=== PATIENT | female | born 1960 | race Caucasian/White ===

== ENCOUNTER 2023-06-29 09:54 | Outpatient (OUT) | payer OTHER, SELFPAY ==
[2023-06-29 10:13] LABS: Basophils Percent Auto 0.4 % (0.2-2.0); Eosinophils Absolute Auto 0.3 10^3/uL (0.0-0.7); Eosinophils Percent Auto 4.7 % (0.9-7.0); Hematocrit 39.4 % (36.0-48.0); Hemoglobin 12.9 g/dL (12.0-16.0); Immature Granulocytes Abs Auto 0.01 10^3/uL (0.00-0.03); Immature Granulocytes Pct Auto 0.1 % (0.0-0.5); Lymphocytes Absolute Auto 1.7 10^3/uL (1.2-3.8); Mean Corpuscular HGB Conc 32.7 g/dL (29.9-35.2); Mean Corpuscular Hemoglobin 29.5 pg (26.7-34.0); Mean Platelet Volume 9.3 fL (9.5-13.5); Monocytes Absolute Auto 0.7 10^3/uL (0.3-0.8); Monocytes Percent Auto 9.8 % (1.7-12.0); Neutrophils Absolute Auto 4.1 10^3/uL (1.4-6.5); Platelet Count 248 10^3/uL (150-450); Red Blood Count 4.38 10^6/uL (4.20-5.40); Red Cell Distribution Width 12.8 % (11.0-15.0); White Blood Count 6.8 10^3/uL (4.0-11.0)
[2023-06-29 10:37] LABS: Estimated Average Glucose 128 mg/dL; Glycohemoglobin A1C 6.1 % (4.5-6.2)
[2023-06-29 11:16] LABS: Alanine Aminotransferase 25 U/L (14-59); Albumin Globulin Ratio 1.1; Albumin Level 3.9 g/dL (3.4-5.0); Alkaline Phosphatase 63 U/L (46-116); Aspartate Amino Transferase 17 U/L (15-37); BUN Creatinine Ratio 41.9; Bilirubin Direct 0.2 mg/dL (0.0-0.2); Bilirubin Total 1.4 mg/dL (0.2-1.0); Calcium 9.2 mg/dL (8.5-10.1); Carbon Dioxide 32.9 mmol/L (21.0-32.0); Chloride 102 mmol/L (98-107); Chol HDL Ratio 2.4; Cholesterol 159 mg/dL (<=200); Estimated GFR (African America >60 (>=60); Estimated GFR (Non-African Ame >60 (>=60); Globulin 3.7 g/dL; Glucose 102 mg/dL (74-106); HDL Cholesterol 66 mg/dL (40-60); Potassium 3.9 mmol/L (3.5-5.1); Sodium 138 mmol/L (136-145); Thyroid Stimulating Hormone 0.841 uIU/mL (0.358-3.740); Total Protein 7.6 g/dL (6.4-8.2); Triglycerides 114 mg/dL (<=150); VLDL CHOLESTEROL 22.8 mg/dL
== END 2023-06-29 09:55 | disposition home or self-care (01) ==
PROVIDERS: PCP Family Medicine; Visit Provider Family Medicine
DX: Z00.00 Encounter for general adult medical examination without abnormal findings (principal)
CPT/HCPCS: 36415; 80048; 80061; 80076; 83036; 84443; 85025

== ENCOUNTER 2023-11-23 07:55 | Outpatient (OUT) | payer OTHER, SELFPAY ==
--- NOTE | 2023-11-23 08:08 | CT_ITS ---
[address] [address] Patient Name: TATY RICE MRN: [id number] date: 1960 Sex: F Assigned Patient Location: LAB Current Patient Location: LAB Accession/Order Number: [id number] Exam Date: 11/23/2023 09:28 Report Date: 11/23/2023 11:34 At the request of: NON-STAFF PHYSICIAN Procedure: CT abdomen pelvis w con EXAMINATION: CT abdomen pelvis w con HISTORY: Generalized Abdominal Pain R10.84 COMPARISON: CT abdomen pelvis 03/16/2022 TECHNIQUE: Axial, Coronal, and Sagittal images were obtained without and/or with IV contrast as indicated by examination type. Dose reduction techniques were achieved by using automated exposure control and/or adjustment of mA and/or kV according to patient size and/or use of iterative reconstruction technique. FINDINGS: LUNG BASES: No visible pulmonary or pleural disease. LIVER: No enlargement, atrophy, suspicious density, or significant focal lesion. BILIARY: No dilatation or calcification. PANCREAS: No lesion, fluid collection, or abnormal duct dilatation. SPLEEN: No enlargement or focal lesion. ADRENALS: No mass or enlargement. KIDNEYS: Stable benign-appearing right renal cyst. No mass, obstruction, or calcification. BOWEL/MESENTERY: Normal appendix. A few diverticula arising from sigmoid colon without acute inflammatory changes. No visible mass, obstruction, or bowel wall thickening. AORTA/VASCULAR: No aneurysm or dissection. RETROPERITONEUM: No mass or adenopathy. LYMPH NODES: No adenopathy. URINARY BLADDER: No visible focal wall thickening, lesion, or calculus. PELVIC ORGANS: No visible mass. Pelvic organs appropriate for patient age. ABDOMINAL WALL: Small fat filled inguinal hernias bilaterally without strangulation. BONES: No bony lesion or fracture. OTHER: Negative. CT/CT abdomen pelvis w con IMPRESSION: 1. No abnormal or suspicious findings to account for patient's symptoms. Electronically authenticated by: KATHERINE SANTOS Date: 11/23/2023 11:34
[2023-11-23 08:19] LABS: Estimated GFR (African America >60 (>=60); Estimated GFR (Non-African Ame >60 (>=60)
== END 2023-11-23 07:56 | disposition home or self-care (01) ==
LOC: LAB 07:57
PROVIDERS: PCP Family Medicine
DX: R10.84 Generalized abdominal pain (principal)
CPT/HCPCS: 36415; 74177; 82565; 84520; Q9967

== ENCOUNTER 2023-11-29 15:41 | Outpatient (OUT) | payer OTHER, SELFPAY ==
--- NOTE | 2023-11-29 15:44 | MM_ITS ---
Patient Name: TATY RICE MR#: [id number] : 1960 Exam Date: 11/29/2023 Ordering Doctor: DR NANCY ALVAREZ . RADIOLOGY REPORT PROCEDURE: MM TOMOSYNTHESIS SCREENING BI COMPARISON: MG MAMM SCREEN 3D ZACK CAD, 01/10/2022. INDICATIONS: screening Calculator Name NCI Breast Cancer Risk Assessment Tool 5 Year Breast Cancer Risk 1.90% Lifetime Breast Cancer Risk 8.10% Personal Breast Cancer No Personal Ovarian Cancer No Treatments None Family Cancers Aunt-maternal with breast cancer at age 65; Aunt-paternal with colon cancer at age 70. LOCATION: [facility] BREAST COMPOSITION: Scattered areas fibroglandular density. FINDINGS: DIAGNOSTIC CATEGORY 2--BENIGN FINDING. NO CHANGE FROM COMPARISON. Scattered benign-appearing nodules are present. Scattered benign-appearing calcifications are present. Scattered benign-appearing lymph nodes are present. RIGHT BREAST: No significant suspicious finding. LEFT BREAST: No significant suspicious finding. RECOMMENDATIONS: ROUTINE MAMMOGRAM AND CLINICAL EVALUATION IN 12 MONTHS. PLEASE NOTE: A NORMAL MAMMOGRAM DOES NOT EXCLUDE THE POSSIBILITY OF BREAST CANCER. A CLINICALLY SUSPICIOUS PALPABLE LUMP SHOULD BE BIOPSIED. Dictated by: Josemanuel Sun MD on 11/30/2023 at 07:49 Approved by: Josemanuel Sun MD on 11/30/2023 at 07:51
--- OUTSIDE RECORDS SUMMARY | 2023-11-29 16:02 | XMS_ITS | CCD ---
Author Name Unknown Address [address] [place] [address] Organization [facility] Care Team Providers Care Statistics Tutor Name Role Phone [address]6877, OSCAR CAICEDO Attending Unava ilable KARASIK, GARRETT Attending Unavailable NILL, JOHN Davis Attending Unavailable KARASIK, GARRETT Attending Unavailable KARASIK, DR TUCKER Attending Unavailable NADERER, DR BLADIMIR Nicolas Primary Care Unavailable KARASIK, DR TUCKER Admitting Unavailable KARASIK, DR TUCKER Consulting Unavailable NADERER, DR BLADIMIR Nicolas Consulting Unavailable KARASIK, DR TUCKER Procedure Practitioner Unava ilable DORKOSKLASHAE, AL Consulting Unavailable MCCORNACKKATHERINE Consulting Unavailable NADERER, DR BLADIMIR Nicolas Primary Care Unavailable KARASIK, DR TUCKER Attending Unavailable KARASIK, DR TUCKER Admitting Unavailable KARASIK, DR TUCKER Consulting Unavailable AGUBOSIM, NATHAN Consulting Unavailable LONG, TARUN Consulting Unavailable NILL, DR LOPEZ Attending Unavailable NADERER, DR BLADIMIR Nicolas Primary Care Unavailable NILL, DR LOPEZ Admitting Unavailable NILL, DR LOPEZ Consulting Unavailable AGUBOSIM, NATHAN Consulting Unavailable DORKOSKIE, AL Consulting Unavailable NADERER, DR BLADIMIR Nicolas Primary Care Unavailable KARASIK, DR TUCKER Consulting Unavailable KARASIK, DR TUCKER Admitting Unavailable KARASIK, DR TUCKER Attending Unavailable NADERER, DR BLADIMIR Nicolas Primary Care Unavailable KARASIK, DR TUCKER Admitting Unavailable KARASIK, DR TUCKER Attending Unavailable KARASIK, DR TUCKER Consulting Unavailable NADERER, DR BLADIMIR Nicolas Primary Care Unavailable KARASIK, DR TUCKER Attending Unavailable KARASIK, DR TUCKER Admitting Unavailable KARASIK, DR TUCKER Consulting Unavailable NADERER, DR BLADIMIR Nicolas Primary Care Unavailable KARASIK, DR TUCKER Attending Unavailable KARASIK, DR TUCKER Admitting Unavailable KARASIK, DR TUCKER Consulting Unavailable KARASIK, DR TUCKER Attending Unavailable KARASIK, DR TUCKER Admitting Unavailable KARASIK, DR TUCKER Consulting Unavailable NADERER, DR BLADIMIR Nicolas Primary Care Unavailable ZIEBER, DR KATHERINE Davis Consulting Unavailable MISC, DR DEL RIO Attending Unavailable NADERER, DR BLADIMIR Nicolas Primary Care Unavailable MISC, DR DEL RIO Admitting Unavailable MISC, DR DEL RIO Consulting Unavailable NADERER, DR BLADIMIR Nicolas Primary Care Unavailable KARASIK, DR TUCKER Attending Unavailable KARASIK, DR TUCKER Consulting Unavailable KARASIK, DR TUCKER Admitting Unavailable WEST, DR REGINA Sarmiento Consulting Unavailable NADERER, DR BLADIMIR Nicolas Primary Care Unavailable KARASIK, DR TUCKER Attending Unavailable KARASIK, DR TUCKER Admitting Unavailable KARASIK, DR TUCKER Consulting Unavailable WEST, DR REGINA Sarmiento Consulting Unavailable NADERER, DR BLADIMIR Nicolas Consulting Unavailable NADERER, DR BLADIMIR Nicolas Attending Unavailable NADERER, DR BLADIMIR Nicolas Admitting Unavailable NADERER, DR LBADIMIR Nicolas Primary Care Unavailable LLOYD, MISTY Consulting Unavailable Allergies Allergy Classification Reported Allergen(s) Allergy Type Date of Onset Reaction(s) Facility (1 source) Desonide Drug Allergy [facility] Repository Problems Active Problems Problem Classification Problem Date Documented Da te Episodic/Chronic Cancer of uterus (1 source) Malignant neoplasm of endometrium; Translations: [MALIGNANT NEOPLASM OF ENDOMETRIUM] Onset: 06-27-2022 Chronic Congestive heart failure; nonhypertensive (1 source) Chronic diastolic (congestive) heart failure; Translations: [CHRONIC DIASTOLIC HEART FAILURE] Onset: 06-27-2022 Chronic Deficiency and other anemia (5 sources) Anemia, unspecified; Translations: [ANEMIA UNSPECIFIED] Onset: 06-02-2022 Episodic Disorders of lipid metabolism (1 source) Hyperlipidemia, unspecified; Translations: [HYPERLIPIDEMIA UNSPECIFIED] Onset: 06-27-2022 Chronic Essential hypertension (1 source) Essential (primary) hypertension; Translations: [ESSENTIAL PRIMARY HYPERTENSION] Onset: 06-27-2022 Chronic Heart valve disorders (1 source) Nonrheumatic aortic (valve) insufficiency; Translations: [NONRHEUMATIC AORTIC INSUFFICIENCY] Onset: 06-27-2022 Chronic Hypertension with complications and secondary hypertension (1 source) Hypertensive heart disease with heart failure; Translations: [HTN HEART DISEASE W/HEART FAIL] Onset: 06-27-2022 Chronic Menopausal disorders (5 sources) Postmenopausal bleeding; Translations: [POSTMENOPAUSAL BLEEDING] Onset: 02-21-2022 Chronic Other female genital disorders (5 sources) Abnormal uterine and vaginal bleeding, unspecified; Translations: [ABNORMAL UTERINE VAGINAL BLEED UNS] Onset: 05-08-2022 Chronic Other nutritional; endocrine; and metabolic disorders (1 source) Obesity, unspecified; Translations: [OBESITY UNSPECIFIED] Onset: 06-27-2022 Chronic Other nutritional; endocrine; and metabolic disorders (1 source) Body mass index (BMI) 33.0-33.9, adult; Translations: [BODY MASS INDEX BMI 33.0-33.9 ADULT] Onset: 06-27-2022 Chronic Other nutritional; endocrine; and metabolic disorders (1 source) Body mass index (BMI) 30.0-30.9, adult; Translations: [BODY MASS INDEX BMI 30.0-30.9 ADULT] Onset: 05-03-2022 Chronic Other screening for suspected conditions (not mental disorders or infectious disease) (1 source) Abnormal findings on diagnostic imaging of other specified body structures; Translations: [ABNORML FIND DX IMG OT BODY STRUC] Onset: 06-27-2022 Chronic Unclassified (1 source) CONTACT W/AND (SUSP) EXPOS COVID-19; Translations: [CONTACT W/AND (SUSP) EXPOS COVID-19] Onset: 06-06-2022 Unclassified (1 source) ESOPHAGITIS UNSPEC WITHOUT BLEEDING; Translations: [ESOPHAGITIS UNSPEC WITHOUT BLEEDING] Onset: 05-03-2022 Past or Other Problems Problem Classification Problem Date Documented Da te Episodic/Chronic Abdominal pain (7 sources) Pelvic and perineal pain; Translations: [Lower abdominal pain, unspecified] Onset: 03-17-2022 Episodic Gastritis and duodenitis (1 source) Gastritis, unspecified, without bleeding; Translations: [GASTRITIS UNS WITHOUT BLEEDING] Onset: 05-03-2022 Episodic Heart valve disorders (1 source) Cardiac murmur, unspecified; Translations: [CARDIAC MURMUR UNSPECIFIED] Onset: 06-27-2022 Episodic Nausea and vomiting (1 source) Nausea; Translations: [NAUSEA] Onset: 05-03-2022 Episodic Other aftercare (1 source) Other chcf (current) drug therapy; Translations: [OTH SUPPLY PLANNER CURRENT DRUG THERAPY] Onset: 06-27-2022 Episodic Other and unspecified benign neoplasm (1 source) Benign neoplasm of sigmoid colon; Translations: [BENIGN NEOPLASM OF SIGMOID COLON] Onset: 05-03-2022 Episodic Other screening for suspected conditions (not mental disorders or infectious disease) (4 sources) Encounter for screening mammogram for malignant neoplasm of breast; Translations: [ENC SCR MAMMO MALIG NEOPLASM BREAST] Onset: 01-10-2022 Episodic Residual codes; unclassified (1 source) Asymptomatic menopausal state; Translations: [ASYMPTOMATIC MENOPAUSAL STATE] Onset: 01-12-2022 Episodic Residual codes; unclassified (1 source) Family history of malignant neoplasm of breast; Translations: [FAMILY HX MALIG NEOPLASM OF BREAST] Onset: 01-12-2022 Episodic Residual codes; unclassified (1 source) Family history of malignant neoplasm of digestive organs; Translations: [FAM HX MALIG NEOPLASM DIGESTIV ORGN] Onset: 01-12-2022 Episodic Results Test Name Value Interpretation Reference Range Facility CBC AUTO DIFFon 10-11-2022 BASO # 0.0 103/ul Normal 0.0-0.1 [facility] Comment on above: Performed By: #### L IPID, TSH, LIVER #### [facility] [address] [address] [address] Stu Cabezas Basophils/100 WBC (Bld) 0.6 % Normal 0.2-2.0 [facility] Comment on above: Performed By: #### L IPID, TSH, LIVER #### [facility] [address] [address] [address] Stu Cabezas EO # 0.3 103/ul Normal 0.0-0.7 [facility] Comment on above: Performed By: #### L IPID, TSH, LIVER #### [facility] [address] [address] [address] Stu Cabezas Eosinophils/100 WBC (Bld) 4.3 % Normal 0.9-7.0 [facility] Comment on above: Performed By: #### L IPID, TSH, LIVER #### [facility] [address] [address] [address] Stu Cabezas Erythrocyte distribution width (RBC) [Ratio] 12.2 % Normal 11.0-15.0 [facility] Comment on above: Performed By: #### L IPID, TSH, LIVER #### [facility] [address] [place] [address] Dr. Stu Cabezas Hematocrit (Bld) [Volume fraction] 36.4 % Normal 36.0-48.0 [facility] Comment on above: Performed By: #### L IPID, TSH, LIVER #### [facility] [address] [place] [address] Dr. Stu Cabezas Hemoglobin (Bld) [Mass/Vol] 12.0 g/dL Normal 12.0-16.[address] [facility] Comment on above: Performed By: #### L IPID, TSH, LIVER #### [facility] [address] [place] [address] Dr. Stu Cabezas IG # 0.01 10e3/ul Normal 0.00-0.03 [facility] Comment on above: Performed By: #### L IPID, TSH, LIVER #### [facility] [address] [place] [address] Dr. Stu Cabezas IG % 0.2 % Normal 0.0-0.5 [facility] Comment on above: Performed By: #### L IPID, TSH, LIVER #### [facility] [address] [place] [address] Dr. Stu Cabezas LYMPH # 1.9 103/ul Normal 1.2-3.[address] [facility] Comment on above: Performed By: #### L IPID, TSH, LIVER #### [facility] [address] [place] [address] Dr. Stu Cabezas Lymphocytes/100 WBC (Bld) 29.5 % Normal 20.5-60.[address] [facility] Comment on above: Performed By: #### L IPID, TSH, LIVER #### [facility] [address] [place] [address] Dr. Stu Cabezas MANUAL DIFF REQ NO Normal [facility] Comment on above: Performed By: #### L IPID, TSH, LIVER #### [facility] [address] [address] [address] Stu Cabezas MCH (RBC) [Entitic mass] 29.8 pg Normal 26.7-34.[address] [facility] Comment on above: Performed By: #### L IPID, TSH, LIVER #### [facility] [address] [place] [address] Dr. Stu Cabezas MCHC (RBC) [Mass/Vol] 33.0 g/dL Normal 29.9-35.[address] [facility] Comment on above: Performed By: #### L IPID, TSH, LIVER #### [facility] [address] [address] [address] Stu Cabezas MCV (RBC) [Entitic vol] 90.3 fL Normal 81.0-99.[address] [facility] Comment on above: Performed By: #### L IPID, TSH, LIVER #### [facility] [address] [place] [address] Dr. Stu Cabezas MONO # 0.7 103/ul Normal 0.3-0.[address] [facility] Comment on above: Performed By: #### L IPID, TSH, LIVER #### [facility] [address] [place] [address] Dr. Stu Cabezas Monocytes/100 WBC (Bld) 10.2 % Normal 1.7-12.[address] [facility] Comment on above: Performed By: #### L IPID, TSH, LIVER #### [facility] [address] [place] [address] Dr. Stu Cabezas NEUT # 3.6 103/ul Normal 1.4-6.[address] [facility] Comment on above: Performed By: #### L IPID, TSH, LIVER #### [facility] [address] [place] [address] Dr. Stu Cabezas Neutrophils/100 WBC (Bld) 55.2 % Normal 43.0-75.[address] [facility] Comment on above: Performed By: #### L IPID, TSH, LIVER #### [facility] [address] [place] [address] Dr. Stu Cabezas Platelet mean volume (Bld) [Entitic vol] 9.2 fL Critically low 9.5-13.[address] [facility] Comment on above: Performed By: #### L IPID, TSH, LIVER #### [facility] [address] [address] [address] Stu Cabezas PLT 242 103/ul Normal 150-450 [facility] Comment on above: Performed By: #### L IPID, TSH, LIVER #### [facility] [address] [address] [address] Stu Cabezas RBC 4.03 106/ul Critically low 4.20-5.40 [facility] Comment on above: Performed By: #### L IPID, TSH, LIVER #### [facility] [address] [place] [address] Dr. Stu Cabezas WBC 6.5 103/ul Normal 4.0-11.[address] [facility] Comment on above: Performed By: #### L IPID, TSH, LIVER #### [facility] [address] [place] [address] Dr. Stu Cabezas FERRITINon 10-11-2022 Ferritin [Mass/Vol] 33.0 ng/mL Normal 8.0-252.0 [facility] Comment on above: Performed By: #### L IPID, TSH, LIVER #### [facility] [address] [place] [address] Dr. Stu Cabezas IRON AND TIBCon 10-11-2022 % SATURATION 13.1 % Normal [facility] Comment on above: Performed By: #### L IPID, TSH, LIVER #### [facility] [address] [place] [address] Dr. Stu Cabezas Iron [Mass/Vol] 40.0 ug/dL Critically low 50.0-170.0 [facility] Comment on above: Performed By: #### L IPID, TSH, LIVER #### [facility] [address] [place] [address] Dr. Stu Cabezas TIBC DIRECT 306.0 ug/dL Normal 250.0-450.0 [facility] Comment on above: Performed By: #### L IPID, TSH, LIVER #### [facility] [address] [place], [place] [address] Dr. Stu Cabezas VIT B12 AND FOLATEon 022 Cobalamin (Vitamin B12) [Mass/Vol] 869.0 pg/mL Normal 193.0-986.0 [facility] Comment on above: Performed By: #### L IPID, TSH, LIVER #### [facility] [address] [place], [place] [address] Dr. Stu Cabezas FOLATE 19.60 ng/mL Normal 8.60-58.90 [facility] Comment on above: Performed By: #### L IPID, TSH, LIVER #### [facility] [address] [place], [place] [address] Dr. Stu Cabezas Addendum Reporton 09-28-[address] [facility] Department of Pathology [address] [place] [address] [phone] Name: TATY RICE : 1960 [facility] [id number] Number: Gender Female [facility] : n: Admit 62 years Attending GARRETT ARBOLEDA Age: Provider: Ordering GARRETT ARBOLEDA Provider: [facility] Surgical Pathology Report ng: ACCESSION: COLLECTED DATE/TIME: RECEIVED DATE/TIME: PATHOLOGIST: [id number] 06/05/2022 11:30 EDT 06/05/2022 11:[address], [facility] Surgical Path Addendum Report Report Type: C-1100 This case was reviewed and the paraffin block (A2) was selected by the pathologist on 08/03/22 and submitted to [employer] for TumorNext analysis. The results have been reviewed by the pathologist. COMMENT: The [employer] report (#[id number] can be viewed under Documents in the patient's electronic medical record. CPT CODE: 52096 MARIFER GRACIA PATHOLOGIST (Electronic Signature) Date Verified [facility] Addendum Report Report Type: C-1100 This case was reviewed and the paraffin block (A2) was selected by the pathologist on 07/11/2022 and submitted to [facility] for MLH1 methylation analysis. 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 COMMENT: The [facility] report (#[id number]) can be viewed under Documents in the patient's electronic medical record. ____ Print 09/28/2022 12:40 EDT Number: Date/Time: [facility] Department of Pathology [address] [place] [phone] Name: TATY RICE : 1960 [facility] [id number] Number: Gender Female [facility] : n: Admit 62 years Attending GARRETT ARBOLEDA Age: Provider: Ordering GARRETT ARBOLEDA Provider: [facility]i Surgical Pathology Report ng: ACCESSION: COLLECTED DATE/TIME: RECEIVED DATE/TIME: PATHOLOGIST: [id number] 06/05/2022 11:30 EDT 06/05/2022 11:[address], [facility] Surgical Path Addendum Report CPT CODE: 87999 MARIFER GRACIA PATHOLOGIST (Electronic Signature) Date Verified 07/27/2022 Final Diagnosis Report for [place], [place] CERVIX, UTERUS, BILATERAL FALLOPIAN TUBES, BILATERAL OVARIES; HYSTERECTOMY, BILATERAL SALPINGO OOPHORECTOMY: - INVASIVE ENDOMETRIAL CARCINOMA, ENDOMETRIOID TYPE WITH MUCINOUS FEATURES, FIGO GRADE 2, SEE NOTE. - LEIOMYOMATA AND ADENOMYOSIS. - BENIGN BILATERAL OVARIES WITHIN NORMAL LIMITS. - BENIGN BILATERAL FALLOPIAN TUBES WITH PARATUBAL CYSTS AND CHRONIC SALPINGITIS. NOTE: The invasive carcinoma invades into the myometrium (less than 50%). By immunohistochemical studies, the tumor is positive for ER, SC, CEA monoclonal (patchy), but negative for P504S. The findings support the diagnosis. Intradepartmental consultation was obtained. Immunostains for Mismatch Repair protein were performed on A2. Intradepartmental consultation was obtained with diagnostic concurrence. DNA MISMATCH REPAIR PROTEIN ANALYSIS Marker Result Description MLH-1 Not Expressed (0% tumor nuclear positivity) DNA Mismatch Repair Protein MSH-2 Expressed (95% tumor nuclear positivity) DNA Mismatch Repair Protein ____ Print 09/28/2022 12:40 EDT Number: Date/Time: [facility] Department of Pathology [address] [place] [phone] Name: TATY RICE : 1960 [facility] [id number] Number: Gender Female [facility] : n: Admit 62 years Attending GARRETT ARBOLEDA Age: Provider: Ordering GARRETT ARBOLEDA Provider: [facility]i Surgical Pathology Report ng: ACCESSION: COLLECTED DATE/TIME: RECEIVED DATE/TIME: PATHOLOGIST: [id number] 06/05/2022 11:30 EDT 06/05/2022 11:[address], [facility] Final Diagnosis MSH-6 Expressed (95% tumor nuclear positivity) DNA Mismatch Repair Protein PMS2 Not Expressed (0% tumor nuclear positivity) DNA Mismatch Repair Protein INTERPRETATION: These results show absent expression of the mismatch repair proteins MLH1 and PMS2, which is suggestive of a deficient DNA mismatch repair function, and is associated with microsatellite instability. Known positive cells or tissues are employed with each test and examined to ensure positivity. Positive and negative internal controls, if present, react appropriately. CANCER CASE SUMMARY SPECIMEN Procedure Total hysterectomy and bilateral salpingo-oophorectomy Specimen Integrity Other (specify): Nonintact. TUMOR Tumor Site Endometrium Tumor Size Greatest dimension in Centimeters (cm): 5 cm (more content not included)... Normal [facility] Comment on above: Performed By: #### [id number] #### [facility] [address] [place] [id number] Bee Keeper: Sb Valiente MD [facility] [id number] 09-06-2022 [facility] Sendout See Report Normal [facility] Comment on above: Order Comment: MLH1 Promotor Methylation Performed By: #### 1 [id number] #### [facility] [address] [place] [id number] Bee Keeper: Sb Valiente MD [facility] [id number] 08-16-2022 [facility] Sendout See Report Normal [facility] Comment on above: Order Comment: MLH1 Promotor Methylation Lab [place] to stone Hammer Performed By: #### 1 [id number] #### [facility] [address] [place] [id number] Bee Keeper: Sb Valiente MD Addendum Reporton 07-27-[address] [facility] Department of Pathology [address] [place] [phone] Name: TATY RICE : 1960 [facility] [id number] Number: Gender Female Yolanda SAENZUE : n: Admit 62 years Attending GARRETT ARBOLEDA Age: Provider: GARRETT Cardoso Provider: [facility] Report ng: ACCESSION: COLLECTED DATE/TIME: RECEIVED DATE/TIME: PATHOLOGIST: [id number] 06/05/2022 11:30 EDT 06/05/2022 11:[address], [facility] Surgical Path Addendum Report Report Type: C-1100 This case was reviewed and the paraffin block (A2) was selected by the pathologist on 07/11/2022 and submitted to [facility] for MLH1 methylation analysis. 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 COMMENT: The [facility] report (#[id number]) can be viewed under Documents in the patient's electronic medical record. CPT CODE: 16010 MARIFER GRACIA PATHOLOGIST (Electronic Signature) Date Verified 07/27/2022 Final Diagnosis Report for [facility], [place], [place] CERVIX, UTERUS, BILATERAL FALLOPIAN TUBES, BILATERAL OVARIES; HYSTERECTOMY, BILATERAL SALPINGO OOPHORECTOMY: - INVASIVE ENDOMETRIAL CARCINOMA, ENDOMETRIOID TYPE WITH MUCINOUS FEATURES, FIGO GRADE 2, SEE NOTE. - LEIOMYOMATA AND ADENOMYOSIS. - BENIGN BILATERAL OVARIES WITHIN NORMAL LIMITS. - BENIGN BILATERAL FALLOPIAN TUBES WITH PARATUBAL CYSTS AND CHRONIC SALPINGITIS. NOTE: The invasive carcinoma invades into the myometrium (less than 50%). By immunohistochemical studies, the tumor is positive for ER, SC, CEA monoclonal (patchy), but ____ Print 07/27/2022 10:09 EDT Number: Date/Time: [facility] Department of Pathology [address] [place] [phone] Name: TATY RICE : 1960 [facility] [id number] Number: [facility] 62 years Attending GARRETT ARBOLEDA Age: Provider: Ordering GARRETT ARBOLEDA Provider: Consulti Surgical Pathology Report ng: ACCESSION: COLLECTED DATE/TIME: RECEIVED DATE/TIME: PATHOLOGIST: [id number] 06/05/2022 11:30 EDT 06/05/2022 11:[address], [facility] Final Diagnosis negative for P504S. The findings support the diagnosis. Intradepartmental consultation was obtained. Immunostains for Mismatch Repair protein were performed on A2. Intradepartmental consultation was obtained with diagnostic concurrence. DNA MISMATCH REPAIR PROTEIN ANALYSIS Marker Result Description MLH-1 Not Expressed (0% tumor nuclear positivity) DNA Mismatch Repair Protein MSH-2 Expressed (95% tumor nuclear positivity) DNA Mismatch Repair Protein MSH-6 Expressed (95% tumor nuclear positivity) DNA Mismatch Repair Protein PMS2 Not Expressed (0% tumor nuclear positivity) DNA Mismatch Repair Protein INTERPRETATION: These results show absent expression of the mismatch repair proteins MLH1 and PMS2, which is suggestive of a deficient DNA mismatch repair function, and is associated with microsatellite instability. Known positive cells or tissues are employed with each test and examined to ensure positivity. Positive and negative internal controls, if present, react appropriately. CANCER CASE SUMMARY ____ Print 07/27/2022 10:09 EDT Number: Date/Time: [facility] Department of Pathology [address] [place] [phone] Name: TATY RICE : 1960 [facility] [id number] Number: [facility] n: Admit 62 years Attending GARRETT ARBOLEDA Age: Provider: Ordering GARRETT ARBOLEDA Provider: Consulti Surgical Pathology Report ng: ACCESSION: COLLECTED DATE/TIME: RECEIVED DATE/TIME: PATHOLOGIST: [id number] 06/05/2022 11:30 EDT 06/05/2022 11:[address], [facility] Final Diagnosis SPECIMEN Procedure Total hysterectomy and bilateral salpingo-oophorectomy Specimen Integrity Other (specify): Nonintact. TUMOR Tumor Site Endometrium Tumor Size Greatest dimension in Centimeters (cm): 5 cm Histologic Type Endometrioid carcinoma, NOS Mismatch repair -deficient endometrioid carcinoma Histologic Grade FIGO grade 2 Myometrial Invasion Present Depth of Myometrial Invasion Specify in Millimeters (mm): 7 mm Myometrial Thickness Specify in Millimeters (mm): 17 mm Percentage of Myometrial Invasion Estimated to be less than 50% Uterine Serosa Involvement Not identified Lower Uterine Segment Involvement Not identified Cervical Stroma Involvement __ (more content not included)... Normal [facility] Comment on above: Performed By: #### [id number] #### [facility] [address] [place] [id number] Bee Keeper: Sb Valiente MD SURGICAL PATH REPORTon 06-[address] [facility] Department of Pathology [address] [place] [phone] Name: TATY RICE : 1960 [facility] [id number] Number: Gender: Female Location: [facility] Admit 62 years Attending GARRETT ARBOLEDA Age: Provider: Ordering GARRETT ARBOLEDA Provider: Consulting: Surgical Pathology Report ACCESSION: COLLECTED DATE/TIME: RECEIVED DATE/TIME: PATHOLOGIST: [id number] 06/05/2022 11:30 EDT 06/05/2022 11:[address], [facility] Final Diagnosis Report for [facility], [place], [place] CERVIX, UTERUS, BILATERAL FALLOPIAN TUBES, BILATERAL OVARIES; HYSTERECTOMY, BILATERAL SALPINGO OOPHORECTOMY: - INVASIVE ENDOMETRIAL CARCINOMA, ENDOMETRIOID TYPE WITH MUCINOUS FEATURES, FIGO GRADE 2, SEE NOTE. - LEIOMYOMATA AND ADENOMYOSIS. - BENIGN BILATERAL OVARIES WITHIN NORMAL LIMITS. - BENIGN BILATERAL FALLOPIAN TUBES WITH PARATUBAL CYSTS AND CHRONIC SALPINGITIS. NOTE: The invasive carcinoma invades into the myometrium (less than 50%). By immunohistochemical studies, the tumor is positive for ER, SC, CEA monoclonal (patchy), but negative for P504S. The findings support the diagnosis. Intradepartmental consultation was obtained. Immunostains for Mismatch Repair protein were performed on A2. Intradepartmental consultation was obtained with diagnostic concurrence. DNA MISMATCH REPAIR PROTEIN ANALYSIS Marker Result Description MLH-1 Not Expressed (0% tumor nuclear positivity) DNA Mismatch Repair Protein MSH-2 Expressed (95% tumor nuclear positivity) DNA Mismatch Repair Protein MSH-6 Expressed (95% tumor nuclear positivity) DNA Mismatch Repair Protein PMS2 Not Expressed (0% tumor nuclear positivity) DNA Mismatch Repair Protein ____ Print Date/ 06/07/2022 13:12 EDT Number: Time: [facility] Department of Pathology [address] [place] [id number] Name: TATY RICE : 1960 [facility] [id number] Number: Gender: Female Location: [facility] Admit 62 years Attending GARRETT ARBOLEDA Age: Provider: Ordering GARRETT ARBOLEDA Provider: Consulting: Surgical Pathology Report ACCESSION: COLLECTED DATE/TIME: RECEIVED DATE/TIME: PATHOLOGIST: [id number] 06/05/2022 11:30 EDT 06/05/2022 11:[address], [facility] Final Diagnosis INTERPRETATION: These results show absent expression of the mismatch repair proteins MLH1 and PMS2, which is suggestive of a deficient DNA mismatch repair function, and is associated with microsatellite instability. Known positive cells or tissues are employed with each test and examined to ensure positivity. Positive and negative internal controls, if present, react appropriately. CANCER CASE SUMMARY SPECIMEN Procedure Total hysterectomy and bilateral salpingo-oophorectomy Specimen Integrity Other (specify): Nonintact. 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 Department of Pathology [address] [place] [phone] Name: TATY RICE : 1960 [facility] [id number] Number: Gender: Female Location: [facility] Admit 62 years Attending GARRETT ARBOLEDA Age: Provider: Ordering GARRETT ARBOLEDA Provider: Consulting: Surgical Pathology Report ACCESSION: COLLECTED DATE/TIME: RECEIVED DATE/TIME: PATHOLOGIST: [id number] 06/05/2022 11:30 EDT 06/05/2022 11:[address], [facility] Final Diagnosis Depth of Myometrial Invasion Specify in Millimeters (mm): 7 mm Myometrial Thickness Specify in Millimeters (mm): 17 mm Percentage of Myometrial Invasion Estimated to be less than 50% Uterine Serosa Involvement Not identified Lower Uterine Segment Involvement Not identified Cervical Stroma Involvement Not identified Peritoneal / Ascitic Fluid Not submitted / unknown Lymphovascular Invasion (LVI) Not identified MARGINS Margin Status All margins negative for invasive carcinoma REGIONAL LYMPH NODES Regional Lymph Node Status Not applicable (no regional lymph nodes submitted or found) DISTANT METASTASIS Not applicable PATHOLOGIC STAGE CLASSIFICATION (pTNM, AJCC 8th Edition) TNM Descriptors (select all that apply) Not applicable ____ Print Date/ (more content not included)... Normal [facility] Comment on above: Performed By: #### [id number] #### [facility] [id number] [id number] Bee Keeper: Sb Valiente MD BUNon 06-06-2022 Urea nitrogen [Mass/Vol] 22.0 mg/dL Critically high 7.0-18.0 [facility] Comment on above: Performed By: #### C PANCHO, BUN #### [facility] [address] [place] [address] Dr. Stu Cabezas CBC AUTO DIFFon 06-06-2022 BASO # 0.0 103/ul Normal 0.0-0.[address] [facility] Comment on above: Performed By: #### L IPID, TSH, LIVER #### [facility] [address] [place] [address] Dr. Stu Cabezas Basophils/100 WBC (Bld) 0.1 % Critically low 0.2-2.0 [facility] Comment on above: Performed By: #### L IPID, TSH, LIVER #### [facility] [address] [place] [address] Dr. Stu Cabezas EO # 0.0 103/ul Normal 0.0-0.[address] [facility] Comment on above: Performed By: #### L IPID, TSH, LIVER #### [facility] [address] [place] [address] Dr. Stu Cabezas Eosinophils/100 WBC (Bld) 0.3 % Critically low 0.9-7.0 [facility] Comment on above: Performed By: #### L IPID, TSH, LIVER #### [facility] [address] [place] [address] Dr. Stu Cabezas Erythrocyte distribution width (RBC) [Ratio] 12.4 % Normal 11.0-15.[address] [facility] Comment on above: Performed By: #### L IPID, TSH, LIVER #### [facility] [address] [place] [address] Dr. Stu Cabezas Hematocrit (Bld) [Volume fraction] 27.7 % Critically low 36.0-48.[address] [facility] Comment on above: Performed By: #### L IPID, TSH, LIVER #### [facility] [address] [place] [address] Dr. Stu Cabezas Hemoglobin (Bld) [Mass/Vol] 9.2 g/dL Critically low 12.0-16.0 [facility] Comment on above: Performed By: #### L IPID, TSH, LIVER #### [facility] [address] [place] [address] Dr. Stu Cabezas IG # 0.02 10e3/ul Normal 0.00-0.03 [facility] Comment on above: Performed By: #### L IPID, TSH, LIVER #### [facility] [address] [place] [address] Dr. Stu Cabezas IG % 0.2 % Normal 0.0-0.5 [facility] Comment on above: Performed By: #### L IPID, TSH, LIVER #### [facility] [address] [place] [address] Dr. Stu Cabezas LYMPH # 2.3 103/ul Normal 1.2-3.8 [facility] Comment on above: Performed By: #### L IPID, TSH, LIVER #### [facility] [address] [place] [address] Dr. Stu Cabezas Lymphocytes/100 WBC (Bld) 23.1 % Normal 20.5-60.0 [facility] Comment on above: Performed By: #### L IPID, TSH, LIVER #### [facility] [address] [place] [address] Dr. Stu Cabezas MANUAL DIFF REQ NO Normal [facility] Comment on above: Performed By: #### L IPID, TSH, LIVER #### [facility] [address] [place] [address] Dr. Stu Cabezas MCH (RBC) [Entitic mass] 29.9 pg Normal 26.7-34.0 [facility] Comment on above: Performed By: #### L IPID, TSH, LIVER #### [facility] [address] [place] [address] Dr. Stu Cabezas MCHC (RBC) [Mass/Vol] 33.2 g/dL Normal 29.9-35.[address] [facility] Comment on above: Performed By: #### L IPID, TSH, LIVER #### [facility] [address] [place] [address] Dr. Stu Cabezas MCV (RBC) [Entitic vol] 89.9 fL Normal 81.0-99.[address] [facility] Comment on above: Performed By: #### L IPID, TSH, LIVER #### [facility] [address] [place] [address] Dr. Stu Cabezas MONO # 1.1 103/ul Critically high 0.3-0.8 [facility] Comment on above: Performed By: #### L IPID, TSH, LIVER #### [facility] [address] [place] [address] Dr. Stu Cabezas Monocytes/100 WBC (Bld) 11.1 % Normal 1.7-12.[address] [facility] Comment on above: Performed By: #### L IPID, TSH, LIVER #### [facility] [address] [place] [address] Dr. Stu Cabezas NEUT # 6.4 103/ul Normal 1.4-6.[address] [facility] Comment on above: Performed By: #### L IPID, TSH, LIVER #### [facility] [address] [place] [address] Dr. Stu Cabezas Neutrophils/100 WBC (Bld) 65.2 % Normal 43.0-75.[address] [facility] Comment on above: Performed By: #### L IPID, TSH, LIVER #### [facility] [address] [place] [address] Dr. Stu Cabezas Platelet mean volume (Bld) [Entitic vol] 9.5 fL Normal 9.5-13.[address] [facility] Comment on above: Performed By: #### L IPID, TSH, LIVER #### [facility] [address] [place] [address] Dr. Stu Cabezas PLT 250 103/ul Normal 150-[address] [facility] Comment on above: Performed By: #### L IPID, TSH, LIVER #### [facility] [address] [address] [address] Stu Cabezas RBC 3.08 106/ul Critically low 4.20-5.40 [facility] Comment on above: Performed By: #### L IPID, TSH, LIVER #### [facility] [address] [address] [address] Stu Cabezas WBC 9.8 103/ul Normal 4.0-11.0 [facility] Comment on above: Performed By: #### L IPID, TSH, LIVER #### [facility] [address] [address] [address] Stu Cabezas CREATININEon 06-06-2022 Creatinine [Mass/Vol] 1.00 mg/dL Normal 0.55-1.02 [facility] Comment on above: Performed By: #### C PANCHO, BUN #### [facility] [address] [address] [address] Stu Cabezas EGFR-AF MARSHALLESE >60 Normal >=60 [facility] Comment on above: Performed By: #### C PANCHO, BUN #### [facility] [address] [address] [address] Stu Cabezas EGFR-NON AF MARSHALLESE 56 mL/min/1.73m2 Critically low >=60 [facility] Comment on above: Performed By: #### C PANCHO, BUN #### [facility] [address] [address] [address] Stu Cabezas ECHOCARDIO M/2D COMPLETEon 0 06-06-2022 ECHOCARDIO M/2D COMPLETE Patient: TATY RICE Exam Date: 06/06/2022 : 1960 Gender:F Ordering : DR BLADIMIR ALVAREZ . Admission #: [id number] Family : DR GARRETT ARBOLEDA . Order #: [id number] CLICK HERE TO VIEW EXAM ECHOCARDIOGRAM REPORT PROCEDURE: CARDIO PULMONARY ECHOCARDIO M/2D COMP INDICATIONS: New systolic murmur, hypertension COMPARISON: None. DESCRIPTION: COMPLETE ECHOCARDIOGRAM Real-time transthoracic echocardiography with 2D, M-mode, spectral and color flow Doppler performed. QUALITY: Technical quality was good. LEFT VENTRICLE: Mild dilatation. Borderline left ventricular hypertrophy. Abnormal septal motion likely related to bundle branch block. Global LV systolic function is at the lower limits of normal. LV EF: Lower limits of normal left ventricular ejection fraction, (50%). DIASTOLIC: Grade II diastolic dysfunction. ATRIAL SEPTUM: Visually appears intact. LEFT ATRIUM: Mild dilatation. RIGHT ATRIUM: Mild dilatation. RIGHT VENTRICLE: Normal chamber size. Normal right ventricular systolic function. TRICUSPID VALVE: Normal mobility and thickness. No stenosis with trivial regurgitation. Doppler studies reveal moderately (45-60) elevated right sided pressures. RVSP is 57 mmHg MITRAL VALVE: Normal mobility and thickness. No evidence of mitral valve stenosis. Mild mitral annular calcification. Trivial mitral regurgitation. AORTIC VALVE: Normal trileaflet appearance. Normal leaflet mobility. No evidence of aortic valve stenosis. Mild to moderate aortic regurgitation. AORTIC ROOT: Normal diameter and appearance. PULMONIC VALVE: Not well visualized. No stenosis. No regurgitation. PERICARDIUM: No evidence of pericardial effusion. IVC: Collapses with inspirations. PLEURA: CONCLUSION: 1. Left ventricular systolic function is at the lower limits of normal. LVEF is 50%. 2. Normal right ventricular systolic function. 3. Grade 2 diastolic dysfunction. 4. Mild to moderate aortic regurgitation. 5. Moderately elevated right-sided pressures. RVSP is 57 mmHg. 6. No pericardial effusion. Adult Echocardiography Procedure Report Left Ventricle LVEDD (3.7 - 5.6 cm): 5.55 cm LVESD (2.2 - 4.0 cm): 4.79 cm LVIVS thickness (0.6 - 1.2 cm): 1.10 cm LVPW thickness (0.5 - 1.0 cm): 9.40 mm e': 8.88 cm/s E - e': 10.50 LVOT Area (cm2): 4.15 cm2 Peak Velocity (LVOT): 107.00 cm/s LVOT Diameter 2.30 cm Left Ventricular Ejection Fraction: 50 % Left Atrium LA Volume Index (2D A2C): 34.20 ml/m2 Left Atrium Systolic Dimension: 3.90 cm Left Atrium Systolic Area(A2C): 21.70 cm2 Left Atrium Systolic Area(A4C): 23.50 cm2 Left Atrium Systolic Volume(A2C): 03511 mm3 Left Atrium Systolic Volume(A4C): 01467 mm3 Mitral Valve MV E to A Ratio: 1 Mitral Valve A-Wave Peak Velocity: 93.30 cm/s Mitral Valve E-Wave Peak Velocity: 92.80 cm/s Deceleration Time: 256 ms Right Ventricle Aorta AO Root Diam: 3.30 cm Aortic Valve AoV Area (Peak Gonzalez): 2.11 cm2 AoV Area (VTI): 2.04 cm2 Deceleration Izard: 2610 mm/s2 Pressure Half-Time: 471 ms Peak Velocity: 419.00 cm/s Peak Gradient: 70 mm[Hg] Peak Velocity(Antegrade Flow): 214.00 cm/s Peak Gradient(Antegrade Flow): 18 mm[Hg] Mean Velocity(Antegrade Flow): 143.00 cm/s Mean Gradient(Antegrade Flow): 9 mm[Hg] Velocity Time Integral: 45.70 cm Tricuspid Valve Pulmonic Valve Peak Velocity: 137.00 cm/s Peak Gradient: 8 mm[Hg] Right Atrium Dictated by: Fidel Minor M.D. on 06/06/2022 at 18:36 Approved by: Fidel Minor M.D. on 06/06/2022 at 18:[address] [facility] Covid-19 PCR (CVDTB)on SARS-CoV-2 (COVID-19) RNA KAI+probe Ql (Unsp spec) Not detected Normal NOT DETECTED [facility] Comment on above: Result Comment: This test is not yet approved or cleared by the [place] FDA. When there are no FDA-approved or cleared tests available, and other criteria are met, FDA can make tests available under an emergency access mechanism called an Emergency Use Authorization (EUA). The EUA for this test is supported by the [place] of Health and Human Service's (HHS's) declaration that circumstances exist to justify the emergency use of in vitro diagnostics for the detection and/or diagnosis of the virus that causes COVID-19. This EUA will remain in effect (meaning this test can be used) for the duration of the COVID-19 declaration justifying emergency of IVDs, unless it is terminated or revoked by FDA (after which the test may no longer be used). When diagnostic testing is negative, the possibility of a false negative should be considered in the context of a patient's recent exposures and the presence of clinical signs and symptoms consistent with SARS-CoV-2. Performed By: #### C VDTBH #### [facility] [address] [address] [address] Stu Cabezas TYPE AND SCREENon 06-01-2022 TYPE AND SCREEN Negative Normal [facility] Comment on above: Performed By: #### L IPID, TSH, LIVER #### [facility] [address] [place] [address] Dr. Stu Cabezas CBC AUTO DIFFon 05-26-2022 BASO # 0.0 103/ul Normal 0.0-0.1 [facility] Comment on above: Performed By: #### C BC #### [facility] [address] [place] [address] Dr. Stu Cabezas Basophils/100 WBC (Bld) 0.4 % Normal 0.2-2.0 [facility] Comment on above: Performed By: #### C BC #### [facility] [address] [place] [address] Dr. Stu Cabezas EO # 0.4 103/ul Normal 0.0-0.7 [facility] Comment on above: Performed By: #### C BC #### [facility] [address] [place] [address] Dr. Stu Cabezas Eosinophils/100 WBC (Bld) 5.5 % Normal 0.9-7.0 [facility] Comment on above: Performed By: #### C BC #### [facility] [address] [place] [address] Dr. Stu Cabezas Erythrocyte distribution width (RBC) [Ratio] 12.0 % Normal 11.0-15.0 [facility] Comment on above: Performed By: #### C BC #### [facility] [address] [place] [address] Dr. Stu Cabezas Hematocrit (Bld) [Volume fraction] 35.6 % Critically low 36.0-48.0 [facility] Comment on above: Performed By: #### C BC #### [facility] [address] [place] [address] Dr. Stu Cabezas Hemoglobin (Bld) [Mass/Vol] 11.9 g/dL Critically low 12.0-16.0 [facility] Comment on above: Performed By: #### C BC #### [facility] [address] [place] [address] Dr. Stu Cabezas IG # 0.02 10e3/ul Normal 0.00-0.03 [facility] Comment on above: Performed By: #### C BC #### [facility] [address] [place] [address] Dr. Stu Cabezas IG % 0.3 % Normal 0.0-0.5 [facility] Comment on above: Performed By: #### C BC #### [facility] [address] [place] [address] Dr. Stu Cabezas LYMPH # 2.2 103/ul Normal 1.2-3.8 [facility] Comment on above: Performed By: #### C BC #### [facility] [address] [place] [address] Dr. Stu Cabezas Lymphocytes/100 WBC (Bld) 28.4 % Normal 20.5-60.0 [facility] Comment on above: Performed By: #### C BC #### [facility] [address] [place] [address] Dr. Stu Cabezas MANUAL DIFF REQ NO Normal [facility] Comment on above: Performed By: #### C BC #### [facility] [address] [place] [address] Dr. Stu Cabezas MCH (RBC) [Entitic mass] 29.4 pg Normal 26.7-34.0 [facility] Comment on above: Performed By: #### C BC #### [facility] [address] [place] [address] Dr. Stu Cabezas MCHC (RBC) [Mass/Vol] 33.4 g/dL Normal 29.9-35.2 [facility] Comment on above: Performed By: #### C BC #### [facility] [address] [place] [address] Dr. Stu Cabezas MCV (RBC) [Entitic vol] 87.9 fL Normal 81.0-99.0 [facility] Comment on above: Performed By: #### C BC #### [facility] [address] [address] [address] Stu Cabezas MONO # 0.7 103/ul Normal 0.3-0.8 [facility] Comment on above: Performed By: #### C BC #### [facility] [address] [address] [address] Stu Cabezas Monocytes/100 WBC (Bld) 9.2 % Normal 1.7-12.0 [facility] Comment on above: Performed By: #### C BC #### [facility] [address] [place] [address] Dr. Stu Cabezas NEUT # 4.3 103/ul Normal 1.4-6.5 [facility] Comment on above: Performed By: #### C BC #### [facility] [address] [place] [address] Dr. Stu Cabezas Neutrophils/100 WBC (Bld) 56.2 % Normal 43.0-75.0 [facility] Comment on above: Performed By: #### C BC #### [facility] [address] [place] [address] Dr. Stu Cabezas Platelet mean volume (Bld) [Entitic vol] 9.1 fL Critically low 9.5-13.5 [facility] Comment on above: Performed By: #### C BC #### [facility] [address] [place] [address] Dr. Stu Cabezas PLT 298 103/ul Normal 150-[address] [facility] Comment on above: Performed By: #### C BC #### [facility] [address] [place] [address] Dr. Stu Cabezas RBC 4.05 106/ul Critically low 4.20-5.40 [facility] Comment on above: Performed By: #### C BC #### [facility] [address] [place] [address] Dr. Stu Cabezas WBC 7.7 103/ul Normal 4.0-11.[address] [facility] Comment on above: Performed By: #### C BC #### [facility] [address] [address] [address] Stu Cabezas PROF CHEM 8 (BAS METB)on Anion gap [Moles/Vol] 15.1 mmol/L Normal [facility] Comment on above: Performed By: #### B MP #### [facility] [address] [address] [address] Stu Cabezas Calcium [Mass/Vol] 9.4 mg/dL Normal 8.5-10.1 [facility] Comment on above: Performed By: #### B MP #### [facility] [address] [address] [address] Stu Cabezas Chloride [Moles/Vol] 101 mmol/L Normal 98-107 [facility] Comment on above: Performed By: #### B MP #### [facility] [address] [address] [address] Stu Cabezas CO2 [Moles/Vol] 27.1 mmol/L Normal 21.0-32.0 [facility] Comment on above: Performed By: #### B MP #### [facility] [address] [address] [address] Stu Cabezas Creatinine [Mass/Vol] 1.63 mg/dL Critically high 0.55-1.02 [facility] Comment on above: Performed By: #### B MP #### [facility] [address] [address] [address] Stu Cabezas EGFR-AF MARSHALLESE 39 mL/min/1.73m2 Critically low >=[address] [facility] Comment on above: Performed By: #### B MP #### [facility] [address] [address] [address] Stu Cabezas EGFR-NON AF MARSHALLESE 32 mL/min/1.73m2 Critically low >=[address] [facility] Comment on above: Performed By: #### B MP #### [facility] [address] [address] [address] Stu Cabezas Glucose [Mass/Vol] 95 mg/dL Normal 74-106 [facility] Comment on above: Performed By: #### B MP #### [facility] [address] [place], [place] [address] Dr. Stu Cabezas Potassium [Moles/Vol] 3.2 mmol/L Critically low 3.5-5.1 [facility] Comment on above: Performed By: #### B MP #### [facility] [address] [place], [place] [address] Dr. Stu Cabezas Sodium [Moles/Vol] 140 mmol/L Normal 136-145 [facility] Comment on above: Performed By: #### B MP #### [facility] [address] [place], [place] [address] Dr. Stu Cabezas Urea nitrogen [Mass/Vol] 49.0 mg/dL Critically high 7.0-18.0 [facility] Comment on above: Performed By: #### B MP #### [facility] [address] [place], [place] [address] Dr. Stu Cabezas Urea nitrogen/Creatinine [Mass ratio] 30.1 mg/mg Normal [facility] Comment on above: Performed By: #### B MP #### [facility] [address], [place] [address] Dr. Stu Cabezas US PELVIS AND TRANSVAGon US PELVIS AND TRANSVAG EXAMINATION: US PELVIS AND TRANSVAG HISTORY: Abnormal uterine bleeding unrelated to menstrual cycle COMPARISON: Ultrasound pelvis 01/09/2022 TECHNIQUE: Transabdominal and transvaginal sonographic examination. FINDINGS: UTERUS: Normal size and appearance. Uterus size: 9.8 x 4.8 x 5.8 cm ENDOMETRIUM: Thickened, but homogeneously echogenic. Endometrial thickness: 17 mm RIGHT OVARY: Not seen. LEFT OVARY: Not seen. CUL-DE-SAC: Unremarkable. No significant free fluid. BLADDER: Unremarkable. OTHER: None. IMPRESSION: 1. Abnormally thickened endometrium, 17 mm, without appreciable mass. Findings suggestive of endometrial hyperplasia. 2. Neither ovary could be identified. Limited evaluation of the adnexa, but no overtly suspicious findings. Electronically authenticated by: KATHERINE SANTOS Date: 2022-05-08 13:[address] [facility] SURGICAL PATH REPORTon 04-[address] [facility] Department of Pathology [address] [place] [address] Name: TATY RICE : 1960 [employer] [id number] Number: Gender: Male Location: [facility] Admit 62 years Attending JOHN SANTOS Age: Provider: Ordering JOHN SANTOS Provider: Consulting: Surgical Pathology Report ACCESSION: COLLECTED DATE/TIME: RECEIVED DATE/TIME: PATHOLOGIST: [id number] 04/26/2022 11:15 EDT 04/26/2022 11:15 EDT PRASANNA HUGO MD Final Diagnosis Report for [place] (A) GASTRIC ANTRUM, BIOPSY: - GASTRIC MUCOSA, ANTRAL TYPE, WITH NO SIGNIFICANT PATHOLOGICAL FINDINGS. - IMMUNOHISTOCHEMICAL STAIN FOR H. PYLORI ORGANISMS IS NEGATIVE. (B) ESOPHAGUS, BIOPSY: - SQUAMOUS MUCOSA WITH ACUTE INFLAMMATION AND FOCAL ULCERATION. - GMS STAIN IS NEGATIVE FOR FUNGAL ORGANISMS. - NO EVIDENCE OF SPECIALIZED COLUMNAR CELLS (INTESTINAL METAPLASIA). (C) SIGMOID COLON POLYP, BIOPSY: - TUBULOVILLOUS ADENOMA. PRASANNA HUGO PATHOLOGIST (Electronic Signature) Date Verified 04/28/2022 LN Clinical Data PRE-OP DIAGNOSIS: Not specified POST-OP DIAGNOSIS: Gastritis, bile reflux PROCEDURES: EGD with biopsies SPECIMEN: (A) Antrum (B) Distal esophagus (C) Sigmoid polyp / Ambulatory surgery ____ Print Date/ 04/28/2022 11:02 EDT Number: Time: [facility] Department of Pathology [address] [place] [id number] Name: TATY RICE : 1960 [employer] [id number] Number: Gender: Male Location: [facility] Admit 62 years Attending JOHN SANTOS Age: Provider: Ordering JOHN SANTOS Provider: Consulting: Surgical Pathology Report ACCESSION: COLLECTED DATE/TIME: RECEIVED DATE/TIME: PATHOLOGIST: [id number] 04/26/2022 11:15 EDT 04/26/2022 11:15 EDT PRASANNA HUGO MD Gross Description (A) Labeled antrum. Received in formalin on a sponge are two similar irregular travis segments of soft tissue. Each measures 0.2 x 0.2 x 0.2 cm. The specimen is entirely submitted in one cassette. (B) Labeled distal esophagus. Received in formalin on a sponge is a single irregular travis segment of soft tissue measuring 0.2 x 0.1 x 0.1 cm. The specimen is entirely submitted in one cassette. (C) Labeled sigmoid polyp. Received in formalin on a sponge is a single irregular travis segment of soft tissue measuring 0.5 x 0.5 x 0.5 cm, bisected. The specimen is entirely submitted in one cassette. MP/kristie 04/26/2022 Tissue pathology report for: [facility], [address] [place] [address]; PATHOLOGY SERVICES PROVIDED BY [email or web address] (CLIA #[id number]) in cooperation with [facility] at [address] [place] [address] ( CLIA #[id number]) Microscopic Diagnosis NOTE: One or more of the reagents used to perform assays on this specimen MAY have contained components considered to be analyte specific reagents ( ASRs). ASRs have not been cleared or approved by the U.S. Food and Drug Administration. The performance characteristics of these assays have been determined by the Department of Pathology at [facility]. This assay was performed subsequent to the H and E examination. Appropriate positive and negative controls were examined with appropriate reactivity. Codes CPT CODE: 41986 X3 + 74256 + [id number] ____ Print Date04/28/2022 11:02 EDT Number: Time: Normal [facility] Comment on above: Performed By: #### [id number] #### [facility] [address] [place] [id number] Bee Keeper: Sb Valiente MD CBC AUTO DIFFon 03-16-2022 BASO # 0.0 103/ul Normal 0.0-0.1 [facility] Comment on above: Performed By: #### L IPID, TSH, LIVER #### [facility] [address] [place] [address] Dr. Stu Cabezas Basophils/100 WBC (Bld) 0.5 % Normal 0.2-2.0 [facility] Comment on above: Performed By: #### L IPID, TSH, LIVER #### [facility] [address] [place] [address] Dr. Stu Cabezas EO # 0.4 103/ul Normal 0.0-0.7 [facility] Comment on above: Performed By: #### L IPID, TSH, LIVER #### [facility] [address] [place] [address] Dr. Stu Cabezas Eosinophils/100 WBC (Bld) 6.0 % Normal 0.9-7.0 [facility] Comment on above: Performed By: #### L IPID, TSH, LIVER #### [facility] [address] [place] [address] Dr. Stu Cabezas Erythrocyte distribution width (RBC) [Ratio] 13.5 % Normal 11.0-15.0 [facility] Comment on above: Performed By: #### L IPID, TSH, LIVER #### [facility] [address] [place] [address] Dr. Stu Cabezas Hematocrit (Bld) [Volume fraction] 38.5 % Normal 36.0-48.0 [facility] Comment on above: Performed By: #### L IPID, TSH, LIVER #### [facility] [address] [place], [place] [id number] Dr. Stu Cabezas Hemoglobin (Bld) [Mass/Vol] 12.6 g/dL Normal 12.0-16.[address] [facility] Comment on above: Performed By: #### L IPID, TSH, LIVER #### [facility] [address] [place] [address] Dr. Stu Cabezas IG # 0.02 10e3/ul Normal 0.00-0.[address] [facility] Comment on above: Performed By: #### L IPID, TSH, LIVER #### [facility] [address] [place] [address] Dr. Stu Cabezas IG % 0.3 % Normal 0.0-0.5 [facility] Comment on above: Performed By: #### L IPID, TSH, LIVER #### [facility] [address] [place] [address] Dr. Stu Cabezas LYMPH # 2.0 103/ul Normal 1.2-3.[address] [facility] Comment on above: Performed By: #### L IPID, TSH, LIVER #### [facility] [address] [place] [address] Dr. Stu Cabezas Lymphocytes/100 WBC (Bld) 29.7 % Normal 20.5-60.0 [facility] Comment on above: Performed By: #### L IPID, TSH, LIVER #### [facility] [address] [place] [address] Dr. Stu Cabezas MANUAL DIFF REQ NO Normal [facility] Comment on above: Performed By: #### L IPID, TSH, LIVER #### [facility] [address] [place] [address] Dr. Stu Cabezas MCH (RBC) [Entitic mass] 29.7 pg Normal 26.7-34.[address] [facility] Comment on above: Performed By: #### L IPID, TSH, LIVER #### [facility] [address] [place] [address] Dr. Stu Cabezas MCHC (RBC) [Mass/Vol] 32.7 g/dL Normal 29.9-35.[address] [facility] Comment on above: Performed By: #### L IPID, TSH, LIVER #### [facility] [address] [place] [address] Dr. Stu Cabezas MCV (RBC) [Entitic vol] 90.8 fL Normal 81.0-99.0 [facility] Comment on above: Performed By: #### L IPID, TSH, LIVER #### [facility] [address] [place] [address] Dr. Stu Cabezas MONO # 0.7 103/ul Normal 0.3-0.8 [facility] Comment on above: Performed By: #### L IPID, TSH, LIVER #### [facility] [address] [place] [address] Dr. Stu Cabezas Monocytes/100 WBC (Bld) 9.9 % Normal 1.7-12.0 [facility] Comment on above: Performed By: #### L IPID, TSH, LIVER #### [facility] [address] [place] [address] Dr. Stu Cabezas NEUT # 3.6 103/ul Normal 1.4-6.5 [facility] Comment on above: Performed By: #### L IPID, TSH, LIVER #### [facility] [address] [place] [address] Dr. Stu Cabezas Neutrophils/100 WBC (Bld) 53.6 % Normal 43.0-75.0 [facility] Comment on above: Performed By: #### L IPID, TSH, LIVER #### [facility] [address] [place] [address] Dr. Stu Cabezas Platelet mean volume (Bld) [Entitic vol] 9.1 fL Critically low 9.5-13.[address] [facility] Comment on above: Performed By: #### L IPID, TSH, LIVER #### [facility] [address] [place] [address] Dr. Stu Cabezas PLT 288 103/ul Normal 150-[address] [facility] Comment on above: Performed By: #### L IPID, TSH, LIVER #### [facility] [address] [place] [address] Dr. Stu Cabezas RBC 4.24 106/ul Normal 4.20-5.40 [facility] Comment on above: Performed By: #### L IPID, TSH, LIVER #### [facility] [address], [place] [address] Dr. Stu Cabezas WBC 6.6 103/ul Normal 4.0-11.0 [facility] Comment on above: Performed By: #### L IPID, TSH, LIVER #### [facility] [address], [place] [address] ABD/PELV W CONon 03-16-20 CT ABD/PELV W CON EXAMINATION: CT ABD/PELV W CON Clinical Indication: Abdominal colic; CT imaging performed at this location utilizes radiation dose optimization techniques which include one or more of the following: -Automated exposure control -Adjustment of the mA and/or kV according to patient size -Use of iterative reconstruction technique CT Radiation Dose DLP Comparison: None Technique: Multi-detector CT imaging of the abdomen and pelvis is performed with contrast. Coronal and sagittal reconstructions were obtained. IV CONTRAST: 75 mL of Omnipaque GI CONTRAST: Oral contrast was given. FINDINGS: CT ABDOMEN : LUNG BASES: Unremarkable. ABDOMINAL SOLID ORGANS: The liver shows diffuse fatty infiltration. Small cyst 3 x 3 mm noted in the right lobe posterior segment. Normal gallbladder identified. No biliary distention. Normal appearing pancreas with no inflammatory changes. Normal adrenal glands. No mass lesions are seen The pancreas shows no focal mass or inflammatory changes. No ductal dilitation. The spleen is intact. The kidneys show normal size contour and axis. Right-sided renal cyst or 0.3 x 3.7 cm. No kidney stones. STOMACH AND BOWEL: The stomach is unremarkable. Small bowel loops visualized are normal caliber. The colon in the abdomen are unremarkable. PERITONEUM AND RETROPERITONEUM: There is no abdominal lymphadenopathy. There is no pneumoperitoneum or abdominal ascites. There are no retroperitoneal abnormalities. VASCULAR STRUCTURES: The abdominal aorta is unremarkable without aneurysm. The inferior vena cava is unremarkable. The mesenteric vessels and portal veinous structures are grossly patent. OSSEOUS STRUCTURES: There are no significant osseous abnormalities seen. ------- CT PELVIS : BOWEL: Rectosigmoid colon is unremarkable. PERITONEAL AND EXTRAPERITONEAL REGIONS: There is no pelvic free fluid or lymphadenopathy. The inguinal regions are unremarkable. BLADDER / : The bladder is unremarkable. OSSEOUS STRUCTURES: There are no significant osseous abnormalities seen. ----- IMPRESSION: 1. No acute abdominal or pelvic findings. Electronically authenticated by: MISTY LLOYD Date: 2022-03-16 10:43 Normal [facility] GLYCOHEMOGLOBIN A1Con 2021 ADA RECOMMENDATION ADA THERAPEUTIC TARG ET 6.0 - 7.0 ACTION SUGGESTED > 7.0 Normal [facility] Comment on above: Performed By: #### A 1C #### [facility] [address] [place] [address] [address] Stu Cabezas Glucose [Mass/Vol] 131 mg/dL Normal [facility] Comment on above: Performed By: #### A 1C #### [facility] [address] [place] [address] [address] Stu Cabezas HbA1c (Bld) [Mass fraction] 6.2 % Critically high <=6.0 [facility] Comment on above: Performed By: #### A 1C #### [facility] [address] [place] [address] [address] Stu Cabezas LIPID PROFILEon 03-16-2022 CHOL-HDL RATIO NORM SEE BELOW Normal [facility] Comment on above: Result Comment: 3.3 - 4.4 LOW RISK 4.4 - 7.1 AVERAGE RISK 7.1 - 11.0 MODERATE RISK >11.0 HIGH RISK Performed By: #### L IPID, TSH, LIVER #### [facility] [address] [place] [address] [address] Stu Cabezas Cholesterol [Mass/Vol] 310 mg/dL Critically high <=200 [facility] Comment on above: Performed By: #### L IPID, TSH, LIVER #### [facility] [address] [place] [address] [address] Stu Cabezas Cholesterol in HDL [Mass/Vol] 55 mg/dL Normal 40-60 [facility] Comment on above: Performed By: #### L IPID, TSH, LIVER #### [facility] [address] [place] [address] [address] Stu Cabezas Cholesterol in LDL [Mass/Vol] 217.2 mg/dL Normal [facility] Comment on above: Performed By: #### L IPID, TSH, LIVER #### [facility] [address] [place] [address] [address] Stu Cabezas Cholesterol.total/Ch olesterol in HDL [Mass ratio] 5.6 {ratio} Normal [facility] Comment on above: Performed By: #### L IPID, TSH, LIVER #### [facility] [address] [place] [address] [address] Stu Cabezas HDL NORMAL > or = 60 mg/dl - LO W CARDIOVASCULAR RISK <40 mg/dl - HIGH CARDIOVASCULAR RISK Normal [facility] Comment on above: Performed By: #### L IPID, TSH, LIVER #### [facility] [address] [place] [address] [address] Stu Cabezas LDL CALC NORMAL SEE BELOW Normal [facility] Comment on above: Result Comment: <100 mg/dl OPTIMAL 100 - 129 mg/dl NEAR OR ABOVE OPTIMAL 130 - 159 mg/dl BORDERLINE HIGH 160 - 189 mg/dl HIGH >190 mg/dl VERY HIGH Performed By: #### L IPID, TSH, LIVER #### [facility] [address] [place] [address] [address] Stu Cabezas Triglyceride [Mass/Vol] 189 mg/dL Critically high <=150 [facility] Comment on above: Performed By: #### L IPID, TSH, LIVER #### [facility] [address] [place] [address] [address] Stu Cabezas VLDL CALC 37.8 mg/dL Normal [facility] Comment on above: Performed By: #### L IPID, TSH, LIVER #### [facility] [address] [place] [address] [address] Stu Cabezas LIVER PROFILEon 03-16-2022 Albumin [Mass/Vol] 3.7 g/dL Normal 3.4-5.0 [facility] Comment on above: Performed By: #### L IPID, TSH, LIVER #### [facility] [address] [place] [address] [address] Stu Cabezas Albumin/Globulin [Mass ratio] 0.9 {ratio} Normal [facility] Comment on above: Performed By: #### L IPID, TSH, LIVER #### [facility] [address] [address] [address] Stu Cabezas ALP [Catalytic activity/Vol] 62 U/L Normal 46-116 [facility] Comment on above: Performed By: #### L IPID, TSH, LIVER #### [facility] [address] [place] [address] [address] Stu Cabezas ALT [Catalytic activity/Vol] 35 U/L Normal 14-59 [facility] Comment on above: Performed By: #### L IPID, TSH, LIVER #### [facility] [address] [place] [address] Dr. Stu Cabezas AST [Catalytic activity/Vol] 20 U/L Normal 15-37 [facility] Comment on above: Performed By: #### L IPID, TSH, LIVER #### [facility] [address] [place] [address] Dr. Stu Cabezas BILI, CONJUGATED 0.1 mg/dL Normal 0.0-0.3 [facility] Comment on above: Performed By: #### L IPID, TSH, LIVER #### [facility] [address] [place] [address] Dr. Stu Cabezas Bilirubin [Mass/Vol] 0.8 mg/dL Normal 0.2-1.3 [facility] Comment on above: Performed By: #### L IPID, TSH, LIVER #### [facility] [address] [place] [address] Dr. Stu Cabezas Globulin (S) [Mass/Vol] 4.1 g/dL Normal [facility] Comment on above: Performed By: #### L IPID, TSH, LIVER #### [facility] [address] [place] [address] Dr. Stu Cabezsa Protein [Mass/Vol] 7.8 g/dL Normal 6.1-8.2 [facility] Comment on above: Performed By: #### L IPID, TSH, LIVER #### [facility] [address] [place] [address] Dr. Stu Cabezas PROF CHEM 8 (BAS METB)on Anion gap [Moles/Vol] 11.9 mmol/L Normal [facility] Comment on above: Performed By: #### B MP #### [facility] [address] [place] [address] Dr. Stu Cabezas Calcium [Mass/Vol] 8.9 mg/dL Normal 8.5-10.1 [facility] Comment on above: Performed By: #### B MP #### [facility] [address] [place] [address] [address] Stu Cabezas Chloride [Moles/Vol] 101 mmol/L Normal 98-107 [facility] Comment on above: Performed By: #### B MP #### [facility] [address] [place] [address] Dr. Stu Cabezas CO2 [Moles/Vol] 31.0 mmol/L Critically high 22.0-30.0 [facility] Comment on above: Performed By: #### B MP #### [facility] [address] [place] [address] Dr. Stu Cabezas Creatinine [Mass/Vol] 0.84 mg/dL Normal 0.52-1.04 [facility] Comment on above: Performed By: #### B MP #### [facility] [address] [place] [address] Dr. Stu Cabezas EGFR-AF MARSHALLESE >60 Normal >=60 [facility] Comment on above: Performed By: #### B MP #### [facility] [address] [place] [address] [address] Stu Cabezas EGFR-NON AF MARSHALLESE >60 Normal >=60 [facility] Comment on above: Performed By: #### B MP #### [facility] [address] [place] [address] Dr. Stu Cabezas Glucose [Mass/Vol] 116 mg/dL Critically high 74-106 [facility] Comment on above: Performed By: #### B MP #### [facility] [address] [place] [address] [address] Stu Cabezas Potassium [Moles/Vol] 3.9 mmol/L Normal 3.4-5.0 [facility] Comment on above: Performed By: #### B MP #### [facility] [address] [place] [address] [address] Stu Cabezas Sodium [Moles/Vol] 140 mmol/L Normal 137-145 [facility] Comment on above: Performed By: #### B MP #### [facility] [address] [place] [id number] [address] Stu Cabezas Urea nitrogen [Mass/Vol] 21.0 mg/dL Critically high 7.0-18.0 [facility] Comment on above: Performed By: #### B MP #### [facility] [address] [place] [address] Dr. Stu Cabezas Urea nitrogen/Creatinine [Mass ratio] 25.0 mg/mg Normal [facility] Comment on above: Performed By: #### B MP #### [facility] [address] [place] [address] [address] Stu Cabezas TSHon 03-16-2022 TSH 1.697 uIU/mL Normal 0.470-4.680 [facility] Comment on above: Performed By: #### L IPID, TSH, LIVER #### [facility] [address] [place] [address] Dr. Stu Cabezas TSH RANGE SEE BELOW Normal [facility] Comment on above: Result Comment: <0.3 4 UIU/ml HYPERTHYROID 0.34-5.60 UIU/ml EUTHYROID >5.60 UIU/ml HYPOTHYROID Performed By: #### L IPID, TSH, LIVER #### [facility] [address] [place] [address] Dr. Stu Cabezas SURGICAL PATH REPORTon 02-[address] [facility] Department of Pathology [address] [place] [id number] Name: TATY RICE : 1960 [facility] [id number] Number: Gender: Male Location: [facility] Admit 61 years Attending GARRETT ARBOLEDA Age: Provider: Ordering GARRETT ARBOLEDA Provider: Consulting: Surgical Pathology Report ACCESSION: COLLECTED DATE/TIME: RECEIVED DATE/TIME: PATHOLOGIST: [id number] 02/17/2022 12:52 EDT 02/17/2022 12:52 EDT PRASANNA HUGO MD Final Diagnosis Report for [place] [place] UTERINE CURETTINGS: - SMALL DETACHED FRAGMENTS OF ENDOCERVICAL MUCOSA WITH ACUTE INFLAMMATION, SEE COMMENT. - RARE MINUTE STRIPS OF INACTIVE ENDOMETRIAL GLANDULAR EPITHELIUM, NOT FURTHER DIAGNOSTIC. COMMENT: The specimen consists mainly of blood elements and muco-inflammatory exudate. Endometrial architecture can not be adequately evaluated. Clinical correlation is recommended. Deeper sections have been examined. PRASANNA HUGO PATHOLOGIST (Electronic Signature) Date Verified 02/20/2022 CL Clinical Data PRE-OP DIAGNOSIS: Not specified POST-OP DIAGNOSIS: Thickened endometrium PROCEDURES: D and C, hysteroscopy SPECIMEN: Uterine curettings / Ambulatory Surgery Gross Description Labeled uterine curettings. Received in formalin are multiple irregular travis feathery segments of soft tissue. The specimen is filtered and has a filtrate aggregate dimension of 2.2 x 2.0 x 0.4 cm. The specimen is entirely submitted in one cassette. MP/deuce ____ Print Date/ 02/20/2022 13:51 EDT Number: Time: [facility] Department of Pathology [address] [place] [id number] Name: TATY RICE : 1960 [facility] [id number] Number: Gender: Male Location: [facility] Admit 61 years Attending GARRETT ARBOLEDA Age: Provider: Ordering GARRETT ARBOLEDA Provider: Consulting: Surgical Pathology Report ACCESSION: COLLECTED DATE/TIME: RECEIVED DATE/TIME: PATHOLOGIST: [id number] 02/17/2022 12:52 EDT 02/17/2022 12:[address], PRASANNA Gross Description 02/17/2022 Tissue pathology report for: [facility], [address] [place] [address], [place] [address]; PATHOLOGY SERVICES PROVIDED BY [employer] (CLIA #[id number]) in cooperation with [facility] at [address] [place] [address] (CLIA #[id number]) Codes CPT CODE: 57720 ____ Print Date/ 02/20/2022 13:51 EDT Number: Time: Normal [facility] Comment on above: Performed By: #### [id number] #### [facility] [address] [place] [address] Bee Keeper: Sb Valiente MD MG MAMM SCREEN 3D ZACK CADon 01-10-2022 MG MAMM SCREEN 3D ZACK CAD Patient: TATY RICE Exam Date: 01/10/2022 : 1960 Gender:F Ordering : DR GARRETT ARBOLEDA . Admission #: [id number] Family : Order #: [id number] CLICK HERE TO VIEW EXAM RADIOLOGY REPORT PROCEDURE: MAMMOGRAM SCREENING 3D BILATERAL CAD COMPARISON: None. INDICATIONS: Screening mammography Calculator Name NCI Breast Cancer Risk Assessment Tool 5 Year Breast Cancer Risk 1.80% Lifetime Breast Cancer Risk 8.60% Personal Breast Cancer No Personal Ovarian Cancer No Treatments None Family Cancers Aunt-maternal with breast cancer at age 65; Aunt-paternal with colon cancer at age 70. LOCATION: [facility] BREAST COMPOSITION: Scattered areas fibroglandular density. FINDINGS: DIAGNOSTIC CATEGORY 2--BENIGN FINDING: Limited evaluation due to the patient's intolerance to positioning and compression Scattered benign-appearing nodules are present. Scattered benign-appearing calcifications are present. Scattered benign-appearing lymph nodes are present. RIGHT BREAST: No significant suspicious finding. Calcified cyst upper outer quadrant LEFT BREAST: No significant suspicious finding. RECOMMENDATIONS: ROUTINE MAMMOGRAM AND CLINICAL EVALUATION IN 12 MONTHS. PLEASE NOTE: A NORMAL MAMMOGRAM DOES NOT EXCLUDE THE POSSIBILITY OF BREAST CANCER. A CLINICALLY SUSPICIOUS PALPABLE LUMP SHOULD BE BIOPSIED. Dictated by: Regina Nolasco MD on 01/11/2022 at 08:14 Approved by: Regina Nolasco MD on 01/11/2022 at 08:17 Normal [facility] XR DEXA BONE DENSITYon 01-10 XR DEXA BONE DENSITY EXAMINATION: XR DEX A BONE DENSITY, 01/10/2022 3:28 PM EST HISTORY: Menopause present COMPARISON: None. TECHNIQUE: Dual-energy X-ray absorptiometry (DEXA) bone density study performed for the axial skeleton. FINDINGS: Bone mineral density AP spine L1-L4 measures 1.677 g/sq cm. T score for 0.1. This is artifactually elevated due to degenerative spondylosis Lowest bone mineral density right femoral neck measuring 1.002 g/sq cm. T score -0.3. WHO classification: Normal IMPRESSION: Normal bone mineral density. Low fracture risk Electronically authenticated by: REGINA NOLASCO Date: 2022-01-10 16:09 Normal [facility] US PELVIS AND TRANSVAGon US PELVIS AND TRANSVAG EXAMINATION: US PELVIS AND TRANSVAG HISTORY: Abnormal uterine bleeding unrelated to menstrual cycle COMPARISON: No relevant comparison available. FINDINGS: Transabdominal and transvaginal images. The patient did not tolerate the transvaginal image The uterus measures 9.3 x 4.0 x 4.9 cm, anteverted, anteflexed. Heterogeneous myometrial echotexture with no definite focal mass. The endometrium measures 10 mm, thickened for postmenopausal patient. The ovaries are not visualized on transabdominal or transvaginal images No free fluid. IMPRESSION: Thickened endometrial stripe for postmenopausal patient. Histopathologic diagnosis is recommended Electronically authenticated by: REGINA NOLASCO Date: 2022-01-09 14:15 Normal [facility] PAP ACOG PANEL 2: 30 to 65on 12-27-2021 . . Normal [facility] Comment on above: Result Comment: Perf ormed at: WB Performed By: #### L IPID, TSH, LIVER #### [facility] [address] [place] [address] Dr. Stu Cabezas Age Gdln ACOG Testing 30-65 Normal [facility] Comment on above: Performed By: #### L IPID, TSH, LIVER #### [facility] [address] [address] [address] Stu Cabezas DIAGNOSIS: Comment Normal [facility] Comment on above: Result Comment: NEGA TIVE FOR INTRAEPITHELIAL LESION OR MALIGNANCY. REACTIVE CELLULAR CHANGES AND/OR REPAIR ARE PRESENT. Performed at: WB Performed By: #### L IPID, TSH, LIVER #### [facility] [address] [place] [address] Dr. Stu Cabezas Electronically signed by: Comment Normal [facility] Comment on above: Result Comment: Agueda Moore MD, Pathologist Performed at: WB Performed By: #### L IPID, TSH, LIVER #### [facility] [address] [place] [address] Dr. Stu Cabezas HPV Aptima Negative Normal Negative [facility] Comment on above: Result Comment: This nucleic acid amplification test detects fourteen high-risk HPV types (16,18,31,33,35,39,45,51,52,56,58,59,66,68) without differentiation. Performed at: =G Performed By: #### L IPID, TSH, LIVER #### [facility] [address] [place] [address] Dr. Stu Cabezas Methodology: Comment Normal [facility] Comment on above: Result Comment: This liquid based ThinPrep(R) pap test was screened with the use of an image guided system. Performed at: WB Performed By: #### L IPID, TSH, LIVER #### [facility] [address] [place] [address] Dr. Stu Cabezas Note: Comment Normal [facility] Comment on above: Result Comment: The Pap smear is a screening test designed to aid in the detection of premalignant and malignant conditions of the uterine cervix. It is not a diagnostic procedure and should not be used as the sole means of detecting cervical cancer. Both false-positive and false-negative reports do occur. . Performed at: WB Performed By: #### L IPID, TSH, LIVER #### [facility] [address], [place] [address] Dr. Stu Cabezas Performed by: Comment Normal [facility] Comment on above: Result Comment: Tod Mercado, Dough Mixer (ASCP) Performed at: WB Performed By: #### L IPID, TSH, LIVER #### [facility] [address] [place], [place] [address] Dr. Stu Cabezas Specimen adequacy: Comment Normal [facility] Comment on above: Result Comment: Sati sfactory for evaluation. Endocervical and/or squamous metaplastic cells (endocervical component) are present. Areas of partially obscuring inflammatory exudate are present. Performed at: WB Performed By: #### L IPID, TSH, LIVER #### [facility] [id number] Stu Cabezas Encounters Encounter Date Encounter Type Care Provider Facility Start: 10-11-2022 End: 10-12-[address] DOCTOR NEGRO Facility:[facility] Start: 06-06-2022 Encounter for prepro cedural laboratory examination DR GARRETT ARBOLEDA [facility] Start: 06-05-2022 End: 06-06-2022 ambulatory OSCAR GRACIA MD~[id number] Facility:[id number] Start: 06-05-2022 End: 06-06-2022 ambulatory GARRETT ARBOLEDA Facility:[facility] Start: 06-05-2022 End: 06-07-2022 Evaluation and management of inpatient DR GARRETT ARBOLEDA Facility: Start: 06-02-2022 Encounter for prepro cedural cardiovascular examination DR GARRETT ARBOLEDA [facility] Start: 06-02-2022 Encounter for prepro cedural laboratory examination DR GARRETT ARBOLEDA [facility] Start: 06-01-2022 End: 06-02-[address] BLADIMIR ALVAREZ Facility:[facility] Start: 06-01-2022 End: 06-02-2022 Encounter for preprocedural laboratory examination DR BLADIMIR ALVAREZ Facility:[facility] Start: 05-26-2022 End: 05-27-[address] BLADIMIR ALVAREZ Facility:[facility] Start: 05-26-2022 End: 05-27-2022 Encounter for preprocedural cardiovascular examination DR BLADIMIR ALVAREZ Facility:[facility] Start: 05-08-2022 End: 05-09-[address] GARRETT ARBOLEDA Facility:[facility] Start: 04-26-2022 End: 04-27-2022 ambulatory JOHN SANTOS Facility:[facility] Start: 04-26-2022 End: 04-26-[address] JOHN SANTOS Facility:[facility] Start: 03-17-2022 Encounter for genera l adult medical examination without abnormal findings DR BLADIMIR ALVAREZ [facility] Start: 03-16-2022 End: 03-17-[address] BLADIMIR ALVAREZ Facility:[facility] Start: 03-16-2022 End: 03-17-2022 Encounter for general adult medical examination without abnormal findings DR BLADIMIR ALVAREZ Facility:[facility] Start: 02-17-2022 End: 02-18-2022 ambulatory GARRETT ARBOLEDA Facility:[facility] Start: 02-17-2022 End: 02-17-[address] BLADIMIR ALVAREZ Facility:[facility] Start: 02-02-2022 End: 02-03-[address] BLADIMIR ALVAREZ Facility:[facility] Start: 01-10-2022 End: 01-11-[address] BLADIMIR ALVAREZ Facility:[facility] Start: 01-09-2022 End: 01-10-[address] BLADIMIR ALVAREZ Facility:[facility] Procedures Date Procedure Procedure Detail Performing Clinician Start: 06-05-2022 Resection of Bilater al Fallopian Tubes, Open Approach DR GARRETT ARBOLEDA Start: 06-05-2022 Resection of Bilater al Ovaries, Open Approach DR GARRETT ARBOLEDA Start: 06-05-2022 Resection of Uterus, Open Approach DR GARRETT ARBOLEDA Payers Date Payer Category Payer Unknown 1960 Unknown [id number] 2.16.8 [id number] 1960 Unknown [id number] 2.16.84 [id number] 1960 Unknown [id number] 2.16.84 [id number] 1960 Unknown [id number] 2.16.84 [id number] 1960 Unknown [id number] 2.16.84 [id number] 1960 Unknown [id number] 2.16.84 [id number] 1960 Unknown [id number] 2.16.84 [id number] 1960 Unknown [id number] 2.16.84 [id number] 1960 Unknown [id number] 2.16.84 0.1.814013.3.579.2.593 1960 Unknown [id number] 2.16.84 [id number] 1960 Unknown [id number] 2.16.84 [id number] 1960 Unknown [id number] 2.16.84 [id number] 1960 Unknown [id number] 2.16.84 [id number] 1959 Unknown [id number] Clinical Note 04-26-2022 Note Date & Type Note Facility 04-26-2022 Note [facility] [place], [place] NAME: TATY RICE DATE OF : MEDICAL REC#: [id number] RN UNIT MANAGER: Madie PENG TRANSADMIT DATE: 04/26/2022 06:26:00 MITIGATION SUPERVISOR DATE: 04/26/2022 22:00 DICTATING PHYSICIAN: JOHN SANTOS DICTATION DATE: 04/26/2022 07:00 OPERATIVE NOTE OPERATION DATE: 04/26/2022 PREOPERATIVE DIAGNOSIS: Nausea, abdominal pain. POSTOPERATIVE DIAGNOSIS: Mild reflux gastritis with antral gastritis, inflammation at the distal esophagus as well as antral gastritis and 5 mm sigmoid polyp. PROCEDURE: 1. EGD with antral biopsy and biopsy of distal esophagus. 2. Colonoscopy to cecum with cold snare polypectomy x1 for sigmoid polyp. SURGEON: John Satnos M.D. ANESTHESIA: Monitored anesthesia care. ESTIMATED BLOOD LOSS: Less than 1 mL. INDICATIONS AND CONSENT: Patient is a 62-year-old female with history of intermittent mid and epigastric abdominal pain as well as nausea. Indications, risks, benefits, alternatives of proceeding with EGD and colonoscopy were explained extensively to the patient, including the risks of bleeding, aspiration, esophageal/gastric/duodenal or colonic perforation or anesthetic complications. All of her questions were answered. Informed consent was obtained. PROCEDURE: Patient brought to the operating room, placed in the left lateral decubitus position. Monitored anesthesia care was provided. A bite block was placed in the patient's mouth. Scope was inserted into the oropharynx. Under direct visualization, it was advanced into the esophagus, past the cricopharyngeus, down to the stomach. The stomach was insufflated with air. The pylorus was traversed down to the descending portion of the duodenum. There was no evidence of duodenitis or ulceration. There was no scarring within the pyloric channel. Scope was pulled back into the stomach and retroflexed. There was no significant hiatal hernia. Within the antrum, there was noted to be some mild antral gastritis without ulceration or bleeding. There was some moderate amount of bile reflux. Biopsy x2 was obtained of the antrum with good hemostasis. The GE junction was noted at approximately 40 cm. There was some mild distal esophagitis as well as a small area of polypoid inflammation that was biopsied with cold biopsy forceps with good hemostasis. There was no evidence of Faust's changes. Remainder of the esophagus was unremarkable. The scope was then withdrawn. The patient was then positioned for colonoscopy. Rectal exam was performed which showed no masses or blood. Scope was inserted into the anal canal. Under direct visualization, it was advanced. It was advanced to the cecum where cecal markings were clearly identified. There was noted to be a good prep. Upon withdrawal of the scope, mucosal surfaces were carefully examined. There were no mass lesions or inflammatory changes. At 20 cm, there was noted to be a 5 mm sessile polyp that was erythematous. It was removed with cold snare with good hemostasis. Scope was retroflexed in the anal canal. There were noted to be some prominent rectal veins. No significant hemorrhoidal disease. Scope was then withdrawn. Patient tolerated procedure well, was sent to recovery room in good condition. follow up colonoscopy in 5 years, but may change based on pathology report. CC: Bladimir Alvarez M.D. Electronically Authenticated and Edited by: John Santos MD on 04/27/2022 08:41 AM EDT IFC Signed and Approved by: DR JOHN SANTOS . 04/27/2022 08:41:00 [facility] Summary Purpose Family History No Family History Records FoundNo Family History Records Found Advance Directives No Advanced Directives Records FoundNo Advanced Directives Records Found Additional Source Comments INFORMATION SOURCE (unrecogn ized section and content) DATE CREATED AUTHOR 09/29/2022 [facility] DATE CREATED AUTHOR AUTHOR'S ORGANIZ ATION 10/15/2022 [facility] FOR RECORDS PERTAINING TO PATIENTS WHO ARE OR HAVE BEEN ENROLLED IN A CHEMICAL DEPENDENCY/SUBSTANCEABUSE PROGRAM, SOME INFORMATION MAY BE OMITTED. This clinical summary was aggregated from multiple sources. Caution should be exercised in using it in the provision of clinical care. This summary normalizes information from multiple sources, and as a consequence, information in this document may materially change the coding, format and clinical context of patient data. In addition, data may be omitted in some cases. CLINICAL DECISIONS SHOULD BE BASED ON THE PRIMARY CLINICAL RECORDS. [facility] [employer] [facility]. provides no warranty or guarantee of the accuracy or completeness of information in this document.
== END 2023-11-29 15:42 | disposition home or self-care (01) ==
LOC: MAMMO 15:41
PROVIDERS: PCP Family Medicine; Visit Provider Family Medicine
DX: Z12.31 Encounter for screening mammogram for malignant neoplasm of breast (principal); Z80.3 Family history of malignant neoplasm of breast; Z80.0 Family history of malignant neoplasm of digestive organs
CPT/HCPCS: 77063; 77067

== ENCOUNTER 2024-01-22 15:04 | Outpatient (OUT) | payer OTHER, SELFPAY ==
--- NOTE | 2024-01-22 16:00 | CA_ITS ---
Patient Name: TATY RICE MR#: [id number] : 1960 Exam Date: 01/22/2024 Ordering Doctor: DR NANCY ALVAREZ . ECHOCARDIOGRAM REPORT PROCEDURE: CA ECHO DOPPLER COMPLETE INDICATIONS: Chronic CHF COMPARISON: None. DESCRIPTION: COMPLETE ECHOCARDIOGRAM Real-time transthoracic echocardiography with 2D, M-mode, spectral and color flow Doppler performed. QUALITY: Technical quality was good. LEFT VENTRICLE: Normal chamber size. Moderately increased left ventricular wall thickness. LV EF: Global left ventricular systolic function is normal; visually estimated ejection fraction is 55%. No obvious wall motion abnormalities. DIASTOLIC: Grade 2, moderate diastolic dysfunction. ATRIAL SEPTUM: Visually appears intact. LEFT ATRIUM: Severe dilatation. RIGHT ATRIUM: Normal chamber size. RIGHT VENTRICLE: Normal chamber size. Normal right ventricular systolic function. TRICUSPID VALVE: Normal mobility and thickness. No stenosis with mild regurgitation. No evidence of pulmonary hypertension. RVSP 33mmHg MITRAL VALVE: Mildly thickened with normal mobility. No evidence of mitral valve stenosis. There is no mitral annular calcification. Trivial mitral regurgitation. AORTIC VALVE: Normal trileaflet appearance. Thickened aortic valve. Normal leaflet mobility. No evidence of aortic valve stenosis. Mild to moderate aortic regurgitation. AORTIC ROOT: Normal diameter and appearance. PULMONIC VALVE: Normal thickness and mobility. No stenosis. Trivial regurgitation. PERICARDIUM: Anterior free space; trivial effusion versus fat pad. IVC: Collapses with inspirations. Normal size. CONCLUSION: 1. Global left ventricular systolic function is normal; visually estimated ejection fraction is 55% 2. Normal right ventricular size and systolic function 3. Moderately increased left ventricular wall thickness 4. The left atrium is dilated 5. Grade 2, moderate diastolic dysfunction 6. Mild tricuspid regurgitation 7. Mild to moderate aortic valve regurgitation 8. Anterior free space; trivial effusion versus fat pad Adult Echocardiography Procedure Report Left Ventricle LVEDD (3.7 - 5.6 cm): 5.40 cm LVESD (2.2 - 4.0 cm): 3.84 cm LVIVS thickness (0.6 - 1.2 cm): 1.32 cm LVPW thickness (0.5 - 1.0 cm): 1.15 cm e': 0.06 m/s E - e': 14.33 LVOT Max Gradient: 3.52 mm[Hg] LVOT Area (cm2): 0.94 m/s Peak Velocity (LVOT): 0.94 m/s Mean Velocity (LVOT): 0.62 m/s LVOT Diameter 2.06 cm Left Ventricular Ejection Fraction: 54.30 % Left Atrium LA Volume Index (2D A2C): 55.25 ml/m2 Left Atrium Systolic Dimension: 3.74 cm Mitral Valve MV E to A Ratio: 0.78 Mitral Valve A-Wave Peak Velocity: 1.14 m/s Mitral Valve E-Wave Peak Velocity: 0.89 m/s Right Ventricle RV Internal Diastolic Dimension: 3.09 cm Aorta AO Root Diam: 3.15 cm Ascending Ao Diam: 3.37 cm Aortic Valve AoV Area (Peak Gonzalez): 1.77 cm2, 1.77 cm2 AoV Area (VTI): 1.63 cm2, 1.63 cm2 Deceleration [place]: 2.35 m/s2 Pressure Half-Time: 526.52 ms Peak Velocity(Antegrade Flow): 1.76 m/s Peak Gradient(Antegrade Flow): 12.39 mm[Hg] Mean Velocity(Antegrade Flow): 1.12 m/s Mean Gradient(Antegrade Flow): 6.33 mm[Hg] Velocity Time Integral: 41.00 cm Tricuspid Valve Peak Velocity (Regurgitant Flow): 1.87 m/s, 2.08 m/s, 2.77 m/s Pulmonic Valve Mean Gradient: 4.00 mm[Hg], 4.20 mm[Hg] Mean Velocity: 0.92 m/s, 0.92 m/s Peak Velocity: 1.55 m/s Peak Gradient: 9.57 mm[Hg], 9.57 mm[Hg] Right Atrium Right Atrium Systolic Pressure: 31.76 ml, 31.76 ml Dictated by: Trisha Hansen M.D. on 01/23/2024 at 15:46 Approved by: Trisha Hansen M.D. on 01/23/2024 at 15:51
== END 2024-01-22 15:05 | disposition home or self-care (01) ==
LOC: CARD 15:04
PROVIDERS: PCP Family Medicine; Visit Provider Family Medicine
DX: I50.32 Chronic diastolic (congestive) heart failure (principal)
CPT/HCPCS: 93306; 93356

== ENCOUNTER 2024-03-18 15:15 | Outpatient (OUT) | payer OTHER, SELFPAY ==
--- NOTE | 2024-03-18 | XR_ITS ---
[address] [address] Patient Name: TATY RICE MRN: [id number] date: 1960 Sex: F Assigned Patient Location: Current Patient Location: Accession/Order Number: [id number] Exam Date: 03/18/2024 15:33 Report Date: 03/18/2024 16:17 At the request of: JUSTYN DONOVAN Procedure: XR foot LT min 3V PROCEDURE: XR foot LT min 3V, XR ankle LT min 3V COMPARISON: 03/18/2024 HISTORY: LEFT FOOT PAIN FINDINGS: BONES:No acute fracture or dislocation of the foot or ankle. Moderate enthesopathic spurring of the calcaneus at the Achilles and plantar insertions. Moderate degenerative changes of the midfoot with joint space narrowing marginal osteophyte formation. SOFT TISSUES:Negative. No visible soft tissue swelling. EFFUSION:None visible. OTHER: Negative. 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
--- NOTE | 2024-03-18 | XR_ITS ---
[place] [id number] Patient Name: TATY RICE MRN: [id number] date: 1960 Sex: F Assigned Patient Location: Current Patient Location: Accession/Order Number: [id number] Exam Date: 03/18/2024 15:32 Report Date: 03/18/2024 16:17 At the request of: JUSTYN DONOVAN Procedure: XR ankle LT min 3V PROCEDURE: XR foot LT min 3V, XR ankle LT min 3V COMPARISON: 03/18/2024 HISTORY: LEFT FOOT PAIN FINDINGS: BONES:No acute fracture or dislocation of the foot or ankle. Moderate enthesopathic spurring of the calcaneus at the Achilles and plantar insertions. Moderate degenerative changes of the midfoot with joint space narrowing marginal osteophyte formation. SOFT TISSUES:Negative. No visible soft tissue swelling. EFFUSION:None visible. OTHER: Negative. 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
--- OUTSIDE RECORDS SUMMARY | 2024-03-18 15:33 | XMS_ITS | CCD ---
Author Organization [facility] Care Team Providers Care Kit Assembler Name Role Phone [address]8658, OSCAR CAICEDO Attending Unava ilable KARASIK, GARRETT Attending Unavailable NILL, JOHN Davis Attending Unavailable KARASIK, GARRETT Attending Unavailable KARASIK, DR TUCKER Attending Unavailable NADERER, DR BLADIMIR Nicolas Primary Care Unavailable KARASIK, DR TUCKER Admitting Unavailable KARASIK, DR TUCKER Consulting Unavailable NADERER, DR BLADIMIR Nicolas Consulting Unavailable KARASIK, DR TUCKER Procedure Practitioner Unava ilable DORKOSKLASHAE, AL Consulting Unavailable MCCORNACK, KATHERINE Consulting Unavailable NADERER, DR BLADIMIR Nicolas Primary Care Unavailable KARASIK, DR TUCKER Attending Unavailable KARASIK, DR TUCKER Admitting Unavailable KARASIK, DR TUCKER Consulting Unavailable AGUBOSIM, NATHAN Consulting Unavailable LONGTARUN Consulting Unavailable NILL, DR LOPEZ Attending Unavailable NADERER, DR BLADIMIR Nicolas Primary Care Unavailable NILL, DR LOPEZ Admitting Unavailable NILL, DR LOPEZ Consulting Unavailable AGUBOSIM, NATHAN Consulting Unavailable DORKOSKLASHAE, AL Consulting Unavailable NADERER, DR BLADIMIR Nicolas [...] NADERER, DR BLADIMIR Nicolas Primary Care Unavailable MIS, DR DEL RIO Admitting Unavailable MISC, DR DEL RIO Consulting Unavailable NADERER, DR BLADIMIR Nicolas Primary Care Unavailable KARASIK, DR TUCKER Attending Unavailable KARASIK, DR TUCKER Consulting Unavailable KARASIK, DR TUCKER Admitting Unavailable WEST, DR REGINA Sarmiento Consulting Unavailable NADERER, DR LBADIMIR Nicolas Primary Care Unavailable KARASIK, DR TUCKER Attending Unavailable KARASIK, DR TUCKER Admitting Unavailable KARASIK, DR TUCKER Consulting Unavailable WEST, DR REGINA Sarmiento Consulting Unavailable NADERER, DR BLADIMIR Nicolas Consulting Unavailable NADERER, DR BLADIMIR Nicolas Attending Unavailable NADERER, DR BLADIMIR Nicolas Admitting Unavailable NADERER, DR BLADIMIR Nicolas Primary Care Unavailable MISTY LLOYD Consulting Unavailable Bladimir Alvarez MD Primary Care Provider [phone] BLADIMIR ALVAREZ Attending Unavailable MD Bladimir Alvarez Primary Care Provider ADRIEL Ya Attending Provider Annie Ya Attending Unavailable Annie Ya Admitting Unavailable Bladimir Alvarez Primary Care Unavailable Allergies Allergy Classification Reported Allergen(s) Allergy Type Date of Onset Reaction(s) Facility (1 source) Desonide Drug Allergy [facility] Repository Medications Current Medications Medication Drug Class(es) Dates Sig (Normalized) Sig (Original) atorvastatin 40 mg oral tablet (3 sources) HMG-CoA Reductase Inhibitor take 1 tablet by mouth in the morning atorvastatin (Lipitor) 40 MG tablet Take 40 mg by mouth in the morning. 0 Active fluticasone propionate 0.05 mg/actuat metered dose nasal spray (3 sources) Corticosteroid Start: 11-02-20 23 fluticasone (Flonase) 50 MCG/ACT nasal spray Indications: Seasonal allergic rhinitis due to pollen USE 2 SPRAYS DAILY 16 g 11 11/02/2023 Active hydroCHLOROthiazide 25 mg oral tablet (3 sources) Thiazide Diuretic Start: 11-02-20 23 hydroCHLOROthiazide (HYDRODiuril) 25 MG tablet Indications: Benign essential hypertension (CMS/HCC) TAKE 1 TABLET DAILY 90 tablet 3 11/02/2023 Active Multiple Vitamins-Minerals (MULTIVITAMIN ADULTS 50+ PO) (3 sources) Multiple Vitamins-Minerals (MULTIVITAMIN ADULTS 50+ PO) Take by mouth [address] Jauregui Wort 150 MG capsule (3 sources) take 1 capsule by mouth once daily [place] Ja[place]gui Wort 150 MG capsule Take 150 mg by mouth 1 (one) time each day 0 Active sucralfate 1000 mg oral tablet (3 sources) Aluminum Complex sucralfate (Car afate) 1 g tablet Take 1 g by mouth in the morning and 1 g at noon and 1 g in the evening and 1 g before bedtime. Take before meals. 0 Active Problems Active Problems Problem Classification Problem Date Documented Date Episodic/Chronic Cancer of uterus (4 sources) Malignant neoplasm of endometrium; Translations: [Endometrial carcinoma] Onset: 06-27-2022 01-01-2024 Chronic Congestive heart failure; nonhypertensive (6 sources) Chronic diastolic (congestive) heart failure; Translations: [Chronic heart failure co-occurrent with normal ejection fraction] Onset: 06-27-2022 01-01-2024 Chronic Deficiency and other anemia (5 sources) Anemia, unspecified; Translations: [ANEMIA UNSPECIFIED] Onset: 06-02-2022 Episodic Disorders of lipid metabolism (4 sources) Hyperlipidemia, unspecified; Translations: [Dyslipidemia] Onset: 06-27-2022 01-01-2024 Chronic Esophageal disorders (5 sources) Gastroesophageal reflux disease without esophagitis; Translations: [Gastro-esophageal reflux disease without esophagitis] Onset: 01-01-2024 01-01-2024 Chronic Essential hypertension (6 sources) Essential (primary) hypertension; Translations: [Benign essential hypertension] Onset: 06-27-2022 11-02-2023 Chronic Heart valve disorders (1 source) Nonrheumatic [...] VAGINAL BLEED UNS] Onset: 05-08-2022 Chronic Other nervous system disorders (5 sources) Carpal tunnel syndrome of right wrist; Translations: [Carpal tunnel syndrome, right upper limb] Onset: 01-01-2024 01-01-2024 Chronic Other non-traumatic joint disorders (1 source) Pain in left ankle and joints of left foot; Translations: [Pain in left ankle and joints of left foot] Onset: 03-05-2024 Episodic Other nutritional; endocrine; and metabolic disorders (1 [...] IMG OT BODY STRUC] Onset: 06-27-2022 Chronic Other upper respiratory disease (5 sources) Allergic rhinitis due to pollen; Translations: [Allergic rhinitis due to pollen] Onset: 11-02-2023 11-02-2023 Chronic Unclassified (1 source) CONTACT W/AND (SUSP) [...] 05-03-2022 Episodic Other aftercare (1 source) Other senior living (current) drug therapy; Translations: [OTH SEPARATOR TENDER CURRENT DRUG THERAPY] Onset: 06-27-2022 Episodic Other [...] Test Name Value Interpretation Reference Range Facility XR ankle LT min 3V*on 2023 XR ankle LT min 3V* [facility] [place] [address] XRay Report Signed Patient: Taty Rice MR#: [id number] : 1960 Acct:[id number] Age/Sex: 63 / F ADM Date: 03/05/24 Loc: XDUCLY Room: Type: [facility] Attending Dr: Annie MOREL Copies to: ADRIEL Taylor Ordering Provider: ADRIEL Taylor Date of Service: 03/05/24 XR/XR ankle LT min 3V*: LEFT ANKLE PAIN LEFT ANKLE - 3 views CLINICAL HISTORY: Left ankle pain for 2 weeks. No known injury. COMPARISON: None FINDINGS: Soft tissue swelling. Ankle mortise appears intact. Degenerative change. Initially degenerative changes seen involving the hindfoot and mid foot with plantar spurring noted. No acute bony process is seen. XR/XR ankle LT min 3V* IMPRESSION: DEGENERATIVE CHANGES AND SOFT TISSUE SWELLING WITHOUT ACUTE BONY PROCESS. Impression dictated by: Vitor Frey Jr., D.O.03/05/2024 3:52 PM Dictation Location: [place] [address] Transcribed By: [facility] 03/05/241551 Dictated By: Vitor Frey Jr, DO 03/05/241550 Signed By: 03/05/24 155 Normal [facility] CBC AUTO DIFFon 10-11-2022 BASO # 0.0 103/ul Normal 0.0-0.1 [facility] Comment on above: Performed By: #### L IPID, TSH, LIVER #### [facility] [address] [address] [address] Stu Cabezas Basophils/100 WBC (Bld) 0.6 % Normal 0.2-2.0 [facility] Comment on above: Performed By: #### L IPID, TSH, LIVER #### [facility] [address] [place] [address] [address] Stu Cabezas EO # 0.3 103/ul Normal 0.0-0.7 [facility] Comment on above: Performed By: #### L IPID, TSH, LIVER #### [facility] [address] [address] [address] Stu Cabezas Eosinophils/100 WBC (Bld) 4.3 % Normal 0.9-7.0 [facility] Comment on above: Performed By: #### L IPID, TSH, LIVER #### [facility] [address] [address] [address] Stu Cabezas Erythrocyte distribution width (RBC) [Ratio] 12.2 % Normal 11.0-15.0 [facility] Comment on above: Performed By: #### L IPID, TSH, LIVER #### [facility] [address] [address] [address] Stu Cabezas Hematocrit (Bld) [Volume fraction] 36.4 % Normal 36.0-48.0 [facility] Comment on above: Performed By: #### L IPID, TSH, LIVER #### [facility] [address] [place] [address] Dr. Stu Cabezas Hemoglobin (Bld) [Mass/Vol] 12.0 g/dL Normal 12.0-16.0 [facility] Comment on above: Performed By: #### L IPID, TSH, LIVER #### [facility] [address] [place] [address] Dr. Stu Cabezas IG # 0.01 10e3/ul Normal 0.00-0.03 [facility] Comment on above: Performed By: #### L IPID, TSH, LIVER #### [facility] [address] [place] [address] Dr. Stu Cabezas IG % 0.2 % Normal 0.0-0.5 [facility] Comment on above: Performed By: #### L IPID, TSH, LIVER #### [facility] [address] [place] [address] Dr. Stu Cabezas LYMPH # 1.9 103/ul Normal 1.2-3.8 [facility] Comment on above: Performed By: #### L IPID, TSH, LIVER #### [facility] [address] [place] [address] Dr. Stu Cabezas Lymphocytes/100 WBC (Bld) 29.5 % Normal 20.5-60.0 [facility] Comment on above: Performed By: #### L IPID, TSH, LIVER #### [facility] [address] [place] [address] Dr. Stu Cabezas MANUAL DIFF REQ NO Normal [facility] Comment on above: Performed By: #### L IPID, TSH, LIVER #### [facility] [address] [place] [address] Dr. Stu Cabezas MCH (RBC) [Entitic mass] 29.8 pg Normal 26.7-34.0 [facility] Comment on above: Performed By: #### L IPID, TSH, LIVER #### [facility] [address] [place] [address] Dr. Stu Cabezas MCHC (RBC) [Mass/Vol] 33.0 g/dL Normal 29.9-35.2 [facility] Comment on above: Performed By: #### L IPID, TSH, LIVER #### [facility] [address] [place] [address] Dr. Stu Cabezas MCV (RBC) [Entitic vol] 90.3 fL Normal 81.0-99.0 [facility] Comment on above: Performed By: #### L IPID, TSH, LIVER #### [facility] [address] [place] [address] Dr. Stu Cabezas MONO # 0.7 103/ul Normal 0.3-0.8 [facility] Comment on above: Performed By: #### L IPID, TSH, LIVER #### [facility] [address] [place] [address] Dr. Stu Cabezas Monocytes/100 WBC (Bld) 10.2 % Normal 1.7-12.0 [facility] Comment on above: Performed By: #### L IPID, TSH, LIVER #### [facility] [address] [place] [address] Dr. Stu Cabezas NEUT # 3.6 103/ul Normal 1.4-6.5 [facility] Comment on above: Performed By: #### L IPID, TSH, LIVER #### [facility] [address] [place] [address] Dr. Stu Cabezas Neutrophils/100 WBC (Bld) 55.2 % Normal 43.0-75.0 [facility] Comment on above: Performed By: #### L IPID, TSH, LIVER #### [facility] [address] [place] [address] Dr. Stu Cabezas Platelet mean volume (Bld) [Entitic vol] 9.2 fL Critically low 9.5-13.5 [facility] Comment on above: Performed By: #### L IPID, TSH, LIVER #### [facility] [address] [place] [address] Dr. Stu Cabezas PLT 242 103/ul Normal 150-450 [facility] Comment on above: Performed By: #### L IPID, TSH, LIVER #### [facility] [address] [address] [address] Stu Cabezas RBC 4.03 106/ul Critically low 4.20-5.40 [facility] Comment on above: Performed By: #### L IPID, TSH, LIVER #### [facility] [address] [place] [address] [address] Stu Cabezas WBC 6.5 103/ul Normal 4.0-11.0 [facility] Comment on above: Performed By: #### L IPID, TSH, LIVER #### [facility] [address] [address] [address] Stu Cabezas FERRITINon 10-11-2022 Ferritin [Mass/Vol] 33.0 ng/mL Normal 8.0-252.0 [facility] Comment on above: Performed By: #### L IPID, TSH, LIVER #### [facility] [address] [address] [address] Stu Cabezas IRON AND TIBCon 10-11-2022 % SATURATION 13.1 % Normal [facility] Comment on above: Performed By: #### L IPID, TSH, LIVER #### [facility] [address] [address] [address] Stu Cabezas Iron [Mass/Vol] 40.0 ug/dL Critically low 50.0-170.0 [facility] Comment on above: Performed By: #### L IPID, TSH, LIVER #### [facility] [address] [address] [address] Stu Cabezas TIBC DIRECT 306.0 ug/dL Normal 250.0-450.[address] [facility] Comment on above: Performed By: #### L IPID, TSH, LIVER #### [facility] [address] [place] [address] Dr. Stu Cabezas VIT B12 AND FOLATEon Cobalamin (Vitamin B12) [Mass/Vol] 869.0 pg/mL Normal 193.0-986.0 [facility] Comment on above: Performed By: #### L IPID, TSH, LIVER #### [facility] [address] [place], [place] [address] Dr. Stu Cabezas FOLATE 19.60 ng/mL Normal 8.60-58.90 [facility] Comment on above: Performed By: #### L IPID, TSH, LIVER #### [facility] [address] [place], [place] [address] Dr. Stu Cabezas Addendum Reporton 09-28-2022 Addendum Report [facility] Department of Pathology [address] [place] [phone] Name: TATY RICE : 1960 [facility] [id number] Number: Gender Female Locatio [facility] : n: Admit 62 years Attending GARRETT ARBOLEDA Age: Provider: Ordering GARRETT ARBOLEDA Provider: Consulti Surgical Pathology Report ng: ACCESSION: COLLECTED DATE/TIME: RECEIVED DATE/TIME: PATHOLOGIST: [id number] 06/05/2022 11:30 EDT 06/05/2022 11:[address], [facility] Surgical Path Addendum Report Report Type: C-1100 This case was reviewed and the paraffin block (A2) was selected by the pathologist on 08/03/22 and submitted to [facility] for TumorNext analysis. The results have been reviewed by the pathologist. COMMENT: The [employer] report (#[id number]) can be viewed under Documents in the patient's electronic medical record. CPT CODE: 22510 MARIFER GRACIA PATHOLOGIST (Electronic Signature) Date Verified 09/28/2022 [facility] Surgical Path Addendum Report Report Type: C-1100 This case was reviewed and the paraffin block (A2) was selected by the pathologist on 07/11/2022 and submitted to [facility] for MLH1 methylation analysis. 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 COMMENT: The [facility] report (#[id number]) can be viewed under Documents in the patient's electronic medical record. ____ Print 09/28/2022 12:40 EDT Number: Date/Time: [facility] Department of Pathology [address] [place] [phone] Name: TATY RICE : 1960 [facility] [id number] Number: Gender Female [facility] : n: Admit 62 years Attending GARRETT ARBOLEDA Age: Provider: Ordering GARRETT ARBOLEDA Provider: Consulti Surgical Pathology Report ng: ACCESSION: COLLECTED DATE/TIME: RECEIVED DATE/TIME: PATHOLOGIST: [id number] 06/05/2022 11:30 EDT 06/05/2022 11:[address] Surgical Path Addendum Report CPT CODE: 69563 MARIFER GRACIA PATHOLOGIST (Electronic Signature) Date Verified 07/27/2022 Final Diagnosis Report for THE [place] CERVIX, UTERUS, BILATERAL FALLOPIAN TUBES, BILATERAL [...] studies, the tumor is positive for ER, AR, CEA monoclonal (patchy), but negative for P504S. [...] ____ Print 09/28/2022 12:40 EDT Number: Date/Time: [facility] Department of Pathology [address] [place] [phone] Name: TATY RCIE : 1960 [employer] [id number] Number: Gender Female [facility] : n: Admit 62 years Attending GARRETT ARBOLEDA Age: Provider: Ordering GARRETT ARBOLEDA Provider: Consulti Surgical Pathology Report ng: ACCESSION: COLLECTED DATE/TIME: RECEIVED DATE/TIME: PATHOLOGIST: [id number] 06/05/2022 11:30 EDT 06/05/2022 11:[address], [facility] Final Diagnosis MSH-6 Expressed (95% tumor [...] 5 cm (more content not included)... Normal [facility] Comment on above: Performed By: #### 9 [id number] #### [facility] Services [address] [place] [address] Vp Securities: Sb Valiente MD [facility] [id number] 09-06-2022 [facility] Sendout See Report Normal [facility] Comment on above: Order Comment: MLH1 Promotor Methylation Performed By: #### 1 [id number] #### [facility] Services [address] [place], [place] [id number] Vp Securities: Sb Valiente MD [facility] [id number] 08-16-2022 [facility] Sendout See Report Normal [facility] Comment on above: Order Comment: MLH1 Promotor Methylation Lab [place] to stone [facility] Performed By: #### 1 [id number] #### [facility] [address] [place] [address] Vp Securities: Sb Valiente MD Addendum Reporton 07-27-2022 Addendum Report [facility] Department of Pathology [address] [place] [phone] Name: TATY RICE : 1960 [facility] [id number] Number: Gender Female [facility] : n: Admit 62 years Attending GARRETT ARBOLEDA Age: Provider: Ordering GARRETT ARBOLEDA Provider: Consulti Surgical Pathology Report ng: ACCESSION: COLLECTED DATE/TIME: RECEIVED DATE/TIME: PATHOLOGIST: [id number] 06/05/2022 11:30 EDT 06/05/2022 11:[address] Surgical Path Addendum Report Report Type: C-1100 This case was reviewed and the paraffin block (A2) was selected by the pathologist on 07/11/2022 and submitted to [facility] for MLH1 methylation analysis. 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 COMMENT: The [facility] report (#[id number]) can be viewed under Documents in the patient's electronic medical record. CPT CODE: 76740 MARIFER GRACIA PATHOLOGIST (Electronic Signature) Date Verified 07/27/2022 [facility] Final Diagnosis Report for [place] CERVIX, UTERUS, BILATERAL FALLOPIAN TUBES, BILATERAL [...] studies, the tumor is positive for ER, AR, CEA monoclonal (patchy), but ____ Print 07/27/2022 10:09 EDT Number: Date/Time: [facility] Department of Pathology [address] [place] [phone] Name: TATY RICE : 1960 [facility] [id number] Number: Gender Female [facility] EILE[facility] : n: Admit 62 years Attending GARRETT ARBOLEDA Age: Provider: GARRETT Cardoso Provider: Consulti Surgical Pathology Report ng: ACCESSION: COLLECTED DATE/TIME: RECEIVED DATE/TIME: PATHOLOGIST: [id number] 06/05/2022 11:30 EDT 06/05/2022 11:[address], [facility] Final Diagnosis negative for P504S. The findings [...] ____ Print 07/27/2022 10:09 EDT Number: Date/Time: [facility] Department of Pathology [address] [place] [phone] Name: TATY RICE : 1960 [facility] [id number] Number: Gender Female Locatio [facility] EILEEN : n: Admit 62 years Attending GARRETT ARBOLEDA Age: Provider: Ordering GARRETT ARBOLEDA Provider: Consulti Surgical Pathology Report ng: ACCESSION: COLLECTED DATE/TIME: RECEIVED DATE/TIME: PATHOLOGIST: [id number] 06/05/2022 11:30 EDT 06/05/2022 11:[address], [facility] Final Diagnosis SPECIMEN Procedure Total hysterectomy [...] Involvement __ (more content not included)... Normal [facility] Comment on above: Performed By: #### 9 [id number], [id number] #### [facility] Services [address] [place] [address] Vp Securities: Sb Valiente MD SURGICAL PATH REPORTon 06-07 SURGICAL PATH REPORT [facility] Department of Pathology [address] [place] [phone] Name: TATY RICE : 1960 [facility] [id number] Number: Gender: Female Location: [facility] Admit 62 years Attending GARRETT ARBOLEDA Age: Provider: Ordering GARRETT ARBOLEDA Provider: Consulting: Surgical Pathology Report ACCESSION: COLLECTED DATE/TIME: RECEIVED DATE/TIME: PATHOLOGIST: [id number] 06/05/2022 11:30 EDT 06/05/2022 11:[address], [facility] Final Diagnosis Report for THE [place] CERVIX, UTERUS, BILATERAL FALLOPIAN TUBES, BILATERAL [...] studies, the tumor is positive for ER, AR, CEA monoclonal (patchy), but negative for P504S. [...] positivity) DNA Mismatch Repair Protein ____ Print Date06/07/2022 13:12 EDT Number: Time: [facility] Department of Pathology [address] [place] [phone] Name: TATY RICE : 1960 [facility] [id number] Number: Gender: Female Location: [facility] Admit 62 years Attending GARRETT ARBOLEDA Age: Provider: Ordering GARRETT ARBOLEDA Provider: Consulting: Surgical Pathology Report ACCESSION: COLLECTED DATE/TIME: RECEIVED DATE/TIME: PATHOLOGIST: [id number] 06/05/2022 11:30 EDT 06/05/2022 11:[address], [facility] Final Diagnosis INTERPRETATION: These results show [...] ____ Print Date06/07/2022 13:12 EDT Number: Time: [facility] Department of Pathology [address] [place] [phone] Name: TATY RICE : 1960 [facility] [id number] Number: Gender: Female Location: [facility] Admit 62 years Attending GARRETT ARBOLEDA Age: Provider: Ordering GARRETT ARBOLEDA Provider: Consulting: Surgical Pathology Report ACCESSION: COLLECTED DATE/TIME: RECEIVED DATE/TIME: PATHOLOGIST: [id number] 06/05/2022 11:30 EDT 06/05/2022 11:[address], [facility] Final Diagnosis Depth of Myometrial Invasion [...] Print Date/ (more content not included)... Normal [facility] Comment on above: Performed By: #### 9 [id number], [id number] #### [facility] Services [address] [place] [address] Vp Securities: MD Anahy Regan 06-06-2022 Urea nitrogen [Mass/Vol] 22.0 mg/dL Critically high 7.0-18.0 [facility] Comment on above: Performed By: #### C PANCHO, BUN #### [facility] [address] [place] [address] Dr. Stu Cabezas CBC AUTO DIFFon 06-06-2022 BASO # 0.0 103/ul Normal 0.0-0.1 [facility] Comment on above: Performed By: #### L IPID, TSH, LIVER #### [facility] [address] [place] [address] Dr. Stu Cabezas Basophils/100 WBC (Bld) 0.1 % Critically low 0.2-2.0 [facility] Comment on above: Performed By: #### L IPID, TSH, LIVER #### [facility] [address] [place] [address] Dr. Stu Cabezas EO # 0.0 103/ul Normal 0.0-0.7 [facility] Comment on above: Performed By: #### L IPID, TSH, LIVER #### [facility] [address] [place] [address] Dr. Stu Cabezas Eosinophils/100 WBC (Bld) 0.3 % Critically low 0.9-7.0 [facility] Comment on above: Performed By: #### L IPID, TSH, LIVER #### [facility] [address] [place] [address] Dr. Stu Cabezas Erythrocyte distribution width (RBC) [Ratio] 12.4 % Normal 11.0-15.0 [facility] Comment on above: Performed By: #### L IPID, TSH, LIVER #### [facility] [address] [place] [address] Dr. Stu Cabezas Hematocrit (Bld) [Volume fraction] 27.7 % Critically low 36.0-48.0 [facility] Comment on above: Performed By: #### L IPID, TSH, LIVER #### [facility] [address] [place] [address] Dr. Stu Cabezas Hemoglobin (Bld) [Mass/Vol] 9.2 g/dL Critically low 12.0-16.0 [facility] Comment on above: Performed By: #### L IPID, TSH, LIVER #### [facility] [address] [address] [address] Stu Cabezas IG # 0.02 10e3/ul Normal 0.00-0.03 [facility] Comment on above: Performed By: #### L IPID, TSH, LIVER #### [facility] [address] [address] [address] Stu Cabezas IG % 0.2 % Normal 0.0-0.5 [facility] Comment on above: Performed By: #### L IPID, TSH, LIVER #### [facility] [address] [place] [address] Dr. Stu Cabezas LYMPH # 2.3 103/ul Normal 1.2-3.8 [facility] Comment on above: Performed By: #### L IPID, TSH, LIVER #### [facility] [address] [place] [address] Dr. Stu Cabezas Lymphocytes/100 WBC (Bld) 23.1 % Normal 20.5-60.0 [facility] Comment on above: Performed By: #### L IPID, TSH, LIVER #### [facility] [address] [place] [address] Dr. tSu Cabezas MANUAL DIFF REQ NO Normal [facility] Comment on above: Performed By: #### L IPID, TSH, LIVER #### [facility] [address] [place] [address] Dr. Stu Cabezas MCH (RBC) [Entitic mass] 29.9 pg Normal 26.7-34.0 [facility] Comment on above: Performed By: #### L IPID, TSH, LIVER #### [facility] [address] [place] [address] Dr. Stu Cabezas MCHC (RBC) [Mass/Vol] 33.2 g/dL Normal 29.9-35.2 [facility] Comment on above: Performed By: #### L IPID, TSH, LIVER #### [facility] [address] [place] [address] Dr. Stu Cabezas MCV (RBC) [Entitic vol] 89.9 fL Normal 81.0-99.0 [facility] Comment on above: Performed By: #### L IPID, TSH, LIVER #### [facility] [address] [place] [address] Dr. Stu Cabezas MONO # 1.1 103/ul Critically high 0.3-0.8 [facility] Comment on above: Performed By: #### L IPID, TSH, LIVER #### [facility] [address] [place] [address] Dr. Stu Cabezas Monocytes/100 WBC (Bld) 11.1 % Normal 1.7-12.0 [facility] Comment on above: Performed By: #### L IPID, TSH, LIVER #### [facility] [address] [place] [address] Dr. Stu Cabezas NEUT # 6.4 103/ul Normal 1.4-6.5 [facility] Comment on above: Performed By: #### L IPID, TSH, LIVER #### [facility] [address] [place] [address] Dr. Stu Cabezas Neutrophils/100 WBC (Bld) 65.2 % Normal 43.0-75.0 [facility] Comment on above: Performed By: #### L IPID, TSH, LIVER #### [facility] [address] [place] [address] Dr. Stu Cabezas Platelet mean volume (Bld) [Entitic vol] 9.5 fL Normal 9.5-13.5 [facility] Comment on above: Performed By: #### L IPID, TSH, LIVER #### [facility] [address] [place] [address] Dr. Stu Cabezas PLT 250 103/ul Normal 150-450 [facility] Comment on above: Performed By: #### L IPID, TSH, LIVER #### [facility] [address] [place] [address] Dr. Stu Cabezas RBC 3.08 106/ul Critically low 4.20-5.40 [facility] Comment on above: Performed By: #### L IPID, TSH, LIVER #### [facility] [address] [address] [address] Stu Cabeazs WBC 9.8 103/ul Normal 4.0-11.0 [facility] Comment on above: Performed By: #### L IPID, TSH, LIVER #### [facility] [address] [place] [address] Dr. Stu Cabezas CREATININEon 06-06-2022 Creatinine [Mass/Vol] 1.00 mg/dL Normal 0.55-1.02 [facility] Comment on above: Performed By: #### C PANCHO, BUN #### [facility] [address] [address] [address] Stu Cabezas EGFR-AF MONTSERRATIAN >60 Normal >=60 [facility] Comment on above: Performed By: #### C PANCHO, BUN #### [facility] [address] [place] [address] Dr. Stu Cabezas EGFR-NON AF MONTSERRATIAN 56 mL/min/1.73m2 Critically low >=60 [facility] Comment on above: Performed By: #### C PANCHO, BUN #### [facility] [address] [place] [address] Dr. Stu Cabezas ECHOCARDIO M/2D COMPLETEon 0 06-06-2022 ECHOCARDIO M/2D COMPLETE Patient: TATY RICE Exam Date: 06/06/2022 : 1960 Gender:F Ordering : DR BLADIMIR ALAVREZ . Admission #: [id number] Family : DR GARRETT ARBOLEDA . Order #: [id number] CLICK HERE TO VIEW EXAM ECHOCARDIOGRAM REPORT [...] Area(A4C): 23.50 cm2 Left Atrium Systolic Volume(A2C): 55845 mm3 Left Atrium Systolic Volume(A4C): 10633 mm3 Mitral Valve MV E to A Ratio: 1 Mitral Valve A-Wave Peak Velocity: 93.30 cm/s Mitral Valve E-Wave Peak Velocity: 92.80 cm/s Deceleration Time: 256 ms Right Ventricle Aorta AO Root Diam: 3.30 cm Aortic Valve AoV Area (Peak Gonzalez): 2.11 cm2 AoV Area (VTI): 2.04 cm2 Deceleration Man[place]e: 2610 mm/s2 Pressure Half-Time: 471 ms Peak [...] M.D. on 06/06/2022 at 18:42 Normal [facility] Covid-19 PCR ([facility])on SARS-CoV-2 (COVID-19) RNA KAI+probe Ql (Unsp spec) Not detected Normal NOT DETECTED [facility] Comment on above: Result Comment: This test is not yet approved or cleared by the [place] FDA. When there are no FDA-approved or cleared tests available, and other criteria are met, FDA can make tests available under an emergency access mechanism called an Emergency Use Authorization (EUA). The EUA for this test is supported by the Editorial Assistant of Health and Human Service's (HHS's) declaration [...] consistent with SARS-CoV-2. Performed By: #### C VDTB #### [facility] [address] [place] [address] Dr. Stu Cabezas TYPE AND SCREENon 06-01-2022 TYPE AND SCREEN Negative Normal [facility] Comment on above: Performed By: #### L IPID, TSH, LIVER #### [facility] [address] [address] [address] Stu Cabezas CBC AUTO DIFFon 05-26-2022 BASO # 0.0 103/ul Normal 0.0-0.1 [facility] Comment on above: Performed By: #### C BC #### [facility] [address] [place] [address] Dr. Stu Cabezas Basophils/100 WBC (Bld) 0.4 % Normal 0.2-2.0 [facility] Comment on above: Performed By: #### C BC #### [facility] [address] [place] [address] Dr. Stu Cabezas EO # 0.4 103/ul Normal 0.0-0.7 [facility] Comment on above: Performed By: #### C BC #### [facility] [address] [place] [address] Dr. Stu Cabezas Eosinophils/100 WBC (Bld) 5.5 % Normal 0.9-7.0 [facility] Comment on above: Performed By: #### C BC #### [facility] [address] [place] [address] Dr. Stu Cabezas Erythrocyte distribution width (RBC) [Ratio] 12.0 % Normal 11.0-15.0 [facility] Comment on above: Performed By: #### C BC #### [facility] [address] [place] [address] Dr. Stu Cabezas Hematocrit (Bld) [Volume fraction] 35.6 % Critically low 36.0-48.0 [facility] Comment on above: Performed By: #### C BC #### [facility] [address] [place] [address] Dr. Stu Cabezas Hemoglobin (Bld) [Mass/Vol] 11.9 g/dL Critically low 12.0-16.0 [facility] Comment on above: Performed By: #### C BC #### [facility] [address] [place] [address] Dr. Stu Cabezas IG # 0.02 10e3/ul Normal 0.00-0.03 [facility] Comment on above: Performed By: #### C BC #### [facility] [address] [place] [address] Dr. Stu Cabezas IG % 0.3 % Normal 0.0-0.5 [facility] Comment on above: Performed By: #### C BC #### [facility] [address] [place] [address] Dr. Stu Cabezas LYMPH # 2.2 103/ul Normal 1.2-3.8 [facility] Comment on above: Performed By: #### C BC #### [facility] [address] [place] [address] Dr. Stu Cabezas Lymphocytes/100 WBC (Bld) 28.4 % Normal 20.5-60.0 [facility] Comment on above: Performed By: #### C BC #### [facility] [address] [place] [address] Dr. Stu Cabezas MANUAL DIFF REQ NO Normal [facility] Comment on above: Performed By: #### C BC #### [facility] [address] [place] [address] Dr. Stu Cabezas MCH (RBC) [Entitic mass] 29.4 pg Normal 26.7-34.0 [facility] Comment on above: Performed By: #### C BC #### [facility] [address] [place] [address] Dr. Stu Cabezas MCHC (RBC) [Mass/Vol] 33.4 g/dL Normal 29.9-35.2 [facility] Comment on above: Performed By: #### C BC #### [facility] [address] [place] [address] Dr. Stu Cabezas MCV (RBC) [Entitic vol] 87.9 fL Normal 81.0-99.0 [facility] Comment on above: Performed By: #### C BC #### [facility] [address] [place] [address] Dr. Stu Cabezas MONO # 0.7 103/ul Normal 0.3-0.8 [facility] Comment on above: Performed By: #### C BC #### [facility] [address] [place] [address] Dr. Stu Cabezas Monocytes/100 WBC (Bld) 9.2 % Normal 1.7-12.0 [facility] Comment on above: Performed By: #### C BC #### [facility] [address] [place] [address] Dr. Stu Cabezas NEUT # 4.3 103/ul Normal 1.4-6.5 [facility] Comment on above: Performed By: #### C BC #### [facility] [address] [place] [address] Dr. Stu Cabezas Neutrophils/100 WBC (Bld) 56.2 % Normal 43.0-75.0 [facility] Comment on above: Performed By: #### C BC #### [facility] [address] [place] [address] Dr. Stu Cabezas Platelet mean volume (Bld) [Entitic vol] 9.1 fL Critically low 9.5-13.5 [facility] Comment on above: Performed By: #### C BC #### [facility] [address] [place] [address] Dr. Stu Cabezas PLT 298 103/ul Normal 150-450 [facility] Comment on above: Performed By: #### C BC #### [facility] [address] [place] [address] Dr. Stu Cabezas RBC 4.05 106/ul Critically low 4.20-5.40 [facility] Comment on above: Performed By: #### C BC #### [facility] [address] [place] [address] Dr. Stu Cabezas WBC 7.7 103/ul Normal 4.0-11.0 [facility] Comment on above: Performed By: #### C BC #### [facility] [address] [place] [address] Dr. Stu Cabezas PROF CHEM 8 (BAS METB)on Anion gap [Moles/Vol] 15.1 mmol/L Normal [facility] Comment on above: Performed By: #### B MP #### [facility] [address] [address] [address] Stu Cabezas Calcium [Mass/Vol] 9.4 mg/dL Normal 8.5-10.1 [facility] Comment on above: Performed By: #### B MP #### [facility] [address] [address] [address] Stu Cabezas Chloride [Moles/Vol] 101 mmol/L Normal 98-107 [facility] Comment on above: Performed By: #### B MP #### [facility] [address] [address] [address] Stu Cabezas CO2 [Moles/Vol] 27.1 mmol/L Normal 21.0-32.0 [facility] Comment on above: Performed By: #### B MP #### [facility] [address] [place] [address] Dr. Stu Cabezas Creatinine [Mass/Vol] 1.63 mg/dL Critically high 0.55-1.02 [facility] Comment on above: Performed By: #### B MP #### [facility] [address] [address] [address] Stu Cabezas EGFR-AF MONTSERRATIAN 39 mL/min/1.73m2 Critically low >=60 [facility] Comment on above: Performed By: #### B MP #### [facility] [address] [address] [address] Stu Cabezas EGFR-NON AF MONTSERRATIAN 32 mL/min/1.73m2 Critically low >=60 [facility] Comment on above: Performed By: #### B MP #### [facility] [address] [address] [address] Stu Cabezas Glucose [Mass/Vol] 95 mg/dL Normal 74-106 [facility] Comment on above: Performed By: #### B MP #### [facility] [address] [address] [address] Stu Cabezas Potassium [Moles/Vol] 3.2 mmol/L Critically low 3.5-5.1 [facility] Comment on above: Performed By: #### B MP #### [facility] [address] [address] [address] Stu Cabezas Sodium [Moles/Vol] 140 mmol/L Normal 136-145 [facility] Comment on above: Performed By: #### B MP #### [facility] [address] [address] [address] Stu Cabezas Urea nitrogen [Mass/Vol] 49.0 mg/dL Critically high 7.0-18.0 [facility] Comment on above: Performed By: #### B MP #### [facility] [address] [address] [address] Stu Cabezas Urea nitrogen/Creatinine [Mass ratio] 30.1 mg/mg Normal [facility] Comment on above: Performed By: #### B MP #### [facility] [address] [address] [address] Stu Cabezas US PELVIS AND TRANSVAGon [...] by: KATHERINE SANTOS Date: 2022-05-08 13:20 Normal [facility] SURGICAL PATH REPORTon 04-28 SURGICAL PATH REPORT [facility] Department of Pathology [address] [place] [id number] Name: TATY RICE : 1960 [facility] [id number] Number: Gender: Male Location: [facility] Admit 62 years Attending JOHN SANTOS Age: Provider: Ordering JOHN SANTOS Provider: Consulting: Surgical Pathology Report ACCESSION: COLLECTED DATE/TIME: RECEIVED DATE/TIME: PATHOLOGIST: [id number] 04/26/2022 11:15 EDT 04/26/2022 11:15 EDT PRASANNA HUGO MD Final Diagnosis Report for [facility] [place], [place] (A) GASTRIC ANTRUM, BIOPSY: - GASTRIC [...] Print Date/ 04/28/2022 11:02 EDT Number: Time: [facility] Department of Pathology [address] [place] [id number] Name: TATY RICE : 1960 [facility] [id number] Number: Gender: Male Location: [facility] Admit 62 years Attending JOHN SANTOS Age: Provider: Ordering JOHN SANTOS Provider: Consulting: Surgical Pathology Report ACCESSION: COLLECTED DATE/TIME: RECEIVED DATE/TIME: PATHOLOGIST: [id number] 04/26/2022 11:15 EDT 04/26/2022 11:15 EDT PRASANNA [...] specimen is entirely submitted in one cassette. ROSMERY/kristie 04/26/2022 Tissue pathology report for: [facility], [address] [place] [address]; PATHOLOGY SERVICES PROVIDED BY [employer] (CLIA #[id number]) in cooperation with [facility] at [address] [place] [address] ( CLIA #[id number]) Microscopic Diagnosis NOTE: One or more of the reagents used to perform assays on this specimen MAY have contained components considered to be analyte specific reagents ( ASRs). ASRs have not been cleared or approved by the [place] Food and Drug Administration. The performance characteristics of these assays have been determined by the Department of Pathology at [facility]. This assay was performed subsequent to the H and E examination. Appropriate positive and negative controls were examined with appropriate reactivity. Codes CPT CODE: 15369 X3 + 97180 + [id number] ____ Print Date/ 04/28/2022 11:02 EDT Number: Time: Normal [facility] Comment on above: Performed By: #### [id number] #### [facility] [address] [place] [address] [employer]: Sb Valiente MD CBC AUTO DIFFon 03-16-2022 BASO # 0.0 103/ul Normal 0.0-0.1 [facility] Comment on above: Performed By: #### L IPID, TSH, LIVER #### [facility] [address] [place] [address] Dr. Stu Cabezas Basophils/100 WBC (Bld) 0.5 % Normal 0.2-2.0 [facility] Comment on above: Performed By: #### L IPID, TSH, LIVER #### [facility] [address] [place] [address] Dr. Stu Cabezas EO # 0.4 103/ul Normal 0.0-0.7 [facility] Comment on above: Performed By: #### L IPID, TSH, LIVER #### [facility] [address] [place] [address] Dr. Stu Cabezas Eosinophils/100 WBC (Bld) 6.0 % Normal 0.9-7.0 [facility] Comment on above: Performed By: #### L IPID, TSH, LIVER #### [facility] [address] [place] [address] Dr. Stu Cabezas Erythrocyte distribution width (RBC) [Ratio] 13.5 % Normal 11.0-15.0 [facility] Comment on above: Performed By: #### L IPID, TSH, LIVER #### [facility] [address] [place] [address] Dr. Stu Cabezas Hematocrit (Bld) [Volume fraction] 38.5 % Normal 36.0-48.0 [facility] Comment on above: Performed By: #### L IPID, TSH, LIVER #### [facility] [address] [place] [address] Dr. Stu Cabezas Hemoglobin (Bld) [Mass/Vol] 12.6 g/dL Normal 12.0-16.0 [facility] Comment on above: Performed By: #### L IPID, TSH, LIVER #### [facility] [address] [place] [address] Dr. Stu Cabezas IG # 0.02 10e3/ul Normal 0.00-0.03 [facility] Comment on above: Performed By: #### L IPID, TSH, LIVER #### [facility] [address] [address] [address] Stu Cabezas IG % 0.3 % Normal 0.0-0.5 [facility] Comment on above: Performed By: #### L IPID, TSH, LIVER #### [facility] [address] [place] [address] Dr. Stu Cabezas LYMPH # 2.0 103/ul Normal 1.2-3.8 [facility] Comment on above: Performed By: #### L IPID, TSH, LIVER #### [facility] [address] [place] [address] Dr. Stu Cabezas Lymphocytes/100 WBC (Bld) 29.7 % Normal 20.5-60.0 [facility] Comment on above: Performed By: #### L IPID, TSH, LIVER #### [facility] [address] [place] [address] Dr. Stu Cabezas MANUAL DIFF REQ NO Normal [facility] Comment on above: Performed By: #### L IPID, TSH, LIVER #### [facility] [address] [place] [address] Dr. Stu Cabezas MCH (RBC) [Entitic mass] 29.7 pg Normal 26.7-34.0 [facility] Comment on above: Performed By: #### L IPID, TSH, LIVER #### [facility] [address] [place] [address] Dr. Stu Cabezas MCHC (RBC) [Mass/Vol] 32.7 g/dL Normal 29.9-35.2 [facility] Comment on above: Performed By: #### L IPID, TSH, LIVER #### [facility] [address] [place] [address] Dr. Stu Cabezas MCV (RBC) [Entitic vol] 90.8 fL Normal 81.0-99.0 [facility] Comment on above: Performed By: #### L IPID, TSH, LIVER #### [facility] [address] [address] [address] Stu Cabezas MONO # 0.7 103/ul Normal 0.3-0.8 [facility] Comment on above: Performed By: #### L IPID, TSH, LIVER #### [facility] [address] [place] [address] Dr. Stu Cabezas Monocytes/100 WBC (Bld) 9.9 % Normal 1.7-12.0 [facility] Comment on above: Performed By: #### L IPID, TSH, LIVER #### [facility] [address] [place] [address] Dr. Stu Cabezas NEUT # 3.6 103/ul Normal 1.4-6.5 [facility] Comment on above: Performed By: #### L IPID, TSH, LIVER #### [facility] [address] [place] [address] Dr. Stu Cabezas Neutrophils/100 WBC (Bld) 53.6 % Normal 43.0-75.0 [facility] Comment on above: Performed By: #### L IPID, TSH, LIVER #### [facility] [address] [place] [address] Dr. Stu Cabezas Platelet mean volume (Bld) [Entitic vol] 9.1 fL Critically low 9.5-13.5 [facility] Comment on above: Performed By: #### L IPID, TSH, LIVER #### [facility] [address] [place] [address] Dr. Stu Cabezas PLT 288 103/ul Normal 150-450 [facility] Comment on above: Performed By: #### L IPID, TSH, LIVER #### [facility] [address] [place] [address] Dr. Stu Cabezas RBC 4.24 106/ul Normal 4.20-5.40 [facility] Comment on above: Performed By: #### L IPID, TSH, LIVER #### [facility] [address] [place] [address] Dr. Stu Cabezas WBC 6.6 103/ul Normal 4.0-11.0 [facility] Comment on above: Performed By: #### L IPID, TSH, LIVER #### [facility] [address] ABD/PELV W CONon 03-16-[address] ABD/PELV W CON EXAMINATION: CT ABD/PELV [...] by: MISTY LLOYD Date: 2022-03-16 10:43 Normal [facility] GLYCOHEMOGLOBIN A1Con 2021 ADA RECOMMENDATION ADA THERAPEUTIC TARG ET 6.0 - 7.0 ACTION SUGGESTED > 7.0 Normal [facility] Comment on above: Performed By: #### A 1C #### [facility] [address] [address] [address] Stu Cabezas Glucose [Mass/Vol] 131 mg/dL Normal [facility] Comment on above: Performed By: #### A 1C #### [facility] [address] [address] [address] Stu Cabezas HbA1c (Bld) [Mass fraction] 6.2 % Critically high <=6.0 [facility] Comment on above: Performed By: #### A 1C #### [facility] [address] [address] [address] Stu Cabezas LIPID PROFILEon 03-16-2022 CHOL-HDL RATIO NORM SEE BELOW Normal [facility] Comment on above: Result Comment: 3.3 - 4.4 LOW RISK 4.4 - 7.1 AVERAGE RISK 7.1 - 11.0 MODERATE RISK >11.0 HIGH RISK Performed By: #### L IPID, TSH, LIVER #### [facility] [address] [address] [address] Stu Cabezas Cholesterol [Mass/Vol] 310 mg/dL Critically high <=200 [facility] Comment on above: Performed By: #### L IPID, TSH, LIVER #### [facility] [address] [address] [address] Stu Cabezas Cholesterol in HDL [Mass/Vol] 55 mg/dL Normal 40-60 [facility] Comment on above: Performed By: #### L IPID, TSH, LIVER #### [facility] [address] [address] [address] Stu Cabezas Cholesterol in LDL [Mass/Vol] 217.2 mg/dL Normal [facility] Comment on above: Performed By: #### L IPID, TSH, LIVER #### [facility] [address] [address] [address] Stu Cabezas Cholesterol.total/Ch olesterol in HDL [Mass ratio] 5.6 {ratio} Normal [facility] Comment on above: Performed By: #### L IPID, TSH, LIVER #### [facility] [address] [address] [address] Stu Cabezas HDL NORMAL > or = 60 mg/dl - LO W CARDIOVASCULAR RISK <40 mg/dl - HIGH CARDIOVASCULAR RISK Normal [facility] Comment on above: Performed By: #### L IPID, TSH, LIVER #### [facility] [address] [address] [address] Stu Cabezas LDL CALC NORMAL SEE BELOW Normal [facility] Comment on above: Result Comment: <100 mg/dl OPTIMAL 100 - 129 mg/dl NEAR OR ABOVE OPTIMAL 130 - 159 mg/dl BORDERLINE HIGH 160 - 189 mg/dl HIGH >190 mg/dl VERY HIGH Performed By: #### L IPID, TSH, LIVER #### [facility] [address] [address] [address] Stu Cabezas Triglyceride [Mass/Vol] 189 mg/dL Critically high <=150 [facility] Comment on above: Performed By: #### L IPID, TSH, LIVER #### [facility] [address] [address] [address] Stu Cabezas VLDL CALC 37.8 mg/dL Normal [facility] Comment on above: Performed By: #### L IPID, TSH, LIVER #### [facility] [address] [address] [address] Stu Cabezas LIVER PROFILEon 03-16-2022 Albumin [Mass/Vol] 3.7 g/dL Normal 3.4-5.0 [facility] Comment on above: Performed By: #### L IPID, TSH, LIVER #### [facility] [address] [address] [address] Stu Cabezas Albumin/Globulin [Mass ratio] 0.9 {ratio} Normal [facility] Comment on above: Performed By: #### L IPID, TSH, LIVER #### [facility] [address] [address] [address] Stu Cabezas ALP [Catalytic activity/Vol] 62 U/L Normal 46-116 [facility] Comment on above: Performed By: #### L IPID, TSH, LIVER #### [facility] [address] [place] [address] Dr. Stu Cabezas ALT [Catalytic activity/Vol] 35 U/L Normal 14-59 [facility] Comment on above: Performed By: #### L IPID, TSH, LIVER #### [facility] [address] [place] [address] Dr. Stu Cabezas AST [Catalytic activity/Vol] 20 U/L Normal 15-37 [facility] Comment on above: Performed By: #### L IPID, TSH, LIVER #### [facility] [address] [place] [address] Dr. Stu Cabezas BILI, CONJUGATED 0.1 mg/dL Normal 0.0-0.3 [facility] Comment on above: Performed By: #### L IPID, TSH, LIVER #### [facility] [address] [place] [address] Dr. Stu Cabezas Bilirubin [Mass/Vol] 0.8 mg/dL Normal 0.2-1.3 [facility] Comment on above: Performed By: #### L IPID, TSH, LIVER #### [facility] [address] [place] [address] Dr. Stu Cabezas Globulin (S) [Mass/Vol] 4.1 g/dL Normal [facility] Comment on above: Performed By: #### L IPID, TSH, LIVER #### [facility] [address] [place] [address] Dr. Stu Cabezas Protein [Mass/Vol] 7.8 g/dL Normal 6.1-8.2 [facility] Comment on above: Performed By: #### L IPID, TSH, LIVER #### [facility] [address] [place] [address] Dr. Stu Cabezas PROF CHEM 8 (BAS METB)on Anion gap [Moles/Vol] 11.9 mmol/L Normal [facility] Comment on above: Performed By: #### B MP #### [facility] [address] [place] [address] Dr. Stu Cabezas Calcium [Mass/Vol] 8.9 mg/dL Normal 8.5-10.1 [facility] Comment on above: Performed By: #### B MP #### [facility] [address] [address] [address] Stu Cabezas Chloride [Moles/Vol] 101 mmol/L Normal 98-107 [facility] Comment on above: Performed By: #### B MP #### [facility] [address] [address] [address] Stu Cabezas CO2 [Moles/Vol] 31.0 mmol/L Critically high 22.0-30.0 [facility] Comment on above: Performed By: #### B MP #### [facility] [address] [place] [address] Dr. Stu Cabezas Creatinine [Mass/Vol] 0.84 mg/dL Normal 0.52-1.04 [facility] Comment on above: Performed By: #### B MP #### [facility] [address] [address] [address] Stu Cabezas EGFR-AF MONTSERRATIAN >60 Normal >=60 [facility] Comment on above: Performed By: #### B MP #### [facility] [address] [address] [address] Stu Cabezas EGFR-NON AF MONTSERRATIAN >60 Normal >=60 [facility] Comment on above: Performed By: #### B MP #### [facility] [address] [address] [address] Stu Cabezas Glucose [Mass/Vol] 116 mg/dL Critically high 74-106 [facility] [place] Comment on above: Performed By: #### B MP #### [facility] [address] [address] [address] Stu Cabezas Potassium [Moles/Vol] 3.9 mmol/L Normal 3.4-5.0 [facility] Comment on above: Performed By: #### B MP #### [facility] [address] [address] [address] Stu Cabezas Sodium [Moles/Vol] 140 mmol/L Normal 137-145 [facility] Comment on above: Performed By: #### B MP #### [facility] [id number] Stu Cabezas Urea nitrogen [Mass/Vol] 21.0 mg/dL Critically high 7.0-18.0 [facility] Comment on above: Performed By: #### B MP #### [facility] [id number] Stu Cabezas Urea nitrogen/Creatinine [Mass ratio] 25.0 mg/mg Normal [facility] Comment on above: Performed By: #### B MP #### [facility] [address] [address] [address] Stu Cabezas TSHon 03-16-2022 TSH 1.697 uIU/mL Normal 0.470-4.680 [facility] Comment on above: Performed By: #### L IPID, TSH, LIVER #### [facility] [address] [address] [address] Stu Cabezas TSH RANGE SEE BELOW Normal [facility] Comment on above: Result Comment: <0.3 4 UIU/ml HYPERTHYROID 0.34-5.60 UIU/ml EUTHYROID >5.60 UIU/ml HYPOTHYROID Performed By: #### L IPID, TSH, LIVER #### [facility] [id number] Stu Cabeazs SURGICAL PATH REPORTon 02-20 SURGICAL PATH REPORT [facility] Department of Pathology [address] [place] [id number] Name: TATY RICE : 1960 [facility] [id number] Number: Gender: Male Location: [facility] Admit 61 years Attending GARRETT ARBOLEDA Age: Provider: Ordering GARRETT ARBOLEDA Provider: Consulting: Surgical Pathology Report ACCESSION: COLLECTED DATE/TIME: RECEIVED DATE/TIME: PATHOLOGIST: [id number] 02/17/2022 12:52 EDT 02/17/2022 12:52 EDT PRASANNA HUGO MD Final Diagnosis Report for [facility] [place] [place] [facility]: - SMALL DETACHED FRAGMENTS OF ENDOCERVICAL MUCOSA WITH ACUTE INFLAMMATION, SEE COMMENT. - RARE MINUTE STRIPS OF INACTIVE ENDOMETRIAL GLANDULAR EPITHELIUM, NOT FURTHER DIAGNOSTIC. COMMENT: The specimen consists mainly of blood elements and muco-inflammatory exudate. Endometrial architecture can not be adequately evaluated. Clinical correlation is recommended. Deeper sections have been examined. PRASANNA HUGO PATHOLOGIST (Electronic Signature) Date Verified 02/20/2022 Clinical Data PRE-OP DIAGNOSIS: Not specified POST-OP [...] Print Date/ 02/20/2022 13:51 EDT Number: Time: [facility] Department of Pathology [address] [place], [place] [id number] Name: TATY RICE : 1960 [facility] [id number] Number: Gender: Male Location: [facility] Admit 61 years Attending GARRETT ARBOLEDA Age: Provider: Ordering GARRETT ARBOLEDA Provider: Consulting: Surgical Pathology Report ACCESSION: COLLECTED DATE/TIME: RECEIVED DATE/TIME: PATHOLOGIST: [id number] 02/17/2022 12:52 EDT 02/17/2022 12:[address], PRASANNA Gross Description 02/17/2022 Tissue pathology report for: [facility], [address] [place] [address]; PATHOLOGY SERVICES PROVIDED BY [employer] (CLIA #[id number]) in cooperation with [facility] [place] [address] [place] [address] (CLIA #[id number]) Codes CPT CODE: 28079 ____ Print Date/ 02/20/2022 13:51 EDT Number: Time: Normal [facility] Comment on above: Performed By: #### [id number] #### [facility] [address] [place], [place] [id number] [employer]: Sb Valiente MD MG MAMM SCREEN 3D ZACK CADon 01-10-2022 MG MAMM SCREEN 3D ZACK CAD Patient: TATY RICE Exam Date: 01/10/2022 : 1960 Gender:F Ordering : DR GARRETT ARBOLEDA . Admission #: [id number] Family : Order #: [id number] CLICK HERE TO VIEW EXAM RADIOLOGY REPORT [...] colon cancer at age 70. LOCATION: [facility] BREAST COMPOSITION: Scattered areas fibroglandular density. FINDINGS: [...] Regina Nolasco MD on 01/11/2022 at 08:17 [facility] XR DEXA BONE DENSITYon 01-10 XR DEXA [...] by: REGINA NOLASCO Date: 2022-01-10 16:09 Normal [facility] US PELVIS AND TRANSVAGon US PELVIS AND [...] authenticated by: REGINA NOLASCO Date: 2022-01-09 14:15 [facility] PAP ACOG PANEL 2: 30 to 65on 12-27-2021 . . Normal [facility] Comment on above: Result Comment: Perf ormed at: [facility] Performed By: #### L IPID, TSH, LIVER #### [facility] [address] [address] [address] Stu Cabezas Age Gdln ACOG Testing 30-65 Normal [facility] Comment on above: Performed By: #### L IPID, TSH, LIVER #### [facility] [address] [address] [address] Stu Cabezas DIAGNOSIS: Comment Normal [facility] Comment on above: Result Comment: NEGA TIVE FOR INTRAEPITHELIAL LESION OR MALIGNANCY. REACTIVE CELLULAR CHANGES AND/OR REPAIR ARE PRESENT. Performed at: [facility] Performed By: #### L IPID, TSH, LIVER #### [facility] [address] [address] [address] Stu Cabezas Electronically signed by: Comment Normal [facility] Comment on above: Result Comment: Agueda Moore MD, Pathologist Performed at: [facility] Performed By: #### L IPID, TSH, LIVER #### [facility] [address] [place] [address] Dr. Stu Cabezas HPV Aptima Negative Normal Negative [facility] Comment on above: Result Comment: This nucleic acid amplification test detects fourteen high-risk HPV types (16,18,31,33,35,39,45,51,52,56,58,59,66,68) without differentiation. Performed at: =G Performed By: #### L IPID, TSH, LIVER #### [facility] [address] [place] [address] Dr. Stu Cabezas Methodology: Comment Normal [facility] Comment on above: Result Comment: This liquid based ThinPrep(R) pap test was screened with the use of an image guided system. Performed at: [facility] Performed By: #### L IPID, TSH, LIVER #### [facility] [address] [place] [address] Dr. Stu Cabezas Note: Comment Normal [facility] Comment on above: Result Comment: The Pap [...] By: #### L IPID, TSH, LIVER #### [facility] [address] [address] [address] Stu Cabezas Performed by: Comment Normal [facility] Comment on above: Result Comment: Tod Mercado, Assistant Project Engineer (ASCP) Performed at: WB Performed By: #### L IPID, TSH, LIVER #### [facility] [address] [place], [place] [address] Dr. Stu Cabezas Specimen adequacy: Comment Normal [facility] Comment on above: Result Comment: Sati sfactory for evaluation. Endocervical and/or squamous metaplastic cells (endocervical component) are present. Areas of partially obscuring inflammatory exudate are present. Performed at: WB Performed By: #### L IPID, TSH, LIVER #### [facility] [address] [place], [place] [address] Dr. Stu Cabezas Vital Signs Date Time Vital Sign Value Performing Clinician Facility 03-05-2024 15:33-0400 Body height 167.64 cm MD Bladimir Alvarez Work Phone: [facility] 03-05-2024 15:33-0400 Body mass index (BMI) [Ratio] 31.1 kg/m2 MD Bladimir Alvarez Work Phone: [facility] 03-05-2024 15:33-0400 Body temperature 96.6 [degF] MD Bladimir Alvarez Work Phone: [facility] 03-05-2024 15:33-0400 Body weight 87.6 kg MD Bladimir Alvarez Work Phone: [facility] 03-05-2024 15:33-0400 Diastolic blood pressure 89 mm[Hg] MD Bladimir Alvarez Work Phone: [facility] 03-05-2024 15:33-0400 Heart rate 70 /min MD Bladimir Alvarez Work Phone: [facility] 03-05-2024 15:33-0400 Respiratory rate 16 /min MD Bladimir Alvarez Work Phone: [facility] 03-05-2024 15:33-0400 Systolic blood pressure 120 mm[Hg] MD Bladimir Alvarez Work Phone: [facility] 01-01-2024 15:18-0500 Body height 167.6 cm Bladimir Alvarez MD Work Phone: [facility] 01-01-2024 15:18-0500 Body mass index (BMI) [Ratio] 30.67 kg/m2 Bladimir Alvarez MD Work Phone: [facility] 01-01-2024 15:18-0500 Body temperature 97.11 [degF] Bladimir Alvarez MD Work Phone: [facility] 01-01-2024 15:18-0500 Body weight 86.18 kg Bladimir Alvarez MD Work Phone: [facility] 01-01-2024 15:18-0500 Diastolic blood pressure 60 mm[Hg] Bladimir Alvarez MD Work Phone: [facility] 01-01-2024 15:18-0500 Heart rate 78 /min Bladimir Alvarez MD Work Phone: [facility] 01-01-2024 15:18-0500 SaO2% (BldA) [Mass fraction] 97 % Bladimir Alvarez MD Work Phone: [facility] 01-01-2024 15:18-0500 Systolic blood pressure 140 mm[Hg] Bladimir Alvarez MD Work Phone: [facility] Healthcare Encounters Encounter Date Encounter Type Care Provider Facility Start: 03-05-2024 End: 03-05-2024 ambulatory Annie Ya Facility:[facility] Start: 03-05-2024 End: 03-05-2024 ambulatory MD Bladimir Alvarez Work Phone: [facility] Work Phone: Start: 03-05-2024 End: 03-05-2024 Patient encounter procedure MD Bladimir Alvarez Work Phone: [facility] Work Phone: Start: 01-01-2024 End: 02-06-2024 ambulatory BLADIMIR ALVAREZ Not Available Start: 01-01-2024 End: 01-01-2024 Office outpatient visit 25 minutes Bladimir Alvarez MD Work Phone: [facility] Comment on above: Benign essential hyp ertension (CMS/HCC) (Primary Dx); Chronic heart failure with preserved ejection fraction (CMS/HCC); GERD without esophagitis; Seasonal allergic rhinitis due to pollen; Carpal tunnel syndrome on right Start: 01-01-2024 Bamboo flowsheet Bladimir Alvarez MD Work Phone: [facility] Start: 01-01-2024 Bamboo flowsheet Bladimir Alvarez MD Work Phone: [facility] Start: 10-11-2022 End: 10-12-[address] DOCTOR NEGRO Facility:[facility] Start: 06-06-2022 Encounter for preprocedural laboratory examination DR GARRETT ARBOLEDA [facility] Start: 06-05-2022 End: 06-06-2022 ambulatory OSCAR GRACIA MD~[id number] Facility:[id number] Start: 06-05-2022 End: 06-06-2022 ambulatory GARRETT ARBOLEDA Facility:[facility] Start: 06-05-2022 End: 06-07-2022 Evaluation and management of inpatient DR GARRETT ARBOLEDA Facility:[facility] Start: 06-02-2022 Encounter for preprocedural cardiovascular examination DR GARRETT ARBOLEDA [facility] Start: 06-02-2022 Encounter for preprocedural laboratory examination DR GARRTET ARBOLEDA [facility] Start: 06-01-2022 End: 06-02-[address] BLADIMIR ALVAREZ Facility:[facility] Start: 06-01-2022 End: 06-02-2022 Encounter for preprocedural laboratory examination DR BLADIMIR ALVAREZ Facility:[facility] Start: 05-26-2022 End: 05-27-[address] BLADIMIR ALVAREZ Facility:[facility] Start: 05-26-2022 End: 05-27-2022 Encounter for preprocedural cardiovascular examination DR BLADIMIR ALVAREZ Facility:[facility] Start: 05-08-2022 End: 05-09-[address] GARRETT ARBOLEDA Facility:[facility] Start: 04-26-2022 End: 04-27-2022 ambulatory JOHN SANTOS Facility:[facility] Start: 04-26-2022 End: 04-26-[address] JOHN SANTOS Facility:[facility] Start: 03-17-2022 Encounter for genera l adult medical examination without abnormal findings DR BLADIMIR ALVAREZ [facility] Start: 03-16-2022 End: 03-17-[address] BLADIMIR [...] Date Procedure Procedure Detail Performing Clinician Start: 03-05-2024 X-ray of left ankle MD Bladimir Alvarez Work Phone: Start: 11-30-2023 Mammography Bladimir lund MD Work Phone: Start: 06-05-2022 Resection of Bilater al Fallopian Tubes, Open Approach DR GARRETT ARBOLEDA Start: 06-05-2022 Resection of Bilater al Ovaries, Open Approach DR GARRETT ARBOLEDA Start: 06-05-2022 Resection of Uterus, Open Approach DR GARRETT ARBOLEDA Start: 04-26-2022 Colonoscopy Bladimir lund MD Work Phone: Plan of Treatment Date Care Activity Detail Author Start: 04-26-2032 Screening for malign ant neoplasm of colon [facility] Healthcare Start: 11-30-2024 Screening for malign ant neoplasm of breast Mammogram [facility] Start: 06-30-2024 End: 06-30-2024 Patient encounter procedure 06/30/2024 1:30 PM EDT [facility] [address] [place] [phone] Bladimir Alvarez MD [address] [place] [phone] [facility] Start: 01-01-2024 End: 01-01-2024 Patient encounter procedure 01/01/2024 3:15 PM EST Office Visit [facility] [address] [place] [phone] Bladimir Alvarez MD [address] [place] [address] Arrived [facility] Comment on above: Arrived Start: 01-01-2024 End: 01-01-2026 Echocardiogram 2D complete Echocardiogram 2D complete Echocardiography Routine Chronic heart failure with preserved ejection fraction (CMS/HCC) Expected: 01/01/2024 (Approximate), Expires: 01/01/2026 [facility] Work Phone: Comment on above: Expected: 01/01/2024 (Approximate), Expires: 01/01/2026 Start: 07-27-2023 Influenza vaccination Influenza Vacc ine (#1) [facility] Start: 1990 Screening for malign ant neoplasm of cervix [facility] Start: 1981 Screening for malign ant neoplasm of cervix Pap Smear [facility] Start: 1960 Screening for malign ant neoplasm of colon [facility] XR Ankle - left GE 3 Views [facility] Payers Date Payer Category Payer Self-pay 2008 Unknown 1960 Unknown [id number] 2.16.8 [id number] 1960 Unknown [id number] 2.16.84 [id number] 1960 Unknown [id number] 2.16.84 [id number] 1960 Unknown [id number] 2.16.84 [id number] 1960 Unknown [id number] 2.16.84 0.1.548994.3.579.2.593 1960 Unknown [id number] 2.16.84 [id number] 1960 Unknown [id number] 2.16.84 0.1.126527.3.579.2.593 1960 Unknown [id number] 2.16.84 [id number] 1960 Unknown [id number] 2.16.84 0.1.750105.3.579.2.593 1960 Unknown [id number] 2.16.84 0.1.502657.3.579.2.593 1960 Unknown [id number] 2.16.84 0.1.694908.3.579.2.593 1960 Unknown [id number] 2.16.84 0.1.342902.3.579.2.593 1960 Unknown [id number] 2.16.84 0.1.095202.3.579.2.593 1960 Unknown [id number] 2.16.84 0.1.693745.3.579.2.1259 1959 Unknown [id number] Unknown [id number] 2.16.8 [id number] Social History Date Type Detail Facility Start: 12-14-2023 End: 01-01-2024 Tobacco smoking status NMIS Never smoked tobacco [facility] Start: 12-31-2023 End: 01-01-2024 History of Social function [facility] Start: 12-31-2023 End: 01-01-2024 Humiliation, Afraid, Rape, and Kick questionnaire [HARK] [facility] Within the last year , have you been afraid of your partner or ex-partner? No [facility] Do you belong to any clubs or organizations such as baptist groups, unions, fraternal or athletic groups, or school groups? Yes [facility] Are you now , , , , never or living with a partner? [facility] How often to you hav e a drink containing alcohol? Never [facility] How many standard dr inks containing alcohol do you have on a typical day? Patient does not drink [facility] How hard is it for y ou to pay for the very basics like food, housing, medical care, and heating Somewhat hard [facility] Do you feel stress - tense, restless, nervous, or anxious, or unable to sleep at night because your mind is troubled all the time - these days [OSQ] To some extent [facility] (I/We) worried wheth er (my/our) food would run out before (I/we) got money to buy more. Never true [facility] Start: 1960 Sex Assigned At Not on file [facility] Start: 01-01-2024 Tobacco use and exposure Smoke less tobacco non-user [facility] Start: 1960 Sex Assigned At Female F [facility] History of Present illness Narrative 01-01-2024 Bladimir Alvarez MD - 01/01/2024 4:11 PM Mini Alvarez MD - 01/01/2024 4:08 PM Mini Alvarez MD - 01/01/2024 4:08 PM Mini Alvarez MD - 01/01/2024 4:08 PM EST Note Date & Type Note Facility 01-01-2024 History of Presen t illness Narrative Associated Problem(s): Carpal tunnel syndrome on right Mild symptoms but tolerable. Monitor and if worsens will refer to ortho. Associated Problem(s): Seasonal allergic rhinitis due to pollen Symptoms controlled with medication and continue. Associated Problem(s): GERD without esophagitis Symptoms controlled with medication and continue. Associated Problem(s): Chronic heart failure with preserved ejection fraction (CMS/HCC) No edema and continue medication. Elevate legs PRN. Associated Problem(s): Benign essential hypertension (CMS/HCC) BP controlled and monitor PRN. Subjective Patient ID: Taty Rice is a 63 y.o. female who presents for Follow-up (6 m). F/u HTN, CHF, GERD, and allergies. Patient doing well today. Checking BP PRN and typically controlled. BP normal today. Taking medication daily and tolerating without side effects. Edema controlled with medication. Mild swelling at end of day and if on feet a lot. Edema improved in am and with elevation. GERD controlled with omeprazole. Denies epigastric pain or burning and not waking up with symptoms. Allergies controlled with medication. No congestion or rhinorrhea. No MEEK or sinus pressure. Ears not plugged or popping. Carpal tunnel pain stable. Went to PT and no longer having pain. Still having occasional numbness but tolerable. 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 At this point mild and does not want to do anything about it. Review of Systems Respiratory: Negative for cough, shortness of breath and wheezing. Cardiovascular: Negative for chest pain and palpitations. Gastrointestinal: Negative for abdominal pain, diarrhea, nausea and vomiting. Genitourinary: Negative for dysuria. Objective Physical Exam Constitutional: General: She is not in acute distress. Appearance: Normal appearance. HENT: Head: Normocephalic. Right Ear: Tympanic membrane normal. Left Ear: Tympanic membrane normal. Eyes: Extraocular Movements: Extraocular movements intact. Pupils: Pupils are equal, round, and reactive to light. Cardiovascular: Rate and Rhythm: Normal rate and regular rhythm. Heart sounds: No murmur heard. No friction rub. No gallop. Pulmonary: Effort: Pulmonary effort is normal. Breath sounds: Normal breath sounds. No wheezing, rhonchi or rales. Abdominal: General: Bowel sounds are normal. There is no distension. Palpations: Abdomen is soft. Tenderness: There is no abdominal tenderness. There is no guarding or rebound. Musculoskeletal: Cervical back: Neck supple. Right lower leg: No edema. Left lower leg: No edema. Neurological: Mental Status: She is alert. Assessment/Plan Problem List Items Addressed This Visit Benign essential hypertension (CMS/HCC) - Primary BP controlled and monitor PRN. Seasonal allergic rhinitis due to pollen Symptoms controlled with medication and continue. Chronic heart failure with preserved ejection fraction (CMS/HCC) No edema and continue medication. Elevate legs PRN. Relevant Orders Echocardiogram 2D complete GERD without esophagitis Symptoms controlled with medication and continue. Carpal tunnel syndrome on right Mild symptoms but tolerable. Monitor and if worsens will refer to ortho. documented in this encounter [facility] Clinical Note 04-26-2022 Note Date & Type Note Facility 04-26-2022 Note [facility] [place], [place] NAME: TATY RICE DATE OF : MEDICAL REC#: [id number] ACTION INSTALLER: [address] 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 SURGEON: John Santos M.D. ANESTHESIA: Monitored anesthesia care. ESTIMATED BLOOD [...] Santos MD on 04/27/2022 08:41 AM EDT IF Signed and Approved by: DR JOHN SANTOS . 04/27/2022 08:41:00 [facility] Evaluation note Note Date & Type Note Facility Evaluation note Diagnosis Benign essential hypertension (CMS/HCC)- Primary Essential hypertension, benign Chronic heart failure with preserved ejection fraction (CMS/HCC) GERD without esophagitis Esophageal reflux Seasonal allergic rhinitis due to pollen Carpal tunnel syndrome on right Carpal tunnel syndrome documented in this encounter [facility] Evaluation note Note Date & Type Note Facility Evaluation note No assessment information availa [facility] Work Phone: Summary Purpose Family History No Family History Records FoundNo Family History Records FoundNo Family History Records FoundNo Family History Records Found Advance Directives No Advanced Directives Records Found Advance Directive Response Recorded Date/ Time Advance Directives No March 05, 2 024 3:24pm Reason for Referral Specialty Diagnoses / Procedures Referred By Contac t Referred To Contact Radiology Diagnoses Chronic heart failure with preserved ejection fraction (CMS/HCC) Procedures Echocardiogram 2D complete Bladimir Alvarez MD [address] [place] [address] Referral ID Status Reason Start Date Expiration Date Visits Requested Visits Authorized [id number] Incomplete Perform Procedure 01/01/2024 06/29/2024 1 1 Chief Complaint and Reason for Visit Chief Complaint Left ankle pain Additional Source Comments INFORMATION SOURCE (unrecogn ized section and content) DATE CREATED AUTHOR 09/29/2022 [facility] DATE CREATED AUTHOR AUTHOR'S ORGANIZ ATION 10/15/2022 [facility] DATE CREATED AUTHOR AUTHOR'S ORGANIZ ATION 01/02/2024 [facility] EPIC DATE CREATED AUTHOR AUTHOR'S ORGANIZ ATION 03/14/2024 [facility] Care Teams (unrecognized sec tion and content) Kit Assembler Relationship Specialty Start Date End Date Bladimir Alvarez MD [address] [place] [address] PCP - General Family Medicine 12/14/23 Kit Assembler Relationship Specialty Start Date End Date Bladimir Alvarez MD [address] [place] [address] PCP - General Family Medicine 12/14/23 Team Status: Active Member Role Status Dates Bladimir Alvarez MD Primary Care Provider Active Team Status: Inactive Member Role Status Dates ADRIEL Hassan Attending Provider Active S tart: March 05, 2024 End: March 05, 2024 Bladimir Alvarez MD Primary Care Provider Active S tart: March 05, 2024 End: March 05, 2024 Team Status: Inactive Member Role Status Dates Bladimir Alvarez MD Primary Care Provider Active S tart: March 05, 2024 End: March 05, 2024 ADRIEL Hassan Attending Provider Active S tart: March 05, 2024 End: March 05, 2024 Reason for Visit (unrecogniz ed section and content) Reason Comments Follow-up 6 m Goals (unrecognized section and content) Goals may be documented in a n alternate section FOR RECORDS PERTAINING TO PATIENTS WHO ARE [...] BE BASED ON THE PRIMARY CLINICAL RECORDS. [employer] provides no warranty or guarantee of the accuracy or completeness of information in this document.
== END 2024-03-18 15:16 | disposition home or self-care (01) ==
LOC: EC 15:15
PROVIDERS: PCP Family Medicine; Visit Provider Podiatrist Foot & Ankle Surgery
DX: M25.572 Pain in left ankle and joints of left foot (principal); M79.672 Pain in left foot; M19.072 Primary osteoarthritis, left ankle and foot
CPT/HCPCS: 73610; 73630

== ENCOUNTER 2024-07-21 15:15 | Outpatient (OUT) | payer OTHER, SELFPAY ==
[2024-07-21 15:42] LABS: Estimated Average Glucose 131 mg/dL; Glycohemoglobin A1C 6.2 % (4.5-6.2)
[2024-07-21 15:45] LABS: Basophils Percent Auto 0.4 % (0.2-2.0); Eosinophils Absolute Auto 0.4 10^3/uL (0.0-0.7); Eosinophils Percent Auto 4.3 % (0.9-7.0); Hemoglobin 12.7 g/dL (12.0-16.0); Immature Granulocytes Abs Auto 0.01 10^3/uL (0.00-0.03); Immature Granulocytes Pct Auto 0.1 % (0.0-0.5); Lymphocytes Absolute Auto 2.4 10^3/uL (1.2-3.8); Mean Corpuscular HGB Conc 33.4 g/dL (29.9-35.2); Mean Corpuscular Hemoglobin 29.9 pg (26.7-34.0); Mean Corpuscular Volume 89.4 fL (81.0-99.0); Mean Platelet Volume 9.6 fL (9.5-13.5); Monocytes Absolute Auto 0.7 10^3/uL (0.3-0.8); Neutrophils Absolute Auto 4.6 10^3/uL (1.4-6.5); Neutrophils Percent Auto 57.2 % (43.0-75.0); Platelet Count 270 10^3/uL (150-450); Red Blood Count 4.25 10^6/uL (4.20-5.40); Red Cell Distribution Width 12.6 % (11.0-15.0); White Blood Count 8.1 10^3/uL (4.0-11.0)
[2024-07-21 16:42] LABS: Alanine Aminotransferase 23 U/L (14-59); Albumin Globulin Ratio 0.9; Albumin Level 3.6 g/dL (3.4-5.0); Alkaline Phosphatase 78 U/L (46-116); Anion Gap 13.1; Aspartate Amino Transferase 17 U/L (15-37); BUN Creatinine Ratio 32.2; Bilirubin Direct 0.1 mg/dL (0.0-0.2); Calcium 9.2 mg/dL (8.5-10.1); Carbon Dioxide 31.7 mmol/L (21.0-32.0); Chloride 101 mmol/L (98-107); Chol HDL Ratio 2.8; Cholesterol 188 mg/dL (<=200); Estimated GFR (African America >60 (>=60); Estimated GFR (Non-African Ame >60 (>=60); Glucose 107 mg/dL (74-106); HDL Cholesterol 68 mg/dL (40-60); Potassium 3.8 mmol/L (3.5-5.1); Sodium 142 mmol/L (136-145); Thyroid Stimulating Hormone 1.285 uIU/mL (0.358-3.740); Total Protein 7.6 g/dL (6.4-8.2); Triglycerides 268 mg/dL (<=150); VLDL CHOLESTEROL 53.6 mg/dL
== END 2024-07-21 15:16 | disposition home or self-care (01) ==
LOC: LAB 15:16
PROVIDERS: PCP Family Medicine; Visit Provider Family Medicine
DX: Z00.00 Encounter for general adult medical examination without abnormal findings (principal); E66.9 Obesity, unspecified
CPT/HCPCS: 36415; 80048; 80061; 80076; 83036; 84443; 85025

== ENCOUNTER 2025-01-23 08:14 | Emergency (ER) | payer OTHER, SELFPAY ==
[2025-01-23 08:18] VITALS: BP 168/83; PULSE 64; TEMP 36.4; O2SAT 98; BMI 32.0
--- OUTSIDE RECORDS SUMMARY | 2025-01-23 08:29 | XMS_ITS | CCD ---
Author Organization [facility] Care Team Providers Care Image Archivist Name Role Phone BASIL [address]~0697, OSCAR CAICEDO Attending Unava ilable KARASIK, GARRETT [...] NADERER, DR BLADIMIR Nicolas Primary Care Unavailable LLOYD, MISTY Consulting Unavailable Bladimir Alvarez MD Primary Care Provider MD Bladimir Alvarez Primary Care Provider [phone] NORAH YaC Annie Attending Provider [phone] Annie Ya Attending Unavailable Annie Ya Admitting Unavailable Benita, Bladimir Primary Care Unavailable Bladimir Alvarez MD Unavailable ESTEFANI GAFFNEY Admitting Unavailable GULSHAN, ESTEFANI Nicolas Attending Unavailable GULSHAN, ESTEFANI Nicolas Admitting Unavailable GULSHAN, ESTEFANI Nicolas Attending Unavailable BLADIMIR ALVAREZ Primary Care Unavailable Unavailable Primary Care Provider UnavailBLADIMIR Mitchell Attending Unavailable BLADIMIR ALVAREZ Attending Unavailable ASHWIN CUELLO Attending Unavailable MONA CHIANG Attending Unavailable ASHWIN CUELLO Referring Unavailable GULSHAN, ESTEFANI Nicolas Attending Unavailable APLLELO BARBOUR Attending Unavailable GULSHAN, ESTEFANI Nicolas Attending Unavailable APLING, LELO Major Attending Unavailable APLINGLELO Attending Unavailable Allergies Allergy Classification Reported Allergen(s) Allergy Type Date of Onset Reaction(s) Facility (1 source) Desonide Drug Allergy [facility] Repository (20 sources) Wound Dressing Adhesive Drug Intolerance 2 Rash [facility] Work Phone: (2 sources) Adhesive agent; Translations: [ADHESIVE] Propensity to adverse reactions to drug (disorder) Rash [facility] Repository Medications Current Medications Medication Drug Class(es) Dates Sig (Normalized) Sig (Original) acetaminophen 325 mg / HYDROcodone bitartrate 5 mg oral tablet (6 sources) Opioid Agonist Start: 10-07-2024 End: 10-15-2024 take 1 tablet by mouth every six hours for pain HYDROcodone-acetami nophen ([place]) 5-325 MG tablet Indications: Post-operative pain Take 1 tablet by mouth every 6 (six) hours if needed for severe pain for up to 3 days 12 tablet 10/07/2024 10/15/2024 Discontinued (Med list cleanup) Start: 09-02-2024 End: 09-10-2024 take 1 tablet by mouth every six hours for pain HYDROcodone-acetaminophen ([place]) 5-325 MG tablet Indications: Post-op pain Take 1 tablet by mouth every 6 (six) hours if needed for severe pain for up to 3 days 12 tablet 09/02/2024 09/10/2024 Discontinued (Med list cleanup) ascorbic acid 250 mg oral tablet (1 source) Vitamin C take 1 tablet by mouth in the morning ascorbic acid, vitamin C, (VITAMIN C) 250 mg tablet Take 1 tablet (250 mg total) by mouth in the morning. Active atorvastatin 40 mg oral tablet (20 sources) HMG-CoA Reductase Inhibitor Start: 024 atorvastatin (Lipitor) 40 MG tablet Indications: Dyslipidemia (CMS/HCC) TAKE 1 TABLET AT BEDTIME 90 tablet 3 07/30/2024 Active B complex-vitamin C-folic acid (NEPHROCAP) 1 mg capsule (1 source) take 1 capsule by mouth in the morning B complex-vitamin C-folic acid (NEPHROCAP) 1 mg capsule Take 1 capsule by mouth in the morning. Active cetirizine hydrochloride 10 mg oral tablet (1 source) Histamine-1 Receptor Antagonist take 1 tablet by mouth in the morning cetirizine (ZyrTEC) 10 mg tablet Take 1 tablet (10 mg total) by mouth in the morning. Active cholecalciferol 0.05 mg oral tablet (1 source) Vitamin D cholecalciferol, vitamin D3, 2,000 units tablet Take by mouth daily. Active fluticasone propionate 0.05 mg/actuat metered dose nasal spray (20 sources) Corticosteroid Start: 023 fluticasone (Flonase) 50 MCG/ACT nasal spray Indications: Seasonal allergic rhinitis due to pollen USE 2 SPRAYS DAILY 16 g 11 11/02/2023 Active take 1 spray(s) nasa l route in the morning fluticasone propionate (FLONASE) 50 mcg/actuation nasal spray Administer 1 spray into each nostril in the morning. Active hydroCHLOROthiazide 25 mg oral tablet (20 sources) Thiazide Diuretic Start: 10-29-2024 hydroCHLOROthiazide (HYDRODiuril) 25 MG tablet Indications: Benign essential hypertension (CMS/HCC) TAKE 1 TABLET DAILY 90 tablet 3 10/29/2024 Active Start: 11-02-2023 hydroCHLOROthi azide (HYDRODiuril) 25 MG tablet Indications: Benign essential hypertension (CMS/HCC) TAKE 1 TABLET DAILY 90 tablet 3 11/02/2023 Active KRILL OIL ORAL (1 source) KRILL OIL ORAL T ciarra by mouth daily. Active losartan potassium 25 mg oral tablet (2 sources) Angiotensin 2 Receptor Terry Start: 5 take 1 tablet by mouth once daily losartan (Cozaar) 25 MG tablet Indications: Benign essential hypertension (CMS/HCC) Take 1 tablet (25 mg) by mouth Daily 30 tablet 5 01/20/2025 Active meloxicam 15 mg oral tablet (20 sources) Nonsteroidal Anti-inflammatory Drug Start: 4 take 1 tablet by mouth once daily at mealtime meloxicam (Mobic) 15 MG tablet Indications: Carpal tunnel syndrome on right Take 1 tablet (15 mg) by mouth Daily Take with food 30 tablet 5 07/21/2024 Active take 1 tablet by mouth in the mo rning meloxicam (MOBIC) 7.5 mg tablet Take 1 tablet (7.5 mg total) by mouth in the morning. Active Multiple Vitamins-Minerals ( MULTIVITAMIN ADULTS 50+ PO) (20 sources) Multiple Vitamin s-Minerals (MULTIVITAMIN ADULTS 50+ PO) Take by mouth Active Multiple Vitamin s-Minerals (MULTIVITAMIN ADULTS 50+ PO) Take by mouth 0 Active uuvdetdd-nmpv-SC-calcium &mi ns (THERAGRAN-M) 9 mg iron-400 mcg tablet (1 source) atoqvuyd-scpb-EO -calcium &mins (THERAGRAN-M) 9 mg iron-400 mcg tablet Take 1 tablet by mouth in the morning. Active NON FORMULARY (1 source) NON FORMULARY delvin Maloney's wart Active [place] Ja[place] Wort 150 MG capsule (20 sources) take 1 capsule by mouth once daily [place] Wort 150 MG capsule Take 150 mg by mouth 1 (one) time each day Active take 1 capsule by mouth once jamie ly [facility] [place] Wort 150 MG capsule Take 150 mg by mouth 1 (one) time each day 0 Active sucralfate 1000 mg oral tablet (20 sources) Aluminum Complex Start: 08-01-2024 End: 08-01-2025 take 1 tablet by mouth at bedtime sucralfate (Carafate) 1 g tablet Indications: GERD without esophagitis Take 1 tablet (1 g) by mouth in the morning and 1 tablet (1 g) at noon and 1 tablet (1 g) in the evening and 1 tablet (1 g) before bedtime. Take before meals. 360 tablet 3 08/01/2024 08/01/2025 Active Completed/Discontinued Medications Medication Drug Class(es) Dates Sig (Normalized) Sig (Original) ciprofloxacin 500 mg oral tablet (2 sources) Quinolone Antimicrobial Start: 07-09-2024 End: 07-21-2024 take 1 tablet by mouth in the morning ciprofloxacin (Cipro) 500 MG tablet Indications: Urinary tract infection without hematuria, site unspecified Take 1 tablet (500 mg) by mouth in the morning and 1 tablet (500 mg) before bedtime. Do all this for 7 days. 14 tablet 07/09/2024 07/21/2024 Discontinued Problems Active Problems Problem Classification Problem Date Documented Date Episodic/Chronic Cancer of uterus (20 sources) Malignant neoplasm of endometrium; Translations: [Endometrial carcinoma] Onset: 06-27-2022 01-01-2024 Chronic Congestive heart failure; nonhypertensive (20 sources) Chronic diastolic (congestive) heart failure; Translations: [Chronic heart failure co-occurrent with normal ejection fraction] Onset: 06-27-2022 01-01-2024 Chronic Deficiency and other anemia (5 sources) Anemia, unspecified; Translations: [ANEMIA UNSPECIFIED] Onset: 06-02-2022 Episodic Disorders of lipid metabolism (20 sources) Hyperlipidemia, unspecified; Translations: [Dyslipidemia] Onset: 06-27-2022 01-01-2024 Chronic Esophageal disorders (20 sources) Gastroesophageal reflux disease without esophagitis; Translations: [Gastro-esophageal reflux disease without esophagitis] Onset: 01-01-2024 01-01-2024 Chronic Essential hypertension (20 sources) Essential (primary) hypertension; Translations: [Benign essential hypertension] Onset: 06-27-2022 11-02-2023 Chronic Heart valve disorders (20 sources) Nonrheumatic aortic (valve) insufficiency; Translations: [Aortic incompetence, non-rheumatic ] Onset: 06-27-2022 07-21-2024 Chronic Hypertension with complications and secondary hypertension (1 source) Hypertensive heart disease with heart failure; Translations: [HTN HEART DISEASE W/HEART FAIL] Onset: 06-27-2022 Chronic Menopausal disorders (5 sources) Postmenopausal bleeding; Translations: [POSTMENOPAUSAL BLEEDING] Onset: 02-21-2022 Chronic Other female genital disorders (5 sources) Abnormal uterine and vaginal bleeding, unspecified; Translations: [ABNORMAL UTERINE VAGINAL BLEED UNS] Onset: 05-08-2022 Chronic Other nervous system disorders (20 sources) Carpal tunnel syndrome of right wrist; Translations: [Carpal tunnel syndrome, right upper limb] Onset: 01-01-2024 01-01-2024 Chronic Other nervous system disorders (2 sources) Carpal tunnel syndrome of left wrist; Translations: [Carpal tunnel syndrome, left upper limb] 09-16-2024 Chronic Other nervous system disorders (3 sources) Bilateral carpal tunnel syndrome; Translations: [Carpal tunnel syndrome, bilateral upper limbs] 08-14-2024 Chronic Other nervous system disorders (2 sources) Postoperative pain ; Translations: [Other acute postprocedural pain] 09-02-2024 Episodic Other nervous system disorders (5 sources) Paresthesia of skin; Translations: [Disturbance of skin sensation] 08-05-2024 Episodic Other non-traumatic joint disorders (1 source) Pain in left ankle and joints of left foot; Translations: [Pain in left ankle and joints of left foot] Onset: 03-05-2024 Episodic Other non-traumatic joint disorders (2 sources) Pain of left wrist; Translations: [Pain in left wrist] 09-16-2024 Episodic Other non-traumatic joint disorders (4 sources) Pain of right wrist; Translations: [Pain in right wrist] 08-05-2024 Episodic Other nutritional; endocrine; and metabolic disorders [...] BMI 30.0-30.9 ADULT] Onset: 05-03-2022 Chronic Other nutritional; endocrine; and metabolic disorders (20 sources) Body mass index 30+ - obesity; Translations: [Obesity, unspecified] Onset: 08-08-2024 08-08-2024 Chronic Other screening for suspected conditions (not mental disorders or infectious disease) (1 source) Abnormal findings on diagnostic imaging of other specified body structures; Translations: [ABNORML FIND DX IMG OTH BODY STRUC] Onset: 06-27-2022 Chronic Other upper respiratory disease (20 sources) Allergic rhinitis due to pollen; Translations: [...] [Lower abdominal pain, unspecified] Onset: 03-17-2022 Episodic Diabetes mellitus without complication (20 sources) Prediabetes; Translations: [Prediabetes] Onset: 07-21-2024 07-21-2024 Episodic Gastritis and duodenitis (1 source) Gastritis, unspecified, without bleeding; Translations: [GASTRITIS UNS WITHOUT BLEEDING] Onset: 05-03-2022 Episodic Heart valve disorders (1 source) Cardiac murmur, unspecified; Translations: [CARDIAC MURMUR UNSPECIFIED] Onset: 06-27-2022 Episodic Nausea and vomiting (1 source) Nausea; Translations: [NAUSEA] Onset: 05-03-2022 Episodic Other aftercare (1 source) Other [place] [facility]current[facility] drug therapy; Translations: [OTH RESIDENTIAL CURRENT DRUG THERAPY] Onset: 06-27-2022 Episodic Other aftercare (20 sources) Long-term current use of drug therapy; Translations: [Other [place] [facility] (current) drug therapy] Onset: 08-19-2024 08-19-2024 Episodic Other and unspecified benign neoplasm (1 [...] Test Name Value Interpretation Reference Range Facility EMG 2 Extremitieson 08-14-20 24 Carpal tunnel, bilateral, moderate left and severe right [facility] NVC 11-12 Nerveson 4 Carpal tunnel, bilateral, moderate left and severe right [facility] MLR HEMOGLOBIN A1Con 024 Glucose [Mass/Vol] 131 mg/dL [facility] HbA1c (Bld) [Mass fraction] 6.2 % 4.5 - 6.2 % [facility] Comment on above: ADA RECOMMENDED LIMI T 4.0 - 6.0 ADA THERAPEUTIC TARGET < 7.0 ACTION SUGGESTED > 7.0 [facility] XR ankle LT min 3V*on 2023 XR ankle LT min 3V* [facility] Main [address] [address] XRay Report Signed Patient: Taty Rice MR#: [id number] : 1960 Acct:[id number] Age/Sex: 63 / F ADM Date: 03/05/24 Loc: XDUCLY Room: Type: [facility] Attending Dr: Annie MOREL Copies to: ADRIEL [...] PROCESS. Impression dictated by: Vitor Frey Jr., D.OZoey03/05/2024 3:52 PM Dictation Location: [place] [address] Transcribed By: [facility] 03/05/24 155 Dictated By: Vitor Frey Jr, DO 03/05/24 1551 Signed By: 03/05/24 1552 Normal [facility] CBC AUTO DIFFon 10-11-2022 BASO # 0.0 103/ul Normal 0.0-0.1 [facility] Comment on above: Performed By: #### L IPID, TSH, LIVER #### [facility] [address] [address] [address] Stu Cabezas Basophils/100 WBC (Bld) 0.6 % Normal 0.2-2.0 [facility] Comment on above: Performed By: #### L IPID, TSH, LIVER #### [facility] [address] [place], [place] [address] Dr. Stu Cabezas EO # 0.3 103/ul Normal 0.0-0.7 [facility] Comment on above: Performed By: #### L IPID, TSH, LIVER #### [facility] [address] [address] [address] Stu Cabezas Eosinophils/100 WBC (Bld) 4.3 % Normal 0.9-7.0 [facility] Comment on above: Performed By: #### L IPID, TSH, LIVER #### [facility] [address] [place] [address] Dr. Stu Cabezas Erythrocyte distribution width (RBC) [Ratio] 12.2 % Normal 11.0-15.0 [facility] Comment on above: Performed By: #### L IPID, TSH, LIVER #### [facility] [address] [place] [address] Dr. Stu Cabezas Hematocrit (Bld) [Volume fraction] 36.4 % Normal 36.0-48.0 [facility] Comment on above: Performed By: #### L IPID, TSH, LIVER #### [facility] [address] [place] [address] Dr. Stu Cabezas Hemoglobin (Bld) [Mass/Vol] 12.0 g/dL Normal 12.0-16.0 [facility] Comment on above: Performed By: #### L IPID, TSH, LIVER #### [facility] [address] [place] [address] Dr. Stu Cabezas IG # 0.01 10e3/ul Normal 0.00-0.03 [facility] Comment on above: Performed By: #### L IPID, TSH, LIVER #### [facility] [address] [place] [address] Dr. Stu Cabezas IG % 0.2 % Normal 0.0-0.5 [facility] Comment on above: Performed By: #### L IPID, TSH, LIVER #### [facility] [address] [place] [address] Dr. Stu Cabezas LYMPH # 1.9 103/ul Normal 1.2-3.8 [facility] Comment on above: Performed By: #### L IPID, TSH, LIVER #### [facility] [address] [place] [address] Dr. Stu Cabezas Lymphocytes/100 WBC (Bld) 29.5 % Normal 20.5-60.0 [facility] Comment on above: Performed By: #### L IPID, TSH, LIVER #### [facility] [address] [place] [address] [address] Stu Cabezas MANUAL DIFF REQ NO Normal [facility] Comment on above: Performed By: #### L IPID, TSH, LIVER #### [facility] [address] [place] [address] Dr. Stu Cabezas MCH (RBC) [Entitic mass] 29.8 pg Normal 26.7-34.0 [facility] Comment on above: Performed By: #### L IPID, TSH, LIVER #### [facility] [address] [place] [address] Dr. Stu Cabezas MCHC (RBC) [Mass/Vol] 33.0 g/dL Normal 29.9-35.2 [facility] Comment on above: Performed By: #### L IPID, TSH, LIVER #### [facility] [address] [place] [address] Dr. Stu Cabezas MCV (RBC) [Entitic vol] 90.3 fL Normal 81.0-99.0 [facility] Comment on above: Performed By: #### L IPID, TSH, LIVER #### [facility] [address] [place] [address] Dr. Stu Cabezas MONO # 0.7 103/ul Normal 0.3-0.8 [facility] Comment on above: Performed By: #### L IPID, TSH, LIVER #### [facility] [address] [place] [address] Dr. Stu Cabezas Monocytes/100 WBC (Bld) 10.2 % Normal 1.7-12.0 [facility] Comment on above: Performed By: #### L IPID, TSH, LIVER #### [facility] [address] [place] [address] Dr. Stu Cabezas NEUT # 3.6 103/ul Normal 1.4-6.5 [facility] Comment on above: Performed By: #### L IPID, TSH, LIVER #### [facility] [address] [place] [address] Dr. Stu Cabezas Neutrophils/100 WBC (Bld) 55.2 % Normal 43.0-75.0 [facility] Comment on above: Performed By: #### L IPID, TSH, LIVER #### [facility] [address] [place] [address] Dr. Stu Cabezas Platelet mean volume (Bld) [Entitic vol] 9.2 fL Critically low 9.5-13.5 [facility] Comment on above: Performed By: #### L IPID, TSH, LIVER #### [facility] [address] [place] [address] Dr. Stu Cabezas PLT 242 103/ul Normal 150-450 [facility] Comment on above: Performed By: #### L IPID, TSH, LIVER #### [facility] [address] [place] [address] Dr. Stu Cabezas RBC 4.03 106/ul Critically low 4.20-5.40 [facility] Comment on above: Performed By: #### L IPID, TSH, LIVER #### [facility] [address] [place] [address] Dr. Stu Cabezas WBC 6.5 103/ul Normal 4.0-11.0 [facility] Comment on above: Performed By: #### L IPID, TSH, LIVER #### [facility] [address] [place] [address] Dr. Stu Cabezas FERRITINon 10-11-2022 Ferritin [Mass/Vol] 33.0 ng/mL Normal 8.0-252.0 [facility] Comment on above: Performed By: #### L IPID, TSH, LIVER #### [facility] [address] [place] [address] Dr. Stu Cabezas IRON AND TIBCon 10-11-2022 % SATURATION 13.1 % Normal [facility] Comment on above: Performed By: #### L IPID, TSH, LIVER #### [facility] [address] [place] [address] Dr. Stu Cabezas Iron [Mass/Vol] 40.0 ug/dL Critically low 50.0-170.0 [facility] Comment on above: Performed By: #### L IPID, TSH, LIVER #### [facility] [address] [place], [place] [address] Dr. Stu Cabezas TIBC DIRECT 306.0 ug/dL Normal 250.0-450.0 [facility] Comment on above: Performed By: #### L IPID, TSH, LIVER #### [facility] [address] [place], [place] [address] Dr. Stu Cabezas VIT B12 AND FOLATEon 022 Cobalamin (Vitamin B12) [Mass/Vol] 869.0 pg/mL Normal 193.0-986.0 [facility] Comment on above: Performed By: #### L IPID, TSH, LIVER #### [facility] [address] [place], [place] [address] Dr. Stu Cabezas FOLATE 19.60 ng/mL Normal 8.60-58.90 [facility] Comment on above: Performed By: #### L IPID, TSH, LIVER #### [facility] [address] [place] [address] [address] Stu Cabezas Addendum Reporton 09-28-2022 Addendum Report [facility] Department of Pathology [address] [place], [place] [phone] Name: TATY RICE : 1960 [facility] [id number] [facility]: [facility] 62 years Attending GARRETT ARBOLEDA Age: Provider: Ordering GARRETT ARBOLEDA Provider: [facility] Report ng: ACCESSION: COLLECTED DATE/TIME: RECEIVED DATE/TIME: PATHOLOGIST: [id number] 06/05/2022 11:30 EDT 06/05/2022 11:[address], MARIFER WARE Surgical Path Addendum Report Report Type: C-1100 This case was reviewed and the paraffin block (A2) was selected by the pathologist on 08/03/22 and submitted to [employer] for [employer] analysis. The results have been reviewed by the pathologist. COMMENT: The [employer] report (#[id number]) can be viewed under Documents in the patient's electronic medical record. CPT CODE: 06479 MARIFER GRACIA PATHOLOGIST (Electronic Signature) Date Verified 09/28/2022 [facility] Surgical Path Addendum Report Report Type: C-1100 This case was reviewed and the paraffin block (A2) was selected by the pathologist on 07/11/2022 and submitted to [facility] for MLH1 methylation analysis. 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 COMMENT: The [facility] report (#[id number]) can be viewed under Documents in the patient's electronic medical record. ____ Print 09/28/2022 12:40 EDT Number: Date/Time: [facility] Department of Pathology [address] [place] [phone] Name: TATY RICE : 1960 [facility] [id number] Number: Gender Female [facility] : n: Admit 62 years Attending GARRETT ARBOLEDA Age: Provider: Ordering GARRETT ARBOLEDA Provider: [facility] Report ng: ACCESSION: COLLECTED DATE/TIME: RECEIVED DATE/TIME: PATHOLOGIST: [id number] 06/05/2022 11:30 EDT 06/05/2022 11:[address], [facility]ARE Surgical Path Addendum Report CPT CODE: 49559 MARIFER GRACIA PATHOLOGIST (Electronic Signature) Date Verified 07/27/2022 Final Diagnosis Report for THE [place], [place] CERVIX, UTERUS, BILATERAL FALLOPIAN TUBES, BILATERAL [...] studies, the tumor is positive for ER, CO, CEA monoclonal (patchy), but negative for P504S. [...] ____ Print 09/28/2022 12:40 EDT Number: Date/Time: [facility] Department of Pathology [address] [place] [phone] Name: TATY RICE : 1960 [facility] [id number] Number: Gender Female [facility] EILEEN : n: Admit 62 years Attending GARRETT ARBOLEDA Age: Provider: Ordering GARRETT ARBOLEDA Provider: [facility] Pathology Report ng: ACCESSION: COLLECTED DATE/TIME: RECEIVED DATE/TIME: PATHOLOGIST: [id number] 06/05/2022 11:30 EDT 06/05/2022 11:[address], MARIFER Final Diagnosis MSH-6 Expressed (95% tumor nuclear [...] 5 cm (more content not included)... Normal [facility] Comment on above: Performed By: #### [id number] #### [facility] Services [address] [place] [phone] Survey Supervisor: Sb Valiente MD [facility] [id number] 09-06-2022 [facility] Sendout See Report [facility] Comment on above: Order Comment: MLH1 Promotor Methylation Performed By: #### 1 [id number] #### [facility] [address] [place] [address] [phone] Survey Supervisor: Sb Valiente MD [facility] [id number] 08-16-2022 [facility] Sendout See Report Normal [facility] Comment on above: Order Comment: MLH1 Promotor Methylation Lab [place] to stone Hammer Performed By: #### 1 [id number] #### [facility] [address] [place] [phone] Survey Supervisor: Sb Valiente MD Addendum Reporton 07-27-2022 Addendum Report [facility] Department of Pathology [address] [place] [phone] Name: TATY RICE : 1960 [facility] [id number] Number: Gender Female Yolanda ARELLANO : n: Admit 62 years Attending GARRETT ARBOLEDA Age: Provider: Ordering GARRETT ARBOLEDA Provider: [facility] Report ng: ACCESSION: COLLECTED DATE/TIME: RECEIVED DATE/TIME: PATHOLOGIST: [id number] 06/05/2022 11:30 EDT 06/05/2022 11:[address], [facility] Surgical Path Addendum Report Report Type: C-1100 This case was reviewed and the paraffin block (A2) was selected by the pathologist on 07/11/2022 and submitted to [facility] for MLH1 methylation analysis. 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 COMMENT: The [facility] report (#[id number]) can be viewed under Documents in the patient's electronic medical record. CPT CODE: 27557 MARIFER GRACIA PATHOLOGIST (Electronic Signature) Date Verified 07/27/2022 Final Diagnosis Report for THE ROSCOE, [place] CERVIX, UTERUS, BILATERAL FALLOPIAN TUBES, BILATERAL [...] studies, the tumor is positive for ER, CO, CEA monoclonal (patchy), but ____ Print 07/27/2022 10:09 EDT Number: Date/Time: [facility] Department of Pathology [address] [place] [phone] Name: TATY RICE : 1960 [facility] [id number] Number: Gender Female Locatio [facility] : n: Admit 62 years Attending GARRETT ARBOLEDA Age: Provider: GARRETT Cardoso Provider: Consulti Surgical Pathology Report ng: ACCESSION: COLLECTED DATE/TIME: RECEIVED DATE/TIME: PATHOLOGIST: [id number] 06/05/2022 11:30 EDT 06/05/2022 11:[address] Final Diagnosis negative for P504S. The findings [...] ____ Print 07/27/2022 10:09 EDT Number: Date/Time: [facility] Department of Pathology [address] [place] [phone] Name: TATY RICE : 1960 [facility] [id number] Number: Gender Female [facility] EILEEN : n: Admit 62 years Attending GARRETT ARBOLEDA Age: Provider: Ordering GARRETT ARBOLEDA Provider: Consulti Surgical Pathology Report ng: ACCESSION: COLLECTED DATE/TIME: RECEIVED DATE/TIME: PATHOLOGIST: [id number] 06/05/2022 11:30 EDT 06/05/2022 11:[address] Final Diagnosis SPECIMEN Procedure Total hysterectomy and [...] Involvement __ (more content not included)... Normal [facility] Comment on above: Performed By: #### 9 [id number] #### [facility] Laboratory Services [address] [place] [id number] Survey Supervisor: Sb Valiente MD SURGICAL PATH REPORTon 06-07 SURGICAL PATH REPORT [facility] Department of Pathology [address] [place] [phone] Name: TATY RICE : 1960 [facility] [id number] Number: Gender: Female Location: [facility] Admit 62 years Attending GARRETT ARBOLEDA Age: Provider: Ordering GARRETT ARBOLEDA Provider: Consulting: Surgical Pathology Report ACCESSION: COLLECTED DATE/TIME: RECEIVED DATE/TIME: PATHOLOGIST: [id number] 06/05/2022 11:30 EDT 06/05/2022 11:[address] Final Diagnosis Report for THE ROSCOE, [place] CERVIX, UTERUS, BILATERAL FALLOPIAN TUBES, BILATERAL [...] studies, the tumor is positive for ER, CO, CEA monoclonal (patchy), but negative for P504S. [...] Print Date/ 06/07/2022 13:12 EDT Number: Time: [facility] Department of Pathology [address] [place], [place] [phone] Name: TATY RICE : 1960 [facility] [id number] Number: Gender: Female Location: [facility] Admit 62 years Attending GARRETT ARBOLEDA Age: Provider: Ordering GARRETT ARBOLEDA Provider: Consulting: Surgical Pathology Report ACCESSION: COLLECTED DATE/TIME: RECEIVED DATE/TIME: PATHOLOGIST: [id number] 06/05/2022 11:30 EDT 06/05/2022 11:[address] Final Diagnosis INTERPRETATION: These results show absent [...] grade 2 Myometrial Invasion Present ____ Print Date/ 06/07/2022 13:12 EDT Number: Time: [facility] Department of Pathology [address] [place] [phone] Name: TATY RICE : 1960 [facility] [id number] Number: Gender: Female Location: [facility] Admit 62 years Attending GARRETT ARBOLEDA Age: Provider: GARRETT Cardoso Provider: Consulting: Surgical Pathology Report ACCESSION: COLLECTED DATE/TIME: RECEIVED DATE/TIME: PATHOLOGIST: [id number] 06/05/2022 11:30 EDT 06/05/2022 11:[address] Final Diagnosis Depth of Myometrial Invasion Specify [...] Print Date/ (more content not included)... Normal [facility] Comment on above: Performed By: #### 9 [id number] #### [facility] Laboratory Services [address] [id number] Survey Supervisor: Sb Valiente MD BUNon 06-06-2022 Urea nitrogen [Mass/Vol] 22.0 mg/dL Critically high 7.0-18.0 [facility] Comment on above: Performed By: #### C PANCHO, BUN #### [facility] [address] [place] [address] Dr. Stu Cabezas CBC AUTO DIFFon 06-06-2022 BASO # 0.0 103/ul Normal 0.0-0.1 [facility] Comment on above: Performed By: #### L IPID, TSH, LIVER #### [facility] [address] [place] [address] Dr. Stu Cabezas Basophils/100 WBC (Bld) 0.1 % Critically low 0.2-2.0 [facility] Comment on above: Performed By: #### L IPID, TSH, LIVER #### [facility] [address] [place] [address] Dr. Stu Cabezas EO # 0.0 103/ul Normal 0.0-0.7 [facility] Comment on above: Performed By: #### L IPID, TSH, LIVER #### [facility] [address] [place] [address] Dr. Stu Cabezas Eosinophils/100 WBC (Bld) 0.3 % Critically low 0.9-7.0 [facility] Comment on above: Performed By: #### L IPID, TSH, LIVER #### [facility] [address] [place] [address] Dr. Stu Cabezas Erythrocyte distribution width (RBC) [Ratio] 12.4 % Normal 11.0-15.0 [facility] Comment on above: Performed By: #### L IPID, TSH, LIVER #### [facility] [address] [address] [address] Stu Cabezas Hematocrit (Bld) [Volume fraction] 27.7 % Critically low 36.0-48.0 [facility] Comment on above: Performed By: #### L IPID, TSH, LIVER #### [facility] [address] [place] [address] Dr. Stu Cabezas Hemoglobin (Bld) [Mass/Vol] 9.2 g/dL Critically low 12.0-16.0 [facility] Comment on above: Performed By: #### L IPID, TSH, LIVER #### [facility] [address] [place] [address] Dr. Stu Cabezas IG # 0.02 10e3/ul Normal 0.00-0.03 [facility] Comment on above: Performed By: #### L IPID, TSH, LIVER #### [facility] [address] [place] [address] Dr. Stu Cabezas IG % 0.2 % Normal 0.0-0.5 [facility] Comment on above: Performed By: #### L IPID, TSH, LIVER #### [facility] [address] [place] [address] Dr. Stu Cabezas LYMPH # 2.3 103/ul Normal 1.2-3.8 [facility] Comment on above: Performed By: #### L IPID, TSH, LIVER #### [facility] [address] [place] [address] Dr. Stu Cabezas Lymphocytes/100 WBC (Bld) 23.1 % Normal 20.5-60.0 [facility] Comment on above: Performed By: #### L IPID, TSH, LIVER #### [facility] [address] [place] [address] Dr. Stu Cabezas MANUAL DIFF REQ NO Normal [facility] Comment on above: Performed By: #### L IPID, TSH, LIVER #### [facility] [address] [place] [address] Dr. Stu Cabezas MCH (RBC) [Entitic mass] 29.9 pg Normal 26.7-34.0 [facility] Comment on above: Performed By: #### L IPID, TSH, LIVER #### [facility] [address] [place] [address] Dr. Stu Cabezas MCHC (RBC) [Mass/Vol] 33.2 g/dL Normal 29.9-35.2 [facility] Comment on above: Performed By: #### L IPID, TSH, LIVER #### [facility] [address] [place] [address] Dr. Stu Cabezas MCV (RBC) [Entitic vol] 89.9 fL Normal 81.0-99.0 [facility] Comment on above: Performed By: #### L IPID, TSH, LIVER #### [facility] [address] [place] [address] Dr. Stu Cabezas MONO # 1.1 103/ul Critically high 0.3-0.8 [facility] Comment on above: Performed By: #### L IPID, TSH, LIVER #### [facility] [address] [place] [address] Dr. Stu Cabezas Monocytes/100 WBC (Bld) 11.1 % Normal 1.7-12.0 [facility] Comment on above: Performed By: #### L IPID, TSH, LIVER #### [facility] [address] [place] [address] Dr. Stu Cabezas NEUT # 6.4 103/ul Normal 1.4-6.5 [facility] Comment on above: Performed By: #### L IPID, TSH, LIVER #### [facility] [address] [place] [address] Dr. Stu Cabezas Neutrophils/100 WBC (Bld) 65.2 % Normal 43.0-75.0 [facility] Comment on above: Performed By: #### L IPID, TSH, LIVER #### [facility] [address] [place] [address] Dr. Stu Cabezas Platelet mean volume (Bld) [Entitic vol] 9.5 fL Normal 9.5-13.5 [facility] Comment on above: Performed By: #### L IPID, TSH, LIVER #### [facility] [address] [address] [address] Stu Cabezas PLT 250 103/ul Normal 150-450 [facility] Comment on above: Performed By: #### L IPID, TSH, LIVER #### [facility] [address] [address] [address] Stu Cabezas RBC 3.08 106/ul Critically low 4.20-5.40 [facility] Comment on above: Performed By: #### L IPID, TSH, LIVER #### [facility] [address] [address] [address] Stu Cabezas WBC 9.8 103/ul Normal 4.0-11.0 [facility] Comment on above: Performed By: #### L IPID, TSH, LIVER #### [facility] [address] [place] [address] Dr. Stu Cabezas CREATININEon 06-06-2022 Creatinine [Mass/Vol] 1.00 mg/dL Normal 0.55-1.02 [facility] Comment on above: Performed By: #### C PANCHO, BUN #### [facility] [address] [address] [address] Stu Cabezas EGFR-AF GUATEMALAN >60 Normal >=60 [facility] Comment on above: Performed By: #### C PANCHO, BUN #### [facility] [address] [address] [address] Stu Cabezas EGFR-NON AF GUATEMALAN 56 mL/min/1.73m2 Critically low >=60 [facility] Comment on above: Performed By: #### C PANCHO, BUN #### [facility] [address] [place] [address] Dr. Stu Cabezas ECHOCARDIO M/2D COMPLETEon 0 06-06-2022 ECHOCARDIO M/2D COMPLETE Patient: TATY RICE. Exam Date: 06/06/2022 : 1960 Gender:F Ordering : DR BLADIMIR ALVAREZ . Admission #: [id number] Family : DR GARRETT ARBOLEDA . Order #: [id number] CLICK HERE TO VIEW EXAM ECHOCARDIOGRAM REPORT [...] Area(A4C): 23.50 cm2 Left Atrium Systolic Volume(A2C): 69050 mm3 Left Atrium Systolic Volume(A4C): 92638 mm3 Mitral Valve MV E to A Ratio: 1 Mitral Valve A-Wave Peak Velocity: 93.30 cm/s Mitral Valve E-Wave Peak Velocity: 92.80 cm/s Deceleration Time: 256 ms Right Ventricle Aorta AO Root Diam: 3.30 cm Aortic Valve AoV Area (Peak Gonzalez): 2.11 cm2 AoV Area (VTI): 2.04 cm2 Deceleration [place]: 2610 mm/s2 Pressure Half-Time: 471 ms Peak [...] M.D. on 06/06/2022 at 18:42 Normal [facility] Covid-19 PCR (CVDTB)on SARS-CoV-2 (COVID-19) RNA KAI+probe Ql (Unsp spec) Not detected Normal NOT DETECTED [facility] Comment on above: Result Comment: This test is not yet approved or cleared by the [place] FDA. When there are no FDA-approved or cleared tests available, and other criteria are met, FDA can make tests available under an emergency access mechanism called an Emergency Use Authorization (EUA). The EUA for this test is supported by the Production Internship of Health and Human Service's (HHS's) declaration [...] SARS-CoV-2. Performed By: #### C VDTB #### [facility] [address] [place] [address] Dr. Stu Cabezas TYPE AND SCREENon 06-01-2022 TYPE AND SCREEN Negative Normal [facility] Comment on above: Performed By: #### L IPID, TSH, LIVER #### [facility] [address] [place] [address] Dr. Stu Cabezas CBC AUTO DIFFon 05-26-2022 BASO # 0.0 103/ul Normal 0.0-0.1 [facility] Comment on above: Performed By: #### C BC #### [facility] [address] [place] [address] Dr. Stu Cabezas Basophils/100 WBC (Bld) 0.4 % Normal 0.2-2.0 [facility] Comment on above: Performed By: #### C BC #### [facility] [address] [place] [address] Dr. Stu Cabezas EO # 0.4 103/ul Normal 0.0-0.7 [facility] Comment on above: Performed By: #### C BC #### [facility] [address] [place] [address] Dr. Stu Cabezas Eosinophils/100 WBC (Bld) 5.5 % Normal 0.9-7.0 [facility] Comment on above: Performed By: #### C BC #### [facility] [address] [place] [address] Dr. Stu Cabezas Erythrocyte distribution width (RBC) [Ratio] 12.0 % Normal 11.0-15.0 [facility] Comment on above: Performed By: #### C BC #### [facility] [address] [place] [address] Dr. Stu Cabezas Hematocrit (Bld) [Volume fraction] 35.6 % Critically low 36.0-48.0 [facility] Comment on above: Performed By: #### C BC #### [facility] [address] [place] [address] Dr. Stu Cabezas Hemoglobin (Bld) [Mass/Vol] 11.9 g/dL Critically low 12.0-16.0 [facility] Comment on above: Performed By: #### C BC #### [facility] [address] [place] [address] Dr. Stu Cabezas IG # 0.02 10e3/ul Normal 0.00-0.03 [facility] Comment on above: Performed By: #### C BC #### [facility] [address] [place] [address] Dr. Stu Cabezas IG % 0.3 % Normal 0.0-0.5 [facility] Comment on above: Performed By: #### C BC #### [facility] [address] [place] [address] Dr. Stu Cabezas LYMPH # 2.2 103/ul Normal 1.2-3.8 [facility] Comment on above: Performed By: #### C BC #### [facility] [address] [place] [address] Dr. Stu Cabezas Lymphocytes/100 WBC (Bld) 28.4 % Normal 20.5-60.0 [facility] Comment on above: Performed By: #### C BC #### [facility] [address] [place] [address] Dr. Stu Cabezas MANUAL DIFF REQ NO Normal [facility] Comment on above: Performed By: #### C BC #### [facility] [address] [place] [address] Dr. Stu Cabezas MCH (RBC) [Entitic mass] 29.4 pg Normal 26.7-34.0 [facility] Comment on above: Performed By: #### C BC #### [facility] [address] [place] [address] Dr. Stu Cabezas MCHC (RBC) [Mass/Vol] 33.4 g/dL Normal 29.9-35.2 [facility] Comment on above: Performed By: #### C BC #### [facility] [address] [address] [address] Stu Cabezas MCV (RBC) [Entitic vol] 87.9 fL Normal 81.0-99.0 [facility] Comment on above: Performed By: #### C BC #### [facility] [address] [address] [address] Stu Cabezas MONO # 0.7 103/ul Normal 0.3-0.8 [facility] Comment on above: Performed By: #### C BC #### [facility] [address] [address] [address] Stu Cabezas Monocytes/100 WBC (Bld) 9.2 % Normal 1.7-12.0 [facility] Comment on above: Performed By: #### C BC #### [facility] [address] [place] [address] Dr. Stu Cabezas NEUT # 4.3 103/ul Normal 1.4-6.5 [facility] Comment on above: Performed By: #### C BC #### [facility] [address] [place] [address] Dr. Stu Cabezas Neutrophils/100 WBC (Bld) 56.2 % Normal 43.0-75.0 [facility] Comment on above: Performed By: #### C BC #### [facility] [address] [place] [address] Dr. Stu Cabezas Platelet mean volume (Bld) [Entitic vol] 9.1 fL Critically low 9.5-13.5 [facility] Comment on above: Performed By: #### C BC #### [facility] [address] [place] [address] Dr. Stu Cabezas PLT 298 103/ul Normal 150-450 [facility] Comment on above: Performed By: #### C BC #### [facility] [address] [address] [address] Stu Cabezas RBC 4.05 106/ul Critically low 4.20-5.40 [facility] Comment on above: Performed By: #### C BC #### [facility] [address] [address] [address] Stu Cabezas WBC 7.7 103/ul Normal 4.0-11.0 [facility] Comment on above: Performed By: #### C BC #### [facility] [address] [address] [address] Stu Cabezas PROF CHEM 8 (BAS METB)on Anion gap [Moles/Vol] 15.1 mmol/L Normal [facility] Comment on above: Performed By: #### B MP #### [facility] [address] [address] [address] Stu Cabezas Calcium [Mass/Vol] 9.4 mg/dL Normal 8.5-10.1 [facility] Comment on above: Performed By: #### B MP #### [facility] [address] [place] [address] Dr. Stu Cabezas Chloride [Moles/Vol] 101 mmol/L Normal 98-107 [facility] Comment on above: Performed By: #### B MP #### [facility] [address] [address] [address] Stu Cabezas CO2 [Moles/Vol] 27.1 mmol/L Normal 21.0-32.0 [facility] Comment on above: Performed By: #### B MP #### [facility] [address] [place] [address] Dr. Stu Cabezas Creatinine [Mass/Vol] 1.63 mg/dL Critically high 0.55-1.02 [facility] Comment on above: Performed By: #### B MP #### [facility] [address] [place] [address] Dr. Stu Cabezas EGFR-AF GUATEMALAN 39 mL/min/1.73m2 Critically low >=60 [facility] Comment on above: Performed By: #### B MP #### [facility] [address] [address] [address] Stu Cabezas EGFR-NON AF GUATEMALAN 32 mL/min/1.73m2 Critically low >=60 [facility] Comment on above: Performed By: #### B MP #### [facility] [address] [address] [address] Stu Cabezas Glucose [Mass/Vol] 95 mg/dL Normal 74-106 [facility] Comment on above: Performed By: #### B MP #### [facility] [address] [address] [address] Stu Cabezas Potassium [Moles/Vol] 3.2 mmol/L Critically low 3.5-5.1 [facility] Comment on above: Performed By: #### B MP #### [facility] [address] [address] [address] Stu Cabezas Sodium [Moles/Vol] 140 mmol/L Normal 136-145 [facility] Comment on above: Performed By: #### B MP #### [facility] [address] [address] [address] Stu Cabezas Urea nitrogen [Mass/Vol] 49.0 mg/dL Critically high 7.0-18.0 [facility] Comment on above: Performed By: #### B MP #### [facility] [address] [address] [address] Stu Cabezas Urea nitrogen/Creatinine [Mass ratio] 30.1 mg/mg Normal [facility] Comment on above: Performed By: #### B MP #### [facility] [address] [address] [address] Stu Cabezas US PELVIS AND TRANSVAGon [...] KATHERINE SANTOS Date: 2022-05-08 13:20 Normal [facility] SURGICAL PATH REPORTon 04-28 SURGICAL PATH REPORT [facility] Department of Pathology [address] [place] [phone] Name: TATY RICE : 1960 [facility] [id number] Number: Gender: Male Location: [facility] Admit 62 years Attending JOHN SANOTS Age: Provider: Ordering JOHN SANTOS Provider: Consulting: Surgical Pathology Report ACCESSION: COLLECTED DATE/TIME: RECEIVED DATE/TIME: PATHOLOGIST: [id number] 04/26/2022 11:15 EDT 04/26/2022 11:15 EDT PRASANNA HUGO MD Final Diagnosis Report for THE [place]CO[place], [place] (A) GASTRIC ANTRUM, BIOPSY: - GASTRIC [...] Print Date/ 04/28/2022 11:02 EDT Number: Time: [facility] Department of Pathology [address] [place] [phone] Name: TATY RICE : 1960 [facility] [id number] Number: Gender: Male Location: [facility] Admit 62 years Attending JOHN SANTOS Age: Provider: Ordering JOHN SANTOS Provider: Consulting: Surgical Pathology Report ACCESSION: COLLECTED DATE/TIME: RECEIVED DATE/TIME: PATHOLOGIST: [id number] 04/26/2022 11:15 EDT 04/26/2022 11:[address], PRASANNA Gross Description (A) Labeled antrum. Received in [...] MP/kristie 04/26/2022 Tissue pathology report for: [facility], [address] [place] [address]; PATHOLOGY SERVICES PROVIDED BY [employer] [place] (CLIA #[id number]) in cooperation with [facility] at [address] [place] [address] ( CLIA #[id number]) Microscopic Diagnosis NOTE: One or more of the reagents used to perform assays on this specimen MAY have contained components considered to be analyte specific reagents ( ASRs). ASRs have not been cleared or approved by the [place] Food and Drug Administration. The performance characteristics of these assays have been determined by the Department of Pathology at [facility]. This assay was performed subsequent to the H and E examination. Appropriate positive and negative controls were examined with appropriate reactivity. Codes CPT CODE: 04612 X3 + [id number] + [id number] ____ Print Date04/28/2022 11:02 EDT Number: Time: Normal [facility] Comment on above: Performed By: #### 9 [id number] #### [facility] [address] [id number] Survey Supervisor: Sb Valiente MD CBC AUTO DIFFon 03-16-2022 BASO # 0.0 103/ul Normal 0.0-0.1 [facility] Comment on above: Performed By: #### L IPID, TSH, LIVER #### [facility] [address] [place] [address] Dr. Stu Cabezas Basophils/100 WBC (Bld) 0.5 % Normal 0.2-2.0 [facility] Comment on above: Performed By: #### L IPID, TSH, LIVER #### [facility] [address] [place] [address] Dr. Stu Cabezas EO # 0.4 103/ul Normal 0.0-0.7 [facility] Comment on above: Performed By: #### L IPID, TSH, LIVER #### [facility] [address] [place] [address] Dr. Stu Cabezas Eosinophils/100 WBC (Bld) 6.0 % Normal 0.9-7.0 [facility] Comment on above: Performed By: #### L IPID, TSH, LIVER #### [facility] [address] [place] [address] Dr. Stu Cabezas Erythrocyte distribution width (RBC) [Ratio] 13.5 % Normal 11.0-15.0 [facility] Comment on above: Performed By: #### L IPID, TSH, LIVER #### [facility] [address] [place] [address] Dr. Stu Cabezas Hematocrit (Bld) [Volume fraction] 38.5 % Normal 36.0-48.0 [facility] Comment on above: Performed By: #### L IPID, TSH, LIVER #### [facility] [address] [place] [address] Dr. Stu Cabezas Hemoglobin (Bld) [Mass/Vol] 12.6 g/dL Normal 12.0-16.0 [facility] Comment on above: Performed By: #### L IPID, TSH, LIVER #### [facility] [address] [place] [address] Dr. Stu Cabezas IG # 0.02 10e3/ul Normal 0.00-0.03 [facility] Comment on above: Performed By: #### L IPID, TSH, LIVER #### [facility] [address] [place] [address] Dr. Stu Cabezas IG % 0.3 % Normal 0.0-0.5 [facility] Comment on above: Performed By: #### L IPID, TSH, LIVER #### [facility] [address] [place] [address] Dr. Stu Cabezas LYMPH # 2.0 103/ul Normal 1.2-3.8 [facility] Comment on above: Performed By: #### L IPID, TSH, LIVER #### [facility] [address] [place] [address] Dr. Stu Cabezas Lymphocytes/100 WBC (Bld) 29.7 % Normal 20.5-60.0 [facility] Comment on above: Performed By: #### L IPID, TSH, LIVER #### [facility] [address] [place] [address] Dr. Stu Cabezas MANUAL DIFF REQ NO Normal [facility] Comment on above: Performed By: #### L IPID, TSH, LIVER #### [facility] [address] [place] [address] Dr. Stu Cabezas MCH (RBC) [Entitic mass] 29.7 pg Normal 26.7-34.0 [facility] Comment on above: Performed By: #### L IPID, TSH, LIVER #### [facility] [address] [place] [address] Dr. Stu Cabezas MCHC (RBC) [Mass/Vol] 32.7 g/dL Normal 29.9-35.2 [facility] Comment on above: Performed By: #### L IPID, TSH, LIVER #### [facility] [address] [place] [address] Dr. Stu Cabezas MCV (RBC) [Entitic vol] 90.8 fL Normal 81.0-99.0 [facility] Comment on above: Performed By: #### L IPID, TSH, LIVER #### [facility] [address] [place] [address] Dr. Stu Cabezas MONO # 0.7 103/ul Normal 0.3-0.8 [facility] Comment on above: Performed By: #### L IPID, TSH, LIVER #### [facility] [address] [place] [address] Dr. Stu Cabezas Monocytes/100 WBC (Bld) 9.9 % Normal 1.7-12.0 [facility] Comment on above: Performed By: #### L IPID, TSH, LIVER #### [facility] [address] [place] [address] Dr. Stu Cabezas NEUT # 3.6 103/ul Normal 1.4-6.5 [facility] Comment on above: Performed By: #### L IPID, TSH, LIVER #### [facility] [address] [place] [address] Dr. Stu Cabezas Neutrophils/100 WBC (Bld) 53.6 % Normal 43.0-75.0 [facility] Comment on above: Performed By: #### L IPID, TSH, LIVER #### [facility] [address] [place] [address] Dr. Stu Cabezas Platelet mean volume (Bld) [Entitic vol] 9.1 fL Critically low 9.5-13.5 [facility] Comment on above: Performed By: #### L IPID, TSH, LIVER #### [facility] [address] [place] [address] Dr. Stu Cabezas PLT 288 103/ul Normal 150-450 [facility] Comment on above: Performed By: #### L IPID, TSH, LIVER #### [facility] [address] [place], [place] [address] Dr. Stu Cabezas RBC 4.24 106/ul Normal 4.20-5.40 [facility] Comment on above: Performed By: #### L IPID, TSH, LIVER #### [facility] [address] [place], [place] [address] Dr. Stu Cabezas WBC 6.6 103/ul Normal 4.0-11.0 [facility] Comment on above: Performed By: #### L IPID, TSH, LIVER #### [facility] [address] [place], [place] [address] ABD/PELV W CONon [...] by: MISTY LLOYD Date: 2022-03-16 10:43 Normal [facility] GLYCOHEMOGLOBIN A1Con 2021 ADA RECOMMENDATION ADA THERAPEUTIC TARG ET 6.0 - 7.0 ACTION SUGGESTED > 7.0 Normal [facility] Comment on above: Performed By: #### A 1C #### [facility] [address] [place] [address] Dr. Stu Cabezas Glucose [Mass/Vol] 131 mg/dL Normal [facility] Comment on above: Performed By: #### A 1C #### [facility] [address] [place] [address] [address] Stu Cabezas HbA1c (Bld) [Mass fraction] 6.2 % Critically high <=6.0 [facility] Comment on above: Performed By: #### A 1C #### [facility] [address] [place] [address] Dr. Stu Cabezas LIPID PROFILEon 03-16-2022 CHOL-HDL RATIO NORM SEE BELOW Normal [facility] Comment on above: Result Comment: 3.3 - 4.4 LOW RISK 4.4 - 7.1 AVERAGE RISK 7.1 - 11.0 MODERATE RISK >11.0 HIGH RISK Performed By: #### L IPID, TSH, LIVER #### [facility] [address] [place] [address] [address] Stu Cabezas Cholesterol [Mass/Vol] 310 mg/dL Critically high <=200 [facility] Comment on above: Performed By: #### L IPID, TSH, LIVER #### [facility] [address] [place] [address] [address] Stu Cabezas Cholesterol in HDL [Mass/Vol] 55 mg/dL Normal 40-60 [facility] Comment on above: Performed By: #### L IPID, TSH, LIVER #### [facility] [address] [place] [address] [address] Stu Cabezas Cholesterol in LDL [Mass/Vol] 217.2 mg/dL Normal [facility] Comment on above: Performed By: #### L IPID, TSH, LIVER #### [facility] [address] [place] [address] [address] Stu Cabezas Cholesterol.total/C holesterol in HDL [Mass ratio] 5.6 {ratio} Normal [facility] Comment on above: Performed By: #### L IPID, TSH, LIVER #### [facility] [address] [place] [address] [address] Stu Cabezas HDL NORMAL > or = 60 mg/dl - LO W CARDIOVASCULAR RISK <40 mg/dl - HIGH CARDIOVASCULAR RISK Normal [facility] Comment on above: Performed By: #### L IPID, TSH, LIVER #### [facility] [address] [place] [address] [address] Stu Cabezas LDL CALC NORMAL SEE BELOW Normal [facility] Comment on above: Result Comment: <100 mg/dl OPTIMAL 100 - 129 mg/dl NEAR OR ABOVE OPTIMAL 130 - 159 mg/dl BORDERLINE HIGH 160 - 189 mg/dl HIGH >190 mg/dl VERY HIGH Performed By: #### L IPID, TSH, LIVER #### [facility] [address] [place] [address] [address] Stu Cabezas Triglyceride [Mass/Vol] 189 mg/dL Critically high <=150 [facility] Comment on above: Performed By: #### L IPID, TSH, LIVER #### [facility] [address] [place] [address] [address] Stu Cabezas VLDL CALC 37.8 mg/dL Normal [facility] Comment on above: Performed By: #### L IPID, TSH, LIVER #### [facility] [address] [place] [address] [address] Stu Cabezas LIVER PROFILEon 03-16-2022 Albumin [Mass/Vol] 3.7 g/dL Normal 3.4-5.0 [facility] Comment on above: Performed By: #### L IPID, TSH, LIVER #### [facility] [address] [place] [address] [address] Stu Cabezas Albumin/Globulin [Mass ratio] 0.9 {ratio} Normal [facility] Comment on above: Performed By: #### L IPID, TSH, LIVER #### [facility] [address] [place] [address] Dr. Stu Cabezas ALP [Catalytic activity/Vol] 62 U/L Normal 46-116 [facility] Comment on above: Performed By: #### L IPID, TSH, LIVER #### [facility] [address] [place] [address] Dr. Stu Cabezas ALT [Catalytic activity/Vol] 35 U/L Normal 14-59 [facility] Comment on above: Performed By: #### L IPID, TSH, LIVER #### [facility] [address] [place] [address] Dr. Stu Cabezas AST [Catalytic activity/Vol] 20 U/L Normal 15-37 [facility] Comment on above: Performed By: #### L IPID, TSH, LIVER #### [facility] [address] [place] [address] Dr. Stu Cabezas BILI, CONJUGATED 0.1 mg/dL Normal 0.0-0.3 [facility] Comment on above: Performed By: #### L IPID, TSH, LIVER #### [facility] [address] [place] [address] Dr. Stu Cabezas Bilirubin [Mass/Vol] 0.8 mg/dL Normal 0.2-1.3 [facility] Comment on above: Performed By: #### L IPID, TSH, LIVER #### [facility] [address] [place] [address] Dr. Stu Cabezas Globulin (S) [Mass/Vol] 4.1 g/dL Normal [facility] Comment on above: Performed By: #### L IPID, TSH, LIVER #### [facility] [address] [place] [address] Dr. Stu Cabezas Protein [Mass/Vol] 7.8 g/dL Normal 6.1-8.2 [facility] Comment on above: Performed By: #### L IPID, TSH, LIVER #### [facility] [address] [place] [address] [address] Stu Cabezas PROF CHEM 8 (BAS METB)on Anion gap [Moles/Vol] 11.9 mmol/L Normal [facility] Comment on above: Performed By: #### B MP #### [facility] [address] [place] [address] Dr. Stu Cabezas Calcium [Mass/Vol] 8.9 mg/dL Normal 8.5-10.1 [facility] Comment on above: Performed By: #### B MP #### [facility] [address] [place] [address] Dr. Stu Cabezas Chloride [Moles/Vol] 101 mmol/L Normal 98-107 [facility] Comment on above: Performed By: #### B MP #### [facility] [address] [place] [address] [address] Stu Cabezas CO2 [Moles/Vol] 31.0 mmol/L Critically high 22.0-30.0 [facility] Comment on above: Performed By: #### B MP #### [facility] [address] [place] [address] Dr. Stu Cabezas Creatinine [Mass/Vol] 0.84 mg/dL Normal 0.52-1.04 [facility] Comment on above: Performed By: #### B MP #### [facility] [address] [place] [address] Dr. Stu Cabezas EGFR-AF GUATEMALAN >60 Normal >=60 [facility] Comment on above: Performed By: #### B MP #### [facility] [address] [place] [address] Dr. Stu Cabezas EGFR-NON AF GUATEMALAN >60 Normal >=60 [facility] Comment on above: Performed By: #### B MP #### [facility] [address] [place] [address] Dr. Stu Cabezas Glucose [Mass/Vol] 116 mg/dL Critically high 74-106 [facility] Comment on above: Performed By: #### B MP #### [facility] [address] [place] [address] Dr. Stu Cabezas Potassium [Moles/Vol] 3.9 mmol/L Normal 3.4-5.0 [facility] Comment on above: Performed By: #### B MP #### [facility] [address] [place] [address] [address] Stu Cabezas Sodium [Moles/Vol] 140 mmol/L Normal 137-145 [facility] Comment on above: Performed By: #### B MP #### [facility] [address] [place] [address] Dr. Stu Cabezas Urea nitrogen [Mass/Vol] 21.0 mg/dL Critically high 7.0-18.0 [facility] Comment on above: Performed By: #### B MP #### [facility] [address] [place] [address] Dr. Stu Cabezas Urea nitrogen/Creatinine [Mass ratio] 25.0 mg/mg Normal [facility] Comment on above: Performed By: #### B MP #### [facility] [address] [place] [address] Dr. Stu Cabezas TSHon 03-16-2022 TSH 1.697 uIU/mL Normal 0.470-4.680 [facility] Comment on above: Performed By: #### L IPID, TSH, LIVER #### [facility] [address] [place] [address] Dr. Stu Cabezas TSH RANGE SEE BELOW Normal [facility] Comment on above: Result Comment: <0.3 4 UIU/ml HYPERTHYROID 0.34-5.60 UIU/ml EUTHYROID >5.60 UIU/ml HYPOTHYROID Performed By: #### L IPID, TSH, LIVER #### [facility] [address] [place] [address] Dr. Stu Cabezas SURGICAL PATH REPORTon 02-20 SURGICAL PATH REPORT [facility] Department of Pathology [address] [place] [id number] Name: TATY RICE : 1960 [employer] [id number] Number: Gender: Male Location: [facility] Admit 61 years Attending GARRETT ARBOLEDA Age: Provider: Ordering GARRETT ARBOLEDA Provider: Consulting: Surgical Pathology Report ACCESSION: COLLECTED DATE/TIME: RECEIVED DATE/TIME: PATHOLOGIST: [id number] 02/17/2022 12:52 EDT 02/17/2022 12:52 EDT PRASANNA HUGO MD Final Diagnosis Report for [facility] [place] [facility]: - SMALL DETACHED FRAGMENTS [...] Print Date/ 02/20/2022 13:51 EDT Number: Time: [facility] Department of Pathology [address] [place] [id number] Name: TATY RICE : 1960 [facility] [id number] Number: Gender: Male Location: [facility] Admit 61 years Attending GARRETT ARBOLEDA Age: Provider: Ordering GARRETT ARBOLEDA Provider: Consulting: Surgical Pathology Report ACCESSION: COLLECTED DATE/TIME: RECEIVED DATE/TIME: PATHOLOGIST: [id number] 02/17/2022 12:52 EDT 02/17/2022 12:[address], PRASANNA Gross Description 02/17/2022 Tissue pathology report for: [facility], [address] [place] [address]; PATHOLOGY SERVICES PROVIDED BY [facility], [facility] (CLIA #[id number]) in cooperation with [facility] at [address] [place] [address] (CLIA #[id number]) Codes CPT CODE: 86089 ____ Print Date/ 02/20/2022 13:51 EDT Number: Time: Normal [facility] Comment on above: Performed By: #### [id number] #### [facility] [address] [place] [address] Survey Supervisor: Sb Valiente MD MG MAMM SCREEN 3D ZACK CADon 01-10-2022 MG MAMM SCREEN 3D ZACK CAD Patient: TATY RICE. Exam Date: 01/10/2022 : 1960 Gender:F Ordering : DR GARRETT ARBOLEDA . Admission #: [id number] Family : Order #: [id number] CLICK HERE TO VIEW EXAM RADIOLOGY REPORT [...] colon cancer at age 70. LOCATION: [facility] BREAST COMPOSITION: Scattered areas fibroglandular density. [...] Nolasco MD on 01/11/2022 at 08:17 Normal [facility] XR DEXA BONE DENSITYon 01-10 XR DEXA BONE DENSITY EXAMINATION: XR DEXA BONE DENSITY, 01/10/2022 3:28 PM EST HISTORY: [...] by: REGINA NOLASCO Date: 2022-01-10 16:09 Normal [facility] US PELVIS AND TRANSVAGon US PELVIS AND [...] by: REGINA NOLASCO Date: 2022-01-09 14:15 Normal [facility] PAP ACOG PANEL 2: 30 to 65on 12-27-2021 . . Normal [facility] Comment on above: Result Comment: Perf ormed at: WB Performed By: #### L IPID, TSH, LIVER #### [facility] [address] [place] [address] [address] Stu Cabezas Age Gdln ACOG Testing 30-65 Normal [facility] Comment on above: Performed By: #### L IPID, TSH, LIVER #### [facility] [address] [place] [address] [address] Stu Cabezas DIAGNOSIS: Comment Normal [facility] Comment on above: Result Comment: NEGA TIVE FOR INTRAEPITHELIAL LESION OR MALIGNANCY. REACTIVE CELLULAR CHANGES AND/OR REPAIR ARE PRESENT. Performed at: WB Performed By: #### L IPID, TSH, LIVER #### [facility] [address] [place] [address] [address] Stu Cabezas Electronically signed by: Comment Normal [facility] Comment on above: Result Comment: Agueda Moore MD, Pathologist Performed at: WB Performed By: #### L IPID, TSH, LIVER #### [facility] [address] [place] [address] [address] Stu Cabezas HPV Aptima Negative Normal Negative [facility] Comment on above: Result Comment: This nucleic acid amplification test detects fourteen high-risk HPV types (16,18,31,33,35,39,45,51,52,56,58,59,66,68) without differentiation. Performed at: =G Performed By: #### L IPID, TSH, LIVER #### [facility] [id number] Stu Cabezas Methodology: Comment Normal [facility] Comment on above: Result Comment: This liquid based ThinPrep(R) pap test was screened with the use of an image guided system. Performed at: WB Performed By: #### L IPID, TSH, LIVER #### [facility] [address] [place] [address] Dr. Stu Cabezas Note: Comment Normal [facility] Comment on above: Result Comment: The Pap [...] By: #### L IPID, TSH, LIVER #### [facility] [address] [place] [address] [address] Stu Cabezas Performed by: Comment Normal [facility] Comment on above: Result Comment: Tod Mercado, Lawn Care Technician (ASCP) Performed at: WB Performed By: #### L IPID, TSH, LIVER #### [facility] [address] [place] [address] Dr. Stu Cabezas Specimen adequacy: Comment Normal [facility] Comment on above: Result Comment: Sati sfactory for evaluation. Endocervical and/or squamous metaplastic cells (endocervical component) are present. Areas of partially obscuring inflammatory exudate are present. Performed at: WB Performed By: #### L IPID, TSH, LIVER #### [facility] [address] [place] [address] Dr. Stu Cabezas Vital Signs Date Time Vital Sign Value Performing Clinician Facility 01-20-2025 [id number] Body mass index (BMI) [Ratio] 31.28 kg/m2 Bladimir Alvarez MD Work Phone: [facility] 01-20-2025 15:11-0500 Body temperature 97.7 [degF] Bladimir Alvarez MD Work Phone: [facility] 01-20-2025 15:11-0500 Body weight 87.91 kg Bladimir Alvarez MD Work Phone: [facility] 01-20-2025 15:11-0500 Diastolic blood pressure 70 mm[Hg] Bladimir Alvarez MD Work Phone: [facility] 01-20-2025 15:11-0500 Heart rate 63 /min Bladimir Alvarez MD Work Phone: [facility] 01-20-2025 15:11-0500 SaO2% (BldA) [Mass fraction] 97 % Bladimir Alvarez MD Work Phone: [facility] 01-20-2025 15:11-0500 Systolic blood pressure 162 mm[Hg] Bladimir Alvarez MD Work Phone: [facility] 09-16-2024 13:37-0400 Body height 167.6 cm Estefani Gaffney DO Work Phone: [facility] 09-16-2024 13:37-0400 Body mass index (BMI) [Ratio] 31.15 kg/m2 Estefani Gaffney DO Work Phone: [facility] 09-16-2024 13:37-0400 Body weight 87.54 kg Estefani Gaffney DO Work Phone: [facility] 09-02-2024 14:17-0400 Body height 167.6 cm [facility] 09-02-2024 14:17-0400 Body mass index (BMI) [Ratio] 30.67 kg/m2 [facility] 09-02-2024 14:17-0400 Body weight 86.18 kg [facility] 1 [facility] 08-19-2024 14:36-0400 Body height 167.6 cm Estefani Gaffney DO Work Phone: [facility] 08-19-2024 14:36-0400 Body mass index (BMI) [Ratio] 31.15 kg/m2 Estefani Gaffney DO Work Phone: [facility] 08-19-2024 14:36-0400 Body weight 87.54 kg Estefani Gaffney DO Work Phone: [facility] 08-05-2024 15:22-0400 Body height 167.6 cm Ashwin Cuello NP Work Phone: [facility] 08-05-2024 15:22-0400 Body mass index (BMI) [Ratio] 31.15 kg/m2 Ashwin Cuello PROPERTY CLAIM REP Work Phone: [facility] 08-05-2024 15:22-0400 Body weight 87.54 kg Ashwin Cuello PROPERTY CLAIM REP Work Phone: [facility] 07-21-2024 13:54-0400 Body height 167.6 cm Bladimir Alvarez MD Work Phone: [facility] 07-21-2024 13:54-0400 Body mass index (BMI) [Ratio] 31.15 kg/m2 Bladimir Alvarez MD Work Phone: [facility] 07-21-2024 13:54-0400 Body temperature 96.6 [degF] Bladimir Alvarez MD Work Phone: [facility] 07-21-2024 13:54-0400 Body weight 87.54 kg Bladimir Alvarez MD Work Phone: [facility] 07-21-2024 13:54-0400 Diastolic blood pressure 60 mm[Hg] Bladimir Alvarez MD Work Phone: [facility] 07-21-2024 13:54-0400 Heart rate 79 /min Bladimir Alvarez MD Work Phone: [facility] 07-21-2024 13:54-0400 Respiratory rate 18 /min Bladimir Alvarez MD Work Phone: [facility] 07-21-2024 13:54-0400 SaO2% (BldA) [Mass fraction] 96 % Bladimir Alvarez MD Work Phone: [facility] 07-21-2024 13:54-0400 Systolic blood pressure 150 mm[Hg] Bladimir Alvarez MD Work Phone: [facility] 03-05-2024 15:33-0400 Body height 167.64 cm MD Bladimir Alvarez Work Phone: [facility] 03-05-2024 15:33-0400 Body mass index (BMI) [Ratio] 31.1 kg/m2 MD Bladimir Alvarez Work Phone: [facility] 03-05-2024 15:33-0400 Body temperature 96.6 [degF] MD Bladiimr Alvarez Work Phone: [facility] 03-05-2024 15:33-0400 Body weight 87.6 kg MD Bladimir Alvarez Work Phone: [facility] 03-05-2024 15:33-0400 Diastolic blood pressure 89 mm[Hg] MD Bladimir Alvarez Work Phone: [facility] 03-05-2024 15:33-0400 Heart rate 70 /min MD Bladimir Alvarez Work Phone: [facility] 03-05-2024 15:33-0400 Respiratory rate 16 /min MD Bladimir Alvarez Work Phone: [facility] 03-05-2024 15:33-0400 Systolic blood pressure 120 mm[Hg] MD Bladimir Alvarez Work Phone: [facility] 01-01-2024 15:18-0500 Body height 167.6 cm Bladimir Alvarez MD Work Phone: [facility] 01-01-2024 15:18-0500 Body mass index (BMI) [Ratio] 30.67 kg/m2 Bladimir Alvarez MD Work Phone: [facility] 01-01-2024 15:18-0500 Body temperature 97.11 [degF] Bladimir Alvarez MD Work Phone: [facility] 01-01-2024 15:18-0500 Body weight 86.18 kg Bladimir Alvarez MD Work Phone: [facility] 01-01-2024 15:18-0500 Diastolic blood pressure 60 mm[Hg] Bladimir Alvarez MD Work Phone: [facility] 01-01-2024 15:18-0500 Heart rate 78 /min Bladimir Alvarez MD Work Phone: [facility] 01-01-2024 15:18-0500 SaO2% (BldA) [Mass fraction] 97 % Bladimir Alvarez MD Work Phone: [facility] 01-01-2024 15:18-0500 Systolic blood pressure 140 mm[Hg] Bladimir Alvarez MD Work Phone: [facility] Encounters Encounter Date Encounter Type Care Provider Facility Start: 01-20-2025 End: 01-20-2025 ambulatory BLADIMIR ALVAREZ Not Available Start: 01-20-2025 End: 01-20-2025 Office outpatient visit 25 minutes Bladimir Alvarez MD Work Phone: [facility] Comment on above: Benign essential hyp ertension (CMS/HCC) (Primary Dx); Chronic heart failure with preserved ejection fraction (CMS/HCC); GERD without esophagitis; Seasonal allergic rhinitis due to pollen; Endometrial carcinoma (CMS/HCC) Start: 01-20-2025 End: 01-20-2025 Bamboo flowsheet Bladimir Alvarez MD Work Phone: [facility] Start: 01-20-2025 End: 01-20-2025 Bamboo flowsheet Bladimir Alvarez MD Work Phone: [facility] Start: 11-10-2024 End: 11-10-2024 Bamboo flowsheet Lelo Carring PROPERTY CLAIM REP Work Phone: [facility] Start: 11-10-2024 End: 11-10-2024 Bamboo flowsheet Lelo Major Apling PROPERTY CLAIM REP Work Phone: [facility] Start: 11-10-2024 End: 11-10-2024 Postop follow up visit related to original px Lelo Major Apling PROPERTY CLAIM REP Work Phone: [facility] Comment on above: S/P carpal tunnel re lease (Primary Dx) Start: 11-10-2024 End: 11-10-2024 ambulatory LELO Major APLING Not Available Start: 10-15-2024 End: 10-15-2024 Bamboo flowsheet Lelo Major Apling PROPERTY CLAIM REP Work Phone: [facility] Start: 10-15-2024 End: 10-15-2024 Bamboo flowsheet Lelo B Apling PROPERTY CLAIM REP Work Phone: [facility] Start: 10-15-2024 End: 10-15-2024 Postop follow up visit related to original px Lelo B Apling PROPERTY CLAIM REP Work Phone: [facility] Comment on above: S/P carpal tunnel re lease (Primary Dx) Start: 10-15-2024 End: 10-15-2024 ambulatory LELO B APLING Not Available Start: 10-08-2024 End: 10-08-2024 Evaluation and management of inpatient ESTEFANI GAFFNEY [facility] Start: 10-07-2024 End: 10-07-2024 Christian Cuello PROPERTY CLAIM REP Work Phone: [facility] Comment on above: Post-operative pain (Primary Dx) Start: 09-16-2024 End: 09-16-2024 Bamboo flowsheet Estefani Gaffney DO Work Phone: [facility] Start: 09-16-2024 End: 09-16-2024 Bamboo flowsheet Estefani Gaffney DO Work Phone: [facility] Start: 09-16-2024 End: 09-16-2024 ambulatory ESTEFANI GAFFNEY Not Available Start: 09-16-2024 End: 09-16-2024 Office outpatient visit 15 minutes Estefani Gaffney DO Work Phone: [facility] Comment on above: Left carpal tunnel s yndrome (Primary Dx); Left wrist pain Start: 09-10-2024 End: 09-10-2024 Bamboo flowsheet Lelo B Apling PROPERTY CLAIM REP Work Phone: [facility] Start: 09-10-2024 End: 09-10-2024 Bamboo flowsheet Lelo B Apling PROPERTY CLAIM REP Work Phone: [facility] Start: 09-10-2024 End: 09-10-2024 Postop follow up visit related to original px Lelo B Apling PROPERTY CLAIM REP Work Phone: [facility] Comment on above: S/P carpal tunnel re lease (Primary Dx) Start: 09-10-2024 End: 09-10-2024 ambulatory LELO CHARLTON Not Available Start: 09-03-2024 End: 09-03-2024 [facility] Start: 09-02-2024 End: 09-02-2024 Refill Ashwin Cuello PROPERTY CLAIM REP Work Phone: [facility] Comment on above: Post-op pain (Primar y Dx) Start: 08-19-2024 End: 08-19-2024 Office outpatient visit 25 minutes Estefani Gafnfey DO Work Phone: [facility] Comment on above: Paresthesia of both hands (Primary Dx); Bilateral carpal tunnel syndrome; Carpal tunnel syndrome of right wrist; Right wrist pain Start: 08-19-2024 End: 08-19-2024 Bamboo flowsheet Estefani Gaffney DO Work Phone: [facility] Start: 08-19-2024 End: 08-19-2024 Bamboo flowsheet Estefani Bhagatdleston DO Work Phone: [facility] Start: 08-19-2024 End: 08-19-2024 Orders Only Bladimir Alvarez MD Work Phone: [facility] Comment on above: Encounter for long-t erm current use of medication (Primary Dx); Obesity (BMI 30-39.9); Prediabetes; Dyslipidemia (CMS/HCC); Benign essential hypertension (CMS/HCC) Start: 08-14-2024 End: 08-14-2024 Patient encounter procedure Mona Chiang DO Work Phone: [facility] Comment on above: Carpal tunnel syndro me on both sides (Primary Dx); Paresthesia of both hands Start: 08-14-2024 End: 08-14-2024 ambulatory MONA CHIANG Not Available Start: 08-14-2024 End: 08-14-2024 Bamboo flowsheet Mona Chiang DO Work Phone: [facility] Start: 08-14-2024 End: 08-14-2024 Bamboo flowsheet Mona Chiang DO Work Phone: [facility] Start: 08-08-2024 End: 08-08-2024 Orders Only Bladimir Alvarez MD Work Phone: [facility] Comment on above: Obesity (BMI 30-39.9 ) (Primary Dx) Start: 08-05-2024 End: 08-05-2024 Bamboo flowsheet Ashwin Cuello PROPERTY CLAIM REP Work Phone: [facility] Start: 08-05-2024 End: 08-05-2024 Bamboo flowsheet Ashwin Cuello PROPERTY CLAIM REP Work Phone: [facility] Start: 08-05-2024 End: 08-05-2024 Office outpatient new 30 minutes Ashwin Cuello PROPERTY CLAIM REP Work Phone: [facility] Comment on above: Paresthesia of both hands (Primary Dx); Right wrist pain Start: 08-05-2024 End: 08-05-2024 ambulatory ASHWIN CUELLO Not Available Start: 07-21-2024 End: 07-21-2024 Bamboo flowsheet Bladimir Alvarez MD Work Phone: [facility] Start: 07-21-2024 End: 07-21-2024 Bamboo flowsheet Bladimir Alvarez MD Work Phone: [facility] Start: 07-21-2024 End: 07-21-2024 Clinisync Result Encounter Bladimir Alvarez MD Work Phone: [facility] External Department Unsolicited Start: 07-21-2024 End: 07-21-2024 Patient encounter procedure Bladimir Alvarez MD Work Phone: [facility] Start: 07-21-2024 End: 07-21-2024 Periodic preventive med est patient 40-64yrs Bladimir Alvarez MD Work Phone: [facility] Comment on above: Annual physical exam (Primary Dx); Benign essential hypertension (CMS/HCC); Carpal tunnel syndrome on right; Endometrial carcinoma (CMS/HCC) Start: 07-21-2024 End: 07-21-2024 ambulatory BLADIMIR ALVAREZ Not Available Start: 03-05-2024 End: 03-05-2024 ambulatory Annie Ya Facility:[facility] Start: 03-05-2024 End: 03-05-2024 ambulatory MD Bladimir Alvarez Work Phone: [facility] Work Phone: Start: 03-05-2024 End: 03-05-2024 Patient encounter procedure MD Bladimir Alvarez Work Phone: [facility] [place] Work Phone: Start: 01-01-2024 End: 01-01-2024 Office outpatient visit [...] 10-11-2022 End: 10-12-[address] DOCTOR NEGRO Facility: Start: 06-06-2022 Encounter for preprocedural laboratory examination DR GARRETT ARBOLEDA [facility] Start: 06-05-2022 End: 06-06-2022 ambulatory OSCAR GRACIA MD~[id number] Facility:[id number] Start: 06-05-2022 End: 06-06-2022 ambulatory GARRETT ARBOLEDA Facility:[facility] Start: 06-05-2022 End: 06-07-2022 Evaluation and management of inpatient DR GARRETT ARBOLEDA Facility:[facility] Start: 06-02-2022 Encounter for preprocedural cardiovascular examination DR GARRETT ARBOLEDA [facility] Start: 06-02-2022 Encounter for preprocedural laboratory examination DR GARRETT ARBOLEDA [facility] Start: 06-01-2022 End: 06-02-[address] BLADIMIR [...] examination without abnormal findings DR BLADIMIR ALVAREZ [facility] Start: 03-16-2022 End: 03-17-[address] BLADIMIR [...] Date Procedure Procedure Detail Performing Clinician Start: 08-14-2024 End: 08-14-2024 Needle emg ea extremty w/paraspinl area complete Mona Chiang DO Work Phone: Start: 07-21-2024 MLR HEMOGLOBIN A1C Bladimir Alvarez MD Work Phone: Start: 03-05-2024 X-ray of left ankle MD Bladimir Alvarez Work Phone: Start: 11-30-2023 Mammography Bladimir Alvarez MD Work Phone: Start: 06-05-2022 Resection of Bilateral Fallopian Tubes, Open Approach DR GARRETT ARBOLEDA Start: 06-05-2022 Resection of Bilateral Ovaries, Open Approach DR GARRETT ARBOLEDA Start: 06-05-2022 Resection of Uterus, Open Approach DR GARRETT ARBOLEDA Start: 04-26-2022 Colonoscopy Bladimir Alvarez MD Work Phone: History of decompres john of median nerve S/P carpal tunnel release Lelo Major Apling PROPERTY CLAIM REP Work Phone: History of decompres john of median nerve S/P carpal tunnel release Lelo Major Apling PROPERTY CLAIM REP Work Phone: History of decompres john of median nerve S/P carpal tunnel release Lelo Major Apling PROPERTY CLAIM REP Work Phone: Plan of Treatment Date Care Activity Detail Author Start: 04-26-2032 Screening for malignant neoplasm of colon [facility] Start: 09-03-2025 Tobacco Screening Tobacco Screening [facility] Start: 09-02-2025 Adult BMI Screening Adult BMI Screening [facility] Start: 02-18-2025 End: 02-18-2025 Patient encounter procedure 02/18/2025 3:30 PM EDT Office Visit [facility] CONROY [address] [place] [phone] Bladimir Alvarez MD [address] [place] [phone] [facility] CON[facility] Start: 01-20-2025 End: 01-20-2025 Patient encounter procedure 01/20/2025 3:00 PM EST Office Visit [facility] [address] [place] [address] Bladimir Alvarez MD [address] [place] [address] [facility] Start: 11-30-2024 Screening for malignant neoplasm of breast Mammogram [facility] Start: 11-12-2024 End: 11-12-2024 Patient encounter procedure 11/12/2024 1:30 PM EST Office Visit [facility] [address] [place] [address] Lelo Charlton PROPERTY CLAIM REP [address] [place] [address] [facility] Start: 11-10-2024 End: 11-10-2024 Patient encounter procedure 11/10/2024 1:15 PM EST Office Visit [facility] [address] [place] [address] Lelo Charlton PROPERTY CLAIM REP [address] [place] [address] S/P carpal tunnel release (Primary Dx) [facility] Comment on above: S/P carpal tunnel release (Primary Dx) Start: 10-15-2024 End: 10-15-2024 Patient encounter procedure [facility] Comment on above: S/P carpal tunnel release (Primary Dx) Start: 10-07-2024 End: 10-07-2024 Patient encounter procedure 10/07/2024 2:45 PM EST Office Visit [facility] [address] [place] [address] Estefani Gaffney DO [address] [place] [address] [facility] Start: 09-10-2024 End: 09-10-2024 Patient encounter procedure [facility] Comment on above: S/P carpal tunnel release (Primary Dx) Start: 09-03-2024 End: 09-03-2024 Neuroplasty &/transpos median nrv carpal tunne RELEASE CARPAL TUNNEL right carpal tunnel syndrome 09/03/2024 9:41 AM EDT [facility] Start: 08-19-2024 End: 08-19-2024 Patient encounter procedure 08/19/2024 2:30 PM EDT Office Visit [facility] [address] [facility] [address] [place] [address] Estefani Gaffney DO [address] [place] [address] [facility] Start: 08-19-2024 End: 08-19-2025 Basic metabolic 1998 panel - Serum or Plasma Basic metabolic panel Lab Routine Benign essential hypertension (CMS/HCC) Expected: 08/19/2024 (Approximate), Expires: 08/19/2025 [facility] Comment on above: Expected: 08/19/2024 (Approximate), Expi res: 08/19/2025 Start: 08-19-2024 End: 08-19-2025 CBC W Auto Differential panel - Blood CBC and differential Lab Routine Encounter for long-term current use of medication Expected: 08/19/2024 (Approximate), Expires: 08/19/2025 [facility] Comment on above: Expected: 08/19/2024 (Approximate), Expi res: 08/19/2025 Start: 08-19-2024 End: 08-19-2025 Hemoglobin A1c/Hemoglobin.total in Blood Hemoglobin A1c Lab Routine Prediabetes Expected: 08/19/2024 (Approximate), Expires: 08/19/2025 [facility] Work Phone: Comment on above: Expected: 08/19/2024 (Approximate), Expi res: 08/19/2025 Start: 08-19-2024 End: 08-19-2025 Hepatic function 2000 panel - Serum or Plasma Hepatic function panel Lab Routine Encounter for long-term current use of medication Expected: 08/19/2024 (Approximate), Expires: 08/19/2025 [facility] Comment on above: Expected: 08/19/2024 (Approximate), Expi res: 08/19/2025 Start: 08-19-2024 End: 08-19-2025 Lipid 1996 panel - Serum or Plasma Lipid panel Lab Routine Dyslipidemia (CMS/HCC) Expected: 08/19/2024 (Approximate), Expires: 08/19/2025 [facility] Comment on above: Expected: 08/19/2024 (Approximate), Expi res: 08/19/2025 Start: 08-19-2024 End: 08-19-2025 Thyrotropin [Units/volume] in Serum or Plasma TSH Lab Routine Obesity (BMI 30-39.9) Expected: 08/19/2024 (Approximate), Expires: 08/19/2025 [facility] Comment on above: Expected: 08/19/2024 (Approximate), Expi res: 08/19/2025 Start: 08-14-2024 End: 08-14-2024 Patient encounter procedure [facility] Comment on above: Arrived Start: 08-08-2024 End: 08-08-2025 Thyrotropin [Units/volume] in Serum or Plasma TSH Lab Routine Obesity (BMI 30-39.9) Expected: 08/08/2024 (Approximate), Expires: 08/08/2025 [facility] Work Phone: Comment on above: Expected: 08/08/2024 (Approximate), Expi res: 08/08/2025 Start: 08-05-2024 End: 08-05-2025 EMG AND NERVE CONDUCTION STUDY EMG AND NERVE CONDUCTION STUDY Neurology Routine Paresthesia of both hands Expected: 08/05/2024 (Approximate), Expires: 08/05/2025 [facility] Work Phone: Comment on above: Expected: 08/05/2024 (Approximate), Expi res: 08/05/2025 Start: 08-05-2024 End: 08-05-2024 Patient encounter procedure 08/05/2024 2:00 PM EDT Office Visit [facility] [address] [facility] [address] [place] [address] Ashwin Cuello, PROPERTY CLAIM REP [address] [place] [address] Arrived [facility] Comment on above: Arrived Start: 07-27-2024 Influenza vaccination [facility] Start: 07-21-2024 End: 07-21-2025 Basic metabolic 1998 panel - Serum or Plasma Basic metabolic panel Lab Routine Annual physical exam Expected: 07/21/2024 (Approximate), Expires: 07/21/2025 [facility] Comment on above: Expected: 07/21/2024 (Approximate), Expi res: 07/21/2025 Start: 07-21-2024 End: 07-21-2025 CBC W Auto Differential panel - Blood CBC and differential Lab Routine Annual physical exam Expected: 07/21/2024 (Approximate), Expires: 07/21/2025 [facility] Comment on above: Expected: 07/21/2024 (Approximate), Expi res: 07/21/2025 Start: 07-21-2024 End: 07-21-2025 Hemoglobin A1c/Hemoglobin.total in Blood Hemoglobin A1c Lab Routine Annual physical exam Expected: 07/21/2024 (Approximate), Expires: 07/21/2025 [facility] Work Phone: Comment on above: Expected: 07/21/2024 (Approximate), Expi res: 07/21/2025 Start: 07-21-2024 End: 07-21-2025 Hepatic function 2000 panel - Serum or Plasma Hepatic function panel Lab Routine Annual physical exam Expected: 07/21/2024 (Approximate), Expires: 07/21/2025 [facility] Comment on above: Expected: 07/21/2024 (Approximate), Expi res: 07/21/2025 Start: 07-21-2024 End: 07-21-2025 Lipid 1996 panel - Serum or Plasma Lipid panel Lab Routine Annual physical exam Expected: 07/21/2024 (Approximate), Expires: 07/21/2025 [facility] Comment on above: Expected: 07/21/2024 (Approximate), Expi res: 07/21/2025 Start: 07-21-2024 End: 07-21-2024 Patient encounter procedure 07/21/2024 2:00 PM EDT Office Visit [facility] [address] [place] [address] Bladimir Alvarez MD [address] [place] [phone] Arrived [facility] Comment on above: Arrived Start: 07-21-2024 End: 07-21-2025 Thyrotropin [Units/volume] in Serum or Plasma TSH Lab Routine Annual physical exam Expected: 07/21/2024 (Approximate), Expires: 07/21/2025 [facility] Comment on above: Expected: 07/21/2024 (Approximate), Expi res: 07/21/2025 Start: 06-30-2024 End: 06-30-2024 Patient encounter procedure 06/30/2024 1:30 PM EDT Office Visit [facility] [address] [place] [address] Bladimir Alvarez MD [address] [place] [phone] [facility] Start: 01-01-2024 End: 01-01-2024 Patient encounter procedure 01/01/2024 3:15 PM EST Office Visit [facility] [address] [place] [address] Bladimir Alvarez MD [address] [place] [phone] Arrived [facility] Comment on above: Arrived Start: 01-01-2024 End: 01-01-2026 Echocardiogram 2D complete Echocardiogram 2D complete Echocardiography Routine Chronic heart failure with preserved ejection fraction (CMS/HCC) Expected: 01/01/2024 (Approximate), Expires: 01/01/2026 [facility] Work Phone: Comment on above: Expected: 01/01/2024 (Approximate), Expi res: 01/01/2026 Start: 07-27-2023 Influenza vaccination Influenza Vaccine (#1) [facility] Start: 2010 Administration of varicella zoster vaccine Zoster (Shingles) Vaccine (1 of 2) [facility] Start: 1990 Screening for malignant neoplasm of cervix [facility] Start: 1981 Screening for malignant neoplasm of cervix Pap Smear [facility] Start: 1979 DTaP,Tdap and Td Vaccines (1 - Tdap) DTaP,Tdap and Td Vaccines (1 - Tdap) [facility] Start: 1978 Adult BMI Follow Up Plan Adult BMI Follow Up Plan [facility] Start: 1972 Depression Screening Depression Screening [facility] Start: 1960 Screening for malignant neoplasm of colon [facility] XR Ankle - left GE 3 Views [facility] Payers Date Payer Category Payer Self-pay 2021 Private Health Insurance [employer] [id number] 2008 Unknown 1960 Unknown [id number] 2.840.1.635690.3.579.2. 159 1960 Unknown [id number] 2.840.1.153701.3.579.2. 593 1960 Unknown [id number] 2.16840.1.096841.3.579.2. 593 1960 Unknown [id number] 2.16.840.1.530237.3.579.2. 593 1960 Unknown [id number] 2.840.1.880537.3.579.2. 593 1960 Unknown [id number] 2.16.840.1.410589.3.579.2. 593 1960 Unknown [id number] 2.16.840.1.461702.3.579.2. 593 1960 Unknown [id number] 2.16.840.1.259347.3.579.2. 593 1960 Unknown [id number] 2.16.840.1.115352.3.579.2. 593 1960 Unknown [id number] 2.16.840.1.847130.3.579.2. 593 1960 Unknown [id number] 2.16.840.1.716499.3.579.2. 593 1960 Unknown [id number] 2.16.840.1.716689.3.579.2. 3 1960 Unknown [id number] 2.16.840.1.525192.3.579.2. 593 1960 Unknown [id number] 2.16.840.1.658228.3.579.2. 1285 1960 Unknown [id number] 2.16.840.1.364014.3.579.2. 128 1960 Unknown [id number] 2.16.840.1.702976.3.579.2. 128 1960 Unknown [id number] 2.16.840.1.867503.3.579.2. 1259 1960 Unknown [id number] 2.16.840.1.515698.3.579.2. 1258 1960 Unknown [id number] 2.16.840.1.004503.3.579.2. 9 1960 Unknown [id number] 2.16.840.1.096561.3.579.2. 9 1960 Unknown [id number] 2.16.840.1.599019.3.579.2. 9 1960 Unknown [id number] 2.16.840.1.657460.3.579.2. 1258 1960 Unknown [id number] 2.16.840.1.350622.3.579.2. 1258 1960 Unknown [id number] 2.16.840.1.893787.3.579.2. 1258 1960 Unknown [id number] 2.16.840.1.890490.3.579.2. 1258 1959 Unknown [id number] Unknown [id number] 2.16.840.1.488548.3.579.2. 531 Social History Date Type Detail Facility Start: 12-14-2023 End: 01-01-2024 Tobacco smoking status [facility] Never smoked tobacco [facility] Start: 12-31-2023 End: 01-20-2025 History of Social function [facility] Start: 12-31-2023 End: 01-20-2025 Humiliation, Afraid, Rape, and Kick questionnaire [HARK] [facility] Within the last year , have you been afraid of your partner or ex-partner? No [facility] Do you belong to any clubs or organizations such as nondenominational groups, unions, fraternal or athletic groups, or [...] Sex Assigned At Not on file [facility] Start: 01-01-2024 End: 09-02-2024 Tobacco use and exposure Smokeless tobacco non-user [facility] Start: 1960 Sex Assigned At Female F [facility] Start: 08-19-2024 End: 01-20-2025 Alcoholic beverage intake Ex-drinker (finding) [facility] Clinical Notes 04-26-2022 to 01-20-2025 Bladimir Alvarez MD - 01/20/2025 4:04 PM Mini Alvarez MD - 01/20/2025 4:03 PM Mini Alvarez MD - 01/20/2025 4:03 PM Mini Alvarez MD - 01/20/2025 4:03 PM EST Note Date & Type Note Facility 01-20-2025 History of Presen t illness Narrative Associated Problem(s): Endometrial carcinoma (CMS/HCC) 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 Associated Problem(s): Seasonal allergic rhinitis due to pollen Symptoms controlled with medication and continue. Associated Problem(s): GERD without esophagitis Symptoms controlled with medication and continue. Associated Problem(s): Chronic heart failure with preserved ejection fraction (CMS/HCC) No edema and continue medication. Elevate legs PRN. Associated Problem(s): Benign essential hypertension (CMS/HCC) BP elevated and add losartan. Continue to monitor PRN. Discussed DASH diet. Subjective Patient ID: Taty Rice is a 64 y.o. female who presents for No chief complaint on file.. Follow up HTN, CHF, GERD, and allergies. Checking BP PRN and recently elevated. BP elevated today at 162/70. Taking medication daily and tolerating without side effects. Edema controlled with medication. Mild swelling at end of day and if on feet a lot. Edema improved in am and with elevation. GERD controlled with carafate. Denies epigastric pain or burning and not waking up with symptoms. Allergies controlled with medication. No congestion or rhinorrhea. No MEEK or sinus pressure. Ears not plugged or popping. Review of Systems Respiratory: Negative for cough, [...] Benign essential hypertension (CMS/HCC) - Primary BP elevated and add losartan. Continue to monitor PRN. Discussed DASH diet. Relevant Medications losartan (Cozaar) 25 MG tablet Seasonal allergic rhinitis due to pollen Symptoms controlled with medication and continue. Chronic heart failure with preserved ejection fraction (CMS/HCC) No edema and continue medication. Elevate legs PRN. GERD without esophagitis Symptoms controlled with medication and continue. documented in this encounter [facility] 10-08-2024 History of Presen t illness Narrative Images from the original note were not included. Subjective Patient ID: Taty Rice is a 64 y.o. female. Left Wrist 7 days s/p LT CTR (DOS 10/08/24) sutures intact. Removed today. Denies issues with incisions. Denies drainage/fevers/chills. Pain at rest 2/10 around her thumb. Pain at worst 4/10 if she bumps it. Denies waking at night. She does not think she is having N/T anymore. She took some IBU once a few days after surgery. Denies any other pain meds. Denies ice, heat or creams. Pt is RT handed Objective Ortho Exam Hand/Wrist Musculoskeletal Exam Inspection Left Erythema: none Ecchymosis: none Edema: mild Deformity: none Wrist - prior incision: carpal tunnel Incision: clean, dry and intact Incisional drainage: none Inspection additional comments: Sutures removed in office, steri strips applied, nv intact, no signs of infection Assessment/Plan Encounter Diagnoses: ICD-10-CM 1. S/P carpal tunnel release Z98.890 no forceful gripping or heavy lifting for 4 weeks s/p surgery, no submerging in water for 4 weeks s/p surgery, f/u in 4 weeks documented in this encounter [facility] 10-08-2024 History of Presen t illness Narrative Images from the original note were not included. Subjective Patient ID: Taty Rice is a 64 y.o. female. Left Wrist 4 weeks 5 days s/p LT CTR (DOS 10/08/24) Denies issues with incisions. She she has some pain over the site for the local. She is not taking anything for pain. She notes numbness in the MF and IF that has improved since surgery, this is constant. Pt is RT handed Objective Ortho Exam Hand/Wrist Musculoskeletal Exam Inspection Left Erythema: none Ecchymosis: none Edema: none Deformity: none Wrist - prior incision: carpal tunnel Incision: well-healed Incisional drainage: none Inspection additional comments: No signs of infection, no swelling, decreased sensation median nerve Assessment/Plan Encounter Diagnoses: ICD-10-CM 1. S/P carpal tunnel release Z98.890 Activities as tolerated, f/U prn documented in this encounter [facility] 10-07-2024 Telephone encounter Note Post op pain rx. PDMP reviewed [facility] 10-07-2024 Miscellaneous Notes Post op pain rx. PDMP reviewed documented in this encounter [facility] 09-16-2024 History of Presen t illness Narrative Images from the original note were not included. HISTORY OF PRESENT ILLNESS: Taty Rice is an 64 y.o. @ female. Chief complaint LT wrist pain LT wrist: here to discuss options. EMG 08/14 ASAEL LT wrist pain x 5-7 years, has gotten worse since April 2024. Tx by PCP with meloxicam. Pain in thumb, IF and MF. Radiates into hand and wrist. Constant. Taking meloxicam with some relief. Admits constant N/T in thumb, IF and MF. She is not able to shake this off. Has tried a brace with no relief. Has issues with gripping. Has trouble holding a fork. Denies dropping things. Wakes pt at HS. Has tried exercises from insurance, not much relief. She feels the EMG made symptoms worse. Prior tx: PCP, Meloxicam, brace, HEP, EMG ASAEL 08/14/24 RT handed. MEDICATION: Current Outpatient Medications on File Prior to Visit Medication Sig Dispense Refill atorvastatin (Lipitor) 40 MG tablet TAKE 1 TABLET AT BEDTIME 90 tablet 3 fluticasone (Flonase) 50 MCG/ACT nasal spray USE 2 SPRAYS DAILY 16 g 11 hydroCHLOROthiazide (HYDRODiuril) 25 MG tablet TAKE 1 TABLET DAILY 90 tablet 3 meloxicam (Mobic) 15 MG tablet Take 1 tablet (15 mg) by mouth Daily Take with food 30 tablet 5 Multiple Vitamins-Minerals (MULTIVITAMIN ADULTS 50+ PO) Take by mouth [place] Jauregui Wort 150 MG capsule Take 150 mg by mouth 1 (one) time each day sucralfate (Carafate) 1 g tablet Take 1 tablet (1 g) by mouth in the morning and 1 tablet (1 g) at noon and 1 tablet (1 g) in the evening and 1 tablet (1 g) before bedtime. Take before meals. 360 tablet 3 No current facility-administered medications on file prior to visit. MEDICAL HISTORY: Past Medical History: Diagnosis Date Aortic valve regurgitation, nonrheumatic Benign essential hypertension (CMS/HCC) Chronic heart failure with preserved ejection fraction (CMS/HCC) Dyslipidemia (CMS/HCC) Endometrial carcinoma (CMS/HCC) GERD (gastroesophageal reflux disease) Right carpal tunnel syndrome S/P MARTHA-BSO Seasonal allergic rhinitis due to pollen ALLERGIES: Allergies Allergen Reactions Wound Dressing Adhesive Rash VITALS: Visit Vitals Ht 5' 6 Wt 193 lb BMI 31.15 kg/m Smoking Status Never BSA 2.02 m Review of Systems General: Fatigue denies. Fever denies. Night sweats denies. ENT: Decreased hearing denies. Respiratory: Cough denies. Shortness of breath denies. Cardiovascular: Chest pain denies. Cyanosis denies. Irregular heartbeat denies. Gastrointestinal: Comments denies incontinence of stool . Nausea denies. Hematology: Bleeding problems denies. Genitourinary: Comments denies dribbling. Incontinence denies. Musculoskeletal: CommentsSee [facility] for details. Skin: Rash denies. Neurologic: Dizziness denies. Headache denies. Examination General Examination: GENERAL EXAMINATION in no acute distress, well developed, well nourished . HEART: no jugular venous distention . LUNGS: regular unlabored, normal effort . NEUROLOGIC: alert and oriented . PSYCH: oriented to person, place, time and situation . PHYSICAL EXAM: Ortho Exam LEFT WRIST No thenar wasting Decreased sensation median distribution Positive Phalens Mildly positive Tinels Able to make a fist [facility]. 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 Findings were noted to be more severe on the right than the left ASSESSMENT: ICD-10-CM 1. Left carpal tunnel syndrome G56.02 2. Left wrist pain M25.532 PLAN: I discussed options of surgical and non surgical treatment. Risks/benefits of each and chances for success/ failure. Discussion included but was not limited to the risk of infection, blood clot, failure to improve and need for additional surgery. The patient was advised that surgery is not likely to make them pain free. I answered all of the patients questions. I recommend a LT Carpal tunnel release. The patient was instructed to misael the operative site with the word Yes prior to arriving at the hospital and the patient verbalized an understanding. The patient wants to proceed and informed consent is obtained. Dr. Gaffney obtained history and examined the patient, I am acting as scribe for Dr. 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 Sofy Gaffney D.O. documented in this encounter [facility] 09-10-2024 History of Presen t illness Narrative Images from the original note were not included. Subjective Patient ID: Taty Rice is a 64 y.o. female. 1 week s/p RT CTR (DOS 09/03/24) sutures intact. Removed today. Steri strips applied. Denies issues with incisions. Denies drainage/fevers/chills. Presents with ray wrap. Admits swelling in her fingers and hand. Denies pain at rest. Pain at worst 3/10 if she does something she shouldn't on accident . Notes before sx she had constant N/T in thumb, IF and MF, states she is unsure if they are N/T or if she if just feeling tightness from the swelling. She took 2 norco right after sx. She takes meloxicam for other issues, denies pain meds for her hand. States she tried icing it but believes this made the swelling. Denies waking at night. Pt is RT handed. Objective Ortho Exam Hand/Wrist Musculoskeletal Exam Inspection Right Erythema: none Ecchymosis: none Edema: none Deformity: none Wrist - prior incision: carpal tunnel Incision: clean and dry Incisional drainage: none Inspection additional comments: Incision approximated, no signs of infection, sutures removed, steri strips applied Assessment/Plan Encounter Diagnoses: ICD-10-CM 1. S/P carpal tunnel release Z98.890 RT no forceful gripping or heavy lifting for 4 weeks s/p surgery, no submerging in water for 4 weeks s/p surgery, f/u in 4 weeks documented in this encounter [facility] 09-02-2024 Telephone encounter Note Post op pain rx. PDMP reviewed [facility] 09-02-2024 Miscellaneous Notes Post op pain rx. PDMP reviewed documented in this encounter [facility] 09-02-2024 Miscellaneous Notes Preoperative Education Checklist- General Surgery date: 09/08/24 Surgery time: 929 Arrival time: 729 1. Bring a photo ID and your insurance card with you the day of surgery. You will check in at the main lobby of the [facility]- registration desk is straight ahead as soon as you walk in. Tell them you are here for surgery. 2. If you have a Living Will/Durable Power of Nut Picker for Health Care that is not on file here, please bring a copy the day of surgery. 3. Please shower/bathe the night before surgery with the provided soap or wipes. Do not shower the morning of surgery- you will do use wipes when you arrive here at the hospital before getting into your surgical gown. Do not shave the area of your procedure for 2 days prior to your surgery. 4. NO powder, lotion, perfume/cologne, aftershave, make-up, deodorant, or hair products after you have bathed. 5. NO nail lao/acrylic on at least one finger. If you are having a hand, wrist or foot surgery then all nail lao and artificial/acrylic nails must be removed from that hand or foot. 6. Avoid ALL Aspirin and non-steroidal anti-inflammatory drugs and certain vitamins (Ibuprofen, Advil, Aleve, Excedrin, Meloxicam, Celebrex, fish/krill oil, etc.) for 7 days prior to surgery as instructed by your surgeon and/or your prescribing doctor. Tylenol IS ALLOWED. If you are on Ticlid, Xarelto, Eliquis, Pradaxa, Plavix or Coumadin, please check with your prescribing doctor for instructions for when to stop them. 7. If you use an inhaler, continue to use it routinely. 8. Nothing to eat or drink (not even water, gum, mints, or hard candy!) AFTER midnight prior to your surgery. 9. Take only medications that you are instructed to on the morning of surgery with a TINY SIP OF WATER. 10. Choose a responsible adult that will be able to drive you home when you are discharged from your hospital stay for your surgery and can stay with you in your home for 24 hours after your procedure. You must NOT drive any vehicle or operate any machinery for 24 hours after surgery. 11. When you dress for your appointment, please wear loose fitting clothing that is appropriate to accommodate your surgical area procedure. BRING WITH YOU ANY DEVICES YOU MAY NEED: GALLITO hose, ice machine, sling/swath, brace or special shoe, oversized zip-up or button up shirt, CPAP machine if staying overnight. 12. Do NOT wear jewelry, watches, or any piercings or metal for surgery- leave these valuables and money at home. 13. Do NOT wear contact lenses for surgery- glasses are okay if needed. 14. The anesthesiologist will talk with you the day of surgery and will ask you to sign a Consent Form. 15. Refrain from smoking or any type of tobacco use for at least 8 hours and marijuana for 24 hours prior to arrival for your surgery. 16. If a GREEN BLOOD band is given to you, please bring it with you for the day of surgery. 17. Notify your surgeon if you develop any illness before your surgery. 18. If you are staying overnight, please DO NOT BRING your home medications with you. 19. If you have any questions prior to surgery, please call the Preadmission Testing office at [phone], Mon.-Fri. 7 a.m.-3 p.m. Leave a voicemail if needed. Pre-Surgery Instructions: Medication Instructions ascorbic acid, vitamin C, (VITAMIN C) 250 mg tablet Stop taking 0 days prior to procedure atorvastatin (LIPITOR) 40 mg tablet Stop taking 0 days prior to procedure B complex-vitamin C-folic acid (NEPHROCAP) 1 mg capsule Stop taking 0 days prior to procedure cetirizine (ZyrTEC) 10 mg tablet Stop taking 0 days prior to procedure cholecalciferol, vitamin D3, 2,000 units tablet Stop taking 0 days prior to procedure fluticasone propionate (FLONASE) 50 mcg/actuation nasal spray Stop taking 0 days prior to procedure hydroCHLOROthiazide (HYDRODIURIL) 25 mg tablet Stop taking 0 days prior to procedure KRILL OIL ORAL Stop taking 1 week prior to procedure meloxicam (MOBIC) 7.5 mg tablet Stop taking 1 week prior to procedure agfpajfw-xrhl-OI-calcium &mins (THERAGRAN-M) 9 mg iron-400 mcg tablet Stop taking 0 days prior to procedure NON FORMULARY Stop taking 0 days prior to procedure sucralfate (CARAFATE) 1 gram tablet Stop taking 0 days prior to procedure documented in this encounter [facility] 09-02-2024 Nurse Note Preoperative Education Checklist- General Surgery date: 09/08/24 Surgery time: 929 Arrival time: 729 1. Bring a photo ID and your insurance card with you the day of surgery. You will check in at the main lobby of the [facility]- registration desk is straight ahead as soon as you walk in. Tell them you are here for surgery. 2. If you have a Living Will/Durable Power of Nut Picker for Health Care that is not on file here, please bring a copy the day of surgery. 3. Please shower/bathe the night before surgery with the provided soap or wipes. Do not shower the morning of surgery- you will do use wipes when you arrive here at the hospital before getting into your surgical gown. Do not shave the area of your procedure for 2 days prior to your surgery. 4. NO powder, lotion, perfume/cologne, aftershave, make-up, deodorant, or hair products after you have bathed. 5. NO nail lao/acrylic on at least one finger. If you are having a hand, wrist or foot surgery then all nail lao and artificial/acrylic nails must be removed from that hand or foot. 6. Avoid ALL Aspirin and non-steroidal anti-inflammatory drugs and certain vitamins (Ibuprofen, Advil, Aleve, Excedrin, Meloxicam, Celebrex, fish/krill oil, etc.) for 7 days prior to surgery as instructed by your surgeon and/or your prescribing doctor. Tylenol IS ALLOWED. If you are on Ticlid, Xarelto, Eliquis, Pradaxa, Plavix or Coumadin, please check with your prescribing doctor for instructions for when to stop them. 7. If you use an inhaler, continue to use it routinely. 8. Nothing to eat or drink (not even water, gum, mints, or hard candy!) AFTER midnight prior to your surgery. 9. Take only medications that you are instructed to on the morning of surgery with a TINY SIP OF WATER. 10. Choose a responsible adult that will be able to drive you home when you are discharged from your hospital stay for your surgery and can stay with you in your home for 24 hours after your procedure. You must NOT drive any vehicle or operate any machinery for 24 hours after surgery. 11. When you dress for your appointment, please wear loose fitting clothing that is appropriate to accommodate your surgical area procedure. BRING WITH YOU ANY DEVICES YOU MAY NEED: GALLITO hose, ice machine, sling/swath, brace or special shoe, oversized zip-up or button up shirt, CPAP machine if staying overnight. 12. Do NOT wear jewelry, watches, or any piercings or metal for surgery- leave these valuables and money at home. 13. Do NOT wear contact lenses for surgery- glasses are okay if needed. 14. The anesthesiologist will talk with you the day of surgery and will ask you to sign a Consent Form. 15. Refrain from smoking or any type of tobacco use for at least 8 hours and marijuana for 24 hours prior to arrival for your surgery. 16. If a GREEN BLOOD band is given to you, please bring it with you for the day of surgery. 17. Notify your surgeon if you develop any illness before your surgery. 18. If you are staying overnight, please DO NOT BRING your home medications with you. 19. If you have any questions prior to surgery, please call the Preadmission Testing office at [phone], Mon.-Fri. 7 a.m.-3 p.m. Leave a voicemail if needed. Pre-Surgery Instructions: Medication Instructions ascorbic acid, vitamin C, (VITAMIN C) 250 mg tablet Stop taking 0 days prior to procedure atorvastatin (LIPITOR) 40 mg tablet Stop taking 0 days prior to procedure B complex-vitamin C-folic acid (NEPHROCAP) 1 mg capsule Stop taking 0 days prior to procedure cetirizine (ZyrTEC) 10 mg tablet Stop taking 0 days prior to procedure cholecalciferol, vitamin D3, 2,000 units tablet Stop taking 0 days prior to procedure fluticasone propionate (FLONASE) 50 mcg/actuation nasal spray Stop taking 0 days prior to procedure hydroCHLOROthiazide (HYDRODIURIL) 25 mg tablet Stop taking 0 days prior to procedure KRILL OIL ORAL Stop taking 1 week prior to procedure meloxicam (MOBIC) 7.5 mg tablet Stop taking 1 week prior to procedure dsjypumw-wbdh-VG-calcium &mins (THERAGRAN-M) 9 mg iron-400 mcg tablet Stop taking 0 days prior to procedure NON FORMULARY Stop taking 0 days prior to procedure sucralfate (CARAFATE) 1 gram tablet Stop taking 0 days prior to procedure [facility] 08-19-2024 History of Presen t illness Narrative Images from the original note were not included. HISTORY OF PRESENT ILLNESS: Taty Rice is an 64 y.o. @ female. Chief complaint RT hand N/T RT wrist: here for EMG results ASAEL 08/14/24 RT wrist pain x 5-7 years, has gotten worse since April 2024. Tx by PCP with meloxicam. Pain in thumb, IF and MF. Radiates into hand and wrist. Constant. Taking meloxicam with some relief. Admits constant N/T in thumb, IF and MF. She is not able to shake this off. Has tried a brace with no relief. Has issues with gripping. Has trouble holding a fork. Denies dropping things. Wakes pt at HS. Has tried exercises from insurance, not much relief. She feels the EMG made symptoms worse. Prior tx: PCP, Meloxicam, brace, HEP, EMG ASAEL 08/14/24 RT handed. I reviewed the results of an EMG dated August 14, 2024 from [facility]. 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 Findings were noted to be more severe on the right than the left MEDICATION: Current Outpatient Medications on File Prior to Visit Medication Sig Dispense Refill atorvastatin (Lipitor) 40 MG tablet TAKE 1 TABLET AT BEDTIME 90 tablet 3 fluticasone (Flonase) 50 MCG/ACT nasal spray USE 2 SPRAYS DAILY 16 g 11 hydroCHLOROthiazide (HYDRODiuril) 25 MG tablet TAKE 1 TABLET DAILY 90 tablet 3 meloxicam (Mobic) 15 MG tablet Take 1 tablet (15 mg) by mouth Daily Take with food 30 tablet 5 Multiple Vitamins-Minerals (MULTIVITAMIN ADULTS 50+ PO) Take by mouth [place] Wort 150 MG capsule Take 150 mg by mouth 1 (one) time each day sucralfate (Carafate) 1 g tablet Take 1 tablet (1 g) by mouth in the morning and 1 tablet (1 g) at noon and 1 tablet (1 g) in the evening and 1 tablet (1 g) before bedtime. Take before meals. 360 tablet 3 No current facility-administered medications on file prior to visit. MEDICAL HISTORY: Past Medical History: Diagnosis Date Aortic valve regurgitation, nonrheumatic Benign essential hypertension (CMS/HCC) Chronic heart failure with preserved ejection fraction (CMS/HCC) Dyslipidemia (CMS/HCC) Endometrial carcinoma (CMS/HCC) GERD (gastroesophageal reflux disease) Right carpal tunnel syndrome S/P MARTHA-BSO Seasonal allergic rhinitis due to pollen ALLERGIES: Allergies Allergen Reactions Wound Dressing Adhesive Rash VITALS: Visit Vitals Ht 5' 6 Wt 193 lb BMI 31.15 kg/m Smoking Status Never BSA 2.02 m Review of Systems General: Fatigue denies. Fever denies. Night sweats denies. ENT: Decreased hearing denies. Respiratory: Cough denies. Shortness of breath denies. Cardiovascular: Chest pain denies. Cyanosis denies. Irregular heartbeat denies. Gastrointestinal: Comments denies incontinence of stool . Nausea denies. Hematology: Bleeding problems denies. Genitourinary: Comments denies dribbling. Incontinence denies. Musculoskeletal: CommentsSee [facility] for details. Skin: Rash denies. Neurologic: Dizziness denies. Headache denies. Examination General Examination: GENERAL EXAMINATION in no acute distress, well developed, well nourished . HEART: no jugular venous distention . LUNGS: regular unlabored, normal effort . NEUROLOGIC: alert and oriented . PSYCH: oriented to person, place, time and situation . PHYSICAL EXAM: Ortho Exam RIGHT WRIST No thenar wasting Decreased sensation median distribution B/L Negative Phalens Negative Tinels ASSESSMENT: ICD-10-CM 1. Paresthesia of both hands R20.2 2. Bilateral carpal tunnel syndrome G56.03 3. Carpal tunnel syndrome of right wrist G56.01 4. Right wrist pain M25.531 PLAN: I explained the diagnosis and reviewed treatment options. I answered all of the patient's questions. I discussed options of surgical and non surgical treatment. Risks/benefits of each and chances for success/ failure. Discussion included but was not limited to the risk of infection, blood clot, failure to improve and need for additional surgery. The patient was advised that surgery is not likely to make them pain free. I answered all of the patients questions. Advised that there probably may have irreversible damage and that surgery may not make the symptoms better. Surgery may help prevent further progression of symptoms. I recommend a RT Carpal tunnel release. The patient was instructed to misael the operative site with the word Yes prior to arriving at the hospital and the patient verbalized an understanding. The patient wants to proceed and informed consent is obtained. Dr. Gaffney obtained history and examined the patient, I am acting as scribe for Dr. Gaffney/blade Gaffney D.O. documented in this encounter [facility] 08-14-2024 History of Presen t illness Narrative Images from the original note were not included. Reason for Appointment: EMG Patient: Taty Rice : 1960 EMG Computer: Voyat Referring Physician: Ashwin Cuello COMPUTER METEOROLOGIST EMG: JENNIFFER aboriginal ceremonial celebrant: Armani Pereira RT(R) Office Location: [place] Reason for EMG: c/o numbness/tingling in fingers on bilateral hands R>L. Hx of surgery to neck to remove infection. No hx of DM. Not on blood thinners. Comments: Procedure was explained to the patient who expressed understanding. Patient appeared to have tolerated the test well despite some discomfort due to the nature of the test. documented in this encounter [facility] 08-05-2024 History of Presen t illness Narrative Images from the original note were not included. NAME: Taty Rice : 1960 HISTORY OF PRESENT ILLNESS: Taty Rice is an 64 y.o. @ female. Dr Alvarez referral. RT hand pain x 2-3 years, continues getting worse. Tx by PCP with meloxicam. Pain in thumb, IF and MF. Radiates into hand and wrist. Constant. Taking meloxicam with some relief. Admits constant N/T in thumb, IF and MF. Has tried a brace with no relief. Has issues with gripping. Denies dropping things. Wakes pt at HS. Has tried exercises from insurance, not much relief. Prior tx: PCP, Meloxicam, brace, HEP RT handed. PAST MEDICAL HISTORY: Past Medical History: Diagnosis Date Aortic valve regurgitation, nonrheumatic Benign essential hypertension (CMS/HCC) Chronic heart failure with preserved ejection fraction (CMS/HCC) Dyslipidemia (CMS/HCC) Endometrial carcinoma (CMS/HCC) GERD (gastroesophageal reflux disease) Right carpal tunnel syndrome S/P MARTHA-BSO Seasonal allergic rhinitis due to pollen PAST SURGICAL HISTORY: Past Surgical History: Procedure Laterality Date DILATION AND CURETTAGE OF UTERUS HYSTERECTOMY OOPHORECTOMY Bilateral OTHER SURGICAL HISTORY Drainage of neck infection SALPINGECTOMY Bilateral ALLERGIES: Allergies Allergen Reactions Wound Dressing Adhesive Rash HOME MEDICATIONS: Current Outpatient Medications Medication Instructions atorvastatin (LIPITOR) 40 mg, Oral, Nightly fluticasone (Flonase) 50 MCG/ACT nasal spray USE 2 SPRAYS DAILY hydroCHLOROthiazide (HYDRODIURIL) 25 mg, Oral, Daily meloxicam (MOBIC) 15 mg, Oral, Daily, Take with food Multiple Vitamins-Minerals (MULTIVITAMIN ADULTS 50+ PO) Oral [place] Wort 150 mg, Oral, Daily sucralfate (CARAFATE) 1 g, Oral, 4 times daily before meals and nightly Vitals: Body mass index is 31.15 kg/m . PHYSICAL EXAM: Hand/Wrist Musculoskeletal Exam Inspection Right Erythema: none Ecchymosis: none Edema: none Deformity: none Left Erythema: none Ecchymosis: none Edema: none Deformity: none Palpation Right Right hand palpation is normal. Wrist tenderness to palpation: carpal canal Left Left hand palpation is normal. Wrist tenderness to palpation: carpal canal Range of Motion Right Hand Right hand range of motion is normal. Left Hand Left hand range of motion is normal. Range of motion additional comments: ABLE TO MAKE FULL FIST Strength Right Hand Right hand strength is normal. Left Hand Left hand strength is normal. 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 Radial pulse: normal and 2+ Capillary refill: <3 sec Ulnar nerve sensory distribution: normal Median nerve sensory distribution: decreased Superficial radial nerve sensory distribution: normal Left Radial pulse: normal and 2+ Capillary refill: <3 sec Ulnar nerve sensory distribution: normal Median nerve sensory distribution: decreased Superficial radial nerve sensory distribution: normal Special Tests Right Phalen's: positive Tinel's - carpal tunnel: positive Left Phalen's: positive Tinel's - carpal tunnel: positive General Constitutional: appears stated age Labored breathing: no Neurological: alert and oriented x3 Skin: intact Lymphadenopathy: none IMAGING: Procedures ASSESSMENT: ICD-10-CM 1. Paresthesia of both hands R20.2 EMG AND NERVE CONDUCTION STUDY 2. Right wrist pain M25.531 PLAN: I reviewed exam findings with the patient and discussed treatment options, answered questions. I recommend that patient have EMG done of both upper extremities to evaluate for carpal tunnel syndrome as she has tried NSAID's and night splints with no relief. Follow up with Dr. Gaffney in 2 weeks to discuss possible CTR. Questions answered in laymen terms at the bedside. The diagnosis, home exercise plan and any ongoing restrictions/ recommendations reviewed. If unable to be reached in office, I recommend evaluation at nearest Emergency Room if any symptoms worsened or new symptoms develop for requiring urgent evaluation. 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 Refer to ortho. Use mobic PRN. Associated Problem(s): Benign essential hypertension (CMS/HCC) BP elevated but previously controlled and monitor PRN. Associated Problem(s): Annual physical exam Due for labs. Discussed proper diet and regular aerobic exercise. Need aerobic exercise 5-6 days a week for 30 minutes at a time. Smaller portions and limit total calories. Colonoscopy every 10 years. Tetanus every 10 years. Advised not to smoke. Discussed daily Aspirin therapy. Images from the original note were not included. Subjective Patient ID: Taty Rice is a 64 y.o. female who presents for Follow-up (6m) and Hand Pain. Presents for annual PE. Patient feels well today. Weight up 14 pounds in past year. Tries to stay active around house but no regular exercise. Tries to watch diet and eat healthy. Increased fruits and vegetables. Smaller portions and limits snacking. Tries to limit total daily calories. Due for labs. Not checking BP away from office but elevated today. Taking medication daily and tolerating without side effects. Right carpal tunnel pain getting worse. Not performing home exercises. Increased pain and numbness in wrist. Starting to affect near eastern archaeology lecturer and droping things. Requests referral to ortho. Hand Pain Pertinent negatives include no chest pain. Review of Systems Respiratory: Negative for cough, [...] There is no guarding or rebound. Musculoskeletal: General: No swelling or tenderness. Cervical back: Neck supple. Right lower leg: No edema. Left lower leg: No edema. Skin: Findings: No erythema or rash. Neurological: General: No focal deficit present. Mental Status: She is alert and oriented to person, place, and time. Cranial Nerves: No cranial nerve deficit. Motor: No weakness. Gait: Gait normal. Assessment/Plan Problem List Items Addressed This Visit Benign essential hypertension (CMS/HCC) BP elevated but previously controlled and monitor PRN. 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 Refer to ortho. Use mobic PRN. Relevant Medications meloxicam (Mobic) 15 MG tablet Other Relevant Orders Ambulatory referral to Orthopaedic Surgery Annual physical exam - Primary Due for labs. Discussed proper diet and regular aerobic exercise. Need aerobic exercise 5-6 days a week for 30 minutes at a time. Smaller portions and limit total calories. Colonoscopy every 10 years. Tetanus every 10 years. Advised not to smoke. Discussed daily Aspirin therapy. Relevant Orders Hemoglobin A1c Basic metabolic panel CBC and differential Hepatic function panel Lipid panel TSH documented in this encounter [facility] 01-01-2024 History of Presen t illness Narrative [...] Still having occasional numbness but tolerable. Affecting near eastern archaeology lecturer and drops things on occasion. At this [...] refer to ortho. documented in this encounter [facility] 04-26-2022 Note [facility] [place], [place] NAME: TATY RICE DATE OF : MEDICAL REC#: [id number] SUPERVISOR PRESSING DEPARTMENT: [address] [facility], TRANSADMIT DATE: 04/26/2022 06:26:00 COLD HEADER DATE: 04/26/2022 22:00 DICTATING PHYSICIAN: JOHN SANTOS [...] DR JOHN SANTOS . 04/27/2022 08:41:00 [facility] Evaluation note Diagnosis Benign essential hypertension (CMS/HCC)- Primary Essential hypertension, benign Chronic heart failure with preserved ejection fraction (CMS/HCC) GERD without esophagitis Esophageal reflux Seasonal allergic rhinitis due to pollen Carpal tunnel syndrome on right Carpal tunnel syndrome documented in this encounter [facility] HealthcareEvaluation noteNo assessment information availableWilson [facility] Work Phone: Evaluation note* Diagnosis Post-op pain- Primary Other acute postoperative pain documented in this encounter [facility] HealthcareEvaluation note* Diagnosis Benign essential hypertension (CMS/HCC)- Primary Essential hypertension, benign Chronic heart failure with preserved ejection fraction (CMS/HCC) GERD without esophagitis Esophageal reflux Seasonal allergic rhinitis due to pollen Carpal tunnel syndrome on right Carpal tunnel syndrome Annual physical exam- Primary Routine general medical examination at a health care facility Benign essential hypertension (CMS/HCC) Essential hypertension, benign Carpal tunnel syndrome on right Carpal tunnel syndrome Endometrial carcinoma (CMS/HCC) S/P carpal tunnel release- Primary Other postprocedural status documented in this encounter [facility] HealthcareEvaluation note* Diagnosis Benign essential hypertension (CMS/HCC)- Primary Essential hypertension, benign Chronic heart failure with preserved ejection fraction (CMS/HCC) GERD without esophagitis Esophageal reflux Seasonal allergic rhinitis due to pollen Carpal tunnel syndrome on right Carpal tunnel syndrome Annual physical exam- Primary Routine general medical examination at a health care facility Benign essential hypertension (CMS/HCC) Essential hypertension, benign Carpal tunnel syndrome on right Carpal tunnel syndrome Endometrial carcinoma (CMS/HCC) Left carpal tunnel syndrome- Primary Carpal tunnel syndrome Left wrist pain Pain in joint, forearm documented in this encounter [facility] HealthcareEvaluation note* Diagnosis Benign essential hypertension (CMS/HCC)- Primary Essential hypertension, benign Chronic heart failure with preserved ejection fraction (CMS/HCC) GERD without esophagitis Esophageal reflux Seasonal allergic rhinitis due to pollen Carpal tunnel syndrome on right Carpal tunnel syndrome Annual physical exam- Primary Routine general medical examination at a health care facility Benign essential hypertension (CMS/HCC) Essential hypertension, benign Carpal tunnel syndrome on right Carpal tunnel syndrome Endometrial carcinoma (CMS/HCC) Post-operative pain- Primary Other acute postoperative pain S/P carpal tunnel release- Primary Other postprocedural status documented in this encounter [facility]* Diagnosis Benign essential hypertension (CMS/HCC)- Primary Essential hypertension, benign Chronic heart failure with preserved ejection fraction (CMS/HCC) GERD without esophagitis Esophageal reflux Seasonal allergic rhinitis due to pollen Carpal tunnel syndrome on right Carpal tunnel syndrome Annual physical exam- Primary Routine general medical examination at a health care facility Benign essential hypertension (CMS/HCC) Essential hypertension, benign Carpal tunnel syndrome on right Carpal tunnel syndrome Endometrial carcinoma (CMS/HCC) S/P carpal tunnel release- Primary Other postprocedural status documented in this encounter [facility]* Diagnosis Obesity (BMI 30-39.9)- Primary documented in this encounter [facility]* Diagnosis Benign essential hypertension (CMS/HCC)- Primary Essential hypertension, benign Chronic heart failure with preserved ejection fraction (CMS/HCC) GERD without esophagitis Esophageal reflux Seasonal allergic rhinitis due to pollen Carpal tunnel syndrome on right Carpal tunnel syndrome Annual physical exam- Primary Routine general medical examination at a health care facility Benign essential hypertension (CMS/HCC) Essential hypertension, benign Carpal tunnel syndrome on right Carpal tunnel syndrome Endometrial carcinoma (CMS/HCC) S/P carpal tunnel release- Primary Other postprocedural status documented in this encounter [facility]* Diagnosis Annual physical exam- Primary Routine general medical examination at a health care facility Benign essential hypertension (CMS/HCC) Essential hypertension, benign Carpal tunnel syndrome on right Carpal tunnel syndrome Endometrial carcinoma (CMS/HCC) documented in this encounter [facility]* Diagnosis Paresthesia of both hands- Primary Right wrist pain Pain in joint, forearm documented in this encounter [facility]* Diagnosis Carpal tunnel syndrome on both sides- Primary Carpal tunnel syndrome Paresthesia of both hands documented in this encounter [facility]* Diagnosis Paresthesia of both hands- Primary Bilateral carpal tunnel syndrome Carpal tunnel syndrome Carpal tunnel syndrome of right wrist Right wrist pain Pain in joint, forearm documented in this encounter [facility]* Diagnosis Encounter for long-term current use of medication- Primary Obesity (BMI 30-39.9) Prediabetes Other abnormal glucose Dyslipidemia (CMS/HCC) Other and unspecified hyperlipidemia Benign essential hypertension (CMS/HCC) Essential hypertension, benign documented in this encounter [facility] HealthcareEvaluation note* Diagnosis Benign essential hypertension (CMS/HCC)- Primary Essential hypertension, benign Chronic heart failure with preserved ejection fraction (CMS/HCC) GERD without esophagitis Esophageal reflux Seasonal allergic rhinitis due to pollen Carpal tunnel syndrome on right Carpal tunnel syndrome Annual physical exam- Primary Routine general medical examination at a health care facility Benign essential hypertension (CMS/HCC) Essential hypertension, benign Carpal tunnel syndrome on right Carpal tunnel syndrome Endometrial carcinoma (CMS/HCC) Benign essential hypertension (CMS/HCC)- Primary Essential hypertension, benign Chronic heart failure with preserved ejection fraction (CMS/HCC) GERD without esophagitis Esophageal reflux Seasonal allergic rhinitis due to pollen Endometrial carcinoma (CMS/HCC) documented in this encounter [facility] HealthcareInstructionsNot on filedocumented in [facility] ([facility] Consultation (Routine) - Pending Review Specialty Diagnoses / Procedures Referred By Cathi marmolejo Referred To Contact Orthopaedic Surgery Diagnoses Carpal tunnel syndrome on right Bladimir Alvarez MD [address] [place] [address] Estefani Gaffney, [address] [address] Referral ID Status Reason Start Date Expiration Date Visits Requested Visits Authorized [id number] Pending Review Specialty Services Required 07/21/2024 01/17/2025 1 1 [facility] Healthcare Summary Purpose Family History No Family History Records FoundNo Family History Records FoundNo Family History Records FoundNo Family History Records FoundNo Family History Records Found Advance Directives No Advanced Directives Records Found Advance Directive Response Recorded Date/ Time Advance Directives No March 05, 024 3:24pm Reason for Referral Specialty Diagnoses / Procedures Referred By Cathi marmolejo Referred To Contact Radiology Diagnoses Chronic heart failure with preserved ejection fraction (CMS/HCC) Procedures Echocardiogram 2D complete Bladimir Alvarez MD [address] [place] [address] Referral ID Status Reason Start Date Expiration Date Visits Requested Visits Authorized [id number] Incomplete Perform Procedure 01/01/2024 06/29/2024 1 1 Specialty Diagnoses / Procedures Referred By [facility] marmolejo Referred To Contact Neurology Diagnoses Paresthesia of both hands Procedures EMG AND NERVE CONDUCTION STUDY Ashwin Cuello, PROPERTY CLAIM REP [address] [place] [address] Katherine Rayo MD [address] [place] [address] Referral ID Status Reason Start Date Expiration Date V isits Requested Visits Authorized [id number] Authorized 08/05/2024 02/01/2025 1 1 Chief Complaint and Reason for Visit Chief Complaint Left ankle pain Additional Source Comments INFORMATION SOURCE (unrecogn ized section and content) DATE CREATED AUTHOR 09/29/2022 [facility] DATE CREATED AUTHOR AUTHOR'S ORGANIZ ATION 10/15/2022 [facility] DATE CREATED AUTHOR AUTHOR'S ORGANIZ ATION 03/14/2024 [facility] DATE CREATED AUTHOR AUTHOR'S ORGANIZ ATION 10/10/2024 [facility] DATE CREATED AUTHOR AUTHOR'S ORGANIZ ATION 01/22/2025 [facility] d[facility] Specialists EPIC Care Teams (unrecognized sec tion and content) Image Archivist Relationship Specialty Start Date End Date Bladimir Alvarez MD [address] [place] [address] PCP - General Family Medicine 12/14/23 Image Archivist Relationship Specialty Start Date End Date Bladimir Alvarez MD [address] [place] [address] PCP - General Family Medicine [...] March 05, 2024 End: March 05, 2024 Image Archivist Relationship Specialty Start Date End Date Bladimir Alvarez MD [address] [place] [address] PCP - General Family Medicine 12/14/23 Bladimir Alvarez MD [address] [place] [address] PCP - Medical [employer] 07/18/21 11/25/99 Image Archivist Relationship Specialty Start Date End Date Bladimir Alvarez MD [address] [place] [address] PCP - General Family Medicine 12/14/23 Bladimir Alvarez MD [address] [place] [address] PCP - Medical [employer] 07/18/21 11/25/99 Image Archivist Relationship Specialty Start Date End Date Bladimir Alvarez MD [address] [place] [address] PCP - General Family Medicine 12/14/23 Bladimir Alvarez MD [address] [place] [address] PCP - Medical [employer] 07/18/21 11/25/99 Image Archivist Relationship Specialty Start Date End Date Bladimir Alvarez MD [address] [place] [address] PCP - General Family Medicine 12/14/23 Bladimir Alvarez MD [address] [place] [address] PCP - Medical [employer] 07/18/21 11/25/99 Image Archivist Relationship Specialty Start Date End Date Bladimir Alvarez MD [address] [place] [address] PCP - General Family Medicine 12/14/23 Bladimir Alvarez MD [address] [place] [address] PCP - Medical [employer] 07/18/21 11/25/99 Image Archivist Relationship Specialty Start Date End Date Bladimir Alvarez MD [address] [place] [address] PCP - General Family Medicine 12/14/23 Bladimir Alvarez MD [address] [place] [address] PCP - Medical [employer] 07/18/21 11/25/99 Image Archivist Relationship Specialty Start Date End Date Bladimir Alvarez MD [address] [place] [address] PCP - General Family Medicine 12/14/23 Bladimir Alvarez MD [address] [place] [address] PCP - Medical [employer] 07/18/21 11/25/99 Image Archivist Relationship Specialty Start Date End Date Bladimir Alvarez MD [address] [place] [address] PCP - General Family Medicine 12/14/23 Bladimir Alvarez MD [address] [place] [address] PCP - Medical [employer] 07/18/21 11/25/99 Image Archivist Relationship Specialty Start Date End Date Bladimir Alvarez MD [address] [place] [address] PCP - General Family Medicine 12/14/23 Bladimir Alvarez MD [address] [place] [address] PCP - Medical [employer] 07/18/21 11/25/99 Image Archivist Relationship Specialty Start Date End Date Bladimir Alvarez MD [address] [place] [address] PCP - General Family Medicine 12/14/23 Bladimir Alvarez MD [address] [place] [address] PCP - Medical [employer] 07/18/21 11/25/99 Image Archivist Relationship Specialty Start Date End Date Bladimir Alvarez MD [address] [place] [address] PCP - General Family Medicine 12/14/23 Bladimir Alvarez MD [address] [place] [address] PCP - Medical [employer] 07/18/21 11/25/99 Image Archivist Relationship Specialty Start Date End Date Bladimir Alvarez MD [address] [place] [address] PCP - General Family Medicine 12/14/23 Bladimir Alvarez MD [address] [place] [address] PCP - Medical [employer] 07/18/21 11/25/99 Image Archivist Relationship Specialty Start Date End Date Bladimir Alvarez MD [address] [place] [address] PCP - General Family Medicine 12/14/23 Bladimir Alvarez MD [address] [place] [address] PCP - Medical [employer] 07/18/21 11/25/99 Image Archivist Relationship Specialty Start Date End Date Bladimir Alvarez MD [address] [place] [address] PCP - General [facility] 12/14/23 Bladimir Alvarez MD [address] [place] [address] PCP - Medical [employer] 07/18/21 11/25/99 Image Archivist Relationship Specialty Start Date End Date Bladimir Alvarez MD [address] [place] [address] PCP - General Family Medicine 12/14/23 Bladimir Alvarez MD [address] [place] [address] PCP - Medical [employer] 07/18/21 11/25/99 Image Archivist Relationship Specialty Start Date End Date Bladimir Alvarez MD [address] [place] [address] PCP - General Family Medicine 12/14/23 Bladimir Alvarez MD [address] [place] [address] PCP - Medical [employer] 07/18/21 11/25/99 Image Archivist Relationship Specialty Start Date End Date Bladimir Alvarez MD [address] [place] [address] PCP - General Family Medicine 12/14/23 Bladimir Alvarez MD [address] [place] [address] PCP - Medical [employer] 07/18/21 11/25/99 Image Archivist Relationship Specialty Start Date End Date Bladimir Alvarez MD [address] [place] [address] PCP - General Family Medicine 12/14/23 Bladimir Alvarez MD [address] [place] [address] PCP - Medical [employer] 07/18/21 11/25/99 Reason for Visit (unrecogniz ed section and content) Reason Comments Follow-up 6 m Reason Comments Post-op Reason Comments Pain Reason Comments Follow-up 6m Hand Pain Reason Comments Pain Specialty Diagnoses / Procedures Referred By Conttammy t Referred To Contact Neurology Diagnoses Paresthesia of both hands Procedures EMG AND NERVE CONDUCTION STUDY Ashwin Cuello, PROPERTY CLAIM REP [address] [place] [address] Katherine Rayo MD [address] [place] [address] Referral ID Status Reason Start Date Expiration Date Visits Re quested Visits Authorized [id number] Closed 08/05/2024 02/01/2025 1 1 Goals (unrecognized section and content) Goals may be documented in a n alternate sectionNot on filedocumented as of this encounter FOR RECORDS PERTAINING TO PATIENTS WHO ARE [...] BE BASED ON THE PRIMARY CLINICAL RECORDS. [facility] [employer] provides no warranty or guarantee of the accuracy or completeness of information in this document.
--- NOTE | 2025-01-23 08:30 | ED_ITS ---
HPI HPI - General Adult General Chief complaint: Extremity Injury, Upper Stated complaint: FALL; R SHOULDER PAIN Time Seen by Provider: 01/23/25 08:29 Source: patient Mode of arrival: walk-in Limitations: no limitations History of Present Illness HPI narrative: Patient is a 64-year-old female who is presenting to the ER with a chief complaint right shoulder pain. Patient slipped and fell on the ice this morning. 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 Patient is right-hand dominant. Patient fell on the right side of her body. Patient did not hit her head. No neck pain. She is not on blood thinners. No headache, nausea, vomiting, no other acute complaints. Patient has no other injury besides her right shoulder. Patient is guarded with range of motion to right shoulder, holding her right arm against her abdomen and a internal rotated position, flexed at the right elbow. All systems are negative except as noted/marked. All systems reviewed and otherwise negative. Nurses note and vital signs reviewed and patient is not hypoxic. General: The patient appears well and in no apparent distress. Patient is resting uncomfortably on cart. Patient is not toxic, lethargic, or listless Skin: Warm, dry, no pallor noted. There is no rash noted. No petechiae, purpura. Head: Normocephalic, atraumatic Eye: Normal conjunctiva, no drainage, EOMI. PERRL Ears, Nose, Mouth, and Throat: oral mucosa is moist. Nares patent. Mouth without vesicles. Cardiovascular: Regular Rate and Rhythm, no murmur, gallop, rub Respiratory: Patient is in no distress, no accessory muscle use, lungs are cl ear to auscultation, no wheezing, rales or rhonchi Back: non-tender, no CVA tenderness bilaterally to percussion. No CT LS midline pain Musculoskeletal: Patient has full range of motion of all of the extremities besides right shoulder. Patient has moderate/guarded pain with flexion extension abduction of the right shoulder. Patient has no midline or paracervical tenderness palpation. Full range of motion of cervical spine no difficulty. Patient has no tenderness to palpation over the right scapula. No tenderness palpation to right clavicle. Mild to moderate tenderness palpation to the right AC joint. No bruising, ecchymosis, rash. no motor, sensory, or focal neurological deficits Neurological: A&O x4, normal speech Psychiatric: Cooperative Related Data Home Medications ?Medication ?Instructions ?Recorded ?Confirmed atorvastatin 40 mg tablet 40 mg PO DAILY 01/23/25 01/23/25 fluticasone propionate 50 2 spray intranasal Q12H 01/23/25 01/23/25 mcg/actuation nasal spray,suspension hydrochlorothiazide 25 mg tablet 25 mg PO Q12H 01/23/25 01/23/25 losartan 25 mg tablet 25 mg PO .every day 01/23/25 01/23/25 meloxicam 15 mg tablet 15 mg PO DAILY 01/23/25 01/23/25 sucralfate 1 gram tablet 1 g PO Q6H 01/23/25 01/23/25 Allergies Allergy/AdvReac Type Severity Reaction Status Date / Time No Known Drug Allergies Allergy Verified 01/23/25 08:17 Opioid HPI Opioid Management Most Recent Opioid Data: Last Pain Scale 7 01/23/25 08:33 01/23/25 Last ED Pain Assessment 01/23/25 08:33 PFSH PFSH Social History Little interest or pleasure in doing things: not at all Feeling down, depressed, or hopeless: not at all Exam Constitutional Vital Signs, click to edit/add: Last Vital Signs Temp 97.6 F 01/23/25 08:18 Pulse 64 01/23/25 08:18 Resp 18 01/23/25 08:18 BP 168/83 H 01/23/25 08:18 Pulse Ox 98 01/23/25 08:18 Course Vital Signs Vital signs: Vital Signs Temperature 97.6 F 01/23/25 08:18 Pulse Rate 64 01/23/25 08:18 Respiratory Rate 18 01/23/25 08:18 Blood Pressure 168/83 H 01/23/25 08:18 Pulse Oximetry 98 01/23/25 08:18 Temperature 97.6 F 01/23/25 08:18 Pulse Rate 64 01/23/25 08:18 Respiratory Rate 18 01/23/25 08:18 Blood Pressure 168/83 H 01/23/25 08:18 Pulse Oximetry 98 01/23/25 08:18 Medical Decision Making MDM Narrative Medical decision making narrative: Patient right shoulder x-ray shows no acute fracture dislocation or acute abnormality. Official report has not been done by the radiologist. Education on using ice, stretching and using sling only for 3 to 5 days was discussed at bedside and on discharge paperwork. Patient will follow-up with PCP, patient will follow-up with Dr. Rehman if needed as well. No question at discharge Patient will use Tylenol and anti-inflammatories at home Discharge Plan Discharge Stand Alone Forms: Work/School Release Chief Complaint: Extremity Injury, Upper Clinical Impression: Pain in right shoulder, Contusion of right shoulder Patient Disposition: Home, Self-Care Condition: Fair Prescriptions / Home Meds: No Action atorvastatin 40 mg tablet 40 mg PO DAILY fluticasone propionate 50 mcg/actuation spray,suspension 2 spray INTRANASAL Q12H hydrochlorothiazide 25 mg tablet 25 mg PO Q12H losartan 25 mg tablet 25 mg PO .every day meloxicam 15 mg tablet 15 mg PO DAILY sucralfate 1 gram tablet 1 g PO Q6H Print Language: New Zealander Instructions: Contusion in Adults (ED), Shoulder Pain (ED) Additional Instructions: ICE 20 minutes on, 20 minutes off for the next 5 to 7 days. Do not use heat. Use sling for the next 3 to 5 days only, did not wear sling for excessive length of time secondary to frozen shoulder possibility as discussed at bedside. Work note given. Alternate Tylenol and either Motrin, Advil, or ibuprofen every 4 hours to help with pain. Maximum dose of Tylenol is 3000 mg a day. Maximum dose of either Motrin, Advil, or ibuprofen is 2400 mg a day. Referrals: Bladimir Joy MD [Primary Care Provider] - 1 week Saleem Rehman MD [Physician] - 1 week Discharge Date/Time: 01/23/25 09:01
== END 2025-01-23 09:01 | disposition home or self-care (01) ==
PROVIDERS: Emergency Provider Emergency Medicine; PCP Family Medicine
DX: S40.011A Contusion of right shoulder, initial encounter (principal); W00.0XXA Fall on same level due to ice and snow, initial encounter
CPT/HCPCS: 73030; 99283

== ENCOUNTER 2025-06-04 16:02 | Outpatient (OUT) | payer OTHER, SELFPAY ==
--- OUTSIDE RECORDS SUMMARY | 2024-03-18 11:15 | XMS_ITS ---
Author Organization [facility] in [place] Address [address] [place] [address] Care Team Providers Care Pockets And Pieces Necktie Operator Name Role Phone Bladimir Joy MD Primary Care Provider UnavailSha Salcido Unavailable [phone] Allergies No Known Allergies Results Component Value Reference Range Notes XR Ankle LT (3 views) * (164 ) Reviewed date:03/21/2024 11:35:47 AM Interpretation: Performing Lab: Notes/Report: XR Foot LT (3 views) * Reviewed date:03/21/2024 11:00:15 AM Interpretation: Performing Lab: Notes/Report: Reason For Referral Reason evaluate and treatme nt -- see order Diagnosis 1 Posterior tibial ten dinitis, left leg (M76.822) Referral Organization [facility] ([facility]) Referring Provider First Name Sha Referring Provider Last Name Hira Referring Provider Speciality Podiatry Referred Provider Bertrand Garcia Scheduling Referred Provider Specialty Physical Med icine and Rehabilitation General Notes Valentin Espinosa 11:37:01 AM >No correspondence as of 03.25.24 Referral Priority Routine REASON FOR VISIT LEFT ankle pain Medications Medication SIG (Take, Route, Frequency, Duration) Notes Start Date End Date Status Fluticasone Propionate 50 MCG/ACT Nasal for 30 Days Active Sucralfate 1 GM Oral for 90 Days Active Atorvastatin Calcium 40 MG 1 tablet Oral ly Once a day Active Meloxicam 15 MG 1 tablet Orally Once a day for 30 days Do not take if taking ibuprofen 03/19/2024 Active hydroCHLOROthiazide 25 MG Oral for 90 Days Active Social History Tobacco Use: Social History Observation Description Date Details (start date - stop date) Never Smoker NA - NA Tobacco Control (Standard) Question Answer Notes Tobacco use: Nonsmoker Problems Problem Type SNOMED Code ICD Code Onset Dates Problem Status W/U Status Risk Notes Problem Heart disease (I51.9) Active confirmed Problem Arthritis (6838122) Arthritis (M19.90) Active confirmed Problem [id number] Posterior tibial tendinitis, left leg (M76.822) Active confirmed Problem [id number] Flat foot [pes planus] (acquired), left foot (M21.42) Active confirmed Vital Signs Temperature 98.87 degrees Fahrenheit 024 Heart Rate 88 /min 03/18/2024 Height 66 in 03/18/2024 Weight 187 lbs 03/18/2024 BMI 30.18 kg/m2 03/18/2024 Encounters Encounter Location Date Provider Diagnosis [facility] (P[facility]) [address] [place] [address] [place] [address] 03/18/2024 Sha Terrykendall Posterior tibial tendinitis, left leg M76.822 ; Flat foot [pes planus] (acquired), left foot M21.42 ; Ankle pain, left M25.572 and Left foot pain M79.672 Assessments Encounter Date Diagnosis (ICD Code) Assessment Notes Treatment Notes Treatment Clinical Notes Section Notes 03/18/2024 Posterior tibial tendinitis, left leg (ICD-10 - M76.822) Patient was seen and evaluated. Patient education was provided and all questions were answered to satisfaction.1. Imaging reviewed with the patient2. Prescriptions:victoria xicam 15 mg one by mouth daily as needed. Thirty day supply with refills was provided to the patient that if she is requiring the medication everyday that she should notify her primary care physician. I also discussed potential side effects and complications including heart attack/stroke3. physical therapy prescription was provided4.ASO ankle brace was fitted and dispensed5.rice therapy and shoe modification also were discussed Follow-up:six weeksImaging to obtain at f/u: none 03/18/2024 Flat foot [pes planus] (acquired), left foot (ICD-10 - M21.42) 03/18/2024 Ankle pain, left (ICD-10 - M25.572) 03/18/2024 Left foot pain (ICD-10 - M79.672) Plan Of Treatment Medication Medication Name Sig Start Date Stop Date Notes Meloxicam 15 MG 1 tablet Orally Once a day for 30 days Treatment Notes Assessment Notes Posterior tibial tendinitis, left leg Patient was seen and evaluated. Patient education was provided and all questions were answered to satisfaction.1. Imaging reviewed with the patient2. Prescriptions:meloxicam 15 mg one by mouth daily as needed. Thirty day supply with refills was provided to the patient that if she is requiring the medication everyday that she should notify her primary care physician. I also discussed potential side effects and complications including heart attack/stroke3. physical therapy prescription was provided4.ASO ankle brace was fitted and dispensed5.rice therapy and shoe modification also were discussed Follow-up:six weeksImaging to obtain at f/u: none Referrals Referral Date Details 03/19/2024 03/19/2024, evaluate and treatment -- see order, Central Scheduling Fauzia Kumar Progress Notes * Dana RICEDOB: 0 (63 yo F)Acc No.[id number]:03/18/2024 New Patient Patient: Dana HILLMAN Provider: Caro Iniguez DPM, MS :1960 A ge:63 Y S ex:Female Date:03/18/2024 Address: [address] [facility] [place], [facility], [id number] Pcp:Bladimir Joy MD Check In:03:13 PM ESTCheck O ut:03:58 PM EST Subjective: * Chief Complaints: * L EFT ankle pain * HPI: G eneral: Pt has left ankle pain. This has been going on three weeks. She does have mild swelling. She does not remember injuring her ankle but has been more active doing yardwork. She is wraping her ankle, this does feel better when she does this. She is active during the day. * ROS: G eneral/Constitutional: Chills d enies. F ever d enies. W eight gain?denies. W eight loss d enies. S kin: Skin Ulcers d enies. S kin lesion(s) d enies. ? C ardiovascular: Difficulty breathing on exertion d enies. L eg cramps?denies. E gary d enies. C hest pain d enies. R espiratory: Difficulty breathing d enies. D yspnea d enies.?Cough d enies. G astrointestinal: Diarrhea d enies. N ausea d enies. V omiting?denies. M usculoskeletal: Bone/Joint Symptoms d enies. C richard Pain d enies.?Leg cramps d enies. N eurologic: Numbness d enies. T ingling d enies . G ait abnormality d enies. ? H ematology: Anemia D enies. E asy bruising d enies. ? A ll Other Systems: Review of Systems (ROS) S ee HPI for details,All others negative except those mentioned in HPI. * Active Problem List M19.90 Arthritis Modified On:03/18/2024 Status:confirmed I51.9 Heart disease Modified On:03/18/2024 Status:confirmed M25.572 Ankle pain, left Modified On:03/17/2024U Status:confirmed M79.672 Left foot pain Modified On:03/18/2024U Status:confirmed M76.822 Posterior tibial ten dinitis, left leg Modified On:03/18/2024/U Status:confirmed M21.42 Flat foot [pes planu s] (acquired), left foot Modified On:03/18/2024 Status:confirmed * Medical History: * Surgical History: h ysterectomy 2020 * Hospitalization/Major Diagno stic Procedure: D enies Past Hospitalization * Family History: N on-Contributory. * Social History: T obacco Use: T obacco Control (Standard) T obacco use: N onsmoker * Medications: T akingAtorvastatin Calcium 40 MG Tablet 1 tablet Orally Once a day Fluticasone Propionate 50 MCG/ACT Suspension Nasal hydroCHLOROthiazide 25 MG Tablet Oral Sucralfate 1 GM Tablet Oral Taking Atorvastatin Calcium 40 MG Tablet 1 tablet Orally Once a day Taking Fluticasone Propionate 50 MCG/ACT Suspension Nasal Taking hydroCHLOROthiazide 25 MG Tablet Oral Taking Sucralfate 1 GM Tablet Oral * Allergies: N .K.D.A.no[Allergies Verified] Objective: * Vitals: W t:187lbs, Ht: 66 in, Temp:98.87F, HR:88/min, BMI:30.18Index, Pain scale:41-10, Ht-cm: 167.64 cm, Wt-k.82 kg. * Examination: P odiatry Examination: SKIN: s kin intact, n o sign of infection. MUSCULOSKELETAL: P OP at the PT tendon insertion and extending proximally to the medial malleolus, H indfoot valgus noted in stance with too many toes sign, H ypermobility of the 1st ray is noted with forefoot varus, A nkle joint has dorsiflexion is to neutral but not past Deformity is: reducible . NEUROLOGICAL: l ight touch sensation intact, n egative tinel's sign. VASCULAR: P edal pulses palpable, C apillary refill is brisk to toe, D igital hair intact. X rays: xrays were obtained and reviewed in my office today. No fracture is noted. There is arthritic changes to the talonavicular joint as well as mild arthritic changes to the ankle. Mild talonavicular joint and coverage. Assessment: * Assessment: 1. P osterior tibial tendinitis, left leg - M76.822 (Primary) 2 . F lat foot [pes planus] (acquired), left foot - M21.42 3 . A nkle pain, left - M25.572 4 . L eft foot pain - M79.672 Plan: * Treatment: 2. A nkle pain, left I maging: XR Ankle LT (3 views) * (164) 3. L eft foot pain I maging: XR Foot LT (3 views) * * Procedure Codes: * Preventive Medicine: Screenings/Counseling: F ALL RISK SCREENING Fall Risk Assessment: N o falls in the past year B NV ACTION PLAN Below Normal BMI Follow-up D ietary management education, guidance, and counseling * * Sign off status: Completed Visit Status: C HK (Check Out) true * Provider: Caro Iniguez DPM, MS Date: 0 03/18/2024 Generated for Meghan fisher/Fior/Jeniseitting on: 0 06/04/2025 04:04 PM EDT History and Physical Notes * Examination Category Sub-Category Detail Notes Category Not es Podiatry Examination SKIN: skin intact, no sign of infection Xrays : xrays were obtained and reviewed in my office today. No fracture is noted. There is arthritic changes to the talonavicular joint as well as mild arthritic changes to the ankle. Mild talonavicular joint and coverage MUSCULOSKELETAL: POP at the PT tendon insertion and extending proximally to the medial malleolus, Hindfoot valgus noted in stance with too many toes sign, Hypermobility of the 1st ray is noted with forefoot varus, Ankle joint has dorsiflexion is to neutral but not past Deformity is: reducible NEUROLOGICAL: light touch sensatio n intact, negative tinel's sign VASCULAR: Pedal pulses palpabl e, Capillary refill is brisk to toe, Digital hair intact Consultation Request Notes Referral Date Referring Provider Referred Provider Not es 03/19/2024 Sha Iniguez [facility] Scheduling evaluate and treatment -- see order
--- OUTSIDE RECORDS SUMMARY | 2024-03-18 12:01 | XMS_ITS ---
Author Organization [facility] in [place] Address [address] [place] [address] Care Team Providers Care Automatic Bandsaw Tender Name Role Phone Bladimir Joy MD Primary Care Provider [facility] Sha Virk [facility] [phone] Medications Medication SIG (Take, Route, Fr equency, Duration) Notes Start Date End Date Status Meloxicam 15 MG 1 tablet Orally Once a day for 30 day(s) 03/18/2024 Active Encounters Encounter Location Date Provider Diagnosis [facility] (PODIATRY) [address] [place] [address] [place] [address] 03/18/2024 Sha Iniguez Plan Of Treatment Medication Medication Name Sig Start Date Stop Date Notes Meloxicam 15 MG 1 tablet Orally Once a day for 30 day(s) 0 03/18/2024 Progress Notes * Dana RICEDOB: 0 (63 yo F)Acc No.[id number]:03/18/2024 Patient: Dana HILLMAN :1960 A ge:63 Y S ex:Female Address:[address] [place], [address] * Refills Start Meloxicam Tablet, 15 MG, Orally, 30, 1 tablet, Once a day, 30 day(s), Refills=2 Subjective: * Chief Complaints: * * Medical History: * Surgical History: * Hospitalization/Major Diagno stic Procedure: * Medications: Objective: * Vitals: * Physical Examination: Assessment: Plan: * Treatment: * Procedure Codes: * true * Date: Generated for Printi ng/Faxing/eTransmitting on: 0 06/04/2025 04:04 PM EDT
--- OUTSIDE RECORDS SUMMARY | 2024-04-29 07:00 | XMS_ITS ---
Author Organization [facility] in [place] Address [address] [place] [address] Care Team Providers Care Supervisor Fishing Name Role Phone Bladimir Joy MD Primary Care Provider Unavail andrea Iniguez [facility] [phone] Allergies No Known Allergies REASON FOR VISIT 6 week f/u Medications Medication SIG (Take, Route, Frequency, Duration) Notes Start Date End Date Status Meloxicam 15 MG 1 tablet Orally Once a day for 30 days 05/01/2024 Active Sucralfate 1 GM Oral for 90 Days Active Atorvastatin Calcium 40 MG 1 tablet Oral ly Once a day Active hydroCHLOROthiazide 25 MG Oral for 90 Days Active Fluticasone Propionate 50 MCG/ACT Nasal for 30 Days Active Meloxicam 15 MG 1 tablet Orally Once a day for 30 days Do not take if taking ibuprofen 03/19/2024 Active Meloxicam 15 MG 1 tablet Orally Once a day for 30 day(s) 03/18/2024 Active Social History Tobacco Use: Social History Observation Description Date Details (start date - stop date) Never Smoker NA - NA Tobacco Control (Standard) Question Answer Notes Tobacco use: Nonsmoker Vital Signs Temperature 96.9 degrees Fahrenheit 04/29/20 24 Heart Rate 78 /min 04/29/2024 Height 66 in 04/29/2024 Weight 187 lbs 04/29/2024 BMI 30.18 kg/m2 04/29/2024 Encounters Encounter Location Date Provider Diagnosis [facility] (PODIATRY) [address] [place] [address] [place] [address] 04/29/2024 Sha Iniguez Posterior tibial tendinitis, left leg M76.822 Assessments Encounter Date Diagnosis (ICD Code) Assessment Notes Treatment Notes Treatment Clinical Notes Section Notes 04/29/2024 Posterior tibial tendinitis, left leg (ICD-10 - M76.822) Patient Follows up for left posterior tibial tendon dysfunction and relates that she is approximately 50% better with only 2 weeks of physical therapy. She just got her ASO ankle brace and does find it to be very helpful. I did provide a refill for Mobic. Presuming she continues to improve she may follow-up as needed but encouraged her to call the office for follow-up if her pain persists or worsens at any time Plan Of Treatment Medication Medication Name Sig Start Date Stop Date Notes Meloxicam 15 MG 1 tablet Orally Once a day for 30 days 04/2024 Treatment Notes Assessment Notes Posterior tibial tendinitis, left leg Pa fransisco Follows up for left posterior tibial tendon dysfunction and relates that she is approximately 50% better with only 2 weeks of physical therapy. She just got her ASO ankle brace and does find it to be very helpful. I did provide a refill for Mobic. Presuming she continues to improve she may follow-up as needed but encouraged her to call the office for follow-up if her pain persists or worsens at any time Progress Notes * Dana RICEDOB: 0 (64 yo F)Acc No.[id number]:04/29/2024 Follow Up Patient: Dana HILLMAN Provider: Caro Iniguez DPM, MS :1960 A ge:64 Y S ex:Female Date:04/29/2024 Address:[address] [place], [place] [id number] Pcp:Bladimir Joy MD Check In:10:52 AM ESTCheck O ut:11:16 AM EST Subjective: * Chief Complaints: * 6 week f/u * HPI: G eneral: Pt has left ankle pain. She is going to pt and it is starting to help her. She did not have a brace. She wants to have a refill of her mobic. She is doing well. She is wraping her ankle. * ROS: G eneral/Constitutional: Chills d enies. [...] * Active Problem List M19.90 Arthritis Modified On:03/18/2024/U Status:confirmed I51.9 Heart disease Modified On:03/18/2024/U Status:confirmed M25.572 Ankle pain, left Modified On:03/17/2024/U Status:confirmed M79.672 Left foot pain Modified On:03/18/2024/U Status:confirmed M76.822 Posterior tibial ten dinitis, left leg Modified On:03/18/2024/U Status:confirmed M21.42 Flat foot [pes planu s] (acquired), left foot Modified On:03/18/2024/U Status:confirmed * Medical History: * Surgical History: h ysterectomy 2020 * Hospitalization/Major Diagno stic Procedure: D enies Past Hospitalization * Family History: N o Family History documented.. * Social History: T obacco Use: T obacco Control (Standard) T obacco use: N onsmoker * Medications: T akingAtorvastatin Calcium 40 MG Tablet 1 tablet Orally Once a day Fluticasone Propionate 50 MCG/ACT Suspension Nasal hydroCHLOROthiazide 25 MG Tablet Oral Meloxicam 15 MG Tablet 1 tablet Orally Once a day Meloxicam 15 MG Tablet 1 tablet Orally Once a day Do not take if taking ibuprofenSucralfate 1 GM Tablet Oral Medication List reviewed and reconciled with the patientTaking Atorvastatin Calcium 40 MG Tablet 1 tablet Orally Once a day Taking Fluticasone Propionate 50 MCG/ACT Suspension Nasal Taking hydroCHLOROthiazide 25 MG Tablet Oral Taking Meloxicam 15 MG Tablet 1 tablet Orally Once a day Taking Meloxicam 15 MG Tablet 1 tablet Orally Once a day Do not take if taking ibuprofenTaking Sucralfate 1 GM Tablet Oral Medication List reviewed and reconciled with the patient * Allergies: N .K.D.A.no[Allergies Verified] Objective: * Vitals: W t:187lbs, Ht: 66 in, Temp:96.9F, HR:78/min, BMI:30.18Index, Pain scale:31-10, Ht-cm: 167.64 cm, Wt-k.82 kg. * Examination: P odiatry Examination: SKIN: s kin intact, n o sign of infection. MUSCULOSKELETAL: M ild tenderness on palpation at the PT tendon insertion, H indfoot valgus noted in stance with too many toes sign, H ypermobility of the 1st ray is noted with forefoot varus, A nkle joint has dorsiflexion is to neutral but not past . NEUROLOGICAL: l ight touch sensation intact, n egative tinel's sign. VASCULAR: P edal pulses palpable, C apillary refill is brisk to toe, D igital hair intact. Assessment: * Assessment: 1. P osterior tibial tendinitis, left leg - M76.822 (Primary) Plan: * Treatment: * Procedure Codes: * * Sign off status: Completed Visit Status: C (Check Out) true * Provider: Caro Iniguez DPM, MS Date: 0 04/29/2024 Generated for Meghan fisher/Fior/Havensmitting on: 0 06/04/2025 04:04 PM EDT History and Physical Notes * Examination Category Sub-Category Detail Notes Category Not es Podiatry Examination SKIN: skin intact, no sign of infection MUSCULOSKELETAL: Mild tenderness on p alpation at the PT tendon insertion, Hindfoot valgus noted in stance with too many toes sign, Hypermobility of the 1st ray is noted with forefoot varus, Ankle joint has dorsiflexion is to neutral but not past NEUROLOGICAL: light touch sensatio n intact, negative tinel's sign VASCULAR: Pedal pulses palpabl e, Capillary refill is brisk to toe, Digital hair intact
--- OUTSIDE RECORDS SUMMARY | 2025-06-04 09:45 | XMS_ITS | Encounter Summary ---
Author Organization [facility] Address [address] [place] [address] Care Team Providers Care Green Prize Packer Name Role Phone Bladimir Joy MD Primary Care Provider [phone] Bladimir Joy MD Unavailable Reason for Visit * Reason Comments Follow-up 6w Encounter Details Date Type Department Care Team ([facility] Contact Info) Description 06/04/2025 9:45 AM EDT Office Visit [facility] [address] [place] [address] Bladimir Joy MD [address] [place] [address] Benign essential hypertension (Primary Dx); Chronic heart failure with preserved ejection fraction (HCC); Seasonal allergic rhinitis due to pollen; GERD without esophagitis Social History Tobacco Use Types Packs/Day Years Used Date Smoking Tobacco: Never Smokeless Tobacco: Never Alcohol Use Standard Drinks/Week Comments Not Currently 0 (1 standard drink = 0.6 oz pur e alcohol) Humiliation, Afraid, Rape, and Kick questionnair e Answer Date Recorded Within the last year, have y ou been afraid of your partner or ex-partner? No 12/31/2023 Within the last year, have y ou been humiliated or emotionally abused in other ways by your partner or ex-partner? No Within the last year, have y ou been kicked, hit, slapped, or otherwise physically hurt by your partner or ex-partner? No 12/31/2023 Within the last year, have y ou been raped or forced to have any kind of sexual activity by your partner or ex-partner? No 12/31/2023 Social Connection and Isolat ion Panel [NHANES] Answer Date Recorded In a typical week, how many times do you talk on the phone with family, friends, or neighbors? More than three times a week 12/31/2023 How often do you get togethe r with friends or relatives? Three times a week 12/31/2023 How often do you attend chur or latter-day services? More than 4 times per year 12/31/2023 Do you belong to any clubs o r organizations such as congregation groups, unions, fraternal or athletic groups, or school groups? Yes 12/31/2023 How often do you attend meet ings of the clubs or organizations you belong to? More than 4 times per year 12/31/2023 Are you , , di vorced, , never , or living with a partner? 12/31/2023 AUDIT-C Answer Date Recorded Q1: How often do you have a drink containing alcohol? Never 12/31/2023 Q2: How many drinks containi ng alcohol do you have on a typical day when you are drinking? Patient does not drink Q3: How often do you have si x or more drinks on one occasion? Never 12/31/2023 Overall Financial Resource Strain (CARDIA) Answe r Date Recorded How hard is it for you to pa y for the very basics like food, housing, medical care, and heating? Somewhat hard 12/31/2023 [facility] - Occupational Stress Questionnaire Answer Date Recorded Do you feel stress - tense, restless, nervous, or anxious, or unable to sleep at night because your mind is troubled all the time - these days? To some extent 12/31/2023 Exercise Vital Sign Answer Date Recorde d On average, how many days pe r week do you engage in moderate to strenuous exercise (like a brisk walk)? Patient declined On average, how many minutes do you engage in exercise at this level? Patient declined 12/31/2023 Hunger Vital Sign Answer Date Recorded Within the past 12 months, y ou worried that your food would run out before you got the money to buy more. Never true 12/31/19 24 Within the past 12 months, t he food you bought just didn't last and you didn't have money to get more. Never true 12/31/2023 PRAPARE - Transportation Answer Date Re corded In the past 12 months, has l ack of transportation kept you from medical appointments or from getting medications? No 03/2024 In the past 12 months, has l ack of transportation kept you from meetings, work, or from getting things needed for daily living? No 12/31/2023 Housing Stability Vital Sign Answer Vicente e Recorded In the last 12 months, was t here a time when you were not able to pay the mortgage or rent on time? No 12/31/2023 In the last 12 months, how many places have you lived? 1 12/31/2023 In the last 12 months, was t here a time when you did not have a steady place to sleep or slept in a fdc (including now)? No 12/31/2023 Comments Unknown Sex and Gender Information Value Date Recorded Sex Assigned at Not on file Legal Sex Female 7:18 PM EDT Gender Identity Not on file Sexual Orientation Not on file documented as of this encounter Last Filed Vital Signs Vital Sign Reading Time Taken Comments Blood Pressure 164/72 06/04/2025 9:40 AM EDT Pulse 68 06/04/2025 9:40 AM EDT Temperature 36.2 C (97.1 F) 06/04/2025 9:40 AM EDT Respiratory Rate 22 06/04/2025 9:40 AM EDT Oxygen Saturation 96% 06/04/2025 9:40 AM EDT Inhaled Oxygen Concentration - - Weight 85.3 kg (188 lb) 06/04/2025 9:40 AM EDT Height 167.6 cm (5' 6 ) 06/04/2025 9:40 AM EDT Body Mass Index 30.34 06/04/2025 9:40 AM EDT documented in this encounter Progress Notes * Bladimir Joy MD - 06/04/2025 9:57 AM EDTAssociated Problem(s): Seasonal allergic rhinitis due to pollen Symptoms controlled with medication and continue. * Bladimir Joy MD - 06/04/2025 9:57 AM EDTAssociated Problem(s): GERD without esophagitis Symptoms controlled with medication and continue. * Bladimir Joy MD - 06/04/2025 9:57 AM EDTAssociated Problem(s): Chronic heart failure with preserved ejection fraction (HCC) No edema and continue medication. Elevate legs PRN. * Bladimir Joy MD - 06/04/2025 9:57 AM EDTAssociated Problem(s): Benign essential hypertension BP elevated today but reports normal at home and continue to monitor PRN. Discussed DASH diet. * Bladimir Joy MD - 06/04/2025 9:45 AM EDT Images from the original note were not included. Subjective Patient ID: Dana Whitlock is a 65 y.o. female who presents for Follow-up (6w). Follow up HTN, CHF, GERD, and allergies. Patient stable today. Checking BP PRN and reports typically controlled in 130s systolic over 60-70s diastolic. BP elevated today at 164/72. Taking medication daily and tolerating without side effects. Edema controlled with medication. Mild swelling at end ofday and if on feet a lot. Edema [...] Items Addressed This Visit Benign essential hypertension - Primary BP elevated today but reports normal at home and continue to monitor PRN. Discussed DASH diet. Seasonal allergic rhinitis due to pollen Symptoms controlled with medication and continue. Chronic heart failure with preserved ejection fraction (HCC) No edema and continue medication. Elevate legs PRN. GERD without esophagitis Symptoms controlled with medication and continue. documented in this encounter Plan of Treatment Upcoming Encounters Date Type Department Care Team (Late st Contact Info) Description 09/10/2025 3:00 PM EDT [facility] [address] [place] [phone] Bladimir Joy MD [address] [place] [address] documented as of this encounter Visit Diagnoses Diagnosis Benign essential hypertension- Primary Essential hypertension, benign Chronic heart failure with preserved ejection fraction (HCC) Seasonal allergic rhinitis due to pollen GERD without esophagitis Esophageal reflux documented in this encounter Care Teams Green Prize Packer Relationship Specialty Start Date End Date Bladimir Joy MD [address] [place] [address] PCP - General Family Medicine 12/14/23 Bladimir Joy MD [address] [place] [phone] PCP - Medical [employer] 07/18/21 11/25/99 documented as of this encounter
--- OUTSIDE RECORDS SUMMARY | 2025-06-04 16:04 | XMS_ITS | Encounter Summary ---
Author Organization [facility] Address [address] [place] [address] Care Team Providers Care Microsoft Architect Name Role Phone Bladimir Joy MD Primary Care Provider [phone] Bladimir Joy MD Unavailable Reason for Visit * Reason Comments New Med Request Encounter Details Date Type Department Care Team ([facility] st Contact Info) Description 02/14/2025 [facility] [address] [place] [phone] Bladimir Joy MD [address] [place] [phone] Benign essential hypertension Social History Tobacco Use Types Packs/Day Years [...] 12/31/2023 How often do you attend chur ch or nondenominational services? More than 4 times per year 12/31/2023 Do you belong to any clubs o r organizations such as taoism groups, unions, fraternal or athletic groups, or [...] medical care, and heating? Somewhat hard 12/31/2023 [facility] - Occupational Stress Questionnaire Answer Date [...] place to sleep or slept in a residential (including now)? No 12/31/2023 Comments Unknown Sex and Gender Information Value Date Recorded Sex Assigned at Not on file Legal Sex Female 7:18 PM EDT Gender Identity Not on file Sexual Orientation Not on file documented as of this encounter Miscellaneous Notes * Telephone Encounter - IDA STRAUSS - 02/16/2025 9:06 AM EDT MEDICATION SENT TO [facility] documented in this encounter Plan of Treatment Upcoming Encounters Date Type Department Care Team (Late st Contact Info) Description 09/10/2025 3:00 PM EDT [facility] [address] [place] [phone] Bladimir Joy MD [address] [place] [phone] documented as of this encounter Visit Diagnoses Diagnosis Benign essential hypertension Essential hypertension, benign documented in this encounter Care Teams Microsoft Architect Relationship Specialty Start Date End Date Bladimir Joy MD [address] [place] [phone] PCP - General Family Medicine 12/14/23 Bladimir Joy MD [address] [place] [address] PCP - Medical [place] [employer] 07/18/21 11/25/99 documented as of this encounter
--- OUTSIDE RECORDS SUMMARY | 2025-06-04 16:04 | XMS_ITS | Encounter Summary ---
Author Organization [facility] Address [address] [place] [address] Care Team Providers Care Stave Block Roller Name Role Phone Bladimir Joy MD Primary Care Provider [phone] Bladimir Joy MD Unavailable Encounter Details Date Type Department Care Team (Late st Contact Info) Description 07/22/2024 [facility] [address] [place] [address] Bladimir Joy MD [address] [place] [phone] Social History Tobacco Use Types Packs/Day Years Used Date Smoking Tobacco: Never Smokeless Tobacco: Never Humiliation, Afraid, Rape, and Kick questionnair e [...] often do you attend chur ch or sikhism services? More than 4 times per year 12/31/2023 Do you belong to any clubs o r organizations such as buddhist groups, unions, fraternal or athletic groups, or [...] medical care, and heating? Somewhat hard 12/31/2023 [facility] Occup[facility] ional Health - Occupational Stress [...] place to sleep or slept in a penitentiary (including now)? No 12/31/2023 Comments Unknown Sex and Gender Information Value Date Recorded Sex Assigned at Not on file Legal Sex Female 7:18 PM EDT Gender Identity Not on file Sexual Orientation Not on file documented as of this encounter Plan of Treatment Upcoming Encounters Date Type Department Care Team (Late st Contact Info) Description 09/10/2025 3:00 PM EDT Office Visit [facility] [address] [place] [address] Bladimir Joy MD [address] [place] [address] documented as of this encounter Visit Diagnoses Not on filedocumented in this encounter Care Teams Stave Block Roller Relationship Specialty Start Date End Date Bladimir Joy MD [address] [place] [phone] PCP - General Family Medicine 12/14/23 Bladimir Joy MD [address] [place] [phone] PCP - Medical [place] [employer] 07/18/21 11/25/99 documented as of this encounter
--- OUTSIDE RECORDS SUMMARY | 2025-06-04 16:04 | XMS_ITS | Encounter Summary ---
Author Organization [facility] Address [address] [place] [address] Care Team Providers Care Claims Representative Name Role Phone Bladimir Joy MD Primary Care Provider [phone] Bladimir Joy MD Unavailable Encounter Details Date Type Department Care Team (Late st Contact Info) Description 06/04/2025 Bamboo flowsheet [facility] [address] [place] [address] Bladimir Joy MD [address] [place] [address] Social History Tobacco Use Types Packs/Day Years [...] often do you attend chur ch or cheondoism services? More than 4 times per year 12/31/2023 Do you belong to any clubs o r organizations such as sikhism groups, unions, fraternal or athletic groups, or [...] medical care, and heating? Somewhat hard 12/31/2023 [facility] - Occupational Stress Questionnaire Answer Date [...] place to sleep or slept in a retirement (including now)? No 12/31/2023 Comments Unknown Sex [...] Office Visit [facility] [address] [place] [phone] Bladimir Joy MD [address] [place] [address] documented as of this encounter Visit Diagnoses Not on filedocumented in this encounter Care Teams Claims Representative Relationship Specialty Start Date End Date Bladimir Joy MD [address] [place] [phone] PCP - General Family Medicine 12/14/23 Bladimir Joy MD [address] [place] [phone] PCP - Medical [place] [employer] 07/18/21 11/25/99 documented as of this encounter
--- OUTSIDE RECORDS SUMMARY | 2025-06-04 16:04 | XMS_ITS | Encounter Summary ---
Author Organization [facility] Address [address] [place] [address] Care Team Providers Care Chemical Treatment Operator Name Role Phone Bladimir Joy MD Primary Care Provider [phone] Bladimir Joy MD Unavailable Reason for Visit * Reason Comments Med Refill Encounter Details Date Type Department Care Team ([facility] st Contact Info) Description 02/14[facility]2025 [facility] [address] [place] [phone] Bladimir Joy MD [address] [place] [phone] Carpal tunnel syndrome on right Social History Tobacco Use Types Packs/Day Years [...] often do you attend chur ch or jehovah's witness services? More than 4 times per year 12/31/2023 Do you belong to any clubs o r organizations such as confucianist groups, unions, fraternal or athletic groups, or [...] medical care, and heating? Somewhat hard 12/31/2023 [facility] ional Health - Occupational [...] place to sleep or slept in a prison (including now)? No 12/31/2023 Comments Unknown Sex and Gender Information Value Date Recorded Sex Assigned at Not on file Legal Sex Female 7:18 PM EDT Gender Identity Not on file Sexual Orientation Not on file documented as of this encounter Miscellaneous Notes * Telephone Encounter - IDA STRAUSS - 02/16/2025 9:07 AM EDT [facility] documented in this encounter Plan of Treatment Upcoming Encounters Date Type Department Care Team (Late st Contact Info) Description 09/10/2025 3:00 PM EDT Office Visit [facility] [address] [place] [address] Bladimir Joy MD [address] [place] [phone] documented as of this encounter Visit Diagnoses Diagnosis Carpal tunnel syndrome on right Carpal tunnel syndrome documented in this encounter Care Teams Chemical Treatment Operator Relationship Specialty Start Date End Date Bladimir Joy MD [address] [place] [phone] PCP - General Family Medicine 12/14/23 Bladimir Joy MD [address] [place] [address] PCP - Medical [place] [employer] 07/18/21 11/25/99 documented as of this encounter
--- OUTSIDE RECORDS SUMMARY | 2025-06-04 16:04 | XMS_ITS | Clinical Summary ---
Author Organization [facility] Address [address] [place] [address] Care Team Providers Care Hearing Therapy Director Name Role Phone Bladimir Joy MD Primary Care Provider + Allergies Active Allergy Reactions Criticality Noted Date Comments Adhesive Tape Rash Low 07/06/2022 Medications hydrochlorothia zide (HYDRODIURIL) 25 MG tablet TAKE 1 TABLET BY MOUTH DAILY 3 01/02/2017 Active atorvastatin (LIPITOR) 40 MG tablet Take 1 tablet by mouth at bedtime 06/17/2022 Active sucralfate (CARAFATE) 1 GM tablet TAKE 1 TABLET BY MOUTH FOUR TIMES DAILY 06/03/2022 Active meloxicam (MOBIC) 15 MG tablet Take 1 tablet by mouth daily Active Active Problems Problem Noted Date Diagnosed Date Renal dysfunction 10/07/2022 Encounter for annual general medical examination with abnormal findings in adult 10/07/2022 Anemia 10/07/2022 Obesity, Class I, BMI 30-34.9 10/07/2022 Acquired absence of both cervix and uterus 10/07 Acquired absence of ovaries, bilateral Malignant neoplasm of endometrium 07/06/2022 Cancer Staging:Clinical:FIGO Stage IA(cT1a, cM0) - Unsigned S/P MARTHA-BSO 06/05/22 07/06/2022 Overview (07/06/2022): Ciarra Antoine Family History Medical History Relation Name Comments Breast Cancer Maternal Aunt 50-60s Colon Cancer Maternal Aunt <50 Cancer Other [address] (great aunt) lung cancer Relation Name Status Comments Brother x1 Maternal Aunt Other 1 Other 2 Alive Sister x2 Social History Tobacco Use Types Packs/Day Years Used Date Smoking Tobacco: Never Smokeless Tobacco: Never Tobacco Cessation:Counseling Given: Not Answered Alcohol Use Standard Drinks/Week Comments Not Currently 0 (1 standard drink = 0.6 oz pur e alcohol) Comments No Sex and Gender Information Value Date Recorded Sex Assigned at Not on file Legal Sex Female 11:48 AM EST Gender Identity Not on file Sexual Orientation Not on file Last Filed Vital Signs Vital Sign Reading Time Taken Comments Blood Pressure 180/80 11/17/2024 10:29 AM EST Pulse 75 11/17/2024 10:29 AM EST Temperature 36.6 C (97.9 F) 07/03/2023 2:07 PM EDT Respiratory Rate 16 11/21/2022 2:30 PM EST Oxygen Saturation 95% 11/17/2024 10:29 AM EST Inhaled Oxygen Concentration - - Weight 87.1 kg (192 lb) 11/17/2024 10:29 AM EST Height 167.6 cm (5' 6 ) 11/17/2024 10:29 AM EST Body Mass Index 30.99 11/17/2024 10:29 AM EST Plan of Treatment Upcoming Encounters Date Type Department Care Team ([facility] Contact Info) Description 06/08/2025 11:00 AM EDT Office Visit [facility] [address] [place] [address] [address] [place] [phone] Vandana Mcnally PA-C [address] [place] [address] [address] [place] [address] Follow up / pt r/s from 05/18/25 Health Maintenance Due Date Last Done Comments Depression Screen 1972 HIV screen 1975 Hepatitis C screen 1978 DTaP/Tdap/Td vaccine (1 - Tdap) 1979 Pneumococcal 50+ years Vacci ne (1 of 2 - PCV) 1979 Shingles vaccine (1 of 2) 1979 Colonoscopy 2005 Colorectal Cancer Screen 2005 FIT/FOBT: Average risk 2005 Fecal-DNA (Cologuard): [place] ge risk 2005 Sigmoidoscopy/CT colonography 2005 DEXA (modify frequency per FRAX score) 2015 Respiratory Syncytial Virus (RSV) or age 60 yrs+ (1 - Risk 60-74 years 1-dose series) 2020 COVID-19 Vaccine (3 - Pfizer risk series) 02/24/2021 01/27/2021, 01/06/2021 Lipids 03/16/2023 03/16/2022 Flu vaccine (#1) 06/26/2025 Breast cancer screen 11/30/2025 11/30/2023 Hepatitis A vaccine Aged Out No longe r eligible based on patient's age to complete this topic Hepatitis B vaccine Aged Out No longe r eligible based on patient's age to complete this topic Hib vaccine Aged Out No longer eligi ble based on patient's age to complete this topic Meningococcal (ACWY) vaccine Aged Out No longer eligible based on patient's age to complete this topic Meningococcal B vaccine Aged Out No l onger eligible based on patient's age to complete this topic Polio vaccine Aged Out No longer elig ible based on patient's age to complete this topic Procedures Procedure Name Priority Date/Time Associated Diagnosis Comments LEWIS TINA DIGITAL SCREEN BILATERAL Routine 11/30/2023 Screening mammogram for breast cancer LIPID PANEL Routine 03/16/2022 from Last 3 Months or Most Recently Relevant to Health Maintenance Results * LEWIS TINA DIGITAL SCREEN BILATERAL (11/30/2023) Anatomical Region Laterality Modality Breast Bilateral Mammography Vandana Mcnally PA-C IMG MAMMOGRAPHY ORDERABLES Fi nal Result * Lipid Panel (03/16/2022) BLOOD SPECIMEN / Unknown Historical Provider CHEMISTRY ORDERABLES Char l Result from Last 3 Months or Most Recently Relevant to Health Maintenance Insurance [employer] Care Teams Hearing Therapy Director Relationship Specialty Start Date End Date Bladimir Joy MD [address] [facility] [place] [address] PCP - General Family Medicine 07/06/22
--- OUTSIDE RECORDS SUMMARY | 2025-06-04 16:04 | XMS_ITS | Encounter Summary ---
Author Organization [facility] Address [address] [place] [address] Care Team Providers Care Sheet Metal Insulator Name Role Phone Bladimir Joy MD Primary Care Provider [phone] Bladimir Joy MD Unavailable Encounter Details Date Type Department Care Team (Late st Contact Info) Description 03/19/2024 Orders Only [facility] [address] [facility] [address] [place] [address] Sha Iniguez Social History Tobacco Use Types Packs/Day Years [...] How often do you attend chur or evangelical services? More than 4 times per year [...] medical care, and heating? Somewhat hard 12/31/2023 [facility] Occupat ional Health - Occupational [...] place to sleep or slept in a correction (including now)? No 12/31/2023 Comments Unknown Sex and Gender Information Value Date Recorded Sex Assigned at Not on file Legal Sex Female 7:18 PM EDT Gender Identity Not on file Sexual Orientation Not on file documented as of this encounter Plan of Treatment Upcoming Encounters Date Type Department Care Team (Late st Contact Info) Description 09/10/2025 3:00 PM EDT [facility] Visit [facility] [address] [place] [address] Bladimir Joy MD [address] [place] [address] documented as of this encounter Procedures Procedure Name Priority Date/Time Associated Diagnosis Comments XR ANKLE 3+ VIEWS LEFT Routine 03/18/2024 11:00 AM EDT XR FOOT 3+ VIEWS LEFT Routine 03/18/2024 10:51 AM EDT documented in this encounter Results * XR ankle 3+ views left (03/18/2024 11:00 AM EDT) Anatomical Region Laterality Modality Lower Extremities, Ankle Left Radiogr aphic Imaging Sha Iniguez IMYojana XR PROCEDURES Final Resul t * XR foot 3+ views left (03/18/2024 10:51 AM EDT) Anatomical Region Laterality Modality Lower Extremities, Foot Left Radiogra phic Imaging Sha Iniguez IMYojana XR PROCEDURES Final Resul t documented in this encounter Visit Diagnoses Not on filedocumented in this encounter Care Teams Sheet Metal Insulator Relationship Specialty Start Date End Date Bladimir oJy MD [address] [place] [phone] PCP - General Family Medicine 12/14/23 Bladimir Joy MD [address] [place] [address] PCP - Medical [employer] 07/18/21 11/25/99 documented as of this encounter
--- OUTSIDE RECORDS SUMMARY | 2025-06-04 16:04 | XMS_ITS | Clinical Summary ---
Author Organization [facility] Healthcare Address [address] [place] [address] Care Team Providers Care Warp Changer Name Role Phone Bladimir Alvarez MD Primary Care Provider [phone] Bladimir Alvarez MD Unavailable Allergies Active Allergy Reactions Criticality Noted Date Comments Wound Dressing Adhesive Rash Low 07/06/2022 Medications Multiple Vitamins-Minerals (MULTIVITAMIN ADULTS 50+ PO) Take by mouth Active [facility] Jauregui Wort 150 MG capsule Take 150 mg by mouth 1 (one) time each day Active atorvastatin (Lipitor) 40 MG tabletIndications :Dyslipidemia TAKE 1 TABLET AT BEDTIME 90 tablet 3 4 Active sucralfate (Carafate) 1 g tabletIndications :GERD without esophagitis Take 1 tablet (1 g) by mouth in the morning and 1 tablet (1 g) at noon and 1 tablet (1 g) in the evening and 1 tablet (1 g) before bedtime. Take before meals. 360 tablet 3 4 08/01/20 25 Active hydroCHLOROthiazi de (HYDRODiuril) 25 MG tabletIndications :Benign essential hypertension TAKE 1 TABLET DAILY 90 tablet 3 4 Active fluticasone (Flonase) 50 MCG/ACT nasal sprayIndications: Seasonal allergic rhinitis due to pollen USE 2 SPRAYS DAILY 16 g 11 5 Active meloxicam (Mobic) 15 MG tabletIndications :Carpal tunnel syndrome on right TAKE 1 TABLET DAILY WITH FOOD 30 tablet 11 5 Active losartan (Cozaar) 50 MG tabletIndications :Benign essential hypertension Take 1 tablet (50 mg) by mouth Daily 30 tablet 11 5 02/17/20 26 Active Active Problems Problem Noted Date Diagnosed Date Encounter for long-term current use of medicatio n 08/19/2024 Obesity (BMI 30-39.9) 08/08/2024 Aortic valve regurgitation, nonrheumatic 024 Annual physical exam 07/21/2024 Assessment & Plan (07/21/2024 2:17 PM EDT): Due for labs. Discussed proper diet and regular aerobic exercise. Need aerobic exercise 5-6 days a week for 30 minutes at a time. Smaller portions and limit total calories. Colonoscopy every 10 years. Tetanus every 10 years. Advised not to smoke. Discussed daily Aspirin therapy. Prediabetes 07/21/2024 Chronic heart failure with preserved ejection fr action 01/01/2024 Assessment & Plan (06/04/2025 9:57 AM EDT): No edema and continue medication. Elevate legs PRN. Assessment & Plan (01/20/2025 4:03 PM EST): No edema and continue medication. Elevate legs PRN. Assessment & Plan (01/01/2024 4:08 PM EST): No edema and continue medication. Elevate legs PRN. Dyslipidemia 01/01/2024 Endometrial carcinoma 01/01/2024 Assessment & Plan (01/20/2025 4:04 PM EST): Follow with c win[facility] developer onc. Assessment & Plan (07/21/2024 2:19 PM EDT): Follow with [facility] developer onc. GERD without esophagitis 01/01/2024 Assessment & Plan (06/04/2025 9:57 AM EDT): Symptoms controlled with medication and continue. Assessment & Plan (01/20/2025 4:03 PM EST): Symptoms controlled with medication and continue. Assessment & Plan (01/01/2024 4:08 PM EST): Symptoms controlled with medication and continue. 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 Refer to ortho. Use mobic PRN. Assessment & Plan (01/01/2024 4:11 PM EST): Mild symptoms but tolerable. Monitor and if worsens will refer to ortho. Benign essential hypertension 11/02/2023 Assessment & Plan (06/04/2025 9:57 AM EDT): BP elevated today but reports normal at home and continue to monitor PRN. Discussed DASH diet. Assessment & Plan (02/03/2025 4:38 PM EDT): BP remains elevated and increase losartan. Continue to monitor PRN. Discussed DASH diet. Assessment & Plan (01/20/2025 4:03 PM EST): BP elevated and add losartan. Continue to monitor PRN. Discussed DASH diet. Assessment & Plan (07/21/2024 2:18 PM EDT): BP elevated but previously controlled and monitor PRN. Assessment & Plan (01/01/2024 4:08 PM EST): BP controlled and monitor PRN. Seasonal allergic rhinitis due to pollen 023 Assessment & Plan (06/04/2025 9:57 AM EDT): Symptoms controlled with medication and continue. Assessment & Plan (01/20/2025 4:03 PM EST): Symptoms controlled with medication and continue. Assessment & Plan (01/01/2024 4:08 PM EST): Symptoms controlled with medication and continue. Resolved Problems Problem Noted Date Diagnosed Date Resolved Date Acute pain of right shoulder 02/03/2025 06/04/2025 Assessment & Plan (02/03/2025 4:37 PM EDT): Recent fall and pain since. Full ROM but pain with use and mild weakness on exam. Treat with prednisone and handout with ROM exercises to patient. If no improvement may need PT and or MRI. Encounters Date Type Department Care Team Description 06/04/2025 9:45 AM EDT Office Visit [facility] [address] [place] [address] Bladimir Alvarez MD Benign essential hypertension (Primary Dx); Chronic heart failure with preserved ejection fraction (HCC); Seasonal allergic rhinitis due to pollen; GERD without esophagitis 06/04/2025 Bamboo flowsheet [facility] [address] [place] [address] Bladimir Alvarez MD from Last 3 Months Family History Medical History Relation Name Comments Stroke Father Hypertension Mother Relation Name Status Comments Father Mother Social History Tobacco Use Types Packs/Day Years [...] often do you attend chur ch or alevism services? More than 4 times per year [...] medical care, and heating? Somewhat hard 12/31/2023 [facility] - Occupational [...] place to sleep or slept in a long term (including now)? No 12/31/2023 Comments Unknown Sex [...] Mass Index 30.34 06/04/2025 9:40 AM EDT Plan of Treatment Upcoming Encounters Date Type Department Care Team (Late st Contact Info) Description 09/10/2025 3:00 PM EDT Office Visit [facility] [address] [place] [phone] Bladimir Alvarez MD [address] [place] [phone] Health Maintenance Due Date Last Done Comments CT Colonography 1960 FIT-DNA 1960 FIT 1960 FOBT 1960 Sigmoidoscopy 1960 Pneumococcal Vaccine: 65+ Ye ars (1 of 2 - PCV) 1979 Pap Smear 1981 Cervical Cancer Screening 1990 HPV/Cotest 1990 Mammogram 11/30/2024 11/30/2023, 03/2024, 11/30/2023, Additional history exists Influenza Vaccine (#1) 2025 Colonoscopy 04/26/2032 04/26/2022 Colorectal Cancer Screening 04/26/2032 Procedures Procedure Name Priority Date/Time Associated Diagnosis Comments MM TOMOSYNTHESIS SCREENING BI 11/30/2023 7:52 AM EST from Last 3 Months or Most Recently Relevant to Health Maintenance Results * MM TOMOSYNTHESIS SCREENING BI (11/30/2023 7:52 AM EST) Anatomical Region Laterality Modality Other 11/30/2023 7:52 AM EST Narrative 11/30/2023 7:53 [place] [address] Mammography Report Signed Patient: DANA RICE MR#: [id number] : 1960 Acct:[id number] Age/Sex: 63 / F ADM Date: 11/29/23 Loc: MAMMO Attending Dr: Bladimir Alvarez M.D. Ordering Physician: Bladimir Alvarez M.D. Results: Date of Service: 11/29/23 Follow Up: Procedure(s): MM tomosynthesis screening BI Accession Number(s): [id number] cc: Bladimir Alvarez M.D. Patient Name: DANA RICE MR#: [id number] : 1960 Exam Date: 11/29/2023 Ordering Doctor: DR BLADIMIR ALVAREZ . RADIOLOGY REPORT PROCEDURE: MM TOMOSYNTHESIS SCREENING BI COMPARISON: MG MAMM SCREEN 3D ZACK CAD, 01/10/2022. INDICATIONS: screening Calculator Name NCI Breast Cancer Risk Assessment Tool 5 Year Breast Cancer Risk 1.90% Lifetime Breast Cancer Risk 8.10% Personal Breast Cancer No Personal Ovarian Cancer No Treatments None Family Cancers Aunt-maternal with breast cancer at age 65; Aunt-paternal with colon cancer at age 70. LOCATION: [facility] BREAST COMPOSITION: Scattered areas fibroglandular density. FINDINGS: DIAGNOSTIC CATEGORY 2--BENIGN FINDING. NO CHANGE FROM COMPARISON. Scattered benign-appearing nodules are present. Scattered benign-appearing calcifications are present. Scattered benign-appearing lymph nodes are present. RIGHT BREAST: No significant suspicious finding. LEFT BREAST: No significant suspicious finding. RECOMMENDATIONS: ROUTINE MAMMOGRAM AND CLINICAL EVALUATION IN 12 MONTHS. PLEASE NOTE: A NORMAL MAMMOGRAM DOES NOT EXCLUDE THE POSSIBILITY OF BREAST CANCER. A CLINICALLY SUSPICIOUS PALPABLE LUMP SHOULD BE BIOPSIED. Dictated by: Josemanuel Sun MD on 11/30/2023 at 07:49 Approved by: Josemanuel Sun MD on 11/30/2023 at 07:51 Dictated By: Josemanuel Sun M.D. Signed By: 11/30/23 0753 DD/ 0752 TD/TT: Engineering Secretary: Procedure Note Radiology, Radiologist, - 11/30/2023 [place] [address] Mammography Report Signed Patient: DANA RICE FMR#: [id number] : 1960Acct:[id number] Age/Sex: 63 / FADM Date: 11/29/23 Loc: MAMMO Attending Dr: Bladimir Alvarez M.D. Ordering Physician: Bladimir Alvarez M.D.Results: Date of Service: 11/29/23Follow Up: Procedure(s): MM tomosynthesis screening BI Accession Number(s): [id number] cc: Bladimir Alvarez M.D. Patient Name: DANA RICE MR#: [id number] : 1960 Exam Date: 11/29/2023 Ordering Doctor: DR BLADIMIR ALVAREZ . RADIOLOGY REPORT PROCEDURE: MM TOMOSYNTHESIS SCREENING BI COMPARISON: MG MAMM SCREEN 3D ZACK CAD, 01/10/2022. INDICATIONS: screening Calculator Name NCI Breast Cancer Risk Assessment Tool 5 Year Breast Cancer Risk 1.90% Lifetime Breast Cancer Risk 8.10% Personal Breast Cancer No Personal Ovarian Cancer No Treatments None Family Cancers Aunt-maternal with breast cancer at age 65;Aunt-paternal with colon cancer at age 70. LOCATION: [facility] BREAST COMPOSITION: Scattered areas fibroglandular density. FINDINGS: DIAGNOSTIC CATEGORY 2--BENIGN FINDING. NO CHANGE FROM COMPARISON. Scattered benign-appearing nodules are present. Scatteredbenign-appearing calcifications are present. Scattered benign-appearing lymph nodes are present. RIGHT BREAST: No significant suspicious finding. LEFT BREAST: No significant suspicious finding. RECOMMENDATIONS: ROUTINE MAMMOGRAM AND CLINICAL EVALUATION IN 12 MONTHS. PLEASE NOTE: A NORMAL MAMMOGRAM DOES NOT EXCLUDE THE POSSIBILITY OFBREAST CANCER. A CLINICALLY SUSPICIOUS PALPABLE LUMP SHOULD BE BIOPSIED. Dictated by: Josemanuel Sun MD on 11/30/2023 at 07:49 Approved by: Josemanuel Sun MD on 11/30/2023 at 07:51 Dictated By: Josemanuel Sun M.D. Signed By:11/30/23 0753 DD/ 0752 TD/TT: Engineering Secretary: Bladimir Alvarez MD [facility] Final Result from Last 3 Months or Most Recently Relevant to Health Maintenance Insurance [employer] Care Teams Warp Changer Relationship Specialty Start Date End Date Bladimir Alvarez MD [address] [place] [phone] PCP - General Family Medicine 12/14/23 Bladimir Alvarez MD [address] [place] [address] PCP - Medical [place] [employer] 07/18/21 11/25/99
--- OUTSIDE RECORDS SUMMARY | 2025-06-04 16:04 | XMS_ITS | Clinical Summary ---
Author Organization [facility] Address [address] [place] [address] Care Team Providers Care Pulp Mill Team Leader Name Role Phone Unavailable Primary Care Provider Unavailabl e Social History Tobacco Use Types Packs/Day Years Used Date Smoking Tobacco: Never Assessed [place] Safety & Environment Answer Date Rec orded Fear of Current or Ex-Partner Not on file Emotionally Abused Not on file 01/17/2024 Physically Abused Not on file 01/17/2024 Sexually Abused Not on file 01/17/2024 Physically or Sexually Abused Not on file Comments Unknown Sex and Gender Information Value Date Recorded Sex Assigned at Not on file Legal Sex Female 8:12 AM EDT Gender Identity Not on file Sexual Orientation Not on file Plan of Treatment Health Maintenance Due Date Last Done Comments CT Colonography 1960 Colonoscopy 1960 Colorectal Cancer Screening 1960 FIT-DNA 1960 FIT 1960 FOBT 1960 Medicare Initial Physical (IPPE) 1960 Sigmoidoscopy 1960 Depression Screening 1972 Pap Smear 1981 Adult Tetanus 1982 Cervical Cancer Screening 1990 HPV/Cotest 1990 Mammogram 2000 Pneumococcal Vaccine: 50+ Ye ars (1 of 1 - PCV) 2010 Zoster Vaccines (1 of 2) 2010 COVID-19 Vaccine (2023-2 5 season) 2024 Fall Risk Screening 2025 Influenza Vaccine (#1) 2025 HIB Vaccines Aged Out No longer eligi ble based on patient's age to complete this topic HPV Vaccines Aged Out No longer eligi ble based on patient's age to complete this topic IPV Vaccines Aged Out No longer eligi ble based on patient's age to complete this topic Meningococcal B Vaccine Aged Out No l onger eligible based on patient's age to complete this topic Meningococcal Vaccine Aged Out No christie dominik eligible based on patient's age to complete this topic Rotavirus Vaccines Aged Out No longer eligible based on patient's age to complete this topic Insurance [employer]
--- OUTSIDE RECORDS SUMMARY | 2025-06-04 16:04 | XMS_ITS | Clinical Summary ---
Author Organization [employer] tem Address [id number] [address] [place] [address] Care Team Providers Care Car Trimmer Name Role Phone Bladimir Joy MD Primary Care Provider [phone] Allergies Active Allergy Reactions Criticality Noted Date Comments Adhesive Rash Low 09/02/2024 Medications hydroCHLOROthia zide (HYDRODIURIL) 25 mg tablet Take 1 tablet (25 mg total) by mouth daily. Active atorvastatin (LIPITOR) 40 mg tablet Take 1 tablet (40 mg total) by mouth in the morning. Active cetirizine (ZyrTEC) 10 mg tablet Take 1 tablet (10 mg total) by mouth in the morning. Active fluticasone propionate (FLONASE) 50 mcg/actuation nasal spray Administer 1 spray into each nostril in the morning. Active sucralfate (CARAFATE) 1 gram tablet Take 1 tablet (1 g total) by mouth in the morning and 1 tablet (1 g total) before bedtime. Active KRILL OIL ORAL Take by mouth daily. Active meloxicam (MOBIC) 7.5 mg tablet Take 1 tablet (7.5 mg total) by mouth in the morning. Active ascorbic acid, vitamin C, (VITAMIN C) 250 mg tablet Take 1 tablet (250 mg total) by mouth in the morning. Active [id number] A-calcium &mins (THERAGRAN-M) 9 mg iron-400 mcg tablet Take 1 tablet by mouth in the morning. Active cholecalciferol , vitamin D3, 2,000 units tablet Take by mouth daily. Active B complex-vitamin C-folic acid (NEPHROCAP) 1 mg capsule Take 1 capsule by mouth in the morning. Active NON FORMULARY daily. Amara's wart Active Family History Medical History Relation Name Comments Hypotension Father Stroke Father Hypertension Mother Relation Name Status [...] at Not on file Legal Sex Female 3:06 PM EDT Gender Identity Not on file Sexual Orientation Not on file Last Filed Vital Signs Vital Sign Reading Time Taken Comments Blood Pressure - - Pulse - - Temperature - - Respiratory Rate - - Oxygen Saturation - - Inhaled Oxygen Concentration - - Weight 86.2 kg (190 lb) 09/02/2024 2:17 PM EDT Height 167.6 cm (5' 6 ) 09/02/2024 2:17 PM EDT Body Mass Index 30.67 09/02/2024 2:17 PM EDT Plan of Treatment Health Maintenance Due Date Last Done Comments Depression Screening 1972 Adult BMI Follow Up Plan 1978 DTaP,Tdap and Td Vaccines (1 - Tdap) 1979 Zoster (Shingles) Vaccine (1 of 2) 2010 Fall Risk Screening 2025 Influenza Vaccine 07/27/2025 Adult BMI Screening 09/02/2025 09/02/2024 Tobacco Screening 10/08/2025 10/08/2024 Medical Devices Not on file Insurance [employer] Care Teams Car Trimmer Relationship Specialty Start Date End Date Bladimir Joy MD PCP - General Family Medicine 09/03/24
--- OUTSIDE RECORDS SUMMARY | 2025-06-04 16:05 | XMS_ITS | Encounter Summary ---
Author Organization [facility] Address [address] [place] [address] Care Team Providers Care Senior Technical Analyst Name Role Phone Bladimir Joy MD Primary Care Provider [phone] Bladimir Joy MD Primary Care Provider [phone] Bladimir Joy MD Unavailable Encounter Details Date Type Department Care Team (Late Contact Info) Description 11/23/2023 Clinisync Result Encounter [facility] External Department Unsolicited Provider, Generic External Data Social History Tobacco Use Types Packs/Day Years Used Date Smoking Tobacco: Never Assessed Comments Unknown Sex and Gender Information Value Date Recorded Sex Assigned at Not on file Legal Sex Female 7:18 PM EDT Gender Identity Not on file Sexual Orientation Not on file documented as of this encounter Plan of Treatment Upcoming Encounters Date Type Department Care Team (Late Contact Info) Description 09/10/2025 3:00 PM EDT [facility] [address] [place] [address] Bladimir Joy MD [address] [place] [address] documented as of this encounter Procedures Procedure Name Priority Date/Time Associated Diagnosis Comments CT ABDOMEN PELVIS W CON 11/23/2023 11:34 AM EST documented in this encounter Results * CT ABDOMEN PELVIS W CON (11/23/2023 11:34 AM EST) Anatomical Region Laterality Modality Other 11/23/2023 11:3 4 AM EST Narrative 11/23/2023 11:36 AM EST [address] [address] [address] Scan Report Signed Patient: DANA RICE MR#: [id number] : 1960 Acct:[id number] Age/Sex: 63 / F ADM Date: 11/23/23 Loc: LAB Attending Dr: ArielStaff Physician Hou Ordering Physician: Sade Howell M.D. Date of Service: 11/23/23 Procedure(s): CT abdomen pelvis w con Accession Number(s): [id number] cc: Bladimir Joy M.D. [address] [address] Patient Name: DANA RICE MRN: [id number] date: 1960 Sex: F Assigned Patient Location: LAB Current Patient Location: LAB Accession/Order Number: [id number] Exam Date: 11/23/2023 09:28 Report Date: 11/23/2023 11:34 At the request of: NON-STAFF PHYSICIAN Procedure: CT abdomen pelvis w con EXAMINATION: CT abdomen pelvis w con HISTORY: Generalized Abdominal Pain R10.84 COMPARISON: CT abdomen pelvis 03/16/2022 TECHNIQUE: Axial, Coronal, and Sagittal images were obtained without and/or with IV contrast as indicated by examination type. Dose reduction techniques were achieved by using automated exposure control and/or adjustment of mA and/or kV according to patient size and/or use of iterative reconstruction technique. FINDINGS: LUNG BASES: No visible pulmonary or pleural disease. LIVER: No enlargement, atrophy, suspicious density, or significant focal lesion. BILIARY: No dilatation or calcification. PANCREAS: No lesion, fluid collection, or abnormal duct dilatation. SPLEEN: No enlargement or focal lesion. ADRENALS: No mass or enlargement. KIDNEYS: Stable benign-appearing right renal cyst. No mass, obstruction, or calcification. BOWEL/MESENTERY: Normal appendix. A few diverticula arising from sigmoid colon without acute inflammatory changes. No visible mass, obstruction, or bowel wall thickening. AORTA/VASCULAR: No aneurysm or dissection. RETROPERITONEUM: No mass or adenopathy. LYMPH NODES: No adenopathy. URINARY BLADDER: No visible focal wall thickening, lesion, or calculus. PELVIC ORGANS: No visible mass. Pelvic organs appropriate for patient age. ABDOMINAL WALL: Small fat filled inguinal hernias bilaterally without strangulation. BONES: No bony lesion or fracture. OTHER: Negative. CT/CT abdomen pelvis w con IMPRESSION: 1. No abnormal or suspicious findings to account for patient's symptoms. Electronically authenticated by: SALEEM MANDEL Date: 11/23/2023 11:34 Dictated By: Saleem Mandel M.D. Signed By: 11/23/23 1136 DD/ 1134 TD/TT: Sap Bw Bi Developer: Procedure Note Radiology, Radiologist, - 11/23/2023 [place] [address] CT Scan Report Signed Patient: DANA RICE FMR#: [id number] : 1960Acct:[id number] Age/Sex: 63 / FADM Date: 11/23/23 Loc: LAB Attending Dr: Non-Staff Physician Savi Ordering Physician: Sade Howell M.D. Date of Service: 11/23/23 Procedure(s): CT abdomen pelvis w con Accession Number(s): [id number] cc: Bladimir Joy M.D. [place] [address] Patient Name: DANA RICE MRN: [id number] date: 1960 Sex: F Assigned Patient Location: LAB Current Patient Location: LAB Accession/Order Number: [id number] Exam Date: 11/23/2023 09:28 Report Date: 11/23/2023 11:34 At the request of: NON-STAFF PHYSICIAN Procedure: CT abdomen pelvis w con EXAMINATION: CT abdomen pelvis w con HISTORY: Generalized Abdominal Pain R10.84 COMPARISON: CT abdomen pelvis 03/16/2022 TECHNIQUE: Axial, Coronal, and Sagittal images were obtained withoutand/or with IV contrast as indicated by examination type. Dose reductiontechniques were achieved by using automated exposure control and/or adjustment of mA and/or kV according to patient size and/or use of iterative reconstruction technique. FINDINGS: LUNG BASES: No visible pulmonary or pleural disease. LIVER: No enlargement, atrophy, suspicious density, or significant focal lesion. BILIARY: No dilatation or calcification. PANCREAS: No lesion, fluid collection, or abnormal duct dilatation. SPLEEN: No enlargement or focal lesion. ADRENALS: No mass or enlargement. KIDNEYS: Stable benign-appearing right renal cyst. No mass, obstruction,or calcification. BOWEL/MESENTERY: Normal appendix. A few diverticula arising from sigmoidcolon without acute inflammatory changes. No visible mass, obstruction, or bowel wall thickening. AORTA/VASCULAR: No aneurysm or dissection. RETROPERITONEUM: No mass or adenopathy. LYMPH NODES: No adenopathy. URINARY BLADDER: No visible focal wall thickening, lesion, or calculus. PELVIC ORGANS: No visible mass. Pelvic organs appropriate for patient age. ABDOMINAL WALL: Small fat filled inguinal hernias bilaterally without strangulation. BONES: No bony lesion or fracture. OTHER: Negative. CT/CT abdomen pelvis w con IMPRESSION: 1. No abnormal or suspicious findings to account for patient's symptoms. Electronically authenticated by: SALEEM MANDEL Date: 11/23/2023 11:34 Dictated By: Saleem Mandel M.D. Signed By:11/23/23 1136 DD/ 1134 TD/TT: Sap Bw Bi Developer: Generic External Data Provider [facility] Final Result documented in this encounter Visit Diagnoses Not on filedocumented in this encounter Care Teams Senior Technical Analyst Relationship Specialty Start Date End Date Bladimir Joy MD PCP - General Family Medicine 05/22/23 12/13/23 Bladimir Joy MD [address] [place] [address] PCP - General Family Medicine 12/14/23 Bladimir Joy MD [address] [place] [address] PCP - Medical [place] [employer] 07/18/21 11/25/99 documented as of this encounter
--- OUTSIDE RECORDS SUMMARY | 2025-06-04 16:05 | XMS_ITS | Patient Health Record ---
Author Organization [facility] in [place] Address [address] [place] [address] Care Team Providers Care School Psychometrist Name Role Phone Bladimir Joy MD Primary Care Provider Unavailab le Allergies No Known Allergies Reason For Referral No Information Medications Medication SIG (Take, Route, Frequency, Duration) Notes Start Date End Date Status Meloxicam 15 MG 1 tablet Orally Once a day for 30 days 05/01/2024 Active Meloxicam 15 MG 1 tablet Orally Once a day for 30 days Do not take if taking ibuprofen 03/19/2024 Active Meloxicam 15 MG 1 tablet Orally Once a day for 30 day(s) 03/18/2024 Active Sucralfate 1 GM Oral for 90 Days Active Atorvastatin Calcium 40 MG 1 tablet Oral ly Once a day Active hydroCHLOROthiazide 25 MG Oral for 90 Days Active Fluticasone Propionate 50 MCG/ACT Nasal for 30 Days Active Social History Tobacco Use: Social History Observation Description Date Details (start date - stop date) Never Smoker NA - NA Tobacco Control (Standard) Question Answer Notes Tobacco use: Nonsmoker Problems Problem Type SNOMED Code ICD Code Onset Dates Problem Status W/U Status Risk Notes Problem 414705852896108 Flat foot [pes planus] (acquired), left foot (M21.42) Active confirmed Problem 0622892014946439 Posterior tibial tendinitis, left leg (M76.822) Active confirmed Problem Arthritis (7686108) Arthritis (M19.90) Active confirmed Problem Arthralgia of the ankle and/or foot (804550523) Ankle pain, left (M25.572) Active confirmed Problem Heart disease (72443895) Heart disease (I51.9) Active confirmed Problem Pain in left foot (678082752180535) Left foot pain (M79.672) Active confirmed Plan Of Treatment No Information Insurance Providers Payer Name Payer Address Payer Phone Subscriber Number Group Number Insured Name Patient Relationship to Insured Coverage Start Date Coverage End Date MMO [address] [place], [place] [id number] Dana Whitlock Self - patient is the insured Medical (General) History Medical History History ICD Code Heart disease I51.9 Arthritis M19.90 Surgical History Surgery Date(Month/Year) hysterectomy 2020
--- OUTSIDE RECORDS SUMMARY | 2025-06-04 16:05 | XMS_ITS | Encounter Summary ---
Author Organization [facility] Address [address] [place] [address] Care Team Providers Care Source Inspector Name Role Phone Bladimir Joy MD Primary Care Provider [phone] Bladimir Joy MD Primary Care Provider [phone] Bladimir Joy MD Unavailable Reason for Visit * Reason Comments Med Refill Encounter Details Date Type Department Care Team (Late Contact Info) Description 11/01/2023 Refill [facility] [address] [place] [address] Bladimir Joy MD [address] [place] [address] Seasonal allergic rhinitis due to pollen (Primary Dx); Benign essential hypertension Social History Tobacco Use Types Packs/Day Years Used Date Smoking Tobacco: Never Assessed Comments Unknown Sex and Gender Information Value Date Recorded Sex Assigned at Not on file Legal Sex Female 7:18 PM EDT Gender Identity Not on file Sexual Orientation Not on file documented as of this encounter Plan of Treatment Upcoming Encounters Date Type Department Care Team ([facility] Contact Info) Description 09/10/2025 3:00 PM EDT Office Visit [facility] [address] [place] [address] Bladimir Joy MD [address] [place] [address] documented as of this encounter Visit Diagnoses Diagnosis Seasonal allergic rhinitis due to pollen- Primary Benign essential hypertension Essential hypertension, benign documented in this encounter Care Teams Source Inspector Relationship Specialty Start Date End Date Bladimir Joy MD PCP - General Family Medicine 05/22/23 12/13/23 Bladimir Joy MD [address] [place] [address] PCP - General Family Medicine 12/14/23 Bladimir Joy MD [address] [place] [address] PCP - Medical [place] [employer] 07/18/21 11/25/99 documented as of this encounter
--- OUTSIDE RECORDS SUMMARY | 2025-06-04 16:05 | XMS_ITS | Encounter Summary ---
Author Organization [facility] Address [address] [place] [address] Care Team Providers Care Sole Stapler Welt Name Role Phone Bladimir Joy MD Primary Care Provider [phone] Bladimir Joy MD Unavailable Encounter Details Date Type Department Care Team (Late st Contact Info) Description 03/18/2024 Clinisync Result Encounter [facility] External Department Unsolicited [...] week 12/31/2023 How often do you attend [facility] or zoroastrianism services? More than 4 times per year 12/31/2023 Do you belong to any clubs o r organizations such as hindu groups, unions, fraternal or athletic groups, or [...] medical care, and heating? Somewhat hard 12/31/2023 [facility] - Occupational Stress Questionnaire Answer Date Recorded [...] place to sleep or slept in a jail (including now)? No 12/31/2023 Comments Unknown Sex [...] Office Visit [facility] [address] [place] [address] Bladimir Joy MD [address] [place] [address] documented as of this encounter Procedures Procedure Name Priority Date/Time Associated Diagnosis Comments XR FOOT LT MIN 3V 03/18/2024 4:1 7 PM EDT documented in this encounter Results * XR FOOT LT MIN 3V (03/18/2024 4:17 PM EDT) Anatomical Region Laterality Modality Other 03/18/2024 4:17 PM EDT Narrative 03/18/2024 4:20 PM EDT The [address] [address] XRay Report Signed Patient: DANA RICE MR#: [id number] : 1960 Acct:[id number] Age/Sex: 63 / F ADM Date: 03/18/24 Loc: EC Attending Dr: Sha Iniguez D.P.M. Ordering Physician: Sha Iniguez D.P.M. Date of Service: 03/18/24 Procedure(s): XR foot LT min 3V Accession Number(s): [id number] cc: Sha Iniguez D.P.M.; Bladimir Joy M.D. The [place] [id number] Patient Name: DAAN RICE MRN: [id number] date: 1960 Sex: F Assigned Patient Location: Current Patient Location: Accession/Order Number: [id number] Exam Date: 03/18/2024 15:33 Report Date: 03/18/2024 16:17 At the request of: SHA INIGUEZ Procedure: XR foot LT min 3V PROCEDURE: XR foot LT min 3V, XR ankle LT min 3V COMPARISON: 03/18/2024 HISTORY: LEFT FOOT PAIN FINDINGS: BONES:No acute fracture or dislocation of the foot or ankle. Moderate enthesopathic spurring of the calcaneus at the Achilles and plantar insertions. Moderate degenerative changes of the midfoot with joint space narrowing marginal osteophyte formation. SOFT TISSUES:Negative. No visible soft tissue swelling. EFFUSION:None visible. OTHER: Negative. 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 Signed By: 03/18/24 1620 DD/ 1617 TD/TT: Product Safety Head: Procedure Note Radiology, Radiologist, MD - 03/19/2024 [place] [address] XRay Report Signed Patient: DANA RICE FMR#: [id number] : 1960Acct:[id number] Age/Sex: 63 / FADM Date: 03/18/24 Loc: EC Attending Dr: Sha Iniguez D.P.M. Ordering Physician: Sha Iniguez D.P.M. Date of Service: 03/18/24 Procedure(s): XR foot LT min 3V Accession Number(s): [id number] cc: Sha Iniguez D.P.M.; Bladimir Joy M.D. The [place] [id number] Patient Name: DANA RICE MRN: [id number] date: 1960 Sex: F Assigned Patient Location: Current Patient Location: Accession/Order Number: [id number] Exam Date: 03/18/2024 15:33 Report Date: 03/18/2024 16:17 At the request of: SHA INIGUEZ Procedure: XR foot LT min 3V PROCEDURE: XR foot LT min 3V, XR ankle LT min 3V COMPARISON: 03/18/2024 HISTORY: LEFT FOOT PAIN FINDINGS: BONES:No acute fracture or dislocation of the foot or ankle. Moderate enthesopathic spurring of the calcaneus at the Achilles and plantar insertions. Moderate degenerative changes of the midfoot with joint space narrowing marginal osteophyte formation. SOFT TISSUES:Negative. No visible soft tissue swelling. EFFUSION:None visible. OTHER: Negative. 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 Signed By:03/18/24 1620 DD/ 1617 TD/TT: Product Safety Head: Generic External Data Provider [facility] Final Result documented in this encounter Visit Diagnoses Not on filedocumented in this encounter Care Teams Sole Stapler Welt Relationship Specialty Start Date End Date Bladimir Joy MD [address] [place] [address] PCP - General Family Medicine 12/14/23 Bladimir Joy MD [address] [place] [address] PCP - Medical [place] [employer] 07/18/21 11/25/99 documented as of this encounter
--- OUTSIDE RECORDS SUMMARY | 2025-06-04 16:05 | XMS_ITS | Encounter Summary ---
Author Organization [facility] Address [address] [place] [address] Care Team Providers Care Flight Engineer Name Role Phone Bladimir Joy MD Primary Care Provider [phone] Bladimir Joy MD Unavailable Encounter Details Date Type Department Care Team (Late st Contact Info) Description 01/24/2024 Orders Only [facility] [address] [place] [address] Bladimir Joy MD [address] [place] [address] Social History Tobacco Use Types Packs/Day Years [...] often do you attend chur ch or gnosticist services? More than 4 times per year 12/31/2023 Do you belong to any clubs o r organizations such as jainism groups, unions, fraternal or athletic groups, or [...] medical care, and heating? Somewhat hard 12/31/2023 [facility] - [...] place to sleep or slept in a assisted (including now)? No 12/31/2023 Comments Unknown Sex [...] Office Visit [facility] [address] [place] [address] Bladimir Joy MD [address] [place] [address] documented as of this encounter Visit Diagnoses Not on filedocumented in this encounter Care Teams Flight Engineer Relationship Specialty Start Date End Date Bladimir Joy MD [address] [place] [address] PCP - General Family Medicine 12/14/23 Bladimir Joy MD [address] [place] [address] PCP - Medical [place] [employer] 07/18/21 11/25/99 documented as of this encounter
--- OUTSIDE RECORDS SUMMARY | 2025-06-04 16:05 | XMS_ITS | Encounter Summary ---
Author Organization [facility] Address [address] [place] [address] Care Team Providers Care Carrier Operator Name Role Phone Bladimir Joy MD Primary Care Provider [phone] Bladimir Joy MD Unavailable Encounter Details Date [...] week 12/31/2023 How often do you attend [facility] or latter day services? More than 4 times per year 12/31/2023 Do you belong to any clubs o r organizations such as denominational groups, unions, fraternal or athletic groups, or [...] hard 12/31/2023 [facility] - Occupational Stress Questionnaire Answer Date Recorded [...] Office Visit [facility] [address] [place] [address] Bladimir Joy MD [address] [place] [address] documented as of this encounter Procedures Procedure Name Priority Date/Time Associated Diagnosis Comments XR ANKLE LT MIN 3V 03/18/2024 4: 17 PM EDT documented in this encounter Results * XR ANKLE LT MIN 3V (03/18/2024 4:17 PM EDT) Anatomical Region Laterality Modality Other 03/18/2024 4:17 PM EDT Narrative 03/18/2024 4:20 PM EDT The [address] [address] XRay Report Signed Patient: DANA RICE MR#: [id number] : 1960 Acct:[id number] Age/Sex: 63 / F ADM Date: 03/18/24 Loc: EC Attending Dr: Sha Iniguez D.P.M. Ordering Physician: Sha Iniguez D.P.M. Date of Service: 03/18/24 Procedure(s): XR ankle LT min 3V Accession Number(s): [id number] cc: Sha Iniguez D.P.M.; Bladimir Joy M.D. The [place] [id number] Patient Name: DANA RICE MRN: [id number] date: 1960 Sex: F Assigned Patient Location: Current Patient Location: Accession/Order Number: [id number] Exam Date: 03/18/2024 15:32 Report Date: 03/18/2024 16:17 At the request of: SHA INIGUEZ Procedure: XR ankle LT min 3V PROCEDURE: XR foot LT [...] tissue swelling. EFFUSION:None visible. OTHER: Negative. 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 Signed By: 03/18/24 1620 DD/ 1617 TD/TT: Keyboard Specialist: Procedure Note Radiology, Radiologist, MD - 03/19/2024 [place] [address] XRay Report Signed Patient: DANA RICE FMR#: [id number] : 1960Acct:[id number] Age/Sex: 63 / FADM Date: 03/18/24 Loc: EC Attending Dr: Sha Iniguez D.P.M. Ordering Physician: Sha Iniguez D.P.M. Date of Service: 03/18/24 Procedure(s): XR ankle LT min 3V Accession Number(s): [id number] cc: Sha Iniguez D.P.M.; Bladimir Joy M.D. The [place] [id number] Patient Name: DANA RICE MRN: [id number] date: 1960 Sex: F Assigned Patient Location: Current Patient Location: Accession/Order Number: [id number] Exam Date: 03/18/2024 15:32 Report Date: 03/18/2024 16:17 At the request of: SHA INIGUEZ Procedure: XR ankle LT min 3V PROCEDURE: XR foot LT [...] tissue swelling. EFFUSION:None visible. OTHER: Negative. 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 Signed By:03/18/24 1620 DD/ 1617 TD/TT: Keyboard Specialist: Generic External Data Provider [facility] Final Result documented in this encounter Visit Diagnoses Not on filedocumented in this encounter Care Teams Carrier Operator Relationship Specialty Start Date End Date Bladimir Joy MD [address] [place] [address] PCP - General Family Medicine 12/14/23 Bladimir Joy MD [address] [place] [address] PCP - Medical [place] [employer] 07/18/21 11/25/99 documented as of this encounter
--- OUTSIDE RECORDS SUMMARY | 2025-06-04 16:05 | XMS_ITS | Encounter Summary ---
Author Organization [facility] Address [address] [place] [address] Care Team Providers Care Qm Consultant Name Role Phone Bladimir Alvarez MD Primary Care Provider [phone] Bladimir Alvarez MD Unavailable Encounter Details Date Type Department Care Team (Late st Contact Info) Description 01/23/2024 Clinisync Result Encounter [facility] External Department Unsolicited Bladimir Alvarez MD [address] [place] [phone] Social History Tobacco Use Types Packs/Day Years [...] often do you attend chur ch or moravian services? More than 4 times per year 12/31/2023 Do you belong to any clubs o r organizations such as rastafarian groups, unions, fraternal or athletic groups, or [...] medical care, and heating? Somewhat hard 12/31/2023 [facility] - Occupational [...] Office Visit [facility] [address] [place] [address] Bladimir Alvarez MD [address] [place] [address] documented as of this encounter Procedures Procedure Name Priority Date/Time Associated Diagnosis Comments CA ECHO DOPPLER COMPLETE 01/23/2024 3:51 PM EST documented in this encounter Results * CA ECHO DOPPLER COMPLETE (01/23/2024 3:51 PM EST) Anatomical Region Laterality Modality Other 01/23/2024 3:5 1 PM EST Narrative 01/23/2024 3:52 [place] [address] Cardiology Report Signed Patient: DANA RICE MR#: [id number] : 1960 Acct:[id number] Age/Sex: 63 / F ADM Date: 01/22/24 Loc: CARD Attending Dr: Bladimir Alvarez M.D. Ordering Physician: Bladimir Alvarez M.D. Date of Service: 01/22/24 Procedure(s): CA echo doppler complete Accession Number(s): [id number] cc: Bladimir Alvarez M.D. Patient Name: DANA RICE MR#: [id number] : 1960 Exam Date: 01/22/2024 Ordering Doctor: DR BLADIMIR ALVAREZ . ECHOCARDIOGRAM REPORT PROCEDURE: CA ECHO DOPPLER COMPLETE INDICATIONS: Chronic CHF COMPARISON: None. DESCRIPTION: COMPLETE ECHOCARDIOGRAM Real-time transthoracic echocardiography with 2D, M-mode, spectral and color flow Doppler performed. QUALITY: Technical quality was good. LEFT VENTRICLE: Normal chamber size. Moderately increased left ventricular wall thickness. LV EF: Global left ventricular systolic function is normal; visually estimated ejection fraction is 55%. No obvious wall motion abnormalities. DIASTOLIC: Grade 2, moderate diastolic dysfunction. ATRIAL SEPTUM: Visually appears intact. LEFT ATRIUM: Severe dilatation. RIGHT ATRIUM: Normal chamber size. RIGHT VENTRICLE: Normal chamber size. Normal right ventricular systolic function. TRICUSPID VALVE: Normal mobility and thickness. No stenosis with mild regurgitation. No evidence of pulmonary hypertension. RVSP 33mmHg MITRAL VALVE: Mildly thickened with normal mobility. No evidence of mitral valve stenosis. There is no mitral annular calcification. Trivial mitral regurgitation. AORTIC VALVE: Normal trileaflet appearance. Thickened aortic valve. Normal leaflet mobility. No evidence of aortic valve stenosis. Mild to moderate aortic regurgitation. AORTIC ROOT: Normal diameter and appearance. PULMONIC VALVE: Normal thickness and mobility. No stenosis. Trivial regurgitation. PERICARDIUM: Anterior free space; trivial effusion versus fat pad. IVC: Collapses with inspirations. Normal size. CONCLUSION: 1. Global left ventricular systolic function is normal; visually estimated ejection fraction is 55% 2. Normal right ventricular size and systolic function 3. Moderately increased left ventricular wall thickness 4. The left atrium is dilated 5. Grade 2, moderate diastolic dysfunction 6. Mild tricuspid regurgitation 7. Mild to moderate aortic valve regurgitation 8. Anterior free space; trivial effusion versus fat pad Adult Echocardiography Procedure Report Left Ventricle LVEDD (3.7 - 5.6 cm): 5.40 cm LVESD (2.2 - 4.0 cm): 3.84 cm LVIVS thickness (0.6 - 1.2 cm): 1.32 cm LVPW thickness (0.5 - 1.0 cm): 1.15 cm e': 0.06 m/s E - e': 14.33 LVOT Max Gradient: 3.52 mm[Hg] LVOT Area (cm2): 0.94 m/s Peak Velocity (LVOT): 0.94 m/s Mean Velocity (LVOT): 0.62 m/s LVOT Diameter 2.06 cm Left Ventricular Ejection Fraction: 54.30 % Left Atrium LA Volume Index (2D A2C): 55.25 ml/m2 Left Atrium Systolic Dimension: 3.74 cm Mitral Valve MV E to A Ratio: 0.78 Mitral Valve A-Wave Peak Velocity: 1.14 m/s Mitral Valve E-Wave Peak Velocity: 0.89 m/s Right Ventricle RV Internal Diastolic Dimension: 3.09 cm Aorta AO Root Diam: 3.15 cm Ascending Ao Diam: 3.37 cm Aortic Valve AoV Area (Peak Gonzalez): 1.77 cm2, 1.77 cm2 AoV Area (VTI): 1.63 cm2, 1.63 cm2 Deceleration [place]: 2.35 m/s2 Pressure Half-Time: 526.52 ms Peak Velocity(Antegrade Flow): 1.76 m/s Peak Gradient(Antegrade Flow): 12.39 mm[Hg] Mean Velocity(Antegrade Flow): 1.12 m/s Mean Gradient(Antegrade Flow): 6.33 mm[Hg] Velocity Time Integral: 41.00 cm Tricuspid Valve Peak Velocity (Regurgitant Flow): 1.87 m/s, 2.08 m/s, 2.77 m/s Pulmonic Valve Mean Gradient: 4.00 mm[Hg], 4.20 mm[Hg] Mean Velocity: 0.92 m/s, 0.92 m/s Peak Velocity: 1.55 m/s Peak Gradient: 9.57 mm[Hg], 9.57 mm[Hg] Right Atrium Right Atrium Systolic Pressure: 31.76 ml, 31.76 ml Dictated by: Trisha Hansen M.D. on 01/23/2024 at 15:46 Approved by: Trisha Hansen M.D. on 01/23/2024 at 15:51 Dictated By: Trisha Hansen M.D. Signed By: 01/23/24 1552 DD/ 155 TD/TT: Community Board Member: Procedure Note Radiology, Radiologist, MD - 01/24/2024 [place] [address] Cardiology Report Signed Patient: DANA RICE FMR#: [id number] : 1960Acct:[id number] Age/Sex: 63 / FADM Date: 01/22/24 Loc: CARD Attending Dr: Bladimir Alvarez M.D. Ordering Physician: Bladimir Alvarez M.D. Date of Service: 01/22/24 Procedure(s): CA echo doppler complete Accession Number(s): [id number] cc: Bladimir Alvarez M.D. Patient Name: DANA RICE MR#: [id number] : 1960 Exam Date: 01/22/2024 Ordering Doctor: DR BLADIMIR ALVAREZ . ECHOCARDIOGRAM REPORT PROCEDURE: CA ECHO DOPPLER COMPLETE INDICATIONS: Chronic CHF COMPARISON: None. DESCRIPTION: COMPLETE ECHOCARDIOGRAM Real-time transthoracic echocardiography with 2D, M-mode, spectral and color flow Dopplerperformed. QUALITY: Technical quality was good. LEFT VENTRICLE: Normal chamber size. Moderately increased left ventricular wall thickness. LV EF: Global left ventricular systolic function is normal; visually estimated ejection fraction is 55%. No obvious wall motion abnormalities. DIASTOLIC: Grade 2, moderate diastolic dysfunction. ATRIAL SEPTUM: Visually appears intact. LEFT ATRIUM: Severe dilatation. RIGHT ATRIUM: Normal chamber size. RIGHT VENTRICLE: Normal chamber size. Normal right ventricularsystolic function. TRICUSPID VALVE: Normal mobility and thickness. No stenosis with mild regurgitation. No evidence of pulmonary hypertension. RVSP 33mmHg MITRAL VALVE: Mildly thickened with normal mobility. No evidence of mitral valve stenosis. There is no mitral annular calcification. Trivial mitral regurgitation. AORTIC VALVE: Normal trileaflet appearance. Thickened aortic valve. Normal leaflet mobility. No evidence of aortic valve stenosis. Mild to moderate aortic regurgitation. AORTIC ROOT: Normal diameter and appearance. PULMONIC VALVE: Normal thickness and mobility. No stenosis. Trivial regurgitation. PERICARDIUM: Anterior free space; trivial effusion versus fat pad. IVC: Collapses with inspirations. Normal size. CONCLUSION: 1. Global left ventricular systolic function is normal; visually estimated ejection fraction is 55% 2. Normal right ventricular size and systolic function 3. Moderately increased left ventricular wall thickness 4. The left atrium is dilated 5. Grade 2, moderate diastolic dysfunction 6. Mild tricuspid regurgitation 7. Mild to moderate aortic valve regurgitation 8. Anterior free space; trivial effusion versus fat pad Adult Echocardiography Procedure Report Left Ventricle LVEDD (3.7 - 5.6 cm): 5.40 cm LVESD (2.2 - 4.0 cm): 3.84 cm LVIVS thickness (0.6 - 1.2 cm): 1.32 cm LVPW thickness (0.5 - 1.0 cm): 1.15 cm e': 0.06 m/s E - e': 14.33 LVOT Max Gradient: 3.52 mm[Hg] LVOT Area (cm2): 0.94 m/s Peak Velocity (LVOT): 0.94 m/s Mean Velocity (LVOT): 0.62 m/s LVOT Diameter 2.06 cm Left Ventricular Ejection Fraction: 54.30 % Left Atrium LA Volume Index (2D A2C): 55.25 ml/m2 Left Atrium Systolic Dimension: 3.74 cm Mitral Valve MV E to A Ratio: 0.78 Mitral Valve A-Wave Peak Velocity: 1.14 m/s Mitral Valve E-Wave Peak Velocity: 0.89 m/s Right Ventricle RV Internal Diastolic Dimension: 3.09 cm Aorta AO Root Diam: 3.15 cm Ascending Ao Diam: 3.37 cm Aortic Valve AoV Area (Peak Gonzalez): 1.77 cm2, 1.77 cm2 AoV Area (VTI): 1.63 cm2, 1.63 cm2 Deceleration [place]: 2.35 m/s2 Pressure Half-Time: 526.52 ms Peak Velocity(Antegrade Flow): 1.76 m/s Peak Gradient(Antegrade Flow): 12.39 mm[Hg] Mean Velocity(Antegrade Flow): 1.12 m/s Mean Gradient(Antegrade Flow): 6.33 mm[Hg] Velocity Time Integral: 41.00 cm Tricuspid Valve Peak Velocity (Regurgitant Flow): 1.87 m/s, 2.08 m/s, 2.77 m/s Pulmonic Valve Mean Gradient: 4.00 mm[Hg], 4.20 mm[Hg] Mean Velocity: 0.92 m/s, 0.92 m/s Peak Velocity: 1.55 m/s Peak Gradient: 9.57 mm[Hg], 9.57 mm[Hg] Right Atrium Right Atrium Systolic Pressure: 31.76 ml, 31.76 ml Dictated by: Trisha Hansen M.D. on 01/23/2024 at 15:46 Approved by: Trisha Hansen M.D. on 01/23/2024 at 15:51 Dictated By: Trisha Hansen M.D. Signed By:01/23/24 1552 DD/ 1551 TD/TT: Community Board Member: Bladimir Alvarez MD [facility] Final Result documented in this encounter Visit Diagnoses Not on filedocumented in this encounter Care Teams Qm Consultant Relationship Specialty Start Date End Date Bladimir Alvarez MD [address] [place] [address] PCP - General Family Medicine 12/14/23 Bladimir Alvarez MD [address] [place] [address] PCP - Medical [place] [employer] 07/18/21 11/25/99 documented as of this encounter
--- OUTSIDE RECORDS SUMMARY | 2025-06-04 16:05 | XMS_ITS | Encounter Summary ---
Author Organization [facility] Address [address] [place] [address] Care Team Providers Care Accountant Assistant Name Role Phone Bladimir Alvarez MD Primary Care Provider [phone] Bladimir Alvarez MD Primary Care Provider [phone] Bladimir Alvarez MD Unavailable Encounter Details Date Type Department Care Team (Late Contact Info) Description 11/30/2023 Clinisync Result Encounter [facility] Unsolicited Bladimir Alvarez MD [address] [place] [id number] Social History Tobacco Use Types Packs/Day Years [...] Office Visit [facility] [address] [place] [address] Bladimir Alvarez MD [address] [place] [id number] documented as of this encounter Procedures Procedure Name Priority Date/Time Associated Diagnosis Comments MM TOMOSYNTHESIS SCREENING BI 11/30/2023 7:52 AM EST documented in this encounter Results * MM TOMOSYNTHESIS SCREENING BI (11/30/2023 7:52 AM EST) Anatomical Region Laterality Modality Other 11/30/2023 7:52 AM EST Narrative 11/30/2023 7:53 [place] [address] Mammography Report Signed Patient: DANA RICE MR#: [id number] : 1960 Acct:[id number] Age/Sex: 63 / F ADM Date: 11/29/23 Loc: MAMMO Attending Dr: Bladimir Alvarez M.D. Ordering Physician: Bladimir Alvarez M.D. Results: Date of Service: 11/29/23 Follow Up: Procedure(s): MM tomosynthesis screening BI Accession Number(s): [id number] cc: Bladimir Alvarez M.D. Patient Name: DANA RICE MR#: [id number] : 1960 Exam Date: 11/29/2023 Ordering Doctor: [...] colon cancer at age 70. LOCATION: [facility] BREAST COMPOSITION: Scattered areas fibroglandular density. [...] Sun M.D. Signed By: 11/30/23 0753 DD/ 075 TD/TT: Flight Crew Ordnanceman: Procedure Note Radiology, Radiologist, - 11/30/2023 [place] [address] Mammography Report Signed Patient: DANA RICE FMR#: [id number] : 1960Acct:[id number] Age/Sex: 63 / FADM Date: 11/29/23 Loc: MAMMO Attending Dr: Bladimir Alvarez M.D. Ordering Physician: Bladimir Alvarez M.D.Results: Date of Service: 11/29/23Follow Up: Procedure(s): MM tomosynthesis screening BI Accession Number(s): [id number] cc: Bladimir Alvarez M.D. Patient Name: DANA RICE MR#: [id number] : 1960 Exam Date: 11/29/2023 Ordering Doctor: [...] colon cancer at age 70. LOCATION: [facility] BREAST COMPOSITION: Scattered areas fibroglandular density. [...] M.D. Signed By:11/30/23 0753 DD/ 0752 TD/TT: Flight Crew Ordnanceman: Bladimir Alvarez MD [facility] Final Result documented in this encounter Visit Diagnoses Not on filedocumented in this encounter Care Teams Accountant Assistant Relationship Specialty Start Date End Date Bladimir Alvarez MD PCP - General Family Medicine 05/22/23 12/13/23 Bladimir Alvarez MD [address] [place] [address] PCP - General Family Medicine 12/14/23 Bladimir Alvarez MD [address] [place] [address] PCP - Medical [place] [employer] 07/18/21 11/25/99 documented as of this encounter
--- NOTE | 2025-06-04 16:40 | MM_ITS ---
Patient Name: TATY RICE MR#: [id number] : 1960 Exam Date: 06/04/2025 Ordering Doctor: DR NANCY ALVAREZ . RADIOLOGY REPORT PROCEDURE: MM TOMOSYNTHESIS SCREENING BI COMPARISON: MM TOMOSYNTHESIS SCREENING BI, 11/29/2023. MG MAMM SCREEN 3D ZACK CAD, 01/10/2022. INDICATIONS: Screening Calculator Name NCI Breast Cancer Risk Assessment Tool 5 Year Breast Cancer Risk 2.00% Lifetime Breast Cancer Risk 7.60% Personal Breast Cancer No Personal Ovarian Cancer Yes, Age 61 Treatments Complete hysterectomy & radiation Family Cancers Aunt-maternal with breast cancer at age 65; Aunt-paternal with colon cancer at age 70. LOCATION: [facility] BREAST COMPOSITION: There are scattered areas of fibroglandular density. FINDINGS: RIGHT BREAST: No significant suspicious finding. LEFT BREAST: No significant suspicious finding. DIAGNOSTIC CATEGORY 1--NEGATIVE. RECOMMENDATIONS: ROUTINE MAMMOGRAM AND CLINICAL EVALUATION IN 12 MONTHS. PLEASE NOTE: A NORMAL MAMMOGRAM DOES NOT EXCLUDE THE POSSIBILITY OF BREAST CANCER. A CLINICALLY SUSPICIOUS PALPABLE LUMP SHOULD BE BIOPSIED. Dictated by: Kenji Chen DO on 06/04/2025 at 16:52 Approved by: Kenji Chen DO on 06/04/2025 at 16:53
== END 2025-06-04 16:03 | disposition home or self-care (01) ==
LOC: MAMMO 16:02
PROVIDERS: PCP Family Medicine; Visit Provider Family Medicine
DX: Z12.31 Encounter for screening mammogram for malignant neoplasm of breast (principal); Z80.3 Family history of malignant neoplasm of breast; Z80.0 Family history of malignant neoplasm of digestive organs
CPT/HCPCS: 77063; 77067